=== PATIENT | male | born 1940 | race Caucasian/White ===

== ENCOUNTER 2024-12-22 19:39 | Inpatient (IN) | payer MEDICARE, MEDICAID, SELFPAY ==
--- NOTE | ~2024-12-22 | CT_ITS ---
History: Altered mental status PROCEDURE: CT head without contrast. COMPARISON: None TECHNIQUE: Axial imaging of the head performed from the skull base to the vertex without IV contrast. Sagittal a nd coronal reformations obtained. DLP: 681 mGy-cm FINDINGS: The ventricles are enlarged. The dilatation of the ventricles is proportional to the degree of sulcal prominence, not uncommon in the senescent brain. Bulky calcifications within the basal ganglia, a nonspecific finding. Decreased attenuation is identified within the periventricular white matter, likely secondary to micr ovascular ischemic disease, in a patient of this age. There is no mass, mass effect or midline shift. There is no abnormal extra-axial fluid collection or intracranial hemorrhage. Visualized paranasal sinuses are clear. The mastoid air cells are well aerated. No acute displaced fractures within the overlying cranium. Impression: No acute intracranial hemorrhage or suspicious mass effect. Reviewed, dictated and finalized at location A. Impression: No acute intracranial hemorrhage or suspicious mass effect.
--- NOTE | ~2024-12-22 | XR_ITS ---
CHEST RADIOGRAPH CLINICAL HISTORY: AMS . COMPARISON: None available TECHNIQUE: Single portable view of the chest. FINDINGS The left mid lung is partially obscured due to AICD generator. Wires project over the right atrium, coronary sinus and right ventricle. The remainder of the cardiomediastinal silhouette is otherwise unremarkable. Increased interstitial markings are identified bilaterally, findings suggesting mild pulmonary vascul ar congestion. The lungs are otherwise clear. IMPRESSION: Mild pulmonary vascular congestion, without focal infiltrate or effusion. Reviewed, dictated and finalized at location A.
--- NOTE | ~2024-12-22 | CT_ITS ---
EXAMINATION: CT chst ab pel thor lum w DATE: 12/22/2024 23:35 INDICATION: Periumbilical ecchymoses. Cellulitis of the thoracic and lumbar region. TECHNIQUE: Computed tomography (CT) of the chest, abdomen, pelvis as well as of the thoracic and lumb ar spine was performed with 100 mL Omnipaque-350 intravenous contrast. Automated exposure control and iterative reconstruction technique were employed. The dose-length product was 629.32 mGy-cm. COMPARISON: None FINDINGS: CHEST CT: Small right pleural effusion. Mild dependent atelectasis in the right middle and bilateral lower lobe s. Minimal smooth septal line thickening at the basilar lower lobes consistent with minimal pulmonary edema. Borderline heart size with biatrial enlargement. Atherosclerotic coronary artery calcificatio ns. 3-lead cardiac pacemaker with lead tips at the right atrial appendage, near the apex of the right ventricle and in the coronary vein overlying the lateral wall the left ventricle having traversed th e coronary sinus. No pericardial effusion. Although not performed as a dedicated PE protocol study th ere is good contrast opacification of the pulmonary arteries demonstrating no pulmonary embolism. Tho racic aorta is normal in caliber with no dissection. No pathologically enlarged thoracic lymphadenopa thy. ABDOMEN/PELVIS CT: Status post cholecystectomy. Liver, spleen, pancreas and bilateral adrenal glands are normal. Likely age-related mild cortical thinning at both kidneys. Large amount of stool scattered throughout the co xiang suggestive of constipation. Gas within the normal appendix which extends to the orifice of a smal l fat-containing right inguinal hernia. There is also a small fat-containing right femoral hernia. Po stoperative change at the left groin with 2.7 cm diameter generally low-attenuation lesion with some internal thin curvilinear high attenuation at the entrance to the right inguinal canal likely a plug for prior inguinal hernia repair. Bladder is normal. No free intraperitoneal gas or fluid. No patholo gically enlarged abdominal or pelvic lymphadenopathy. THORACIC AND LUMBAR SPINE CT: Mild kyphosis and levoscoliosis centered at the thoracolumbar junction where there are chronic T12, L 1 and L2 burst fractures with prominent anterior and right side predominant vertebral body height los s and changes of prior vertebroplasty. There are some extravasation of methylmethacrylate into the T1 1-T12 and T12-L1 disc spaces. There is an additional recent-appearing T11 burst fracture with one thi rd anterior to central vertebral body height loss and 2 mm retropulsion resulting in similar degree o f retropulsion at the T12-L2 vertebral bodies results in multilevel mild central canal stenosis at th jeanmarie levels. Mild thoracic and moderate to severe lumbar spondylosis bilaterally with multilevel mild central canal and mild to moderate neural foraminal stenosis. IMPRESSION: 1. Recent-appearing T11 burst fracture with additional chronic T12-L2 burst fractures with change of prior vertebroplasty. 2. Minimal bibasilar pulmonary edema with small right pleural effusion. 2. Borderline heart size with biatrial enlargement. 4. Large amount of colonic stool which could be seen with constipation. 5. Small fat-containing right inguinal hernia and changes of prior left inguinal hernia repair. Reviewed, dictated and finalized at location A. IMPRESSION: 1. Recent-appearing T11 burst fracture with additional chronic T12-L2 burst fra ctures with change of prior vertebroplasty. 2. Minimal bibasilar pulmonary edema with small right pleural effusion. 2. Borderline heart size with biatrial enlargement. 4. Large amount of colonic stool which could be seen with constipation. 5. Small fat-containing right inguinal hernia and changes of prior left inguina l hernia repair.
[2024-12-22 19:39] VITALS: BP 132/70; PULSE 59; PULSE 60; RESP 22; O2SAT 100; O2SAT 99
[2024-12-22 19:44] VITALS: TEMP 36.6
--- NOTE | 2024-12-22 20:07 | ECG_ITS ---
Test Date: 2024-12-22 22:16:42 Measurements Intervals [place] Rate: 59 P: 0 MI: 0 QRS: 149 QRSD: 129 T: 57 QT: 496 QTc: 494 Interpretive Statements ELECTRONIC VENTRICULAR PACEMAKER ABNORMAL RHYTHM ECG No previous ECG available for comparison Electronically Signed On 12-23-2024 10:45:40 CDT by Tashi Driver M.D.
--- NOTE | 2024-12-22 20:09 | ED_ITS ---
HPI - Altered Mental Status General Chief Complaint: Altered Mental Status <Graciela Lilly PA-C - Last Filed: 12/23/24 02:32> Stated Complaint: altered mental status <Graciela Lilly PA-C - Last Filed: 12/23/24 02:32> Time Seen by Provider: 12/22/24 19:40 <Graciela Lilly PA-C - Last Filed: 12/23/24 02:32> History of Present Illness HPI narrative: 84-year-old male with history of CHF, hypothyroidism, AFib, hypertension presents to the ED via EMS from [facility] with reported increased confusion for the past month. His baseline mental status is A&O times 2-3. Upon arrival patient is a nose x2. He has no complaints including headache, vision changes, focal numbness or weakness, chest pain or shortness of breath, abdominal pain, N/V/D, dysuria or hematuria. He is endorsing some lower extremity edema that is worse when he stands for long periods of time. <Graciela Lilly PA-C - Last Filed: 12/23/24 02:32> Related Data Allergies/Adverse Reactions: Allergies Allergy/AdvReac Type Severity Reaction Status Date / Time codeine Allergy Hallucinati Verified 09/01/21 17:30 ng <Graciela Lilly PA-C - Last Filed: 12/23/24 02:32> Review of Systems 2 Review of Systems: All systems reviewed & are unremarkable except as noted in HPI and below <Graciela Lilly PA-C - Last Filed: 12/23/24 02:32> [facility] Past Medical History Medical History: Medical History Cirrhosis Congestive heart failure Pulmonary hypertension Macrocytic anemia Hypothyroidism Atrial fibrillation Hypertension <Graciela Lilly PA-C - Last Filed: 12/23/24 02:32> Family History Family History: Family History Mother Cerebrovascular accident Diabetes mellitus Father Cancer <Graciela Lilly PA-C - Last Filed: 12/23/24 02:32> Social History Social History: Social History Social History: has recently been moved into a fpc facility. Patient was the caregiver. Prior to this patient was independent with ADLs transfers and gait Smoking status: Former smoker Tobacco type: pipe Second hand tobacco smoke exposure: No <Graciela Lilly PA-C - Last Filed: 12/23/24 02:32> Exam 2 Narrative: GENERAL: Well-appearing, well-nourished, and in no acute distress. HEAD: Normocephalic, atraumatic. EYES: PERRLA and EOMI. ENT: Nares clear, no rhinorrhea or epistaxis. Mucous membranes moist. NECK: Supple. CHEST: Clear to auscultation. No respiratory distress. HEART: Regular rate and rhythm. No murmur heard. Normal peripheral pulses. ABDOMEN: Soft, nontender, nondistended, normal active bowel sounds. Ecchymosis around the periumbilical region BACK: Warmth and blanching erythema over the kyphotic region of the thoracic spine with approximately 2 cm stage II pressure ulcer. No active drainage. No fluctuation or induration. No pain to the lumbar spine EXTREMITIES: Normal range of motion. 4+ pitting edema to bilateral lower extremities, no warmth or erythema SKIN: Warm, dry, no rash. NEURO: No focal deficits. Alert and oriented x2. Moving all extremities spontaneously. Cranial nerves 2-12 grossly intact <Graciela Lilly PA-C - Last Filed: 12/23/24 02:32> Course Course Emergency Course: Patient's son and [id number] are now bedside who assist with further hx. States they were visiting the patient today at [facility] and the patient was confused. Reports last time something like this happened, patient ended up being dx with cholecystitis. States he does not normally have any focal complaints if something is wrong. They also note the patient had a L3, L4, L5 nerve ablation performed by pain management at [facility] 4 days ago. He has an area of blanching erythema to his mid back which has been there for a while, but reportedly appears much worse than it has been. <Graciela Lilly PA-C - Last Filed: 12/23/24 02:32> RADIOGRAPHER ANGIOGRAM/PA Physician Supervision I agree with midlevel documentation; I performed the medical decision making component of this evaluation. <Zamzam Sandhu MD - Last Filed: 12/23/24 03:17> Vital Signs Vital signs: Vital Signs Pulse Rate 59 L 12/22/24 19:39 Respiratory Rate 22 H 12/22/24 19:39 Blood Pressure 132/70 12/22/24 19:39 Pulse Oximetry 99 12/22/24 19:39 Oxygen Delivery Room Air 12/22/24 19:39 Temperature 97.9 F 12/22/24 19:44 Pulse Rate 60 12/22/24 19:39 Respiratory Rate 22 H 12/22/24 19:39 Blood Pressure 132/70 12/22/24 19:39 Pulse Oximetry 100 12/22/24 19:39 Oxygen Delivery Room Air 12/22/24 19:39 <Graciela Lilly PA-C - Last Filed: 12/23/24 02:32> Vital Signs Pulse Rate 59 L 12/22/24 19:39 Respiratory Rate 22 H 12/22/24 19:39 Blood Pressure 132/70 12/22/24 19:39 Pulse Oximetry 99 12/22/24 19:39 Oxygen Delivery Room Air 12/22/24 19:39 Temperature 97.9 F 12/22/24 19:44 Pulse Rate 60 12/22/24 19:39 Respiratory Rate 22 H 12/22/24 19:39 Blood Pressure 132/70 12/22/24 19:39 Pulse Oximetry 100 12/22/24 19:39 Oxygen Delivery Room Air 12/22/24 19:39 <Zamzam Sandhu MD - Last Filed: 12/23/24 03:17> MDM - Altered Mental Status MDM Narrative Medical decision making narrative: 84-year-old male presents to emergency department via EMS from [facility] for increased confusion over the past month. See HPI for further history. Vital stable. Patient is afebrile and nontoxic appearing. He is resting comfortably in exam bed and has no complaints. He is A&O x2, per senior living report patient is A&O x2 -3 at baseline. He has no neurologic or lateralizing deficits. CBC without leukocytosis. Hemoglobin is 9.4, only prior for comparison was August 2021 when it was 11.3. Chemistries largely unremarkable. ProBNP elevated to 7960 consistent with patient's exam. Chest x-ray does show mild pulmonary vascular congestion without focal infiltrate or effusion. UA with trace ketonuria, no UTI. CT brain shows no acute intracranial findings. Given ecchymosis to abdomen and abnormal findings to back and recent procedure, CT chest, abdomen and pelvis with recon the spine obtained which shows the following impression: CT thoracic spine shows acute on chronic fracture involving superior endplate of T11. Kyphoplasty at T12, with underlying chronic severe compression deformity. CT lumbar shows no acute fracture subluxation with some a kyphoplasty of L1 and L2, with underlying chronic severe compression deformities. CT chest shows no pulmonary contusions or pneumothorax, no acute fractures. CT abdomen pelvis shows no traumatic visceral injury, no acute fractures. Patient and family updated at bedside. He does have some tenderness over T11 is otherwise neurologically intact. Pt was started on vancomycin for cellulitis to his back. He was given Lasix for CHF exacerbation. Discussed with our hospitalist, Dr. Magana, who advises transfer to [facility] for T11 superior endplate fracture given patient had recent L3-L5 nerve ablation. Family politely requesting to stay at [place] and do not want to transfer the patient to [facility] given they do not desire intervention. Hospitalist updated, he is requesting consult to our neurosurgery. Discussed with neurosurgeon, Dr. Aguilar, who advises there is no surgical intervention needed. If patient has significant pain, he can be fitted for a TLSO brace. Otherwise, states hospitalist team can contact him for any further questions. Discussed with Dr. Magana who accepts patient for admission. Will consult wound care for back ulcer. <Graciela Lilly PA-C - Last Filed: 12/23/24 02:32> Lab Data Result diagrams: 12/22/24 21:04 12/22/24 21:04 <Graciela Lilly PA-C - Last Filed: 12/23/24 02:32> Labs: Lab Results 12/22/24 12/22/24 12/23/24 Range/Units 21:04 21:23 01:35 WBC 9.1 (4.5-10.0) K/mm3 RBC 2.95 L (4.6-6.20) M/mm3 Hgb 9.4 L (14.0-18.0) g/dL Hct 30.2 L (42.0-52.0) % MCV 102.4 H (80-100) fl MCH 31.9 (26-34) pg MCHC 31.1 L (32-36) g/dl RDW 15.9 H (11.5-14.5) % Plt Count 204 (150-375) k/mm3 MPV 9.9 (7.4-10.4) fl Immature Gran % (Auto) 0.9 H (0-0.5) % Neut % (Auto) 76.2 H (45.5-73.1) % Lymph % (Auto) 11.5 L (18.3-44.2) % [place] % (Auto) 11.3 H (2.6-8.5) % Eos % (Auto) 0.0 (0-4.4) % Baso % (Auto) 0.1 L (0.2-1.2) % Lymph # (Auto) 1.05 (0.9-3.2) K/mm3 [place] # (Auto) 1.0 H (0.1-0.6) K/mm3 Eos # (Auto) 0.0 (0-0.3) K/mm3 Baso # (Auto) 0.0 (0.0-0.1) K/mm3 Abs Immat Gran (auto) 0.08 H (0.00-0.031) K/mm3 Absolute Neuts (auto) 7.0 H (1.3-6.7) K/mm3 Absolute Nucleated RBC 0.000 (0.0-0.012) K/mm3 Nucleated RBC % 0.0 (0.0-0.2) % PT 17.7 H (11.1-14.7) Seconds INR 1.4 APTT 32.2 (22.3-36.8) Seconds Sodium 133 L (137-145) mmol/L Potassium 4.5 (3.4-5.0) mmol/L Chloride 106 (98-107) mmol/L Carbon Dioxide 20 L (22-30) mmol/L Anion Gap 7 (4-12) mmol/L BUN 29 H (9-20) mg/dL Creatinine 0.94 (0.7-1.3) mg/dL Estim Creat Clear Calc 48 ml/min Estimated GFR > 60 (59 - ) Glucose 88 (65-110) mg/dL Lactic Acid 0.9 (0.7-2.0) mmol/L Calcium 8.6 (8.4-10.2) mg/dL Total Bilirubin 1.0 (0.2-1.3) mg/dL AST 55 (17-59) U/L ALT 20 (6-50) U/L Alkaline Phosphatase 69 (38-126) U/L Troponin I 0.029 (0.000-0.034) ng/mL NT-Pro-B Natriuret Pep 7960 H (19.9-100) pg/mL Total Protein 7.0 (6.3-8.2) g/dL Albumin 3.4 L (3.5-5.1) g/dL TSH 3.600 (0.465-4.680) uIU/mL Urine Color Dark yellow (Yellow) Urine Appearance Clear (Clear) Urine pH 5.5 (5.0-9.0) Ur Specific [place] 1.018 (1.001-1.035) Urine Protein Negative (Negative) mg/dL Urine Glucose (UA) Negative (Negative) mg/dL Urine Ketones Trace H (Negative) mg/dL Ur Blood (Man) Negative (Negative) Urine Nitrate Negative (Negative) Urine Bilirubin Negative (Negative) Urine Urobilinogen 0.2 (<2.0) mg/dL Leukocyte Esterase Rfl Negative (Negative) CEDRICK/UL <Graciela Lilly PA-C - Last Filed: 12/23/24 02:32> Lab Results 12/22/24 12/22/24 12/23/24 Range/Units 21:04 21:23 01:35 WBC 9.1 (4.5-10.0) K/mm3 RBC 2.95 L (4.6-6.20) M/mm3 Hgb 9.4 L (14.0-18.0) g/dL Hct 30.2 L (42.0-52.0) % MCV 102.4 H (80-100) fl MCH 31.9 (26-34) pg MCHC 31.1 L (32-36) g/dl RDW 15.9 H (11.5-14.5) % Plt Count 204 (150-375) k/mm3 MPV 9.9 (7.4-10.4) fl Immature Gran % (Auto) 0.9 H (0-0.5) % Neut % (Auto) 76.2 H (45.5-73.1) % Lymph % (Auto) 11.5 L (18.3-44.2) % [place] % (Auto) 11.3 H (2.6-8.5) % Eos % (Auto) 0.0 (0-4.4) % Baso % (Auto) 0.1 L (0.2-1.2) % Lymph # (Auto) 1.05 (0.9-3.2) K/mm3 [place] # (Auto) 1.0 H (0.1-0.6) K/mm3 Eos # (Auto) 0.0 (0-0.3) K/mm3 Baso # (Auto) 0.0 (0.0-0.1) K/mm3 Abs Immat Gran (auto) 0.08 H (0.00-0.031) K/mm3 Absolute Neuts (auto) 7.0 H (1.3-6.7) K/mm3 Absolute Nucleated RBC 0.000 (0.0-0.012) K/mm3 Nucleated RBC % 0.0 (0.0-0.2) % PT 17.7 H (11.1-14.7) Seconds INR 1.4 APTT 32.2 (22.3-36.8) Seconds Sodium 133 L (137-145) mmol/L Potassium 4.5 (3.4-5.0) mmol/L Chloride 106 (98-107) mmol/L Carbon Dioxide 20 L (22-30) mmol/L Anion Gap 7 (4-12) mmol/L BUN 29 H (9-20) mg/dL Creatinine 0.94 (0.7-1.3) mg/dL Estim Creat Clear Calc 48 ml/min Estimated GFR > 60 (59 - ) Glucose 88 (65-110) mg/dL Lactic Acid 0.9 (0.7-2.0) mmol/L Calcium 8.6 (8.4-10.2) mg/dL Total Bilirubin 1.0 (0.2-1.3) mg/dL AST 55 (17-59) U/L ALT 20 (6-50) U/L Alkaline Phosphatase 69 (38-126) U/L Troponin I 0.029 (0.000-0.034) ng/mL NT-Pro-B Natriuret Pep 7960 H (19.9-100) pg/mL Total Protein 7.0 (6.3-8.2) g/dL Albumin 3.4 L (3.5-5.1) g/dL TSH 3.600 (0.465-4.680) uIU/mL Urine Color Dark yellow (Yellow) Urine Appearance Clear (Clear) Urine pH 5.5 (5.0-9.0) Ur Specific [place] 1.018 (1.001-1.035) Urine Protein Negative (Negative) mg/dL Urine Glucose (UA) Negative (Negative) mg/dL Urine Ketones Trace H (Negative) mg/dL Ur Blood (Man) Negative (Negative) Urine Nitrate Negative (Negative) Urine Bilirubin Negative (Negative) Urine Urobilinogen 0.2 (<2.0) mg/dL Leukocyte Esterase Rfl Negative (Negative) CEDRICK/UL <Zamzam Sandhu MD - Last Filed: 12/23/24 03:17> Discharge Plan Discharge Clinical Impression: Cellulitis of back CHF exacerbation Qualifiers: Heart failure type: unspecified Qualified Code(s): I50.9 - Heart failure, unspecified Compression fx, thoracic spine Qualifiers: Encounter type: initial encounter Thoracic vertebra fracture level: T11 Q ualified Code(s): S22.080A - Wedge compression fracture of T11-T12 vertebra, initial encounter for closed fracture <Graciela Lilly PA-C - Last Filed: 12/23/24 02:32> Patient Disposition: Still a Patient <Graciela Lilly PA-C - Last Filed: 12/23/24 02:32> Condition: Stable <Graciela Lilly PA-C - Last Filed: 12/23/24 02:32>
--- OUTSIDE RECORDS SUMMARY | 2024-12-22 20:30 | XMS_ITS | Encounter Summary ---
Author Organization [facility] Healthcare Address [address] [place] [address] Care Team Providers Care Gps Field Data Collector Name Role Phone Eliot Fernandez MD Primary Care Provider Roxanne Pickering MD Unavailable [phone] Caitlyn Lin MD Unavailable Atfi Ontiveros MD Unavailable [phone] Yao Diaz MD Unavailable Rachell Allen MD Unavailable Herman Dyer DPM Unavailable Narinder Steven MD Unavailable [phone] Blaze Patten MD Unavailable [phone] Sydni Espitia NP Unavailable [phone] Gil Foster Unavailable [phone] Christy Washburn AUDIOVISUAL LEAD TECHNICIAN Unavailable [phone] Walker Luevano MD Unavailable Encounter Details Date Type Department Care Team (Late st Contact Info) Description 07/16/2024 Orders Only [facility] [address] [place] [id number] Scanning, Provider Social History Tobacco Use Types Packs/Day Years Used Date Smoking Tobacco: Former Pipe 1 1989 Smokeless Tobacco: Former Chew Comments:Former Pipe Smoke - 2-3 pipes per day Alcohol Use Standard Drinks/Week Comments Yes 0 (1 standard drink = 0.6 oz pur e alcohol) Social Connection and Isolat ion Panel [NHANES] Answer Date Recorded In a typical week, how many times do you talk on the phone with family, friends, or neighbors? More than three times a week 09/15/2021 How often do you get togethe r with friends or relatives? More than three times a week 09/15/2021 How often do you attend chur ch or catholic services? 1 to 4 times per year 09/15/2021 Do you belong to any clubs o r organizations such as yarsanism groups, unions, fraternal or athletic groups, or school groups? No 09/15/2021 How often do you attend meet ings of the clubs or organizations you belong to? Never 09/15/2021 Are you , , di vorced, , never , or living with a partner? 09/15/2021 AUDIT-C Answer Date Recorded Q1: How often do you have a drink containing alcohol? Never 09/27/2022 Q2: How many drinks containi ng alcohol do you have on a typical day when you are drinking? Patient does not drink Frequency of Binge Drinking Not on file 09/08 Overall Financial Resource Strain (CARDIA) Answe r Date Recorded How hard is it for you to pa y for the very basics like food, housing, medical care, and heating? Not hard at all 09/15/2021 PHQ-2 Answer Date Recorded PHQ-2 Total Score (If total score is 3 or more points, staff should administer the PHQ-9) 0 03/13/2023 [facility] - Occupational Stress Questionnaire Answer Date Recorded Do you feel stress - tense, restless, nervous, or anxious, or unable to sleep at night because your mind is troubled all the time - these days? Only a little 12/14/2020 Hunger Vital Sign Answer Date Recorded Within the past 12 months, y ou worried that your food would run out before you got the money to buy more. Never true 12/15/19 21 Within the past 12 months, t he food you bought just didn't last and you didn't have money to get more. Never true 12/14/2020 PRAPARE - Transportation Answer Date Re corded In the past 12 months, has l ack of transportation kept you from medical appointments or from getting medications? No 04/2022 In the past 12 months, has l ack of transportation kept you from meetings, work, or from getting things needed for daily living? No 09/15/2021 Personal Safety Answer Date Recorded Have you ever been in or are you currently in a harmful physical or emotional relationship or is someone making you feel afraid or unsafe? Denies 05/21/2024 Sex and Gender Information Value Date Recorded Sex Assigned at Not on file Legal Sex Male 4:35 PM PASTRY ARTIST Gender Identity Not on file Sexual Orientation Not on file documented as of this encounter Plan of Treatment Not on file documented as of this encounter Goals Goal Patient Goal Type Associated Problems Recent Progress Patient-Stated? Author ARLENE General Goal - Patient schedules and keeps appointments with all recommended providers ACO Care Management On track(2021 9:13 AM PASTRY ARTIST) Christy Darden RN Note: Problem: Potential for medical complications and readmission if follow-up appointments are not scheduled Interventions: - Ensure all follow-up appointments are scheduled, all prescribed medications have been received. - Address any barriers for keeping scheduled appointment. - Coordinate with patient/caregiver(s) to ensure patient is able to keep scheduled appointment. - Emphasize importance of keeping scheduled appointments. - Identify and discuss questions for next provider visit. - Follow up with patient after scheduled appointment(s) to review any new orders or changes made to medication regimen. ARLENE General Goal - Patient is knowledgeable about condition when worsening and how to respond ACO Care Management On track(2021 9:13 AM PASTRY ARTIST) Christy Darden, LYNDSAY Note: Problem: Knowledge deficit related to signs and symptoms of worsening condition Interventions: - Assess patient's level of understanding related to their condition(s), specific medications and self-management of their chronic conditions. - Send educational materials to patient related to their chronic condition, including signs and symptoms, self-management actions, and serious symptoms that require urgent medical intervention. - Assist patient/provider in developing an action plan for symptom management. - Review with patient weekly: s/s worsening condition, self-management actions to take, when to call CM or provider. documented as of this encounter Procedures Procedure Name Priority Date/Time Associated Diagnosis Comments SCAN - RADIOLOGY/IMAGING 07/16/2024 documented in this encounter Results * SCAN - RADIOLOGY/IMAGING (07/16/2024) Anatomical Region Laterality Modality Other us Provider Scanning Final Result documented in this encounter Visit Diagnoses Not on filedocumented in this encounter Additional Health Concerns Infection Onset Date Last Indicated Resolved Time COVID: Suspected 11/25/2024 11/25/2024 11/25/2024 3:44 AM CDT documented as of this encounter Care Teams Gps Field Data Collector Relationship Specialty Start Date End Date Eliot Fernandez MD [address] [place] [address] PCP - General 11/04/16 Roxanne Pickering MD [address] [place] [address] Consulting Physician Dermatology 03/15/19 Caitlyn Lin MD [address] [place] [address] Consulting Physician Sleep Medicine 11/13/19 Atif Ontiveros MD [address] [place] [address] DR HASEEB Carpio [facility] [address] [place] [address] Surgeon Orthopedic Surgery 01/29/15 [place] [id number] [address] Consulting Physician Orthopedic Surgery 10/07/20 [place] [address] [address] Consulting Physician Gastroenterology 11/26/20 Herman Dyer DPM [id number] [address] Consulting Physician Podiatry 05/22/21 [place] [id number] [address] Consulting Physician Cardiology 08/20/21 [place] [address] [address] Consulting Physician Hematology and Oncology 06/02/22 Sydni Espitia, AUDIOVISUAL LEAD TECHNICIAN [address] [address] Nurse Practitioner Medical Oncology 09/06/22 Gil Foster PA [address] [place] [address] DR LOVE [address] [place] [address] Physician Hospice Aide Orthopedic Surgery 01/29/24 [place] [id number] [address] Nurse Practitioner Dog Handler 06/24/24 Walker Luevano MD [address] [place] [address] DR LOVE [address] [place], [place] [address], [place] [address] Consulting Physician General Surgery 12/02/24 documented as of this encounter
--- OUTSIDE RECORDS SUMMARY | 2024-12-22 20:30 | XMS_ITS | Clinical Summary ---
Author Organization [facility] Care Team Providers Care Cloud Developer Name Role Phone Unavailable Primary Care Provider Unavailabl e Social History Tobacco Use Types Packs/Day Years Used Date Smoking Tobacco: Never Assessed Sex and Gender Information Value Date Recorded Sex Assigned at Not on file Legal Sex Male 11:53 PM CDT Gender Identity Not on file Sexual Orientation Not on file Plan of Treatment Not on file
--- OUTSIDE RECORDS SUMMARY | 2024-12-22 20:31 | XMS_ITS | Clinical Summary ---
Author Organization [facility] Address [address] [place] [address] Care Team Providers Care Talend Developer Name Role Phone Neeru Fernandez MD Primary Care Provider [phone] Roxanne Pickering MD Unavailable [phone] Caitlyn Lin MD Unavailable Atif Ontiveros MD Unavailable Yao Diaz MD Unavailable Rachell Allen MD Unavailable [phone] Herman DyreM Unavailable Narinder Steven MD Unavailable [phone] Blaze Patten MD Unavailable Sydni Espitia NP Unavailable [phone] Gil Foster Unavailable [phone] Christy Washburn MORTGAGE SPECIALIST Unavailable [phone] Walker Luevano MD Unavailable Allergies Active Allergy Reactions Criticality Noted Date Comments Hydrocodone Hallucinations Medium 07/24/2024 Oxycodone Hallucinations,Vomiting Medium 12/30/2015 Medications multivitamin tabletIndication s:Vitamin Deficiency Prevention Take 1 tablet by mouth 2 (two) times a day 01/07/20 21 Active polyethylene glycol (MIRALAX) 17 gram/dose bulk powderIndication s:constipation Take 17 g by mouth daily as needed (Constipation) 05/27/20 24 Active ferrous sulfate 325 mg (65 mg of elemental iron) tabletIndication s:Iron Deficiency Anemia Take 1 tablet (325 mg total) by mouth daily with breakfast Active acetaminophen (TYLENOL) 500 mg tabletIndication s:Pain Take 2 tablets (1,000 mg total) by mouth every 8 (eight) hours as needed for pain Active Eliquis 2.5 mg tabletIndication s:atrial fibrillation TAKE 1 TABLET (2.5 MG TOTAL) BY MOUTH TWO (2) (TWO) TIMES a DAY 60 tablet 2 09/25/19 25 Active lidocaine (Salonpas, lidocaine,) 4 % adhesive patch,medicatedI ndications:Pain Place 1 patch on the skin daily sherry Woods/Dr Fernandez/Megan Collazo, RN 09/26/24 108 pm Active amLODIPine (NORVASC) 2.5 mg tabletIndication s:hypertension Take 1 tablet (2.5 mg total) by mouth daily as needed (If systolic BP exceeds 140 or diastolic exceeds 90) 10/03/19 25 Active gabapentin (NEURONTIN) 300 mg capsuleIndicatio ns:Neuropathic Pain TAKE 1 CAPSULE (300 MG TOTAL) BY MOUTH NIGHTLY 90 capsule 1 11/14/19 25 Active spironolactone (ALDACTONE) 25 mg tabletIndication s:Lower leg edema TAKE ONE HALF (1/2) TABLET (12.5 MG TOTAL) BY MOUTH DAILY 45 tablet 11/14/19 25 Active metoprolol XL (TOPROL-XL) 50 mg extended release tabletIndication s:chronic heart failure TAKE 0.5 TABLETS (25 MG TOTAL) BY MOUTH DAILY 45 tablet 11/14/19 25 Active levothyroxine (SYNTHROID) 137 mcg tabletIndication s:hypothyroidism TAKE 1 TABLET (137 MCG TOTAL) BY MOUTH EVERY MORNING 90 tablet 11/14/19 25 Active furosemide (LASIX) 40 mg tabletIndication s:hypertension TAKE 0.5 TABLETS (20 MG TOTAL) BY MOUTH DAILY 45 tablet 11/14/19 25 Active mirtazapine (REMERON) 15 mg tabletIndication s:major depressive disorder TAKE 1 TABLET (15 MG TOTAL) BY MOUTH NIGHTLY 30 tablet 11/14/19 25 Active traMADoL (ULTRAM) 25 mg tablet Take 1 tablet (25 mg total) by mouth 2 (two) times a day as needed for pain for up to 2 doses 2 tablet 12/03/19 25 Active atorvastatin (LIPITOR) 10 mg tablet Take 1 tablet (10 mg total) by mouth nightly 30 tablet 11 12/03/19 25 026 Active docusate sodium (COLACE) 100 mg capsuleIndicatio ns:constipation Take 1 capsule (100 mg total) by mouth 2 (two) times a day 12/03/19 25 Active ramelteon (ROZEREM) 8 mg tabletIndication s:Sleep-Onset Insomnia Take 1 tablet (8 mg total) by mouth nightly as needed for sleep 12/03/19 25 026 Active Additional Information Patient not taking.Reported on 12/12/2024 tamsulosin (FLOMAX) 0.4 mg extended release capsule Take 1 capsule (0.4 mg total) by mouth daily with dinner 12/03/19 25 Active docusate sodium (Colace) 100 mg capsuleIndicatio ns:constipation Take 1 capsule (100 mg total) by mouth 2 (two) times a day for 14 days 28 capsule 2 06/29/20 20 025 Discontin ued(Stop Taking at Discharge ) tiZANidine (ZANAFLEX) 2 mg tabletIndication s:Muscle Spasm Take 1 tablet (2 mg total) by mouth every 12 (twelve) hours as needed for muscle spasms 10 tablet 08/06/20 24 025 Discontin ued(Stop Taking at Discharge ) camphor-methyl salicyl-menthoL adhesive patch,medicated Apply 1 patch topically daily 09/26/19 25 025 Discontin ued(Stop Taking at Discharge ) traMADoL (ULTRAM) 50 mg tabletIndication s:Chronic midline low back pain with bilateral sciatica Take 2 tablets (100 mg total) by mouth 2 (two) times a day as needed for pain 120 tablet 3 11/21/19 25 025 Discontin ued(Stop Taking at Discharge ) Active Problems Problem Noted Date Diagnosed Date Acute cholecystitis 12/12/2024 Assessment & Plan (12/12/2024 10:49 AM CDT): Given how inflamed the gallbladder was I am not surprised it is taking a little bit of time for his appetite returned. I expect this to continue to improve over the next few weeks. ROSELINE drain has been removed at bedside. He can continue with just daily dressing changes to the area until the whole closes shut. He will call us back if he needs anything further Altered mental status, unspe cified altered mental status type 11/25/2024 Dementia 11/25/2024 Moderate malnutrition 11/25/2024 Encounter for pacemaker at end of battery life 0 09/16/2024 Permanent atrial fibrillation 09/16/2024 Spondylosis of lumbar region without myelopathy or radiculopathy 09/11/2024 Hypophosphatemia 08/06/2024 Myalgia 08/05/2024 Lumbar compression fracture, with routine healing, subsequent encounter 07/24/2024 Assessment & Plan (10/30/2024 9:19 PM CDT): Chronic, present for at least several months with interventions that have helped a little bit. Recommend continuing tramadol 100 mg twice daily as needed and acetaminophen 500-1000 mg q.8 hours as needed. Elevated bilirubin 07/23/2024 Lumbar radiculopathy 06/24/2024 Left upper quadrant abdominal pain 02/15/2024 Assessment & Plan (02/29/2024 12:51 PM CDT): New problem, undetermined significance. About two weeks ago he developed sharp left upper lateral abdominal pain. The pain was worse with certain movements. He does not recall any injury. He denies any change in bowel or urinary habits or any visible blood in the stool or urine. On exam, the abdomen is fairly benign, but on deep palpation of the left upper quadrant he does flinch slightly. The cause of his symptoms is uncertain. It could be a musculoskeletal pain. He says it is improving so we deferred any immediate additional workup for now. He can return early as needed if the symptoms do not resolve completely, otherwise follow-up in three months. Chronic bronchitis, unspecified chronic bronchit is type 08/17/2023 Assessment & Plan (09/20/2024 5:30 AM WARDROBE TECHNICIAN): Chronic, present for at least a year and expected to last more than a year. Likely due to past tobacco use, but not currently requiring active bronchodilator therapy. We will monitor clinically. Assessment & Plan (08/18/2023 2:19 PM WARDROBE TECHNICIAN): He has not currently requiring an inhaler. Lungs are clear and oxygen saturation is adequate on room air. Hypercalcemia 02/08/2023 Overview (02/09/2023): Mild, possible lab error. Assessment & Plan (07/01/2023 10:44 AM WARDROBE TECHNICIAN): He had a mild elevation of calcium on recent labs, follow-up is normal. We are deferring any additional testing for now. Lab Results Component Value Date CALCIUM 9.7 06/13/2023 PHOS 3.3 09/28/2020 Assessment & Plan (02/09/2023 12:31 PM CDT): Mild hypercalcemia is noted on his follow-up BMP done yesterday. It could be a lab error or due to other causes. We will check a follow-up before his visit in one month along with a PTH level. Additional workup may be needed. 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 Pulmonary hypertension 02/18/2022 Assessment & Plan (03/31/2022 4:26 PM CDT): He reportedly has pulmonary hypertension on his echocardiogram. He denies feeling short of breath. He denies chest pain. Edema is controlled. We will monitor clinically for now. 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 He denies any SOB, but it is unclear as to whether this is contributing to edema vs mitral regurg, vs possible MDS. We will refer back to cardiology for further evaluation and will f/u with patient in 2 weeks or sooner if needed. Macrocytic anemia 11/15/2021 Overview (03/13/2023): Longstanding mild normocytic anemia, fluctuates in severity, see hospital records. As of about November 2021, had macrocytic indices. B12 normal. Assessment & Plan (11/06/2023 1:22 PM CDT): We are monitoring a mild macrocytic anemia, possibly due to early myelodysplastic syndrome. B12 was normal. Lab Results Component Value Date WBC 5.2 08/18/2023 HGB 11.1 (L) 08/18/2023 HCT 36.3 (L) 08/18/2023 MCV 101.7 (H) 08/18/2023 LABPLAT 150 08/18/2023 Lab Results Component Value Date VITB12 757 06/07/2023 Assessment & Plan (07/01/2023 10:45 AM WARDROBE TECHNICIAN): He is being followed in hematology. Blood counts are stable. MCV is improved. Lab Results Component Value Date WBC 7.4 06/13/2023 HGB 12.6 (L) 06/13/2023 HCT 39.4 06/13/2023 MCV 95.6 06/13/2023 LABPLAT 206 06/13/2023 Assessment & Plan (03/26/2023 2:47 PM CDT): He has a mild macrocytic anemia. He takes a multivitamin. B12 when last checked was normal. Lab Results Component Value Date VITB12 1,054 01/17/2022 Assessment & Plan (01/17/2022 2:26 PM CDT): He has had a fairly longstanding and mild anemia, initially normocytic but more recently macrocytic and possibly getting worse. We will repeat a B12 level along with folate. He had recent thyroid hormone levels which were okay. He does have possible cardiac cirrhosis which could be a factor. We will refer him to Hematology for other considerations such as myelodysplastic syndrome. Assessment & Plan (10/08/2020 10:28 AM WARDROBE TECHNICIAN): He has a mild and fairly longstanding normocytic anemia which we will continue to monitor. It dates to 2012. The exact cause is uncertain but it does not seem to be progressive. Consider additional workup as needed. Assessment & Plan (11/24/2019 10:31 AM CDT): He has had a longstanding mild/borderline normocytic anemia which fluctuates somewhat. It seemed to start around the time he had a knee replacement. We will check a follow-up blood count with his next labs to make sure things are stable. Weight loss 11/11/2021 Assessment & Plan (11/11/2021 7:51 AM CDT): Patient has persistent weight loss which may be d/t poor nutrition. Patient however, reports he is trying to eat. Since last visit a month ago he has had a 7lb unintentional weight loss. Have recommended CT of the abdomen and pelvis for further evaluation as noted above. 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 We presume this was a cardiac cirrhosis, but it could be due to amiodarone. Dr. Steven stopped the amiodarone this morning. We reinforced this with the patient. Closed compression fracture of body of L1 verteb ra 08/02/2021 Overview (08/12/2021): See ER note, [facility]. Assessment & Plan (08/22/2024 2:18 PM WARDROBE TECHNICIAN): Acute problem about a month ago. He was in the ER and transferred to [facility] for management of pain. He is now experiencing a flare from another fall, see discussion elsewhere. We discussed strategies to reduce the risk of falling including more reliance on wheelchair ambulation, but he says his house does not easily accommodate a wheelchair. For now he will continue to use his cane which he says normally provides him with adequate support. We will see him back as scheduled for his annual in about a month. Assessment & Plan (09/16/2021 3:08 PM WARDROBE TECHNICIAN): He initially had a T12 fracture, then had another fall and and suffered an L1 fracture. He had vertebroplasties at [facility] which did not really alleviate the pain. The pain can be severe at times. He has tramadol which helps when he remembers to take it. He denies constipation or other side effects from the tramadol. We will refer him to Dr. Garrett for further evaluation of his pain and possible other modalities of treatment. Assessment & Plan (08/15/2021 4:37 AM WARDROBE TECHNICIAN): He fell on [employer] lights. He was trying to help his get up from her own fall. He lost his balance, hit his head on a coffee table. His fell on top of him. He had worsening pain in his lower back where he had a pre-existing T12 compression fracture from a prior injury in 2019. He went to [facility] ER, they gave him some analgesics and discharged him. A few days later he went to [facility] and CT showed worsening of his T12 fracture as well as a new L1 superior endplate fracture. He is coping with either hydrocodone or tramadol taken as needed depending on his pain level, but has significant breakthrough pain at times. He would like to go see Dr. Diaz for further evaluation and management. We put in a refill. Right inguinal hernia 06/07/2021 Overview (11/16/2021): CT on 11/12/2021: Small fat containing right inguinal hernia with a soft tissue nodule, which is indeterminate in etiology and may represent sequela of fat necrosis from prior inflamed mesenteric fat or resolving soft tissue hematoma. Clinical correlation with physical exam findings is recommended. Assessment & Plan (10/06/2022 12:48 PM WARDROBE TECHNICIAN): He says his hernia is not bothering him. Bowel habits are normal although sometimes he has to get to the bathroom in a hurry to avoid urinary incontinence. Assessment & Plan (05/08/2022 6:50 AM CDT): He denies any current right groin pain, although he does have discomfort once in a while. We will continue to monitor clinically. Assessment & Plan (11/17/2021 3:54 PM CDT): He has had some swelling in his right groin which is worse in the daytime and goes down overnight. CT shows an inguinal hernia containing only fat with one area of a more nodular appearance which could be some fat necrosis. Since he has minimal discomfort, we will monitor clinically for now. I advised him that if he gets a lot of pain, he might need surgery. Assessment & Plan (10/15/2021 1:27 PM WARDROBE TECHNICIAN): He still gets bulging in the right lower abdominal wall/upper inguinal area. It seems to come and go. On exam today I do not feel any definite hernia. There does seem to be a rather firm if not hard fusiform swelling measuring approximately 1-2 cm x 4-5 cm. It is slightly tender. It is not reducible. It feels like possible matted lymph nodes. A soft tissue masses possible. I do not believe this is the hernia a previously detected on exam. We will refer for a follow-up ultrasound to re- evaluate this area. Assessment & Plan (09/16/2021 3:05 PM WARDROBE TECHNICIAN): He is worried about a right inguinal hernia. Ultrasound was actually negative, but it was done in a supine position. When he stands, there is a definite bulging in the right inguinal canal which is easily reduced. There is minimal discomfort at this time. I do not actually feel a hernia in the inguinal canal, so this could be a direct hernia. In any case, he does not want a referral at this time even though he is having some symptoms when it bulges out. He will let me know if things get worse. Assessment & Plan (07/13/2021 10:37 AM WARDROBE TECHNICIAN): Given how swollen everything Is it is difficult to appreciate whether not a hernia is present. His symptoms of having the swelling start with him just sitting does not completely correlate with the normal symptomatic hernia. However there clearly is a difference in size of his right compared to left inguinal area. I am going to order a CT scan to better appreciate this area. Will bring him back once this is done to discuss further plan going forward. Until then hopefully the increased water pill will help with some of the swelling and edema and that will limit his pain. Assessment & Plan (07/04/2021 4:17 PM WARDROBE TECHNICIAN): He has noted a painful swelling in his right groin. The exact duration is unclear. He says it happens mostly when he is up or if he strains to have a bowel movement, but sometimes it just happens without any provocation. It usually goes away when he sits down or lies down. Exam shows an ill-defined ropey induration or swelling in the right groin without any definite herniation of bowel. The diameter is approximately 2 cm and it extends over a 5-10 cm area. It could be mesenteric fat in the inguinal canal. He says sometimes it gets as big as his fist, and it can be very painful. We will get an ultrasound and refer him to surgery. Chronic right shoulder pain 04/16/2021 Overview (04/30/2021): Followed a ground level fall. Assessment & Plan (11/07/2023 4:03 AM CDT): He has chronic right shoulder pain. It has bothered him for many years but it seems to be getting worse. On exam, there is moderate to severe decreased range of motion in both shoulders. There is no active inflammation or even much tenderness. We will get an x-ray of the right shoulder which is his main complaint, although the left one also hurts at times. We will refer him to Orthopedics for possible local steroid injection if indicated. Assessment & Plan (05/16/2021 1:42 PM CDT): He developed slight pain and swelling in the right sternoclavicular joint after a ground level fall about two weeks ago. The symptoms may have been exacerbated more recently when he was carrying a moderately heavy object. Exam does show a slight enlargement on the right SC joint compared to the left. There is mild tenderness. There is no ecchymosis. We are getting an x-ray. Hospital discharge follow-up 12/08/2020 Overview (01/06/2021): See office note, ELIER Billings. Assessment & Plan (12/08/2020 11:38 AM CDT): Patient is here for follow up after being discharged for symptomatic anemia and AV node ablation. He reports upon returning home he did resume his Eliquis. He is denies any blood stools since his return home. He does however, state that he has had some recurrent feelings of being light headed with position changes. His medications were reviewed and labs will be updated. Will follow with primary in 4 weeks or sooner if needed. Lower leg edema 12/08/2020 Overview (09/16/2021): Likely due to diastolic heart failure. Assessment & Plan (08/18/2023 2:26 PM WARDROBE TECHNICIAN): The swelling in his legs is fairly minimal at this time. We are reducing the dose of diuretic as discussed elsewhere. Assessment & Plan (04/25/2022 3:10 PM CDT): Swelling is well controlled. Follow-up in three months. Assessment & Plan (03/31/2022 4:25 PM CDT): This is very well controlled with support hose and his diuretics. There is essentially no swelling in his legs at this time. Continue current therapy and follow-up in three months. Assessment & Plan (03/09/2022 2:28 PM CDT): Presents with improvement in swelling from last visit. Despite weight increase, appears to be at baseline. Encouraged to continue compression socks and elevating feet. Avoid excess salt in diet. Will be seeing cardiology next week to determine if mitral regurg or pulmonary HTN may be contributing to this persistent issue and if there is anything more or different we can do. Will continue present meds and f/u next month with Dr. Fernandez or sooner if needed. Assessment & Plan (02/18/2022 7:34 AM CDT): Patient returns for follow up on his lower extremity edema which persists despite diuretics and compression. Patient feels the edema is improved. Based on recent labs his BUN and CR are up from baseline, but have discussed with Dr. Beau Fernandez and will continue medication at present dose. He has also had a weight loss since last visit unclear if 7lb or more as 2 different weights from previous visit. We will monitor renal function closely as we try to determine cause for continued LE edema despite maximum diuretic therapy. Assessment & Plan (01/17/2022 2:25 PM CDT): He has chronic lower leg swelling. This may account in part for some of his weight gain. Diuretics were adjusted this morning by Cardiology. Hopefully this will help him mobilize fluid. Assessment & Plan (01/09/2022 2:28 PM CDT): We lowered his diuretic dose a few weeks ago because of low blood pressure readings. The swelling in his legs is not that bad, but he has put on 25 lb, and there is moderate presacral pitting edema. We are increasing his diuretic back up again. We will see him as currently scheduled in about two weeks for reassessment. Assessment & Plan (12/11/2021 4:28 PM CDT): The swelling in his legs is very well controlled now on furosemide and other medications for his heart failure. His last creatinine for the CT scan was minimally elevated, otherwise kidney function has been normal. We will check again before his scheduled visit in about two months. Lab Results Component Value Date GLUCOSE 87 11/12/2021 CALCIUM 9.7 11/12/2021 SODIUM 133 (L) 11/12/2021 POTASSIUM 4.4 11/12/2021 CO2 28 11/12/2021 CHLORIDE 96 (L) 11/12/2021 BUNSER 35 (H) 11/12/2021 CREATININE 1.12 11/12/2021 CREATININE 1.35 (H) 11/12/2021 Assessment & Plan (09/25/2021 5:02 PM WARDROBE TECHNICIAN): His lower leg edema has completely resolved. He is on spironolactone and furosemide. Recent labs at the hospital showed good kidney function. Assessment & Plan (08/23/2021 7:39 AM WARDROBE TECHNICIAN): Patient presents with recurrent bilateral LE edema. Edema significant and up to his waist. He states he has been compliant with medications and is trying to avoid drinking excess fluids. Will transfer to ER for further treatment and diuresis. Assessment & Plan (07/20/2021 11:23 AM WARDROBE TECHNICIAN): Patient was seen last week with persistent bilateral LE edema up to the scrotum. He had 3-4+ pitting edema. Today edema +1 and only noted in LE below the knees. He was seen with Dr. Fernandez and diuretics were adjusted at that visit. He has been taking medication as prescribed, restricting fluid and salt. He has had a significant weight loss of 30lbs since last visit. He states he is feeling overall well. We will do labs today to evaluate renal function and electrolytes with significant fluid loss. Instructed patient and called and spoke with pharmacist at [facility], who does patient pill packs. Patient will stop metolazone and we will decrease lasix to 40 mg BID. Instructed pharmacist to remove lasix 80mg from pill pack for tonight and to not replace it with the 40mg dose until the am. Patient will return for follow up next week or sooner if needed. Assessment & Plan (07/16/2021 1:01 PM WARDROBE TECHNICIAN): Patient has persistent bilateral LE with swelling up thighs and into scrotum. He increased lasix from 40mg a day to 40mg BID after visit on Monday. Despite that swelling persist and weight has increased 4lbs in the last 3 days. He on exam has clear lungs, no obvious shortness of breath and oxygen saturation is 100%. He was seen with Dr. Fernandez and we will try to keep patient home and mobilize fluid with oral diuretics. We will increase lasix to 80mg BID with metolazone 2.5mg daily. We did speak with his pharmacy [facility] who will help arrange medications for his pill packs today. We also, discussed fluid restriction and and avoidance of excess salt. Patient will return in 2 days or go to ER with increasing swelling, shortness of breath or chest pain. Assessment & Plan (07/12/2021 2:00 PM WARDROBE TECHNICIAN): Patient has known bilateral LE edema. Edema however, recently more pronounced with 3+ edema up to the thighs. Most likely secondary to acute diastolic dysfunction. As noted above will do labs to r/o underlying causes. He is on eliquis for afib, thus likelihood of DVT low. He has a history of MARIO and admits non-compliance with CPAP. Last echo showed RVSP of 62mmHg. Instructed patient he must wear his CPAP at all times as will exacerbate heart failure symptoms. Diuretic to be increased. Patient will f/u later this week. Instructed should symptoms worsen or persist to go to ER. Assessment & Plan (03/31/2021 3:03 PM CDT): He has extensive lower leg edema but no ulcers or other definite complication at this time. We are trying to control this with a combination of diuretics and leg elevation. We will see him back in one month and repeat a BMP. Lab Results Component Value Date GLUCOSE 82 03/24/2021 CALCIUM 8.6 03/24/2021 SODIUM 137 03/24/2021 POTASSIUM 3.9 03/24/2021 CO2 23 03/24/2021 CHLORIDE 102 03/24/2021 BUNSER 19 03/24/2021 CREATININE 0.93 03/24/2021 Assessment & Plan (03/17/2021 4:29 PM CDT): He has moderate swelling in both legs. He wears support hose which does seem to help. He is on a diuretic. Creatinine is a little bit higher than his baseline as of the last measurement about one week ago. Sodium is also running a little low. He is probably drinking a little bit too much free water and I asked him to cut it back bit. We will check labs again in another week and see him back in two weeks. Lab Results Component Value Date GLUCOSE 87 03/10/2021 CALCIUM 8.6 03/10/2021 SODIUM 129 (L) 03/10/2021 POTASSIUM 4.0 03/10/2021 CO2 27 03/10/2021 CHLORIDE 94 (L) 03/10/2021 BUNSER 27 (H) 03/10/2021 CREATININE 1.38 (H) 03/10/2021 Assessment & Plan (02/24/2021 4:17 PM CDT): He has developed quite a bit of lower extremity edema. It extends into his thighs and even the presacral area and genitals. He wears support hose. He is on a relatively low dose of furosemide. We will increase the dose and have him restrict fluid and sodium modestly. We will check follow-up labs early next week and see him back in 2-3 weeks. Assessment & Plan (01/07/2021 11:31 AM CDT): He has moderate symmetrical edema. He is on a diuretic to help keep it under control. He also wears support hose. We will check a BMP. Continue same. Follow-up in three months. Assessment & Plan (12/08/2020 11:40 AM CDT): Patient noted to have bilateral LE edema. It appears lasix dose was increased to BID during hospitalization. Edema however, persist. There is also concern that patient may have some dehydration with increase in diuretic given his hypotension and feelings of being light-headed. We will labs to look for any electrolyte disturbance, volume overload or dehydration. He was encouraged to wear compression stockings and to keep legs elevated when at rest. No significant orthostatic changes noted today. Will follow in 4 weeks or sooner if needed. Frailty syndrome in geriatric patient 11/23/2020 Overview (10/30/2024 9:12 PM CDT): >>OVERVIEW FOR WEAKNESS WRITTEN ON 01/06/2021 6:24 PM BY NEERU FERNANDEZ MD Post hospitalization declining functional status. Assessment & Plan (11/03/2024 3:02 PM CDT): Chronic, present for several years, possibly worsening. He is quite debilitated from his underlying conditions as well as falls with injuries. Recommend that he stays as active as he can. Recommend frequent office visits for rechecks. Assessment & Plan (10/30/2024 9:12 PM CDT): >>ASSESSMENT AND PLAN FOR WEAKNESS WRITTEN ON 03/31/2021 3:05 PM BY NEERU FERNANDEZ MD He complains of feeling weak and having trouble getting up and accomplishing tasks around the house. He does what he can do and then stops to rest. There is no focal deficit observed. He is probably deconditioned. He has improved with physical therapy in the past, especially water therapy, so we will reorder that. Assessment & Plan (10/30/2024 9:12 PM CDT): >>ASSESSMENT AND PLAN FOR WEAKNESS WRITTEN ON 09/25/2021 5:00 PM BY NEERU FERNANDEZ MD He was at [facility] and had a lower thoracic/upper lumbar vertebroplasty for compression fractures. Afterwards he went to [facility] for some inpatient physical therapy. His pain persists. We will refer him to outpatient physical therapy. Assessment & Plan (10/30/2024 9:12 PM CDT): >>ASSESSMENT AND PLAN FOR WEAKNESS WRITTEN ON 10/15/2021 1:27 PM BY NEERU FERNANDEZ MD There is a definite improvement in his overall strength. He gets up from the wheelchair with no difficulty. He stands a little straighter. He says he is walking at home. He continues to get physical therapy in the home. We will see him back in three months. Assessment & Plan (10/30/2024 9:12 PM CDT): >>ASSESSMENT AND PLAN FOR WEAKNESS WRITTEN ON 10/06/2022 12:49 PM BY NEERU FERNANDEZ MD He is doing better. He uses a cane to prevent falls. He still lives alone and drives short distances. Follow-up in 3-4 months. Assessment & Plan (10/30/2024 9:12 PM CDT): >>ASSESSMENT AND PLAN FOR WEAKNESS WRITTEN ON 03/26/2023 2:48 PM BY NEERU FERNNADEZ MD He is doing a little better overall after adjusting his diuretic doses recently. He denies feeling dizzy or lightheaded. He uses a walker or cane at home, but frequently misplaces of the cane so he also holds on to furniture and ayala to steady his balance. He denies any recent falls. He drives occasionally, but only locally. Kidney function is improved since diuretic doses were adjusted. Lab Results Component Value Date GLUCOSE 90 03/06/2023 CALCIUM 9.6 03/06/2023 SODIUM 137 03/06/2023 POTASSIUM 4.1 03/06/2023 CO2 24 03/06/2023 CHLORIDE 103 03/06/2023 BUNSER 21 03/06/2023 CREATININE 1.27 03/06/2023 Assessment & Plan (02/09/2023 11:47 AM CDT): He is getting around okay with a cane. Assessment & Plan (10/30/2024 9:12 PM CDT): >>ASSESSMENT AND PLAN FOR FRAILTY SYNDROME IN GERIATRIC PATIENT WRITTEN ON 02/18/2023 11:11 AM BY NEERU FERNANDEZ MD He gets up from a chair using arms on the seat arnold. He ambulates with a cane and gets on/off the exam table without assistance but very slowly and carefully. No tremors are noted. There are no lateralizing deficits on exam. We ordered physical therapy evaluation and treatment to hopefully improve his functional status. He denies any recent falls. Orthostatic blood pressure and pulse suggest that he is significantly behind on his fluids so diuretics were adjusted, see discussion elsewhere. We ordered some labs. We will see him back early as needed, otherwise as scheduled. >>ASSESSMENT AND PLAN FOR WEAKNESS WRITTEN ON 02/01/2023 1:18 PM BY NEERU FERNANDEZ MD He has been feeling o ut of sorts. His daughter Piper who attended the visit reports forgetfulness, missing doses of medication, and a generalized decline in function and cognitive status. Evaluation suggests probable multifactorial causes including perhaps some volume depletion from his diuretics. We lowered the furosemide from 40 mg twice a day to 40 mg once a day. He will continue on the metolazone 2.5 mg 3 times weekly prescribed by his cloud consultant, Dr. Steven. We left the other medications unchanged. We are checking some labs and we will see him back early as needed. Assessment & Plan (01/17/2022 2:24 PM CDT): He feels weak and has little stamina. He has someone coming into the home to help with housekeeping. We encouraged him to stay active. Assessment & Plan (11/17/2021 3:55 PM CDT): He is doing better. He is getting around the house using a cane. He does not walk outdoors. We will see him back in two months. Assessment & Plan (07/04/2021 4:16 PM WARDROBE TECHNICIAN): He has had two falls since February, the first was evaluated in the office and with a CT scan his head with no injuries found. More recently he had another fall but does not recall all of the details. He says he got up too fast when somebody came to the door and he lost his balance. Exam is negative for any lateralizing weakness or ataxia. We encouraged him to be careful and use a cane or a walker at all times. Assessment & Plan (05/16/2021 1:40 PM CDT): He remains frail, but seems slightly improved. He admits to another fall about two weeks ago when he was carrying something n ot too heavy but a little heavy. He says his neck p opped. He also developed pain and swelling in the right sternoclavicular joint. Exam shows a slight asymmetry from right to left and mild tenderness of the mildly enlarged right sternoclavicular joint. We will get an x-ray. He says his neck is fine with only mild discomfort when he rotates in certain positions. We will monitor clinically. Assessment & Plan (01/11/2021 9:00 AM CDT): He gets up feeling pretty well, but as he goes through the day, things become more difficult. Some of this is because of back pain due to a T12 compression fracture suffered last year. Pain is reasonably well controlled with tramadol taken as needed. He also has Tylenol. In general he does seem to be more frail. At his recent hospitalization, he was started on Marinol to improve his appetite, and he thinks it is helping. He will call for a refill when it is due. Moderate protein-calorie malnutrition 11/23/2020 Overview (01/06/2021): Hospital diagnosis. Iron deficiency anemia 11/23/2020 Overview (01/06/2021): Added automatically from request for surgery [id number], EGD and colon negative for active bleeding. Assessment & Plan (10/31/2024 11:40 AM CDT): Chronic, present for 3-4 years, recommend continuing iron 325 mg daily and checking periodic labs. Lab Results Component Value Date WBC 9.0 10/10/2024 HGB 12.8 (L) 10/10/2024 HCT 40.0 10/10/2024 MCV 99.0 (H) 10/10/2024 LABPLAT 221 10/10/2024 Assessment & Plan (02/29/2024 12:46 PM CDT): Chronic, fair control with daily iron. Hemoglobin does tend to run a little bit low so there may be some low-grade chronic blood loss. We will continue to monitor periodically. Lab Results Component Value Date WBC 7.7 02/05/2024 HGB 11.4 (L) 02/05/2024 HCT 36.9 (L) 02/05/2024 MCV 98.1 (H) 02/05/2024 LABPLAT 189 02/05/2024 Assessment & Plan (08/18/2023 2:25 PM WARDROBE TECHNICIAN): He continues on a low-dose of iron replacement daily. Assessment & Plan (03/13/2023 12:44 PM CDT): Hemoglobin is down a bit. He probably has a mixed anemia. He does take a multivitamin, B complex vitamin and an iron tablet. We will check a follow-up CBC with his next labs in three months. Lab Results Component Value Date WBC 4.9 03/06/2023 HGB 10.2 (L) 03/06/2023 HCT 32.9 (L) 03/06/2023 MCV 100.0 (H) 03/06/2023 LABPLAT 205 03/06/2023 Assessment & Plan (03/31/2022 4:30 PM CDT): He stopped taking his iron supplement and other vitamins. He is taking a multivitamin which he thinks includes iron. We will check a CBC and iron profile with his next set of labs. Assessment & Plan (02/24/2021 4:28 PM CDT): He was moderately anemic as of several months ago. He is on an iron supplement. We will check a follow-up CBC and iron profile to make sure things are improving. Assessment & Plan (01/07/2021 11:33 AM CDT): He had a moderate anemia when in the hospital recently. He did not have any active site of bleeding identified. We will check a follow-up CBC, and an iron profile. Assessment & Plan (12/08/2020 11:27 AM CDT): Patient has history of anemia and recently found to have symptomatic anemia and melena. He had EGD and colonoscopy on IP basis and last EGD without active bleeding. His AC with Eliquis was resumed at discharge. He has yet to have a BM since returning home, but does report some feelings of being light headed. We will repeat CBC to evaluate for any progression of anemia. He was instructed should he note any blood in stools he is to call or return to ER. Coronary artery disease invo lving ambler coronary artery of ambler heart without angina pectoris 10/05/2020 Overview (09/16/2021): Minimal CAD involving ostial OM3 20% lesion and 1st diagonal with a 20-30% lesion, CHNE. Assessment & Plan (10/30/2024 9:17 PM CDT): Chronic, present for 4-5 or more years, relatively mild, antiplatelet therapy is contraindicated due to being on apixaban for atrial fibrillation. Assessment & Plan (09/22/2024 4:45 PM WARDROBE TECHNICIAN): Chronic, minimal epicardial disease noted on cardiac catheterization several years ago, not requiring active medical therapy. Antiplatelet therapy relatively contraindicated due to use of apixaban for atrial fibrillation. Assessment & Plan (02/28/2024 7:36 PM CDT): Chronic, stable. He had minimal coronary disease at the time of catheterization several years ago. He is on medical therapy, but aspirin and other antiplatelet agents are relatively contraindicated due to being on anticoagulation for atrial fibrillation. Assessment & Plan (11/07/2023 4:04 AM CDT): He denies chest pain or pressure. He is on a pretty good medical regimen, although not currently taking a statin, risks versus benefits being uncertain at his age. Cardiac cath several years ago showed minimal CAD. Assessment & Plan (08/24/2023 8:54 AM WARDROBE TECHNICIAN): He denies chest pain or pressure. He is on a reasonable medication regimen although there is nothing for cholesterol at this time. We are deferring treatment in this regard to Cardiology. He follows up with Dr. Steven in about a month. Assessment & Plan (07/01/2023 10:44 AM WARDROBE TECHNICIAN): He has a history of minimal coronary artery disease with no complaints of chest pain or pressure at this time. We will monitor clinically. Assessment & Plan (03/13/2023 12:42 PM CDT): He had minimal coronary artery disease when last assessed about three years ago. He denies chest pain or pressure. He does not take aspirin or any other anti- platelet medication due to being on Eliquis. Assessment & Plan (10/18/2022 8:42 AM CDT): He denies chest pain or pressure. He had minimal CAD as of his last heart catheterization a couple of years ago. Continue medical therapy. Assessment & Plan (03/31/2022 4:25 PM CDT): He had mild CAD on a recent cardiac catheterization. He denies chest pain or pressure. He is not currently taking anything for cholesterol. I believe he used to be on pravastatin. The risks versus benefits at this time are equivocal, so we will defer a statin for now. Assessment & Plan (01/17/2022 2:24 PM CDT): He has minimal coronary disease. He denies chest pain. We will monitor clinically. Assessment & Plan (10/15/2021 1:29 PM WARDROBE TECHNICIAN): He denies having any chest pain or pressure. He is on a pretty good medical regimen. He will keep his follow ups with Cardiology. Assessment & Plan (09/16/2021 3:07 PM WARDROBE TECHNICIAN): He had minimal coronary artery disease on a heart catheterization last year. He is being managed with medical therapy but aspirin is relatively contraindicated because he is on Eliquis. He bruises easily. T12 compression fracture 12/02/2019 Assessment & Plan (06/01/2024 12:01 PM CDT): Chronic, no new lumbar fractures are noted on x-ray films obtained today. I viewed and interpreted the films myself because there is no radiology report yet. If anything changes we will call the patient. Also noted on the film was increased stool, but he denies any trouble moving his bowels. We suggested using MiraLax as needed if he develops constipation. Due to acute on chronic low back pain and difficulty getting out of his chair, we are ordering a lift chair for use at home. Assessment & Plan (07/23/2022 7:07 AM WARDROBE TECHNICIAN): We adjusted the dose of gabapentin. Assessment & Plan (09/25/2021 5:01 PM WARDROBE TECHNICIAN): He still has quite a bit of pain from T12 and L1 compression fractures. Tramadol does alleviate the pain, but he forgets to take doses. I encouraged him to take it more regularly. We will refer him to Dr. Garrett for evaluation and treatment of pain unrelieved by vertebroplasties and medical therapy. Assessment & Plan (08/23/2021 7:38 AM WARDROBE TECHNICIAN): Patient returns today with persistent low back pain that has taken him to the ER twice. He has known progression of T12 compression fracture based on recent imaging in the ER. He is unable at visit today to even get to a standing position. He is reporting significant pain and that something needs to be done about it. He was brought today by his caregiver who is in the home M-F. He has no other assistance. Given his increasing pain, weakness and immobility have recommended return to the ER for further evaluation and management. Assessment & Plan (08/15/2021 4:36 AM WARDROBE TECHNICIAN): He has a history of a T12 compression fracture from a gardening accident in November 2019. He was doing fairly well until he fell on [employer] and had an exacerbation of back pain. He went to the ER on 08/02/2021 at [facility] and then again at [facility] on 08/09/2021. CT documents worsening of the T12 fracture. There is no cord compression. There is a new superior end-plate of L1 compression fracture. We are referring him to Orthopedics/Pain Management, Dr. Diaz. He does not want to start physical therapy. He does not think he could deal with the pain. It is especially hard for him to get up from a seated position. He practically doubles himself in a hairpin bend at the waist and shifts his weight far forward before standing up. At home he has to use hands on the coffee table in front of him to stand although he was able to get up from the wheelchair in the office today without assistance. There is no new neurological deficit. Follow-up here in one month, or sooner if needed. Assessment & Plan (03/31/2021 3:00 PM CDT): He seems to be doing reasonably well with respect to his chronic pain. He ran out of gabapentin, so we sent in a refill. Assessment & Plan (03/06/2020 12:50 PM CDT): He has little bit of focal tenderness just to the left of the upper lumbar spine. There also seems to be a nontender muscle spasm to the right of the lower thoracic spine. He has no neurological deficits. He is urinating well. We will see him back as currently scheduled in about three months. Assessment & Plan (01/27/2020 9:39 AM CDT): He asked about possibly getting a vertebroplasty. We discussed that if he is improving with conservative management, we may want to monitor for a bit longer. He did request a referral to pain management and this was set up. Assessment & Plan (12/15/2019 9:43 AM CDT): He lost his balance while mixing cement in a wheelbarrow about eight days ago. He fell and suffered a compression fracture of T12. There was minimal if any loss of vertebral height. However, he is having significant pain. He denies radiation of pain distally. He denies urinary incontinence or retention. He is having severe constipation, probably due to pain and medication induced ileus. He denies having sensory loss or weakness in his legs. Exam is normal with respect to strength and grossly with respect to sensation. He is able to get up from a chair on his own, but uses his arms to reduce the pressure on his spine as he transitions to standing. Gait appears normal. Hopefully he will recover significantly over the next two weeks or so. If not, we will refer him to pain management for further evaluation and treatment. Neck pain 06/07/2018 Assessment & Plan (07/23/2019 8:47 AM WARDROBE TECHNICIAN): He was here a couple of weeks ago with neck pain. At that time, there was a mild to moderate decrease in range of motion in all directions. His neck pain is about the same, but range of motion seems improved. Reflexes and strength are normal. He is using Tylenol as needed, has not had to use tramadol. We will get some plain x- rays and continue conservative management. He does not want physical therapy at this time. Assessment & Plan (06/24/2019 3:09 PM WARDROBE TECHNICIAN): It sounds like he has had neck pain off and on for a while now, exact duration uncertain. He has been going to a chiropractor for manipulations, but it has not helped, and he is worried about injuring his neck. Exam shows mildly to at most moderately limited range of motion in flexion, extension, and rotation. There is no significant muscle tension. There is no muscle atrophy in the hands or arms. Strength and reflex testing is normal in upper and lower extremities. Most likely he has degenerative changes in his neck. He can not take nonsteroidals due to also being on blood thinners for paroxysmal atrial fibrillation. We will have him take extra-strength Tylenol on a regular basis for awhile to see if this helps. If not, he has tramadol at home from previous painful episodes and can use that. I sent in a refill because he only has a few pills left. I recommended some physical therapy, but the patient wants to defer for now. We will see him back in two weeks for a follow-up. Sensorineural hearing loss (SNHL) of both ears 1 Assessment & Plan (05/19/2019 6:51 AM CDT): His hearing may be getting worse. It is probably due to many years of noise exposure at work and from riding his motorcycle. We will refer to audiology for evaluation. He may need hearing aids. Obstructive sleep apnea 05/06/2016 Overview (03/21/2018): Sleep study on 04/17/17 indicates severe sleep apnea. Follows up with Dr. Lin, on nasal CPAP. Assessment & Plan (01/07/2021 11:30 AM CDT): Continue nasal CPAP and follow ups with Dr. Lin. Assessment & Plan (09/27/2020 3:58 PM WARDROBE TECHNICIAN): Uses nasal bipap intermittently at home, states he does not use it every night. Monitor O2 sats at night, if drops can use O2 via nasal cannula. Assessment & Plan (11/15/2019 10:10 AM CDT): He continues on nasal CPAP, although he says he does not use it every night. He will follow-up with Dr. Lin. Assessment & Plan (05/10/2019 9:54 AM CDT): Continue follow-up with Dr. Lin. Assessment & Plan (10/18/2018 2:27 PM CDT): He will continue follow-ups with Dr. Lin for his nasal CPAP. Assessment & Plan (03/21/2018 12:58 PM CDT): He has been wearing a CPAP mask for a number of months now. He has a nasal mask and it seems to work well for him. He sees Dr. Lin who monitors compliance. Continue same. Assessment & Plan (09/11/2017 2:39 PM WARDROBE TECHNICIAN): He still has not had CPAP arranged, but has an appointment with Dr. Lin coming up soon he thinks. Hopefully we will get that going and reduce risk of cardiovascular events. Osteoarthritis 02/24/2016 Overview (11/10/2016): Osteoarthritis Assessment & Plan (09/22/2024 4:48 PM WARDROBE TECHNICIAN): Chronic, for control on several medications including acetaminophen 1000 mg q.8 hours PRN, gabapentin 300 mg nightly, tizanidine 2 mg q.12 hours prn, and tramadol 50 mg q.12 hours. His chronic pain is comanaged with Dr. Rutledge. He uses a cane to lower the risk of falls. Continue same. Assessment & Plan (02/29/2024 12:47 PM CDT): Chronic, fair control with tramadol 50 mg q.8 hours as needed. He says he is getting around pretty well. He uses a cane to lower the risk of falls. Continue same. Assessment & Plan (11/06/2023 1:19 PM CDT): He takes tramadol as needed, continue same. Assessment & Plan (10/06/2022 12:48 PM WARDROBE TECHNICIAN): He takes tramadol as needed. He uses a cane to prevent falls with injury. Assessment & Plan (03/17/2021 4:26 PM CDT): He is trying to stay active. He has tramadol for use as needed. Assessment & Plan (05/29/2020 9:30 AM CDT): He has various aches and pains, mostly his mid back where he had lower thoracic compression fracture earlier this year. He is recovering from it nicely. He is active but sometimes has to take a break because of pain. He takes an occasional tramadol. Continue same. Assessment & Plan (11/15/2019 10:11 AM CDT): He has various aches and pains, most recently his right shoulder. It is not bad enough for a referral at this time, but he thinks at some point he might need surgery. Continue to monitor. Assessment & Plan (06/24/2019 3:10 PM WARDROBE TECHNICIAN): Degenerative osteoarthritis is the suspected mechanism for his neck pain. We are getting x-rays of the C-spine. Consider other imaging is needed, but he does have a pacemaker so if he gets an MRI we will have to be sure that it is an MRI safe pacemaker. Assessment & Plan (09/11/2017 2:38 PM WARDROBE TECHNICIAN): He has various aches and pains from time to time depending activity level etc. It does not sound like there is anything severe or progressive. He stays pretty active. We will continue to monitor and provide supportive care and additional evaluation/referral as needed. Personal history of nicotine dependence 02/03/20 16 Chronic diastolic heart failure (CMS/HCC) 2015 Overview (05/15/2022): Diastolic heart failure diagnosed in 2015, hospitalized at [facility] 03/09/2019, improved with treatment. Hospitalized at [facility] 10/04/2020 with Afib/RVR and heart failure symptoms, LVEF low normal on cath. Echo 05/13/2022: Normal LVEF, marked LAE, other findings. Assessment & Plan (10/31/2024 11:40 AM CDT): Chronic, present for about 10 years, recommend continuing metoprolol XL 25 mg daily, furosemide 20 mg daily, and spironolactone 12.5 mg daily. Currently lungs are clear and there is minimal lower extremity swelling. Check follow-up labs before his next visit in one month. Lab Results Component Value Date GLUCOSE 85 10/10/2024 CALCIUM 9.5 10/10/2024 SODIUM 137 10/10/2024 POTASSIUM 3.4 10/10/2024 CO2 29 10/10/2024 CHLORIDE 98 10/10/2024 BUNSER 18 10/10/2024 CREATININE 1.04 10/10/2024 Assessment & Plan (09/20/2024 12:32 PM WARDROBE TECHNICIAN): Chronic, present for 8-9 years, controlled with metoprolol XL 50 mg daily, furosemide 20 mg daily, and spironolactone 12.5 mg daily. There is a trace amount of edema in his legs. Lungs are clear and oxygen saturation is normal. Assessment & Plan (08/27/2024 3:22 PM WARDROBE TECHNICIAN): Chronic, present for about 10 years, controlled on metoprolol XL 25 mg daily. Aspirin and other antiplatelet therapy is relatively contraindicated because he takes apixaban 2.5 mg twice daily to reduce embolic risk. Assessment & Plan (08/18/2023 2:21 PM WARDROBE TECHNICIAN): He seems to be more or less at his baseline, although blood pressure readings from home have been a little low so we discussed management with Cardiology and will be reducing the dose of diuretics in half. Assessment & Plan (06/14/2023 12:58 PM WARDROBE TECHNICIAN): Symptoms and swelling in his legs are well controlled on furosemide 40 mg daily. Electrolytes and kidney function are stable. Lab Results Component Value Date GLUCOSE 80 06/13/2023 CALCIUM 9.7 06/13/2023 SODIUM 140 06/13/2023 POTASSIUM 4.2 06/13/2023 CO2 28 06/13/2023 CHLORIDE 100 06/13/2023 BUNSER 25 06/13/2023 CREATININE 1.37 (H) 06/13/2023 Assessment & Plan (02/09/2023 11:47 AM CDT): We lowered the dose of diuretic due to prerenal azotemia and decline in overall health status. He seems to be doing much better. Kidney function is improved. We will see him back in one month. Lab Results Component Value Date GLUCOSE 87 02/08/2023 CALCIUM 10.4 (H) 02/08/2023 SODIUM 135 02/08/2023 POTASSIUM 4.2 02/08/2023 CO2 30 02/08/2023 CHLORIDE 94 (L) 02/08/2023 BUNSER 47 (H) 02/08/2023 CREATININE 1.49 (H) 02/08/2023 Assessment & Plan (10/06/2022 12:46 PM WARDROBE TECHNICIAN): There is no swelling in his legs. Lungs are clear. Continue current diuretics. Check labs before his next visit in 3-4 months. Assessment & Plan (07/07/2022 4:49 PM WARDROBE TECHNICIAN): He has accumulated some fluid in his legs. His weight is up a little bit, hopefully some of that is from better nutritional status because he was losing weight for awhile. Overall he seems status quo with good oxygenation on room air and no crackles in his lung bases. We will continue the current dose of diuretics. Assessment & Plan (04/25/2022 3:10 PM CDT): There is trace ankle edema, otherwise volume status seems very well compensated on his current dose of furosemide and metolazone. Assessment & Plan (04/12/2022 3:49 PM CDT): He is doing well with his current diuretics. There is no swelling in his legs. Kidney function is stable or even improved although sodium is a little low. We will check labs again in three months. Lab Results Component Value Date GLUCOSE 83 03/07/2022 CALCIUM 9.6 03/07/2022 SODIUM 134 (L) 03/07/2022 POTASSIUM 3.8 03/07/2022 CO2 31 03/07/2022 CHLORIDE 93 (L) 03/07/2022 BUNSER 35 (H) 03/07/2022 CREATININE 1.11 03/07/2022 Assessment & Plan (03/06/2022 1:00 PM CDT): He has some chronic swelling in his legs. The dose of furosemide was increased by his cloud consultant, Dr. Steven. Metolazone was added 2 days a week. Re-evaluate in three months. Assessment & Plan (12/31/2021 2:08 PM CDT): He has retained some fluid on his current regimen which includes diuretics three days a week. Blood pressure is in a better range. We will increase the diuresis. We will see him back in about two weeks as scheduled. Assessment & Plan (11/17/2021 3:56 PM CDT): Lungs are clear. Oxygen saturation is normal. There is no swelling in his legs. Continue current therapy. Assessment & Plan (11/11/2021 7:45 AM CDT): Patient has chronic diastolic HF with a tendency for rapid volume overload. At visit today however, patient has no signs of overload and BP is low. Patient also admits to feeling tired and woozy at times. Given that have recommended we decrease his aldactone dose to 25 mg daily from 50 mg daily. We will also update labs to look for any electrolyte disturbance or dehydration. Patient asked to monitor BP daily and return for follow up next week or sooner if needed. Assessment & Plan (10/15/2021 1:29 PM WARDROBE TECHNICIAN): The Zaroxolyn was stopped. He remains on furosemide. He also takes Aldactone and metoprolol XL. He seems pretty well compensated with no swelling in his legs. There are a very few left lower lung crackles. We will see him back in three months this time with some labs. Assessment & Plan (09/25/2021 5:03 PM WARDROBE TECHNICIAN): Cardiac exam is stable on current therapy. Continue same. Assessment & Plan (06/21/2021 11:41 AM WARDROBE TECHNICIAN): Blood pressure is on the low side of normal which is where we want it. He has occasional orthostatic dizziness. When it occurs, he sits down promptly. Assessment & Plan (04/30/2021 2:11 PM CDT): The swelling in his lower legs is improved. Lungs are clear and oxygen saturation on room air is adequate. Continue current therapy including furosemide. Potassium is normal. We will see him back in 1-2 months this time. Lab Results Component Value Date GLUCOSE 73 04/28/2021 CALCIUM 9.2 04/28/2021 SODIUM 135 04/28/2021 POTASSIUM 4.3 04/28/2021 CO2 28 04/28/2021 CHLORIDE 97 04/28/2021 BUNSER 24 04/28/2021 CREATININE 1.12 04/28/2021 Assessment & Plan (04/12/2021 12:46 PM CDT): He has moderate swelling in his legs from diastolic heart failure. Some of this is likely dependent edema. It improves if he keeps his legs elevated. We will continue the furosemide. Assessment & Plan (03/17/2021 4:27 PM CDT): He continues to have moderate swelling in his legs. Labs ordered by Cardiology recently showed a higher BNP. He is not sure we are making any progress with support hose and diuretics. His weight is down a little bit. He is in a habit of drinking four large glasses of water a day. I asked him to cut this down to two, but he can have liquids with meals. Follow-up in two weeks. Assessment & Plan (02/24/2021 4:29 PM CDT): Systolic function is good, but there is some diastolic dysfunction which is probably contributing to his lower extremity edema. We will increase the dose of diuretic and check follow-up labs next week. Return in three weeks for reassessment. Assessment & Plan (01/07/2021 11:32 AM CDT): He has moderate swelling in his legs, but lungs are clear and oxygen saturation is normal. Continue diuretics and other therapy. Assessment & Plan (10/08/2020 10:31 AM WARDROBE TECHNICIAN): He had evidence of heart failure during his recent hospitalization at [facility] including a pleural effusion. Heart catheterization showed a low normal LVEF. A recent echocardiogram showed normal systolic function. His diuretic dose was increased, but in view of low normal blood pressures, we reduce the diuretic back to 20 mg daily. He will also follow-up with Cardiology. Return here in six weeks as scheduled. Assessment & Plan (09/27/2020 2:10 PM WARDROBE TECHNICIAN): BNP is elevated to 3726. CXR reported airspace opacities concerning for infiltrates. Patient has been initiated on iv diuresis, will continue the same. Will get an Echocardiogram and consult cardiology. Monitor input/output. Daily BMP while on lasix to monitor renal function and electrolytes. Assessment & Plan (11/24/2019 10:30 AM CDT): He is doing well with minimal therapy at this time. Lungs are clear and oxygen saturation is satisfactory. He denies feeling short of breath. Continue same and follow-up in six months. Lab Results Component Value Date GLUCOSE 94 07/26/2019 CALCIUM 9.1 07/26/2019 SODIUM 137 07/26/2019 POTASSIUM 4.1 07/26/2019 CO2 26 07/26/2019 CHLORIDE 102 07/26/2019 BUNSER 18 07/26/2019 CREATININE 0.79 (L) 07/26/2019 Assessment & Plan (05/10/2019 9:54 AM CDT): He was in the hospital recently with a flare of diastolic heart failure. He improved with treatment and is back to his baseline. There is no swelling in his legs. Lungs are clear. Assessment & Plan (03/15/2019 10:45 AM CDT): He has a history of chronic diastolic heart failure, previously controlled with control of atrial fibrillation. He had loss of control of atrial fibrillation recently and went into heart failure again. He was hospitalized at [facility] and improved with treatment. He no longer feels short of breath. Oxygen saturation is satisfactory. Lungs are clear. Continue to monitor and return in one month as currently scheduled. Assessment & Plan (10/18/2018 2:25 PM CDT): This is primarily an echocardiographic finding. He is well compensated. Continue to monitor clinically. Assessment & Plan (03/21/2018 12:57 PM CDT): This is an echocardiographic finding. There is no swelling in his legs. Lungs are clear and oxygen saturation is in a good range. Continue to monitor. Intracardiac thrombosis, not elsewhere classifie d 01/01/2016 Overview (01/16/2023): From [facility] records, left atrial appendage clot, presumably resolved with anticoagulation. Sick sinus syndrome 12/30/2015 Overview (10/08/2020): From [facility] record. S/P pacer, ablation (Dr. Kay), recurrence of Afib/RVR early 2020, hospitalizations. Assessment & Plan (01/07/2021 11:29 AM CDT): Heart rhythm is regular. He is on a beta-elza. He has a pacemaker. Continue same. Basal cell carcinoma (BCC) of upper extremity Skin neoplasm 12/07/2015 Overview (10/05/2022): Details of the 2016 condition lacking. In late 2021, developed a soft tissue proliferation of the left side of his face inferoposterior to the zygoma. 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 Assessment & Plan (10/18/2022 8:43 AM CDT): A spindle cell growth on his left posterior cheek was removed recently. It seems to be healing well. He also has a probable actinic keratosis on the top of his right pinna. He picks at it, sometimes it bleeds. Exam shows he 1 x 4 mm area of probable actinic keratosis versus early squamous cell cancer. I recommended he discuss the ear lesion with his plastic surgeon, Dr. Sarmiento. Cardiac pacemaker in situ 11/20/2015 Assessment & Plan (09/27/2020 1:59 PM WARDROBE TECHNICIAN): H/o sick sinus syndrome, with cardiac pacemaker in place. Chronic atrial fibrillation 05/07/2015 Overview (11/10/2016): Paroxysmal atrial fibrillation Assessment & Plan (11/03/2024 3:00 PM CDT): Chronic, present for 10 or more years, recommend continuing apixaban 2.5 mg twice daily adjusted for age and kidney function, and metoprolol XL 25 mg daily. He reports bumping his left mann awhile back and there is a residual approximately 1 x 1.5 cm kidney covarrubais shaped dried hematoma over the mid mann. There is no local redness or drainage. We will check again in one month. Assessment & Plan (09/20/2024 12:31 PM WARDROBE TECHNICIAN): Chronic, present for 10 or more years, controlled with metoprolol XL 50 mg daily and apixaban 2.5 mg twice daily. Heart rhythm is regular due to presence of a pacemaker. Continue current therapy. Assessment & Plan (08/27/2024 3:20 PM WARDROBE TECHNICIAN): Chronic, present for about 10 years, controlled on metoprolol XL 25 mg daily and a pacemaker. He takes apixaban 2.5 mg twice daily to reduce embolic risk. Aspirin therapy of minimal coronary artery disease his relatively contraindicated due to being on blood thinners. Assessment & Plan (03/12/2024 10:56 AM CDT): Chronic, controlled on metoprolol XL 50 mg daily and apixaban 2.5 mg twice daily. He denies any visible blood in stool or urine. Today heart rhythm is pretty regular and no murmur is audible. Follow-up in six months. Assessment & Plan (08/18/2023 2:19 PM WARDROBE TECHNICIAN): Heart rhythm is regular because he has a pacemaker. He takes Eliquis and metoprolol. Continue same. Assessment & Plan (06/14/2023 12:58 PM WARDROBE TECHNICIAN): Heart rhythm is regular because he has a pacemaker. He takes Eliquis and metoprolol. Continue same. Assessment & Plan (03/13/2023 12:41 PM CDT): He has more of a paroxysmal atrial fibrillation. He is on Eliquis and metoprolol, and has a pacemaker for sick sinus. Heart rhythm is currently regular. Assessment & Plan (02/09/2023 11:46 AM CDT): Heart rhythm is currently regular. We adjusted the dose of Eliquis for his kidney function. He remains on a beta-elza. Follow-up in one month. Assessment & Plan (10/06/2022 12:46 PM WARDROBE TECHNICIAN): Heart rhythm is regular. He has a pacemaker. He is on a beta-elza and Eliquis. Continue same. Assessment & Plan (07/07/2022 4:48 PM WARDROBE TECHNICIAN): Heart rate is controlled and rhythm is regular. He is on Eliquis and Toprol XL. Recent labs are stable. Lab Results Component Value Date GLUCOSE 85 06/28/2022 CALCIUM 9.8 06/28/2022 SODIUM 138 06/28/2022 POTASSIUM 3.5 06/28/2022 CO2 35 (H) 06/28/2022 CHLORIDE 95 (L) 06/28/2022 BUNSER 37 (H) 06/28/2022 CREATININE 1.01 06/28/2022 Lab Results Component Value Date WBC 6.3 06/28/2022 HGB 11.7 (L) 06/28/2022 HCT 36.2 (L) 06/28/2022 MCV 101.7 (H) 06/28/2022 LABPLAT 217 06/28/2022 Assessment & Plan (04/25/2022 3:10 PM CDT): He is on Eliquis and a beta-elza. Heart rhythm is regular because he has a pacemaker. Assessment & Plan (03/31/2022 4:25 PM CDT): Heart rhythm is regular. He has a pacemaker. He is on Eliquis and a beta- elza. Assessment & Plan (10/15/2021 1:28 PM WARDROBE TECHNICIAN): Heart rhythm is regular today. There is no murmur. He is on Eliquis and amiodarone. Assessment & Plan (09/16/2021 3:05 PM WARDROBE TECHNICIAN): His rhythm is regular because he has a pacemaker. He is on Eliquis and a beta-elza. Continue same. Assessment & Plan (06/21/2021 11:43 AM WARDROBE TECHNICIAN): Heart rhythm is regular because he has a pacemaker. He is on Eliquis and amiodarone. He will follow-up with Dr. Steven. Assessment & Plan (05/16/2021 1:42 PM CDT): Heart rhythm is currently regular. There is a faint apical holosystolic murmur. Swelling in his legs is diminished. Continue current therapy which includes amiodarone, a beta elza, and Eliquis. Assessment & Plan (03/31/2021 3:01 PM CDT): He has a pacemaker. He is on a beta-elza and Eliquis. Continue same. Assessment & Plan (03/17/2021 4:25 PM CDT): Heart rhythm is regular. He has a pacemaker. He is on anticoagulation and a beta-elza. Continue same. Assessment & Plan (02/24/2021 4:16 PM CDT): His cloud consultant, Dr. Kay, has moved out of the local area. We will get him set up to see one of the local cloud consultant. He remains on Eliquis as well as a beta-elza and amiodarone. Heart rhythm is regular today. Assessment & Plan (01/07/2021 11:30 AM CDT): He is on Eliquis. He bruises easily, but denies having blood in the stools. He was moderately anemic when in the hospital recently. EGD and colonoscopy were negative for active bleeding. We will check a follow-up blood count and iron profile. Assessment & Plan (05/29/2020 9:29 AM CDT): Heart rhythm is regular. He continues on Eliquis. Assessment & Plan (03/06/2020 12:49 PM CDT): Heart rate is regular because he has a pacemaker. He is on Eliquis. Continue same. Assessment & Plan (11/15/2019 10:12 AM CDT): Heart rhythm is regular at this time. He remains on a beta-elza and Eliquis. He also has a pacemaker to keep his heart rhythm from going to slow. He has regular checkups with Cardiology. Assessment & Plan (05/10/2019 9:55 AM CDT): Heart rhythm is regular today. He is on a beta-elza and Eliquis. Continue same. Assessment & Plan (03/15/2019 10:47 AM CDT): He has a history of paroxysmal atrial fibrillation. About three years ago, he required an atrial ablation and pacemaker placement. After that he did well until about a week ago when he had a recurrence of rapid atrial fibrillation. He went to the hospital and was controlled with medications. He is on a beta-elza now. He has a follow-up with Dr. Wong in about two weeks. Continue current therapy and return here as scheduled in about one month. Assessment & Plan (10/18/2018 2:27 PM CDT): He is on Eliquis. Heart rate is controlled. He also has a pacemaker so heart rhythm is actually regular. Continue to monitor. Assessment & Plan (03/21/2018 12:58 PM CDT): He continues on Eliquis. Heart rhythm is regular today. Continue to monitor. Knee pain 03/12/2015 Overview (11/13/2019): Status post left total knee replacement, Dr. Ontiveros. Adult hypothyroidism 02/04/2015 Overview (11/10/2016): Hypothyroidism Assessment & Plan (02/29/2024 12:38 PM CDT): Chronic, fair control on levothyroxine 137 mcg daily. TSH was mildly elevated in August but T4 normal. We will monitor labs periodically. Lab Results Component Value Date TSH 5.63 (H) 08/18/2023 FREET4 1.26 08/18/2023 Assessment & Plan (11/07/2023 4:02 AM CDT): He has on a stable dose of levothyroxine. TSH is mildly elevated, but T4 is normal. Continue same and monitor labs periodically. Lab Results Component Value Date TSH 5.63 (H) 08/18/2023 FREET4 1.26 08/18/2023 Assessment & Plan (06/14/2023 12:57 PM WARDROBE TECHNICIAN): He takes levothyroxine. We will monitor labs periodically and adjust the dose as needed. Lab Results Component Value Date TSH 0.63 06/07/2023 Assessment & Plan (03/13/2023 12:40 PM CDT): He is doing well. We ordered labs to be done before his next visit in three months. Assessment & Plan (10/06/2022 12:46 PM WARDROBE TECHNICIAN): He is on levothyroxine 137 mcg daily. Continue same. Monitor TSH periodically. Lab Results Component Value Date TSH 1.56 06/28/2022 Assessment & Plan (07/07/2022 4:51 PM WARDROBE TECHNICIAN): TSH is normal. Continue current replacement Synthroid. Lab Results Component Value Date TSH 1.56 06/28/2022 Assessment & Plan (04/25/2022 3:09 PM CDT): He is on thyroid replacement. We adjusted his dose recently and he was supposed to get labs for this visit but apparently forgot. We will check again before his next visit in three months. Lab Results Component Value Date TSH 4.51 (H) 01/17/2022 Assessment & Plan (04/12/2022 3:48 PM CDT): He is due for a TSH check soon. We ordered that today. Assessment & Plan (01/17/2022 2:22 PM CDT): He is on a stable dose levothyroxine. Continue same and monitor labs periodically. The dose may need to be adjusted because amiodarone is being discontinued. Lab Results Component Value Date TSH 2.07 08/20/2021 Assessment & Plan (10/15/2021 1:30 PM WARDROBE TECHNICIAN): He is on levothyroxine. We will monitor response to treatment periodically. Assessment & Plan (07/04/2021 4:15 PM WARDROBE TECHNICIAN): We are having trouble finding the correct dose of replacement therapy. He says he is compliant and takes the thyroid replacement first thing in the morning by itself. His helps him organize his medication. We will increase the dose slightly and repeat a TSH in about one month. Follow-up in three months. Assessment & Plan (04/30/2021 2:10 PM CDT): He seems improved, less dysphoric and a little more active. The TSH is improved, but still too high. We will increase the levothyroxine again slightly. Check TSH again before next visit in 1-2 months. Assessment & Plan (03/31/2021 3:03 PM CDT): His dose of thyroid medication may need to be adjusted given his last TSH, but it sounds like he actually ran out of thyroid medication, and it is unclear exactly when. We sent in a refill. We told him to start taking it right away and we will check a follow-up TSH before his next visit in about one month. Lab Results Component Value Date TSH 11.52 (H) 03/01/2021 Assessment & Plan (03/30/2021 1:02 PM CDT): The mild hypothyroidism noted recently could be contributing to the hyponatremia. We previously reinforced how to take his levothyroxine. A follow up TSH is planned in the near future. Assessment & Plan (02/24/2021 4:30 PM CDT): The last TSH was mildly elevated. He was in the habit of taking the thyroid in the evening. There could have been some interference with absorption either due to other medications such as iron or due to certain foods. Lately he has been taking it in the morning. We reinforced that he should take his thyroid supplement by itself with plenty of water first thing in the morning and wait at least an hour before eating or taking any other medications. We will check a follow-up TSH with his other labs. Assessment & Plan (10/08/2020 10:30 AM WARDROBE TECHNICIAN): He is on thyroid replacement. TSH has been stable. Continue same. Lab Results Component Value Date TSH 2.26 10/03/2020 Assessment & Plan (09/27/2020 3:59 PM WARDROBE TECHNICIAN): Last TSH was normal at 2.30 ten months ago. Continue home dose of Synthroid. Continue metoprolol. Assessment & Plan (05/29/2020 9:28 AM CDT): He is on a stable dose of thyroid replacement. We will monitor labs periodically. Lab Results Component Value Date TSH 2.30 12/02/2019 Assessment & Plan (11/24/2019 10:30 AM CDT): He is doing well on his current dose of replacement therapy. We will check a follow-up TSH before his next visit in about six months. Lab Results Component Value Date TSH 2.97 07/25/2019 Assessment & Plan (05/10/2019 9:53 AM CDT): He is on a stable dose of replacement thyroid medicine. We will check a follow- up TSH at appropriate intervals. Lab Results Component Value Date TSH 2.24 03/09/2019 Assessment & Plan (10/18/2018 2:25 PM CDT): He is on a stable dose of thyroid hormone replacement. Continue same. We will check a TSH before his next visit in about six months. Assessment & Plan (04/08/2018 4:24 PM CDT): He is on a stable dose of replacement medication. Continue same and monitor labs periodically. Assessment & Plan (09/11/2017 2:41 PM WARDROBE TECHNICIAN): He is on replacement therapy. We will check a TSH at his next appointment. Return in six months. Other hemorrhoids 11/05/2014 Assessment & Plan (07/09/2020 10:01 AM WARDROBE TECHNICIAN): Continue bowel regimen to avoid straining. Continue Sitz baths as needed for comfort. Patient will call back with any further questions or concerns. Assessment & Plan (05/29/2020 9:31 AM CDT): He is scheduled in about a month to have hemorrhoid surgery. He knows to stop his Eliquis about five days before the surgery. Assessment & Plan (11/15/2019 10:12 AM CDT): His hemorrhoids have flared again. He had problems with them few years ago, details are lacking. Apparently there was a prolapsed hemorrhoid that was banded. Rectal exam does show some internal hemorrhoids, but no external or prolapsed hemorrhoids, and no active bleeding at this time. He had a normal colonoscopy about three years ago. We will refer him to surgery for evaluation and treatment. Acute low back pain due to trauma 02/04/1957 Assessment & Plan (09/11/2024 5:55 PM WARDROBE TECHNICIAN): He has experienced another new exacerbation of a chronic problem. He fell at home three or four days ago. He was following his family into the kitchen and using his cane. He reached for an article of furniture which he thought was there, lost his balance and fell onto his right side. He experienced increase in his chronic low back pain where he has had several vertebroplasties. He is getting around okay with a cane. He takes tramadol as needed but is not sure it is helping much. He also has tizanidine for use as needed, and gabapentin 300 mg nightly. We ordered x-ray of the lumbar spine to see if there are any changes compared to recent films. Return early as needed. The patient is homebound and needs home health care evaluation and treatment with physical therapy and occupational therapy. Assessment & Plan (06/01/2024 11:58 AM CDT): New exacerbation of an old problem. He has acute on chronic low back pain after a fall earlier this month. He was evaluated in the emergency room due to hitting his head. CT of the brain and C-spine were negative for serious injury. He still has some scrapes with eschars there and on his elbows, otherwise the main problem is low back pain. There are no neurological deficits. We increased gabapentin from 200 mg at nighttime to 300 mg at nighttime. He has tramadol for use as needed. We referred him back to Dr. Diaz to consider a local steroid or other local treatment in his back. Return here as scheduled in one month, or sooner if needed. Assessment & Plan (07/07/2022 4:46 PM WARDROBE TECHNICIAN): He continues to suffer with low back pain, more properly midback pain where he had a T12 compression fracture. Tramadol helps a little bit. We increase the dose of gabapentin slightly today in hopes of achieving better pain control. Follow-up in three months. Assessment & Plan (03/09/2022 2:26 PM CDT): Presents for chronic low back pain. Is completing a course of PT and Taking Tramadol PRN. Endorses slight improvement. Encouraged to take Tylenol as well to help. Heat/ice as tolerated. Keep follow up as scheduled. Assessment & Plan (10/15/2021 1:28 PM WARDROBE TECHNICIAN): His back pain seems to be improving. He is more active at home. He has tramadol for use as needed. Continue same. Assessment & Plan (06/30/2019 1:09 PM WARDROBE TECHNICIAN): He needed a refill of tramadol which he uses infrequently for back pain and other aches and pains. Assessment & Plan (05/19/2019 6:51 AM CDT): He stays active and has no new complaints at this time. He has tramadol for use as needed. Continue same. Assessment & Plan (10/18/2018 2:31 PM CDT): He has a long history of chronic low back pain. He has never had surgery. He does not tolerate narcotics, which cause hallucinations and nausea, but wants to try tramadol. He does not think he will need it that often. We will fax in a prescription. The patient also requested a referral to [facility] for evaluation and management, probably water therapy. We will arrange for this. Essential hypertension Overview (05/09/2019): Transient elevation, ? In hospital. Assessment & Plan (11/03/2024 3:01 PM CDT): Chronic, present for 5-6 years, recommend continuing amlodipine 2.5 mg daily as needed if systolic blood pressure exceeds 140 mm Hg or diastolic exceeds 90 mm Hg, as well as other medications listed elsewhere. BP Readings from Last 3 Encounters: 11/01/24 98/56 10/31/24 132/68 10/29/24 132/72 Assessment & Plan (09/20/2024 12:32 PM WARDROBE TECHNICIAN): Chronic, present for 5-6 or more years, recent blood pressure is not at goal on metoprolol XL 50 mg daily. We added amlodipine 2.5 mg daily and will communicate with his cloud consultant, Dr. Santoyo about the change in management. Follow-up with labs in three months. Assessment & Plan (02/29/2024 12:47 PM CDT): Chronic, controlled on metoprolol XL 50 mg daily and spironolactone 25 mg, 1/2 tablet daily. We ordered follow-up labs to be done before his next visit in three months. Lab Results Component Value Date GLUCOSE 86 02/05/2024 CALCIUM 9.5 02/05/2024 SODIUM 139 02/05/2024 POTASSIUM 4.5 02/05/2024 CO2 25 02/05/2024 CHLORIDE 103 02/05/2024 BUNSER 19 02/05/2024 CREATININE 1.29 02/05/2024 Assessment & Plan (11/06/2023 1:21 PM CDT): Blood pressure is in a good range on current therapy. We have made some adjustments recently for low blood pressure and this seems to have helped. We will see him back in three months with labs. Lab Results Component Value Date GLUCOSE 87 08/18/2023 CALCIUM 9.5 08/18/2023 SODIUM 138 08/18/2023 POTASSIUM 4.8 08/18/2023 CO2 23 08/18/2023 CHLORIDE 104 08/18/2023 BUNSER 20 08/18/2023 CREATININE 1.32 (H) 08/18/2023 Assessment & Plan (08/18/2023 2:25 PM WARDROBE TECHNICIAN): Blood pressure in the office including orthostatic measurements are well within normal limits. At home he does get orthostatic light-headedness which might be indicative of some prerenal azotemia. We will have him get labs today. We will cut his diuretic dose in half as discussed with Cardiology. Return in about one month as scheduled. Assessment & Plan (06/14/2023 12:59 PM WARDROBE TECHNICIAN): Blood pressure is in a good range on current therapy. Continue same and follow- up in three months. Assessment & Plan (03/13/2023 12:43 PM CDT): Blood pressure is in a normal range on current therapy. Continue same. Assessment & Plan (02/09/2023 11:47 AM CDT): Blood pressure is in good range on current therapy. Continue same, and follow-up in one month. Lab Results Component Value Date GLUCOSE 87 02/08/2023 CALCIUM 10.4 (H) 02/08/2023 SODIUM 135 02/08/2023 POTASSIUM 4.2 02/08/2023 CO2 30 02/08/2023 CHLORIDE 94 (L) 02/08/2023 BUNSER 47 (H) 02/08/2023 CREATININE 1.49 (H) 02/08/2023 Assessment & Plan (10/06/2022 12:47 PM WARDROBE TECHNICIAN): Blood pressure is well controlled on current minimal therapy consisting of the beta-elza and his diuretics. Continue same. Assessment & Plan (04/25/2022 3:10 PM CDT): Blood pressure is on the low side of normal, but acceptable. Continue same. Assessment & Plan (07/04/2021 4:15 PM WARDROBE TECHNICIAN): Blood pressure is in a normal range for him. Continue current therapy. Assessment & Plan (03/17/2021 4:26 PM CDT): Blood pressure is in a normal range on minimal therapy. Continue same. Assessment & Plan (01/07/2021 11:32 AM CDT): Blood pressure is in a good range on current therapy. Continue same, and follow- up in three months. Assessment & Plan (10/08/2020 10:29 AM WARDROBE TECHNICIAN): Blood pressure is in a low normal range today. He denies feeling dizzy or lightheaded. We adjusted his medications slightly to lower the diuretic dose. We will see him back in six weeks. In the meantime, he will also contact Cardiology for a follow-up. He says they are considering a cardioversion of his atrial fibrillation Assessment & Plan (09/27/2020 1:59 PM WARDROBE TECHNICIAN): BP is currently well controlled. Continue iv lasix for diuresis. Continue beta elza. Monitor blood pressure. Assessment & Plan (05/29/2020 9:29 AM CDT): He had some elevations of blood pressure related to acute pain, but currently he is doing well with nonpharmacologic therapy. He is very careful about his diet. We will see him back in six months. Lab Results Component Value Date GLUCOSE 89 12/02/2019 CALCIUM 9.5 12/02/2019 SODIUM 137 12/02/2019 POTASSIUM 4.3 12/02/2019 CO2 24 12/02/2019 CHLORIDE 106 12/02/2019 BUNSER 14 12/02/2019 CREATININE 0.82 12/02/2019 Assessment & Plan (03/06/2020 12:49 PM CDT): Blood pressure is in a good range. For awhile there was a transient elevation in the hospital, probably due to pain. He is not currently requiring any medications for blood pressure. Assessment & Plan (01/08/2020 11:45 AM CDT): As noted elsewhere, blood pressure is a bit low, confirmed on repeat testing. We are having him hold the beta-elza and hopefully improve hydration and oral intake at home. Return in two weeks, or sooner if needed. Assessment & Plan (12/09/2019 2:26 PM CDT): Systolic blood pressure is a little bit high, probably due to pain. We are not changing anything right now, but we will see him back in two weeks as needed. Assessment & Plan (11/15/2019 10:09 AM CDT): Blood pressure is in a good range. Continue current therapy and follow up in six months. Resolved Problems Problem Noted Date Diagnosed Date Resolved Date Acute on chronic diastolic heart failure 08/17/2023 09/20/2024 Overview (09/20/2024): Managed medically with improvement. Assessment & Plan (08/24/2023 8:54 AM WARDROBE TECHNICIAN): This diagnosis of acute on chronic diastolic heart failure appeared as a suggested current problem in EPIC. I believe it comes from previous hospitalizations, as there is no recent documentation of any acute cardiac decompensation. On exam today, lungs are clear and oxygen saturation is adequate. He has trace pretibial and ankle pitting edema. He does complain of what sounds like orthostatic dizziness which might need a modification of his current medication regimen. We will discuss with Cardiology. Stage 3a chronic kidney disease (CKD) 02/08/2023 09/20/2024 Overview (09/20/2024): Resolved on follow-up testing. Assessment & Plan (02/29/2024 12:48 PM CDT): Chronic, stable as of last blood draw. He continues on furosemide 40 mg, 1/2 tablet daily and spironolactone 25 mg, 1/2 tablet daily. There is no significant swelling in his legs and lungs are clear. Follow-up in three months with labs. Epidermoid cyst of face 01/05/2022 03/0 08/2022 Overview (10/05/2022): Left side of face inferior and posterior to zygoma, approximately 2 cm in diameter. No pain or fever. 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 Assessment & Plan (07/23/2022 7:06 AM WARDROBE TECHNICIAN): He has his appointment next week with plastic surgery to evaluate a large 2-2.5 cm erythematous dome shaped lesion on the left posterior cheek overlying the masseter. We suspect an epidermoid cyst, but other etiologies are possible. He says it is slightly tender and has increased slightly in size since his last visit. The overall appearance is unchanged. Assessment & Plan (06/13/2022 1:54 PM WARDROBE TECHNICIAN): He has a 2 cm somewhat inflamed cystic structure under the skin more or less overlying the upper left masseter muscle. It is posterior and inferior to the zygoma. He thinks it has been there for up to six months and has been enlarging slowly. I do not recall seeing anything in this location previously. It looks like a an inflamed epidermoid inclusion cyst, but nothing is expressed with moderate pressure. There could be a mild secondary infection. He denies having any fever. We will put him on some doxycycline. We will refer him for excisional biopsy and drainage. Follow-up as scheduled in one month, or sooner if needed. Soft tissue mass 10/31/2021 11/16/2021 Overview (11/16/2021): See office note, ELIER Billings regarding right inguinal swelling, likely hernia with fat. CT on 11/12/2021: Small fat containing right inguinal hernia with a soft tissue nodule, which is indeterminate in etiology and may represent sequela of fat necrosis from prior inflamed mesenteric fat or resolving soft tissue hematoma. Clinical correlation with physical exam findings is recommended. Assessment & Plan (11/11/2021 7:48 AM CDT): Patient has persistent soft tissue mass in the right suprainguinal area. Patient reports it changes in size and can be painful at times. He did have an US that showed: 1. Elliptical structure of the right suprapubic region probably represents a lipoma. Herniation of peritoneal fat is also a possibility. 2. There is hypoechoic tubular structure adjacent to the possible lipoma or herniated peritoneal fat deposit. This may represent loculated debris-filled fluid versus resolving hematoma. Abscess is felt to be less likely given no hypervascularity adjacent to the structure. 3. If structures continue to increase in size or if there is associated pain, additional CT imaging should be considered to exclude unusual presentation for herniated, non peristaltic bowel, abscess, or developing malignant process. Given patient complaint of pain along with continued weight loss and nausea, have recommended CT of the abdomen and pelvis for further evaluation and to r/o malignancy or abscess. Will follow up next week post testing or sooner if needed. Assessment & Plan (10/31/2021 7:20 PM CDT): He has a non-tender swelling in the right suprainguinal area. It seems to fluctuate in size, possibly being larger when he is upright. We will get an ultrasound of this area to evaluate for inguinal hernia, etc. Closed head injury 08/02/2021 2 Overview (11/16/2021): Due to fall, see hospital records. Shortness of breath 07/12/2021 11/17/19 22 Overview (11/16/2021): See office note, ELIER Billings. Contributing factors include deconditioning and diastolic heart failure. O2 sat normal. Diuretic dose increased with improvement of edema. Assessment & Plan (07/12/2021 1:57 PM WARDROBE TECHNICIAN): Patient is reporting that he is noting some shortness of breath with activity and exertion. He states he is able to lie flat to sleep on 1 pillow, but a little more pronounced. He on exam had a normal oxygen saturation at 97%. His lungs were clear. EKG done and shows paced rhythm, rate controlled. SOB is most likely secondary to volume overload. We will do labs to look at volume status, renal function and electrolytes. Recent CBC with stable H&H. We will increase diuretic therapy and f/u on Monday or sooner if needed. 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 For gangrene. Cellulitis of foot 05/17/2021 Overview (11/16/2021): Added automatically from request for surgery [id number], toe amputation on 05/21/2021, Wilfred Dyer DPM, [facility]. For gangrene. Fall, accidental, initial encounter 02/10/2021 11/16/2021 Overview (03/16/2021): See office note, ELIER García. Assessment & Plan (02/10/2021 3:22 PM CDT): Pt passed out and fell last week. He is here to request a head CT. He reports dizziness for at least a week when he gets up too quickly. He does not recall being dizzy before he passed out and fell and hit his face. He denies chest pain, SOB, weakness. Orthostatic BPs: 100/70, 100/70, 100/70--with all 3 positions. Has Afib but R/R were steady and controlled today upon examination. Possibly BPPV but poor historian makes this hard to tell if his symptoms are truly positional. He is taking Eliquis and does not recall much about the fall, so therefore we will get a head CT today. I advised that he f/u again with us after the CT to figure out the cause of the dizziness. Near syncope 12/13/2020 01/06/2021 Overview (01/06/2021): See hospital records. Acute renal insufficiency 12/13/2020 Overview (01/06/2021): See hospital notes. Melena 11/23/2020 01/06/2021 Overview (01/06/2021): See hospital records. EGD and colonoscopy negative for active bleeding. A-fib (CMS/[facility]) 11/06/2020 03/16/2021 Overview (03/16/2021): Added automatically from request for surgery [id number], AV node ablation, 11/23/2020, Dr. Kay, [facility]. 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 LVEF was estimated at 50% on cath, 10/05/2020, Dr. Garcia. Previous echocardiogram 09/27/2020 normal LVEF. Minimal CAD on Cath. Atrial fibrillation with RVR 10/04/2020 10/08/2020 Overview (10/08/2020): See records from [facility] for details. Positive D dimer 10/04/2020 10/08/2020 Overview (10/08/2020): CT angio of chest negative, but has right pleural effusion. Chest pain 10/03/2020 10/08/2020 Overview (10/08/2020): Added automatically from request for surgery [id number], minimal CAD on cath, 10/05/2020, [facility]. Atrial fibrillation 09/26/2020 10/09/19 Overview (10/08/2020): [facility] admission for Afib/RVR, controlled with meds, but recurred 1 week later and admitted to [facility]. Assessment & Plan (09/27/2020 3:59 PM WARDROBE TECHNICIAN): Patient has h/o Afib s/p ablation in the past with Dr. Wong. Presented with Afib with RVR, with heart rate 168 bpm. Improved with Digoxing and metoprolol iv given in the ED. Currently in Afib, with heart rate within normal limits. Continue po metoprolol 75 mg bid. Continue Eliquis. Continue telemetry monitoring. Will consult cardiology. Atrial fibrillation with RVR 09/24/2020 01/06/2021 Overview (01/06/2021): See hospital and follow up office notes. Assessment & Plan (10/08/2020 10:30 AM WARDROBE TECHNICIAN): He was in the hospital twice in fairly quick succession for atrial fibrillation and rapid ventricular response. He had an extensive evaluation at [facility] including cardiac catheterization that showed mild coronary disease and low normal LV systolic function. The heart rate was eventually controlled. His rhythm is currently irregular, but he otherwise seems fine. We will continue the current dose of beta-elza. He will follow-up with Cardiology. Return here in six weeks as scheduled. Assessment & Plan (09/24/2020 1:19 PM WARDROBE TECHNICIAN): Pt presents today with swelling to lower legs bilaterally that started yesterday he thinks. He denies SOB, but states that he maybe feels a little more tired than usual. His pulse is irregular today and on physical examination his heartbeat is fast and irregular. He does have some bilateral lower leg swelling from his toes to just below the knee. EKG shows A-fib with RVR. Pulse is 121. He does have a pacemaker and hx of ablation with Dr. Kay. He is on Eliquis 5mg daily. Consulted with Dr. 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 Anorexia 01/07/2020 05/29/2020 Overview (05/29/2020): Due to pain from lower thoracic compression fracture, and side effects of pain medication, improved. Assessment & Plan (01/27/2020 9:38 AM CDT): Appetite and nausea have improved on Marinol. His weight is down another 2 lb, but he says he is eating better. Continue same. Abdominal pain 01/07/2020 05/29/2020 Overview (05/29/2020): Likely due to medication side effects and constipation post lower thoracic compression fracture. Resolved. Assessment & Plan (05/29/2020 6:09 AM CDT): He fell at home about a month ago and suffered a lower thoracic compression fracture. Since then, he has had difficulty recovering his normal activity level and vigorous self. He complains of having a poor appetite and feeling nauseated frequently. Initially he had problems with his bowels, but this seems to be resolved after a dose Mag citrate, followed by fairly regular use of MiraLax. He is not running a fever. He has lost about 10 lb, so he is probably a little behind on his fluids. We will have him stop his beta-elza. We will give him some Marinol to help him deal with nausea and hopefully improve his appetite. Return in about two weeks to see how he is doing. Drug-induced constipation 12/06/2019 Overview (05/29/2020): Due to pain meds, resolved. Assessment & Plan (03/06/2020 12:48 PM CDT): He is moving his bowels better. He takes MiraLax as needed. Continue same. Assessment & Plan (01/27/2020 9:38 AM CDT): The tramadol was causing some constipation, but he says he is moving his bowels pretty well with MiraLax used up to 4 times daily as needed. Continue same. Assessment & Plan (12/09/2019 2:25 PM CDT): He has not had a bowel movement for four days. He feels bloated. He has tried MiraLax one dose daily. He also has taken Metamucil, and has tried suppositories and oral bowel stimulants. Nothing seems to be working. Appetite has been poor, and he has not been drinking as much fluid as usual, so these might be factors as well. Exam shows normal bowel sounds with mild diffuse distension. Most likely has an ileus induced by the pain of his T12 compression fracture and pain medication. We will have him use Mag citrate to get things going, and have him increase the dose of MiraLax to 3- 4 times daily. If that does not work, consider a other modalities. Acute pain due to trauma 12/02/2019 Overview (05/29/2020): See ER and hospital records regarding lower thoracic compression fracture. Assessment & Plan (04/17/2020 12:06 PM CDT): Patient has continued back pain s/p injury earlier this year. He has been using tramadol, which helps with pain. He states there are days he needs the tramadol 3 times a day. He has been trying to do the exercises he was taught at PT and is encouraged to continue with them. He does use tylenol as needed as well. He is scheduled to have follow up with pain management soon. Patient appears to be using prescription correctly and we will send refills to his pharmacy. We will await pain management recommendations and patient will keep upcoming follow up in May or return sooner if needed. Assessment & Plan (03/15/2020 2:33 PM CDT): He is making slow progress. He still takes tramadol, especially in the morning. It helps him to get around and do things. Continue same. He will call for refills as needed. Assessment & Plan (02/02/2020 7:34 PM CDT): His mid to lower vertebral pain is definitely improved, but still bothers him. He wakes up with minimal pain, but as he goes through the day it increases. He is still wearing a brace on his lower back. Exam shows no motor deficits. Gait appears fairly normal. We will get him a referral with pain management, Dr. Theodore per his request. He was asking about a possible vertebroplasty. If he continues to have improvement, conservative management may be the way to go. We discussed this today. Dizziness 07/25/2019 03/06/2020 Overview (03/06/2020): See office note. Assessment & Plan (08/05/2019 4:31 PM WARDROBE TECHNICIAN): Of an unclear etiology associated with vomiting. May be viral or d/t poor PO intake on the day of event as patient reported only having a glass of water in the am before leaving home. CT of head, labs and cardiac w/u inpatient were unremarkable. Patient was instructed to call with any recurrent symptoms Chest pain 03/09/2019 04/24/2019 Overview (03/14/2019): Hospitalized at [facility], workup negative for injury. Assessment & Plan (03/15/2019 10:46 AM CDT): Apparently, he had some chest pain at the time of his hospitalization. However, there was no evidence of myocardial injury. He will keep his follow ups with Dr. Wong. 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 Dr. Lin. Hyperbilirubinemia 01/16/2016 Overview (01/06/2021): Details lacking. Paroxysmal atrial fibrillation 11/20/2015 11/12/2017 Overview (11/10/2016): Atrial fibrillation Assessment & Plan (09/11/2017 2:40 PM WARDROBE TECHNICIAN): He is on Pradaxa. Heart rhythm is actually fairly regular, so this may be more in the nature of paroxysmal atrial fibrillation which is also listed with his conditions. Heart rate seems to be controlled. He is not on a beta-elza or calcium channel elza. Continue to monitor. Prolapsed internal hemorrhoids 10/10/2015 07/03/2020 Overview (07/03/2020): Internal prolapsed hemorrhoids, excised 06/29/2020, [facility]. Assessment & Plan (05/26/2020 10:29 AM CDT): I will set the patient up for a hemorrhoidectomy. Risks and benefits have been explained. Pre-admission testing will be sent in. Postoperative restrictions and wound care have also been gone over. He is in understanding. All questions have been answered. Assessment & Plan (02/04/2020 11:26 AM CDT): The patient has prolapsing hemorrhoids that have to be manually reduced. His is set to have a major surgery so he is unable to proceed with having them removed at this time. Once she recovers from surgery he will call us to set up the hemorrhoidectomy. Until then he should avoid straining and prolonged sitting on the bathroom. Sitz baths for comfort and with each bowel movement. Stool softener to avoid straining. Acquired hypothyroidism 05/07/201511/2017 Overview (11/10/2016): Hypothyroidism (acquired) Borderline hypertension 05/07/201503/2020 Overview (11/13/2019): ->Essential hypertension. Assessment & Plan (05/19/2019 6:49 AM CDT): Initial systolic blood pressure after climbing up the steps to the office was mildly elevated, but a repeat is well within normal limits. He denies chest pain or shortness of breath. He is very active at home with yard work and housework. Continue current therapy and follow up in six months. Assessment & Plan (03/15/2019 10:46 AM CDT): He is being monitored for borderline blood pressure at times. In the hospital recently, blood pressures apparently were somewhat low normal. Today blood pressure is in a good range. He denies having any dizziness or syncope. Continue beta- elza which is used primarily to control his heart rate. Assessment & Plan (03/21/2018 12:57 PM CDT): Blood pressure is in a reasonable range. He has no new symptoms of concern. We will continue to monitor without treatment at this time. Assessment & Plan (09/11/2017 2:41 PM WARDROBE TECHNICIAN): Blood pressure is normal today. Occasionally he has borderline or mildly elevated readings. No treatment is indicated at this time. Continue to monitor. Encounters Date Type Department Care Team Description 12/19/2024 11:21 AM CDT - 12/19/2024 11:59 PM CDT Hospital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 7:19 AM CDT FOLATE Add-On 11/28/2024 10:17 AM CDT VITAMIN B12 Add-On 11/28/2024 10:17 AM CDT EGFR Routine 11/28/2024 4:21 AM CDT CBC WITHOUT DIFFERENTIAL Routine 11/28/2024 4:21 AM CDT COMPREHENSIVE METABOLIC PANEL Routine 11/28/2024 4:21 AM CDT EGFR Routine 11/27/2024 7:20 AM CDT CBC WITHOUT DIFFERENTIAL Routine 11/27/2024 7:20 AM CDT COMPREHENSIVE METABOLIC PANEL Routine 11/27/2024 7:20 AM CDT NV AN ELECTIVE ENDOTRACHEAL AIRWAY Routine 11/26/2024 12:38 PM CDT LAPAROSCOPIC CHOLECYSTECTOMY 11/26/2024 12:04 PM CDT ACUTE CHOLECYSTITIS SURGICAL PATHOLOGY Routine 11/26/2024 9: 31 AM CDT Cholecystitis, acute ANTIBODY SCREEN Timed 11/26/2024 8:27 AM CDT ABO/RH Timed 11/26/2024 8:27 AM CDT TYPE AND SCREEN Timed 11/26/2024 8:27 AM CDT EGFR Routine 11/26/2024 8:26 AM CDT CBC WITHOUT DIFFERENTIAL Routine 11/26/2024 8:26 AM CDT BILIRUBIN, TOTAL AND DIRECT STAT 11/26/2024 8:26 AM CDT COMPREHENSIVE METABOLIC PANEL Routine 11/26/2024 8:26 AM CDT BLOOD CULTURE Routine 11/26/2024 8:26 AM CDT BLOOD CULTURE Routine 11/26/2024 8:20 AM CDT US RUQ IP Routine 11/25/2024 2:[address] CERVICAL SPINE WO CONTRAST IP Routine 11/25/2024 2:48 PM CDT BLOOD GAS, VENOUS Routine 11/25/2024 12:24 PM CDT TROPONIN T HIGH-SENSITIVITY 6-HOUR Timed 11/25/2024 8:25 AM CDT NV CRITICAL CARE ILL/INJURED PATIENT INIT 30-74 MIN Routine 11/25/2024 7:39 AM CDT EGFR Routine 11/25/2024 6:43 AM CDT DIFFERENTIAL AUTO Routine 11/25/2024 6:4 3 AM CDT CBC WITH AUTO DIFFERENTIAL Routine 11/25/2024 6:43 AM CDT BASIC METABOLIC PANEL Routine 11/25/2024 6:43 AM CDT TROPONIN T HIGH-SENSITIVITY 4-HR Timed 11/25/2024 6:43 AM CDT PRO B-TYPE NATRIURETIC PEPTIDE Add-On 11/25/2024 6:40 AM CDT PROCALCITONIN Add-On 11/25/2024 6:40 AM CDT TROPONIN T HIGH-SENSITIVITY 2-HOUR Timed 11/25/2024 4:44 AM CDT XR CHEST 1 VIEW ED 11/25/2024 2:55 AM CDT BLOOD GAS, VENOUS STAT 11/25/2024 2:4 5 AM CDT TROPONIN T HIGH-SENSITIVITY SERIES (BASELINE, 2HR, 4HR, 6HR) Routine 11/25/2024 2:45 AM CDT THYROID FUNCTION CASCADE Routine 11/25/2024 2:45 AM CDT INFLUENZA A/B, RSV, AND COVID-19 PCR STAT 11/25/2024 2:45 AM CDT URINALYSIS AND REFLEX TO MICROSCOPIC AND CULTURE STAT 11/25/2024 2:[address] HEAD WO CONTRAST ED 11/25/2024 1 :16 AM CDT EGFR STAT 11/24/2024 10:58 PM CDT DIFFERENTIAL AUTO STAT 11/24/2024 10:58 PM CDT COMPREHENSIVE METABOLIC PANEL STAT 11/24/2024 10:58 PM CDT CBC WITH AUTO DIFFERENTIAL STAT 11/24/2024 10:58 PM CDT ECG 12-LEAD STAT 11/24/2024 10:57 PM CDT PAIN MGMT IMAGING LUMBAR/SACRAL FACET/ MEDIAL BRANCH BLOCK BILATERAL Schedule Routine, Read Routine (OP Routine) 11/11/2024 1:02 PM CDT Spondylosis of lumbar region without myelopathy or radiculopathy Lumbar radiculopathy BIVENTRICULAR PACEMAKER UPGRADE Routine 10/16/2024 12:42 PM CDT Encounter for pacemaker at end of battery life Sick sinus syndrome (HCC) Permanent atrial fibrillation (HCC) PROTIME-INR STAT 10/16/2024 10:10 AM CDT Atrial fibrillation, unspecified type (HCC) ECG 12-LEAD Routine 10/10/2024 12:31 PM WARDROBE TECHNICIAN Encounter for pacemaker at end of battery life Sick sinus syndrome (HCC) Permanent atrial fibrillation (HCC) EGFR Routine 10/10/2024 12:12 PM WARDROBE TECHNICIAN Encounter for pacemaker at end of battery life Sick sinus syndrome (HCC) Permanent atrial fibrillation (HCC) DIFFERENTIAL AUTO Routine 10/10/2024 12:12 PM WARDROBE TECHNICIAN Encounter for pacemaker at end of battery life Sick sinus syndrome (HCC) Permanent atrial fibrillation (HCC) CBC WITH AUTO DIFFERENTIAL Routine 10/10/2024 12:12 PM WARDROBE TECHNICIAN Encounter for pacemaker at end of battery life Sick sinus syndrome (HCC) Permanent atrial fibrillation (HCC) BASIC METABOLIC PANEL Routine 10/10/2024 12:12 PM WARDROBE TECHNICIAN Encounter for pacemaker at end of battery life Sick sinus syndrome (HCC) Permanent atrial fibrillation (HCC) PROTIME-INR Routine 10/10/2024 12:12 PM WARDROBE TECHNICIAN Encounter for pacemaker at end of battery life Sick sinus syndrome (HCC) Permanent atrial fibrillation (HCC) PAIN MGMT IMAGING LUMBAR/SACRAL FACET/ MEDIAL BRANCH BLOCK BILATERAL Schedule Routine, Read Routine (OP Routine) 09/26/2024 1:14 PM WARDROBE TECHNICIAN Spondylosis of lumbar region without myelopathy or radiculopathy from Last 3 Months Results * Imaging Lumbar/Sacral Medial Branch RFA Bilateral ([id number]) (12/19/2024 12:22 PM CDT) Narrative RAD_PACS_[facility] - 12/19/2024 12:22 PM CDT The images from this study are not interpreted by Radiology. Please refer to the physician's procedure / OR operative note. us Christy Washburn MORTGAGE SPECIALIST IMG PAIN MGMT PROCEDURE S Final Result Performing Organization Address [facility] Co de Phone Number RAD_PACS_[facility] * eGFR (12/02/2024 5:53 AM CDT) eGFR 88 >=60 mL/min/1. 73 m2 Comment: Interpretive Data Reference Interval Normal >/= 90 mL/min/1.73m2 Mildly decreased* 60 - 89 mL/min/1.73m2 Mildly to moderately decreased 45 - 59 mL/min/1.73m2 Moderately to severely decreased 30 - 44 mL/min/1.73m2 Severely decreased 15 - 29 mL/min/1.73m2 Kidney Failure < 15 mL/min/1.73m2 *Relative to young adult level Estimated glomerular filtration rate is determined by the 2020 CKD-EPI equation recommended by the National Kidney Foundation (A Unifying Approach to GFR Estimation: Recommendations of the NKF-ASK Task Force on Reassessing the Inclusion of Race in Diagnosing Kidney Disease, JASN 2020). The CKD-EPI equation should not be used for patients with unstable renal function and has not been validated in children and those over 70. Current interpretive data was last reviewed 2021. Blood 12/02/2024 5:53 AM CDT 12/02/2024 6:11 AM CDT us Beronica Hart MD LAB BLOOD ORDERABLES Final Re sult Performing Organization Address City/[facility]/ZIP Co de Phone Number [facility] ([place]) [facility] Department [place] [address] * (ABNORMAL) CBC without differential (12/02/2024 5:53 AM CDT) [facility] WBC 9.43 3.80 - 9.90 K/cumm Hgb 10.3(L) 13.0 - 17.5 g/dL [facility] ([place]) Hct 33.5(L) 38.9 - 50.3 % [facility] ([place]) Plt 160 150 - 400 K/cumm [facility] ([place]) MPV 10.6 9.1 - 12.3 fL [facility] ([place]) RBC 3.32(L) 4.30 - 5.80 M/cumm [facility] ([place]) MCV 100.9(H) 81.3 - 96.4 fL [facility] ([place]) MCH 31.0 27.1 - 33.3 pg [facility] ([place]) MCHC 30.7(L) 32.3 - 35.7 g/dL [facility] ([place]) RDW CV 15.9(H) 11.1 - 14.9 % [facility] ([place]) RDW SD 58.1(H) 35.7 - 48.1 fL [facility] ([place]) NRBC abs 0.00 0.00 - 0.01 K/cumm [facility] ([place]) Blood 12/02/2024 5:53 AM CDT 12/02/2024 6:11 AM CDT us Walker Luevano MD LAB BLOOD ORDERA BLES Final Result [facility] ([place]) [facility] Department [place] [address] * (ABNORMAL) Basic metabolic panel (12/02/2024 5:53 AM CDT) [facility] Sodium 134(L) 135 - 145 mmol/L Potassium, pl 3.7 3.3 - 4.9 mmol/L [facility] ([place]) Chloride 102 97 - 110 mmol/L [facility] ([place]) CO2 21(L) 22 - 32 mmol/L [facility] ([place]) Anion gap 11 2 - 15 mmol/L [facility] ([place]) BUN 15 6 - 25 mg/dL [facility] ([place]) Creatinine 0.76(L) 0.80 - 1.30 mg/dL [facility] ([place]) Glucose 76 70 - 199 mg/dL [facility] ([place]) Comment: Interpretive Data Fasting glucose >/= 126 mg/dl is diagnostic for diabetes. Fasting is defined as no caloric intake for at least 8 hours. Fasting glucose between 100 mg/dl to 125 mg/dl is diagnostic of prediabetes. In a patient with classic symptoms of hyperglycemia or hyperglycemic crisis, a random glucose >/= 200 mg/dl is diagnostic for diabetes. In the absence of unequivocal hyperglycemia, results should be confirmed by repeat testing. The classification and Diagnosis of Diabetes Diabetes Care 2021; 46: S19-S40. Current interpretive data was last revised 2022. Calcium 8.5 8.5 - 10.3 mg/dL [facility] Blood 12/02/2024 5:53 AM CDT 12/02/2024 6:11 AM CDT us Beronica Hart MD LAB BLOOD ORDERABLES Final Re sult [facility] Department [place] [address] * (ABNORMAL) CBC without differential (12/01/2024 5:42 AM CDT) WBC 9.25 3.80 - 9.90 K/cumm Hgb 10.2(L) 13.0 - 17.5 g/dL [facility] ([place]) Hct 32.4(L) 38.9 - 50.3 % [facility] ([place]) Plt 165 150 - 400 K/cumm [facility] ([place]) MPV 10.8 9.1 - 12.3 fL [facility] ([place]) RBC 3.19(L) 4.30 - 5.80 M/cumm [facility] ([place]) MCV 101.6(H) 81.3 - 96.4 fL [facility] ([place]) MCH 32.0 27.1 - 33.3 pg [facility] ([place]) MCHC 31.5(L) 32.3 - 35.7 g/dL [facility] ([place]) RDW CV 15.7(H) 11.1 - 14.9 % [facility] ([place]) RDW SD 57.6(H) 35.7 - 48.1 fL [facility] ([place]) NRBC abs 0.00 0.00 - 0.01 K/cumm [facility] ([place]) Blood 12/01/2024 5:42 AM CDT 12/01/2024 6:08 AM CDT us Walker Luevano MD LAB BLOOD ORDERA BLES Final Result [facility] ([place]) 1 [facility] Department [place] [address] * CT Abdomen Pelvis WO Contrast (11/30/2024 4:01 PM CDT) Anatomical Region Laterality Modality Body N/A Computed Tomogra phy 11/30/2024 5:15 PM CDT Narrative 11/30/2024 5:23 PM CDT EXAM DESCRIPTION: CT ABDOMEN PELVIS WO CONTRAST REASON FOR STUDY: Large pneumoperitoneum Large pneumoperitoneum Had PE prior to this exam TECHNIQUE: CT scan of the abdomen and pelvis performed without intravenous and without oral contrast using helical scanning technique. Reconstructed coronal and sagittal MPR images reviewed. All images stored on PACS. Automated exposure control was used as a dose optimization technique for this examination. COMPARISON: 11/12/2021 CT abdomen and pelvis, 11/30/2024 CT chest FINDINGS: The sensitivity for detection of visceral lesions is diminished without the use of intravenous contrast. LOWER CHEST: Bilateral pleural effusions with a bibasilar atelectasis is noted similar to the CT chest earlier today. LIVER: Normal size. No identified cystic or solid masses. GALLBLADDER: Not seen. Surgical drain is seen near the gallbladder fossa. BILE DUCTS: No intrahepatic or extrahepatic ductal dilatation. SPLEEN: Normal size. No focal lesions. PANCREAS: No identified cystic or solid masses. No significant calcifications. No adjacent inflammation or peripancreatic fluid collections. Pancreatic duct not dilated. ADRENALS: Normal. KIDNEYS/URINARY TRACT: No identified significant cystic or solid masses. No stones. No hydronephrosis or hydroureter. Urinary bladder is unremarkable. GI: No dilated bowel loops. No obvious wall thickening. Normal appendix. No significant diverticular disease. PERITONEUM: There is a significant volume of free air is seen primarily in the upper anterior abdomen. Small amounts of scattered free air seen elsewhere. Small amount of free fluid is seen particularly near the liver. RETROPERITONEUM: No mass or adenopathy. REPRODUCTIVE: No significant abnormality. VASCULATURE: Atherosclerotic calcification is seen. No aneurysm is seen. MUSCULOSKELETAL: Degenerative and chronic changes are seen of the lumbar spine compression fractures and vertebroplasties are seen T12, L1 and L2. Partial compression of T11 is also noted. OTHER: Small amount of fluid is seen along with a fat containing right inguinal hernia.. Small amount of fluid and air is seen in the right abdominal wall likely related to recent surgery. No clear evidence of the formed abscess is seen. IMPRESSION: Significant volume of free air is seen in the abdomen. Small amount of free fluid is seen. This is of uncertain etiology. Correlate with surgical history. Bilateral pleural effusions with bibasilar atelectasis. Surgical drain is seen near the gallbladder fossa. THIS IS AN ELECTRONICALLY VERIFIED FINAL REPORT 11/30/2024 5:23 PM - Electronically signed by Brendon Callahan M.D. KH: ROBERT Report ID: [id number] Reading Location: [id number] Procedure Note Brendon Callahan MD - 11/30/2024 EXAM DESCRIPTION: CT ABDOMEN PELVIS WO CONTRAST REASON FOR STUDY: Large pneumoperitoneum Large pneumoperitoneum Had PE prior to this exam TECHNIQUE: CT scan of the abdomen and pelvis performed without intravenousand without oral contrast using helical scanning technique. Reconstructed coronal and sagittal MPR images reviewed. All images stored on PACS.Automated exposure control was used as a dose optimization technique for this examination. COMPARISON: 11/12/2021 CT abdomen and pelvis, 11/30/2024 CT chest FINDINGS: The sensitivity for detection of visceral lesions is diminished withoutthe use of intravenous contrast. LOWER CHEST: Bilateral pleural effusions with a bibasilar atelectasis is noted similar to the CT chest earlier today. LIVER: Normal size. No identified cystic or solid masses. GALLBLADDER: Not seen. Surgical drain is seen near the gallbladderfossa. BILE DUCTS: No intrahepatic or extrahepatic ductal dilatation. SPLEEN: Normal size. No focal lesions. PANCREAS: No identified cystic or solid masses. No significant calcifications. No adjacent inflammation or peripancreatic fluidcollections. Pancreatic duct not dilated. ADRENALS: Normal. KIDNEYS/URINARY TRACT: No identified significant cystic or solid masses.No stones. No hydronephrosis or hydroureter. Urinary bladder isunremarkable. GI: No dilated bowel loops. No obvious wall thickening. Normalappendix. No significant diverticular disease. PERITONEUM: There is a significant volume of free air is seen primarilyin the upper anterior abdomen. Small amounts of scattered free air seen elsewhere. Small amount of free fluid is seen particularly near theliver. RETROPERITONEUM: No mass or adenopathy. REPRODUCTIVE: No significant abnormality. VASCULATURE: Atherosclerotic calcification is seen. No aneurysm isseen. MUSCULOSKELETAL: Degenerative and chronic changes are seen of the lumbar spine compression fractures and vertebroplasties are seen T12, L1 and L2. Partial compression of T11 is also noted. OTHER: Small amount of fluid is seen along with a fat containing right inguinal hernia.. Small amount of fluid and air is seen in the right abdominal wall likely related to recent surgery. No clear evidence of the formed abscess is seen. IMPRESSION: Significant volume of free air is seen in the abdomen. Small amount offree fluid is seen. This is of uncertain etiology. Correlate with surgical history. Bilateral pleural effusions with bibasilar atelectasis. Surgical drain is seen near the gallbladder fossa. THIS IS AN ELECTRONICALLY VERIFIED FINAL REPORT 11/30/2024 5:23 PM - Electronically signed by Brendon Callahan M.D. KH: ROBERT Report ID: [id number] Reading Location: [place] [address] us Beronica Hart MD IMG CT PROCEDURES Final Resul t * CT Chest PE (CTA) W Contrast (11/30/2024 11:43 AM CDT) Anatomical Region Laterality Modality Body N/A Computed Tomogra phy 11/30/2024 2:21 PM CDT Narrative 11/30/2024 2:46 PM CDT EXAM DESCRIPTION: CT CHEST PE (CTA) W CONTRAST REASON FOR STUDY: Pulmonary embolism (PE) suspected, low to intermediate prob, positive D-dimer Positive D-dimer Suspect PE TECHNIQUE: CT angiogram of the chest performed with intravenous contrast using helical scanning technique with dynamic intravenous contrast injection. Reconstructed coronal and sagittal MPR images reviewed. All images stored on PACS. 3D MIP images rendered on scanning unit and reviewed at time of interpretation. Automated exposure control was used as a dose optimization technique for this examination. CONTRAST TYPE/DOSE: 75mL of IOVERSOL 350 MG IODINE/ML INTRAVENOUS SYRINGE injected via intravenous COMPARISON: CT chest 10/04/2020 FINDINGS: VASCULATURE: No identified pulmonary emboli. Thoracic aorta is normal in course and caliber without definite evidence of dissection. It contains a moderate amount of calcified atherosclerotic plaque. LUNGS: Small to moderate-sized right-sided pleural effusion and a small left-sided pleural effusion. There are mild opacities in the lower lobes, likely representing atelectasis. In the right middle lobe there are a few nodular opacities (series 5, image 55), possibly related to pneumonia. Recommend attention on follow-up. MEDIASTINUM/FRANCESCO: There are multiple prominent mediastinal lymph nodes. HEART: Heart size is mildly enlarged. No pericardial effusion. Coronary artery calcifications and aortic valvular calcifications are present. There is a left subclavian pacing device. AXILLA: No adenopathy. CHEST WALL: No masses. No subcutaneous air. HARDWARE/LINES/TUBES: None. UPPER ABDOMEN: Large amount of free gas is present in the upper abdomen. MUSCULOSKELETAL: There are no suspicious osseous lesions. There is a moderate compression fracture of the T11 vertebral body with about 40% vertebral body height loss. There are kyphoplasty changes at T12 and L1 with severe wedge-shaped compression fractures at these levels. OTHER: No significant abnormality. IMPRESSION: 1. No evidence of pulmonary embolism. 2 large amount of free gas in the upper abdomen, more than should be expected for the postoperative state from a surgery 4 days prior. This is concerning for perforated viscus. Recommend further evaluation with CT abdomen and pelvis. 3. Small to moderate-sized right-sided pleural effusion and small left-sided pleural effusion. Mild opacities in the lower lobes, likely representing atelectasis. 4. Few nodular opacities in the right middle lobe, possibly related to pneumonia. Recommend attention on follow-up. 5. Additional findings as above. These significant findings were reported by telephone to Dr. Hart on 11/30/2024 at 2:46 p.m. . THIS IS AN ELECTRONICALLY VERIFIED FINAL REPORT 11/30/2024 2:46 PM - Electronically signed by Jin Puga M.D. AM: AM Report ID: [id number] Reading Location: [place] [address] Procedure Note Jin Puga MD - 11/30/2024 EXAM DESCRIPTION: CT CHEST PE (CTA) W CONTRAST REASON FOR STUDY: Pulmonary embolism (PE) suspected, low to intermediate prob, positive D-dimer Positive D-dimer Suspect PE TECHNIQUE: CT angiogram of the chest performed with intravenous contrastusing helical scanning technique with dynamic intravenous contrast injection. Reconstructed coronal and sagittal MPR images reviewed. All images storedon PACS. 3D MIP images rendered on scanning unit and reviewed at time of interpretation. Automated exposure control was used as a doseoptimization technique for this examination. CONTRAST TYPE/DOSE: 75mL of IOVERSOL 350 MG IODINE/ML INTRAVENOUSSYRINGE injected via intravenous COMPARISON: CT chest 10/04/2020 FINDINGS: VASCULATURE: No identified pulmonary emboli. Thoracic aorta is normalin course and caliber without definite evidence of dissection. It contains a moderate amount of calcified atherosclerotic plaque. LUNGS: Small to moderate-sized right-sided pleural effusion and a small left-sided pleural effusion. There are mild opacities in the lower lobes, likely representing atelectasis. In the right middle lobe there are a few nodular opacities (series 5, image 55), possibly related to pneumonia. Recommend attention on follow-up. MEDIASTINUM/FRANCESCO: There are multiple prominent mediastinal lymph nodes. HEART: Heart size is mildly enlarged. No pericardial effusion.Coronary artery calcifications and aortic valvular calcifications are present.There is a left subclavian pacing device. AXILLA: No adenopathy. CHEST WALL: No masses. No subcutaneous air. HARDWARE/LINES/TUBES: None. UPPER ABDOMEN: Large amount of free gas is present in the upper abdomen. MUSCULOSKELETAL: There are no suspicious osseous lesions. There is a moderate compression fracture of the T11 vertebral body with about 40% vertebral body height loss. There are kyphoplasty changes at T12 and L1with severe wedge-shaped compression fractures at these levels. OTHER: No significant abnormality. IMPRESSION: 1. No evidence of pulmonary embolism. 2 large amount of free gas in the upper abdomen, more than should beexpected for the postoperative state from a surgery 4 days prior. This isconcerning for perforated viscus. Recommend further evaluation with CT abdomen and pelvis. 3. Small to moderate-sized right-sided pleural effusion and smallleft-sided pleural effusion. Mild opacities in the lower lobes, likely representing atelectasis. 4. Few nodular opacities in the right middle lobe, possibly related to pneumonia. Recommend attention on follow-up. 5. Additional findings as above. These significant findings were reported by telephone to Dr. Darby 11/30/2024 at 2:46 p.m. . THIS IS AN ELECTRONICALLY VERIFIED FINAL REPORT 11/30/2024 2:46 PM - Electronically signed by Jin Puga M.D. AM: AM Report ID: [id number] Reading Location: [place] [address] Beronica Hart MD IMG CT PROCEDURES Final Resul t * (ABNORMAL) CBC without differential (11/30/2024 4:11 AM CDT) WBC 9.39 3.80 - 9.90 K/cumm Hgb 10.0(L) 13.0 - 17.5 g/dL [facility] ([place]) Hct 32.3(L) 38.9 - 50.3 % [facility] ([place]) Plt 161 150 - 400 K/cumm [facility] ([place]) MPV 10.4 9.1 - 12.3 fL [facility] ([place]) RBC 3.15(L) 4.30 - 5.80 M/cumm [facility] MCV 102.5(H) 81.3 - 96.4 fL [facility] ([place]) MCH 31.7 27.1 - 33.3 pg [facility] ([place]) MCHC 31.0(L) 32.3 - 35.7 g/dL [facility] RDW CV 15.8(H) 11.1 - 14.9 % [facility] (NAYE) RDW SD 58.7(H) 35.7 - 48.1 fL [facility] ([facility]) NRBC abs 0.00 0.00 - 0.01 K/cumm [facility] ([facility]) Blood 11/30/2024 4:11 AM CDT 11/30/2024 4:28 AM CDT us Walker Luevano MD LAB BLOOD ORDERA BLES Final Result GLADIS BLAKE (NAYE) 1 [facility] [place] [address] * (ABNORMAL) Prolactin (11/29/2024 6:21 PM CDT) [facility] Prolactin 15.6(H) 4.0 - 15.2 ng/mL Comment:Testing performed by : [facility], [address] [place] [address], [facility], [id number] Blood 11/29/2024 6:21 PM CDT 11/30/2024 3:00 PM CDT us Beronica Hart MD LAB BLOOD ORDERABLES Final Re sult GLADIS BLAKE (NAYE) 1 [facility] [place] [address] * (ABNORMAL) D-dimer, quantitative (11/29/2024 6:21 PM CDT) [facility] D-Dimer 1,689(H) <=499 ng/mL FEU GLADIS BLAKE (NAYE) Comment: Interpretive data FDA approved the D-dimer, in conjunction with a low or moderate pretest probability score, to exclude venous thromboembolic events (VTE) (PE and DVT) in outpatients when the D-dimer result is < 500 ng/ml FEU. Evidence supports using an age-adjusted D-dimer cut-off for outpatients older than 50 (age x 10) to improve specificity without sacrificing sensitivity. Example: age 68, VTE cut-off 680 ng/ml FEU. References; Schouten HT et al. Brit Med J. 2013;346:f2492. Talha et al. Annals Int Med. 2015;163:701-11. Current interpretive data was last revised on 2019. Blood 11/29/2024 6:21 PM CDT 11/29/2024 6:32 PM CDT us Beronica Hart MD LAB BLOOD ORDERABLES Final Re sult GLADIS BLAKE (NAYE) 1 [facility] Department [place] [address] * CT Head WO Contrast (11/29/2024 5:56 PM CDT) Anatomical Region Laterality Modality Head and Neck N/A Computed Tomogra phy 11/29/2024 6:34 PM CDT Narrative 11/29/2024 6:39 PM CDT EXAM DESCRIPTION: CT HEAD WO CONTRAST REASON FOR STUDY: Syncope AMS this afternoon. When pt was laid flat he became unresponsive. TECHNIQUE: Axial images acquired through the brain without intravenous contrast. Images stored on PACS. Automated exposure control was used as a dose optimization technique for this examination. COMPARISON: CT head without contrast dated 11/25/2024, 05/21/2024 and 08/16/2022. FINDINGS: No acute intracranial hemorrhage or midline shift. There is diffuse parenchymal volume loss. The basilar cisterns are maintained. The pontine hypodensity could be an artifact by CT technique. Request clinical correlation. The subcortical and periventricular white matter low attenuation in the bilateral cerebral hemispheres is nonspecific but compatible with chronic microvascular ischemic type change in a patient of this age. Bilateral cataract eye surgeries. Sphenoid sinus subtle foamy secretions. Few partially opacified caudal most mastoid air cells. There are vascular calcifications. No depressed calvarial fracture. IMPRESSION: 1. No acute intracranial hemorrhage or midline shift. 2. Parenchymal volume loss, chronic microvascular ischemic type white-matter changes and additional findings as above. 3. Sphenoid sinus foamy secretions can be seen with acute sinusitis in the proper clinical scenario. THIS IS AN ELECTRONICALLY VERIFIED FINAL REPORT 11/29/2024 6:39 PM - Electronically signed by Ignacio Peraza D.O. AP: AP Report ID: [id number] Reading Location: [id number] Procedure Note Ignacio Peraza, DO - 11/29/2024 EXAM DESCRIPTION: CT HEAD WO CONTRAST REASON FOR STUDY: Syncope AMS this afternoon. When pt was laid flat he became unresponsive. TECHNIQUE: Axial images acquired through the brain without intravenous contrast. Images stored on PACS. Automated exposure control was used asa dose optimization technique for this examination. COMPARISON: CT head without contrast dated 11/25/2024, 05/21/2024 and 08/16/2022. FINDINGS: No acute intracranial hemorrhage or midline shift. There is diffuse parenchymal volume loss. The basilar cisterns are maintained. The pontine hypodensity could be an artifact by CT technique. Request clinical correlation. The subcortical and periventricular white matterlow attenuation in the bilateral cerebral hemispheres is nonspecific but compatible with chronic microvascular ischemic type change in a patient of this age. Bilateral cataract eye surgeries. Sphenoid sinus subtle foamy secretions. Few partially opacified caudal most mastoid air cells. There are vascular calcifications. No depressed calvarial fracture. IMPRESSION: 1. No acute intracranial hemorrhage or midline shift. 2. Parenchymal volume loss, chronic microvascular ischemic typewhite-matter changes and additional findings as above. 3. Sphenoid sinus foamy secretions can be seen with acute sinusitis inthe proper clinical scenario. THIS IS AN ELECTRONICALLY VERIFIED FINAL REPORT 11/29/2024 6:39 PM - Electronically signed by Ignacio BrownO. AP: AP Report ID: [id number] Reading Location: [id number] Beronica Hart MD IMG CT PROCEDURES Final Resul t * EEG (11/29/2024 5:06 PM CDT) Anatomical Region Laterality Modality Other Narrative Procedure Note Caitlyn Lin MD - 11/29/2024 12:00 AM CDT REQUESTING PHYSICIAN Beronica Hart MD. INDICATION FOR STUDY An 84-year-old with altered mental status. EEG was obtained usingInternational 10/20 system of electrode placement. The backgroundactivity consisted of bilateral, synchronous, posterior dominant, alpharange activity. Record shows spontaneous variability. Drowsiness wasidentified by Ocular signs and attenuation of background. No focal,lateralized, or epileptiform abnormalities were noted. IMPRESSION This EEG reveals evidence of normal wakefulness and drowsiness. Clinicalcourse recommended. Job ID/Internal Job ID: [id number] Beronica Hart MD NEUROLOGY ORDERABLES Final Re sult * (ABNORMAL) CBC without differential (11/29/2024 7:19 AM CDT) WBC 10.52(H) 3.80 - 9.90 K/cumm Hgb 10.1(L) 13.0 - 17.5 g/dL [facility] (NAYE) Hct 32.5(L) 38.9 - 50.3 % [facility] (NAYE) Plt 171 150 - 400 K/cumm [facility] (NAYE) MPV 10.7 9.1 - 12.3 fL [facility] (NAYE) RBC 3.18(L) 4.30 - 5.80 M/cumm [facility] (NAYE) MCV 102.2(H) 81.3 - 96.4 fL [facility] (NAYE) MCH 31.8 27.1 - 33.3 pg [facility] (NAYE) MCHC 31.1(L) 32.3 - 35.7 g/dL [facility] ([facility]) RDW CV 15.6(H) 11.1 - 14.9 % [facility] ([place]) RDW SD 58.8(H) 35.7 - 48.1 fL [facility] ([place]) NRBC abs 0.00 0.00 - 0.01 K/cumm [facility] ([place]) Blood 11/29/2024 7:19 AM CDT 11/29/2024 8:12 AM CDT us Walker Luevano MD LAB BLOOD ORDERA BLES Final Result Performing Organization Address City/[facility]/ZIP Co de Phone Number GLADIS BLAKE ([place]) 1 [facility] [place] [address] * Folate (11/28/2024 10:17 AM CDT) Folic acid 8.7 >=5.0 ng/mL Comment:Slightly Hemolyzed S pecimen. Results may be affected. Blood 11/28/2024 10:1 7 AM CDT 11/28/2024 10:46 AM CDT us Beronica Hart MD LAB BLOOD ORDERABLES Final Re sult Performing Organization Address [facility]/ZIP Co de Phone Number GLADIS BLAKE ([place]) 1 [facility] [place] [address] * Vitamin B12 (11/28/2024 10:17 AM CDT) Vitamin B12 442 230 - 1,250 pg/mL Blood 11/28/2024 10:1 7 AM CDT 11/28/2024 10:46 AM CDT us Beronica Hart MD LAB BLOOD ORDERABLES Final Re sult GLADIS BLAKE ([place]) 1 [facility] [place] [address] * eGFR (11/28/2024 4:21 AM CDT) Pathologist [facility] eGFR 78 >=60 mL/min/1. 73 m2 Comment: Interpretive Data Reference Interval Normal >/= 90 mL/min/1.73m2 Mildly decreased* 60 - 89 mL/min/1.73m2 Mildly to moderately decreased 45 - 59 mL/min/1.73m2 Moderately to severely decreased 30 - 44 mL/min/1.73m2 Severely decreased 15 - 29 mL/min/1.73m2 Kidney Failure < 15 mL/min/1.73m2 *Relative to young adult level Estimated glomerular filtration rate is determined by the 2020 CKD-EPI equation recommended by the National Kidney Foundation (A Unifying Approach to GFR Estimation: Recommendations of the NKF-ASK Task Force on Reassessing the Inclusion of Race in Diagnosing Kidney Disease, JASN 2020). The CKD-EPI equation should not be used for patients with unstable renal function and has not been validated in children and those over 70. Current interpretive data was last reviewed 2021. Blood 11/28/2024 4:21 AM CDT 11/28/2024 4:49 AM CDT us Walker Luevano MD LAB BLOOD ORDERA BLES Final Result GLADIS [facility] (NAYE) 1 [facility] Department [place] [address] * (ABNORMAL) CBC without differential (11/28/2024 4:21 AM CDT) Pathologist [facility] WBC 11.35(H) 3.80 - 9.90 K/cumm Hgb 9.1(L) 13.0 - 17.5 g/dL [facility] ([facility]) Hct 30.1(L) 38.9 - 50.3 % [facility] (NAYE) Plt 174 150 - 400 K/cumm [facility] (NAYE) MPV 10.5 9.1 - 12.3 fL [facility] ([facility]) RBC 2.88(L) 4.30 - 5.80 M/cumm [facility] ([facility]) MCV 104.5(H) 81.3 - 96.4 fL [facility] ([facility]YE) MCH 31.6 27.1 - 33.3 pg [facility] (NAYE) MCHC 30.2(L) 32.3 - 35.7 g/dL [facility] (NAYE) RDW CV 15.6(H) 11.1 - 14.9 % [facility] (NAYE) RDW SD 59.1(H) 35.7 - 48.1 fL [facility] (NAYE) NRBC abs 0.00 0.00 - 0.01 K/cumm [facility] (NAYE) Blood 11/28/2024 4:21 AM CDT 11/28/2024 4:47 AM CDT Walker Luevano MD LAB BLOOD ORDERA BLES Final Result [facility] (NAYE) 1 [facility] Department [place] [address] * (ABNORMAL) Comprehensive metabolic panel (11/28/2024 4:21 AM CDT) Sodium 138 135 - 145 mmol/L Potassium, pl 4.0 3.3 - 4.9 mmol/L [facility] (NAYE) Chloride 108 97 - 110 mmol/L [facility] ([facility]) CO2 16(L) 22 - 32 mmol/L [facility] ([facility]) Anion gap 15 2 - 15 mmol/L [facility] (NAYE) BUN 23 6 - 25 mg/dL [facility] (NAYE) Creatinine 0.95 0.80 - 1.30 mg/dL [facility] ([facility]) Glucose 87 70 - 199 mg/dL [facility] ([facility]YE) Comment: Interpretive Data Fasting glucose >/= 126 mg/dl is diagnostic for diabetes. Fasting is defined as no caloric intake for at least 8 hours. Fasting glucose between 100 mg/dl to 125 mg/dl is diagnostic of prediabetes. In a patient with classic symptoms of hyperglycemia or hyperglycemic crisis, a random glucose >/= 200 mg/dl is diagnostic for diabetes. In the absence of unequivocal hyperglycemia, results should be confirmed by repeat testing. The classification and Diagnosis of Diabetes Diabetes Care 2021; 46: S19-S40. Current interpretive data was last revised 2022. Calcium 8.5 8.5 - 10.3 mg/dL [facility] (NAYE) Bilirubin, total 0.8 0.1 - 1.2 mg/dL [facility] (NAYE) Protein, pl 5.5(L) 6.5 - 8.5 g/dL [facility] (NAYE) Albumin 3.0(L) 3.5 - 5.0 g/dL [facility] (NAYE) Alk phos 120 40 - 130 Units/L [facility] (NAYE) ALT 24 7 - 55 Units/L [facility] (NAYE) AST 32 10 - 50 Units/L [facility] (NAYE) Blood 11/28/2024 4:21 AM CDT 11/28/2024 4:49 AM CDT Walker Luevano MD LAB BLOOD ORDERA BLES Final Result [facility] (NAYE) 1 [facility] Department [place] [address] * eGFR (11/27/2024 7:20 AM CDT) eGFR 87 >=60 mL/min/1. 73 m2 Comment: Interpretive Data Reference Interval Normal >/= 90 mL/min/1.73m2 Mildly decreased* 60 - 89 mL/min/1.73m2 Mildly to moderately decreased 45 - 59 mL/min/1.73m2 Moderately to severely decreased 30 - 44 mL/min/1.73m2 Severely decreased 15 - 29 mL/min/1.73m2 Kidney Failure < 15 mL/min/1.73m2 *Relative to young adult level Estimated glomerular filtration rate is determined by the 2020 CKD-EPI equation recommended by the National Kidney Foundation (A Unifying Approach to GFR Estimation: Recommendations of the NKF-ASK Task Force on Reassessing the Inclusion of Race in Diagnosing Kidney Disease, JASN 2020). The CKD-EPI equation should not be used for patients with unstable renal function and has not been validated in children and those over 70. Current interpretive data was last reviewed 2021. Blood 11/27/2024 7:20 AM CDT 11/27/2024 7:26 AM CDT us Walker Luevano MD LAB BLOOD ORDERA BLES Final Result [facility] (NAYE) 1 [facility] Department [place] [address] * (ABNORMAL) CBC without differential (11/27/2024 7:20 AM CDT) WBC 13.96(H) 3.80 - 9.90 K/cumm Hgb 10.4(L) 13.0 - 17.5 g/dL [facility] (NAYE) Hct 33.4(L) 38.9 - 50.3 % [facility] (NAYE) Plt 192 150 - 400 K/cumm [facility] (NAYE) MPV 10.6 9.1 - 12.3 fL [facility] (NAYE) RBC 3.24(L) 4.30 - 5.80 M/cumm [facility] (NAYE) MCV 103.1(H) 81.3 - 96.4 fL [facility] (NAYE) MCH 32.1 27.1 - 33.3 pg [facility] (NAYE) MCHC 31.1(L) 32.3 - 35.7 g/dL [facility] (NAYE) RDW CV 15.1(H) 11.1 - 14.9 % [facility] (NAYE) RDW SD 57.5(H) 35.7 - 48.1 fL [facility] (NAYE) NRBC abs 0.00 0.00 - 0.01 K/cumm [facility] (NAYE) Blood 11/27/2024 7:20 AM CDT 11/27/2024 7:26 AM CDT us Walker Luevano MD LAB BLOOD ORDERA BLES Final Result [facility] (NAYE) 1 [facility] Department [place] [address] * (ABNORMAL) Comprehensive metabolic panel (11/27/2024 7:20 AM CDT) Sodium 140 135 - 145 mmol/L Potassium, pl 4.1 3.3 - 4.9 mmol/L [facility] (NAYE) Chloride 108 97 - 110 mmol/L [facility] (NAYE) CO2 17(L) 22 - 32 mmol/L [facility] (NAYE) Anion gap 16(H) 2 - 15 mmol/L [facility] (NAYE) BUN 21 6 - 25 mg/dL [facility] (NAYE) Creatinine 0.79(L) 0.80 - 1.30 mg/dL [facility] (NAYE) Comment:Icteric sample, test results may be affected. Glucose 87 70 - 199 mg/dL [facility] (NAYE) Comment: Interpretive Data Fasting glucose >/= 126 mg/dl is diagnostic for diabetes. Fasting is defined as no caloric intake for at least 8 hours. Fasting glucose between 100 mg/dl to 125 mg/dl is diagnostic of prediabetes. In a patient with classic symptoms of hyperglycemia or hyperglycemic crisis, a random glucose >/= 200 mg/dl is diagnostic for diabetes. In the absence of unequivocal hyperglycemia, results should be confirmed by repeat testing. The classification and Diagnosis of Diabetes Diabetes Care 2021; 46: S19-S40. Current interpretive data was last revised 2022. Calcium 8.8 8.5 - 10.3 mg/dL [facility] (NAYE) Bilirubin, total 1.2 0.1 - 1.2 mg/dL [facility] (NAYE) Protein, pl 6.1(L) 6.5 - 8.5 g/dL [facility] (NAYE) Albumin 3.1(L) 3.5 - 5.0 g/dL [facility] (NAYE) Alk phos 141(H) 40 - 130 Units/L [facility] (NAYE) ALT 28 7 - 55 Units/L [facility] (NAYE) AST 39 10 - 50 Units/L [facility] (NAYE) Blood 11/27/2024 7:20 AM CDT 11/27/2024 7:26 AM CDT us Walker Luevano MD LAB BLOOD ORDERA BLES Final Result GLADIS [facility] ([facility] [address] [place] [address] Department [place] [address] * NV AN ELECTIVE ENDOTRACHEAL AIRWAY (11/26/2024 12:38 PM CDT) Narrative Chaz Diaz CRNA - 11/26/2024 12:38 PM CDT Chaz Diaz CRNA 11/26/2024 12:39 PM Airway Patient location: OR Urgency: elective Date/time: 11/26/2024 12:33 PM Indications for airway management: anesthesia and airway protection Difficult airway: no Staff: Placed by: PASTORAL COUNSELOR: Chaz Diaz CRNA Emergent airway documentation: Risks and benefits discussed: yes Consent obtained: yes Consent given by: patient Airway prep: Preoxygenated: yes Patient position: sniffing Mask difficulty assessment: 1 - vent by mask Sedation level during airway: GA Final airway details: Final airway type: endotracheal airway Tube type: ETT ETT size: 7.5 mm Cuffed: yes Technique used for successful ETT placement: video laryngoscopy Devices/Methods used in placement: intubating stylet Insertion site: oral Blade type: Clint Video blade type: Deal Blade size: 4 Cormack-Lehane (video): grade I - full view of glottis Cuff volume: 6 mL Cuff inflated with: air ETT to lips: 22 cm Placement verified by: auscultation Airway secured with: silk tape Number of attempts: 1 Additional comments: Placed by Iglesia KENYON us Chandu Perkins MD ANESTHESIA ORDERABLES Final Result * Surgical pathology (11/26/2024 9:31 AM CDT) Tissue (Gallbladder) 11/26/2024 12:59 PM CDT Narrative PATHOLOGY [facility] ([facility] - 11/28/2024 4:05 PM CDT EPIC results best viewed via link to PDF [facility] Department of Pathology [address] [place], [place] [id number] Note to Patients: This report may contain a detailed description of human tissue sent by a health care provider to the laboratory for pathologic evaluation. The content of this report is essential for diagnosis and may provide important critical findings. This information may be unfamiliar to patients to review without a medical professional present. It is advised that the patient review this report in the presence of a health care provider who can answer questions and explain the details. Final Report Patient Name: BLAZE SCHMID Address: [address] [place] [id number] Gender: M : 1940 (Age: 84) Service: Medical Location: [facility] Hospital #: [id number] Patient Type: [facility] Taken: 11/26/2024 Received: 11/27/2024 Accessioned: 11/27/2024 Reported: 11/28/2024 Physician(s):Walker Luevano MD Diagnosis: Gallbladder, laparoscopic cholecystectomy: - Xanthogranulomatous cholecystitis with hemorrhage, hemosiderin deposition, and focal coagulative necrosis. Chaz Holman MD Report Electronically Reviewed and Signed Out By Chaz Holman MD 11/28/2024 16:05:17 Specimen(s) Received: A: Gallbladder Microscopic Description: Microscopic examination shows a xanthogranulomatous cholecystitis with hemorrhage, hemosiderin deposition, and focal coagulative necrosis. AE1/AE3 and CAM 5.2 stains are performed with appropriately reactive controls on block A1 to exclude an occult carcinoma and highlight epithelial elements without evidence of infiltrative cells. There is no evidence of malignancy. Intradepartmental consultation: This case was also reviewed by Dr. Del Valle, who concurs with the above findings. Clinical History: Acute cholecystitis. Laparoscopic cholecystectomy. Gross Description: The specimen is received in a single container labeled BLAZE SCHMID and gallbladder . It is a gallbladder that measures 5 x 2 cm. The serosa is congested with adhesions. The wall measures up to 0.4 cm in thickness. The lumen contains green brown bile and green pseudomembranes. The mucosa is fox green with erosion. The cystic duct margin is inked blue. Represented in one cassette. Ed Ayon R.N., P.Karen/Delfino Nathan M.D. REPORT IMAGES AND SCANNED DOCUMENTS, IF INCLUDED, ONLY VIEWABLE IN PDF VERSION OF REPORT The performance characteristics of some immunohistochemical stains, fluorescence in-situ hybridization tests and immunophenotyping by flow cytometry cited in this report (if any) were determined by the Surgical Pathology Department at [facility] as part of an ongoing quality assurance monitor final program and in compliance with federally mandated regulations drawn from the Clinical Laboratory Improvement Act of 1988 (CLIA '88). Some of these tests rely on the use of analyte specific reagents and are subject to specific labeling requirements by the US Food and Drug Administration. Such diagnostic tests may only be performed in a facility that is certified by the Department of Health and Human Services as a high complexity laboratory under CLIA '88. The FDA has determined that such clearance or approval is not necessary. This test is used for clinical purposes. It should not be regarded as investigational or for research. Nevertheless, federal rules concerning the medical use of analyte specific reagents require that the following disclaimer be attached to the report: This test was developed and its performance characteristics determined by the Surgical Pathology Department [facility]. It has not been cleared or approved by the U. S. Food and Drug Administration. Note for decalcified specimens: This assay has not been validated on decalcified tissues. Results should be interpreted with caution given the possibility of false negativity on decalcified specimens Walker Luevano MD LAB PATHOLOGY OR DERABLES Final Result Performing Organization Address City/State/[facility] Co de Phone Number PATHOLOGY [facility] ([facility] 1 [place] [address] * ABO/Rh (11/26/2024 8:27 AM CDT) ABO/Rh A Positive Blood 11/26/2024 8:27 AM CDT 11/26/2024 8:34 AM CDT Barbara GRIFFITH [facility] ([facility] - 11/26/2024 9:12 AM CDT Has the patient had Daratumumab or Isatuximab in the past 6 months?->Unknown Brooklynn Venegas NP LAB BLOOD BANK TEST ORDERABLES Final Result Performing Organization Address City/State/[facility] Co de Phone Number [facility] 1 [facility] [place] [address] * Antibody screen (11/26/2024 8:27 AM CDT) Lavon, indirect, Gel Interpretation Negative ABSC Blood 11/26/2024 8:27 AM CDT 11/26/2024 8:34 AM CDT Narrative [facility]LA[facility] ([place]) - 11/26/2024 9:12 AM CDT Has the patient had Daratumumab or Isatuximab in the past 6 months?->Unknown us Brooklynn Venegas NP LAB BLOOD BANK TEST ORDERABLES Final Result Performing Organization Address City/[facility] Co de Phone Number [facility]LA[facility] 1 [place] [address] * eGFR (11/26/2024 8:26 AM CDT) eGFR 88 >=60 mL/min/1. 73 m2 Comment: Interpretive Data Reference Interval Normal >/= 90 mL/min/1.73m2 Mildly decreased* 60 - 89 mL/min/1.73m2 Mildly to moderately decreased 45 - 59 mL/min/1.73m2 Moderately to severely decreased 30 - 44 mL/min/1.73m2 Severely decreased 15 - 29 mL/min/1.73m2 Kidney Failure < 15 mL/min/1.73m2 *Relative to young adult level Estimated glomerular filtration rate is determined by the 2020 CKD-EPI equation recommended by the National Kidney Foundation (A Unifying Approach to GFR Estimation: Recommendations of the NKF-ASK Task Force on Reassessing the Inclusion of Race in Diagnosing Kidney Disease, JASN 2020). The CKD-EPI equation should not be used for patients with unstable renal function and has not been validated in children and those over 70. Current interpretive data was last reviewed 2021. Blood 11/26/2024 8:26 AM CDT 11/26/2024 8:35 AM CDT us Beronica Hart MD LAB BLOOD ORDERABLES Final Re sult [facility]) 1 [facility] Department [place] [address] * Blood culture Blood (11/26/2024 8:26 AM CDT) Report Final Report: No growth Comment:Testing performed by : [facility], [address] [place]., [address] Blood 11/26/2024 8:26 AM CDT 11/26/2024 10:24 AM CDT Narrative [facility]) - 11/30/2024 12:00 PM CDT From a different site than #1. Collection->Peripheral 1. Blood cultures are incubated for 4 days on a continuously monitored blood culture system. The first report of a negative culture is issued within 24 hours of receipt of the specimen in the laboratory. 2. Positive culture results are reported as soon as they are detected. 3. The most important factor for detection of microbes in the setting of bloodstream infection is the volume of blood submitted for culture. Failure to collect an optimal blood volume can result in false negative blood cultures. 4. For pediatric patients, the recommended blood volume to collect follows a weight based strategy. See the electronic test catalog for collection instructions. 5. For positive blood cultures, a rapid molecular test may be performed for organism identification using the colt ePlex blood culture identification panel for gram positive (BCID-GP) and gram negative (BCID-GN) organisms. This nucleic acid amplification test detects microbial DNA in positive blood culture broth. This assay has been cleared by the [place] Food and Drug Administration and its performance characteristics have been verified by the [facility]. For questions about this culture, contact the Microbiology Laboratory at [phone]. Interpretive data was last revised on 24. us Brooklynn Venegas NP LAB MICROBIOLOGY - GENERAL ORD ERABLES Final Result GLADIS JAMA) 1 [facility] Department [place] [address] * (ABNORMAL) CBC without differential (11/26/2024 8:26 AM CDT) WBC 11.42(H) 3.80 - 9.90 K/cumm Hgb 11.0(L) 13.0 - 17.5 g/dL [facility] ([facility]) Hct 35.0(L) 38.9 - 50.3 % [facility] ([facility]) Plt 193 150 - 400 K/cumm [facility] ([facility]) MPV 10.6 9.1 - 12.3 fL [facility] ([facility]) RBC 3.51(L) 4.30 - 5.80 M/cumm [facility] ([facility]) MCV 99.7(H) 81.3 - 96.4 fL [facility] ([facility]) MCH 31.3 27.1 - 33.3 pg [facility] ([facility]) MCHC 31.4(L) 32.3 - 35.7 g/dL [facility] ([facility]) RDW CV 15.0(H) 11.1 - 14.9 % [facility] ([facility]) RDW SD 55.4(H) 35.7 - 48.1 fL [facility] ([facility]) NRBC abs 0.00 0.00 - 0.01 K/cumm [facility] ([facility]) Blood 11/26/2024 8:26 AM CDT 11/26/2024 8:34 AM CDT Walker Luevano MD LAB BLOOD ORDERA BLES Final Result [facility] ([facility]) 1 [facility] Department [place] [address] * (ABNORMAL) Bilirubin, total and direct (11/26/2024 8:26 AM CDT) Bilirubin, total 1.5(H) 0.1 - 1.2 mg/dL Bilirubin, direct 0.7(H) 0.1 - 0.3 mg/dL [facility] ([facility]) Blood 11/26/2024 8:26 AM CDT 11/26/2024 8:34 AM CDT us Beronica Hart MD LAB BLOOD ORDERABLES Final Re sult GLADIS BLAKE (NAYE) 1 [facility] Department [place] [address] * (ABNORMAL) Comprehensive metabolic panel (11/26/2024 8:26 AM CDT) Sodium 138 135 - 145 mmol/L Potassium, pl 3.6 3.3 - 4.9 mmol/L [facility] ([facility]) Chloride 104 97 - 110 mmol/L [facility] ([facility]) CO2 19(L) 22 - 32 mmol/L [facility] ([facility]) Anion gap 16(H) 2 - 15 mmol/L [facility] ([facility]) BUN 19 6 - 25 mg/dL [facility] ([facility]) Creatinine 0.74(L) 0.80 - 1.30 mg/dL [facility] ([facility]) Comment:Icteric sample, test results may be affected. Glucose 77 70 - 199 mg/dL [facility] ([facility]) Comment: Interpretive Data Fasting glucose >/= 126 mg/dl is diagnostic for diabetes. Fasting is defined as no caloric intake for at least 8 hours. Fasting glucose between 100 mg/dl to 125 mg/dl is diagnostic of prediabetes. In a patient with classic symptoms of hyperglycemia or hyperglycemic crisis, a random glucose >/= 200 mg/dl is diagnostic for diabetes. In the absence of unequivocal hyperglycemia, results should be confirmed by repeat testing. The classification and Diagnosis of Diabetes Diabetes Care 2021; 46: S19-S40. Current interpretive data was last revised 2022. Calcium 8.7 8.5 - 10.3 mg/dL [facility] ([facility]) Bilirubin, total 1.5(H) 0.1 - 1.2 mg/dL [facility] ([facility]) Protein, pl 6.2(L) 6.5 - 8.5 g/dL [facility] ([facility]) Albumin 3.2(L) 3.5 - 5.0 g/dL [facility] ([facility]) Alk phos 163(H) 40 - 130 Units/L [facility] ([facility]) ALT 24 7 - 55 Units/L [facility] ([facility]) AST 33 10 - 50 Units/L [facility] ([facility]) Blood 11/26/2024 8:26 AM CDT 11/26/2024 8:35 AM CDT aWlker Luevano MD LAB BLOOD ORDERA BLES Final Result GLADIS [facility]LAKE (NAYE) 1 [facility] Department [place] [address] * Blood culture Blood (11/26/2024 8:20 AM CDT) Report Final Report: No growth Comment:Testing performed by : [facility], [address] [place] [address] Blood 11/26/2024 8:20 AM CDT 11/26/2024 10:24 AM CDT Narrative GLADIS BLAKE (NAYE) - 11/30/2024 12:00 PM CDT Collection->Peripheral 1. Blood cultures are incubated for 4 days on a continuously monitored blood culture system. The first report of a negative culture is issued within 24 hours of receipt of the specimen in the laboratory. 2. Positive culture results are reported as soon as they are detected. 3. The most important factor for detection of microbes in the setting of bloodstream infection is the volume of blood submitted for culture. Failure to collect an optimal blood volume can result in false negative blood cultures. 4. For pediatric patients, the recommended blood volume to collect follows a weight based strategy. See the electronic test catalog for collection instructions. 5. For positive blood cultures, a rapid molecular test may be performed for organism identification using the colt ePlex blood culture identification panel for gram positive (BCID-GP) and gram negative (BCID-GN) organisms. This nucleic acid amplification test detects microbial DNA in positive blood culture broth. This assay has been cleared by the [place] Food and Drug Administration and its performance characteristics have been verified by the [facility] Microbiology Laboratory. For questions about this culture, contact the Microbiology Laboratory at [phone]. Interpretive data was last revised on 24. us Brooklynn Venegas NP LAB MICROBIOLOGY - GENERAL ORD ERABLES Final Result GLADIS BLAKE (HAZEL CREST) 1 [facility] Department [place] [address] * US RUQ (11/25/2024 2:58 PM CDT) Anatomical Region Laterality Modality Abdomen N/A Ultrasound 11/25/2024 5:32 PM CDT Narrative 11/25/2024 5:35 PM CDT EXAM DESCRIPTION: US RUQ REASON FOR STUDY: pain, elevated bili TECHNIQUE: Ultrasound of the right upper quadrant of the abdomen was performed with grayscale and color doppler. COMPARISON: 10/15/2021 FINDINGS: PANCREAS: Pancreas is not well seen. LIVER: The liver appears somewhat heterogeneous and echogenic suggesting fatty infiltration. No focal lesions are seen. Liver size appears normal GALLBLADDER: Gallbladder appears to be filled with heterogeneous material. This may represent sludge. Soft tissue material in the gallbladder is not excluded. Gallbladder wall is not well perceived but does not appear to be thickened no Hayden's sign is noted. BILIARY: There is no intrahepatic or extrahepatic biliary ductal dilatation. Common bile duct measures 4.5 mm in diameter. RIGHT KIDNEY: Normal size. Normal echogenicity. No solid mass or cyst. No hydronephrosis. Measures 9.2 cm in length. OTHER: No other significant findings. IMPRESSION: Gallbladder appears to be filled with heterogeneous material. This may represent sludge. Soft tissue material in the gallbladder is not excluded. Follow-up MRI may be helpful. Fatty infiltration of the liver. THIS IS AN ELECTRONICALLY VERIFIED FINAL REPORT 11/25/2024 5:35 PM - Electronically signed by Brendon Callahan M.D. KH: ROBERT Report ID: [id number] Reading Location: [place] [address] Procedure Note Brendon Callahan MD - 11/25/2024 EXAM DESCRIPTION: US RUQ REASON FOR STUDY: pain, elevated bili TECHNIQUE: Ultrasound of the right upper quadrant of the abdomen wasperformed with grayscale and color doppler. COMPARISON: 10/15/2021 FINDINGS: PANCREAS: Pancreas is not well seen. LIVER: The liver appears somewhat heterogeneous and echogenic suggesting fatty infiltration. No focal lesions are seen. Liver size appears normal GALLBLADDER: Gallbladder appears to be filled with heterogeneousmaterial. This may represent sludge. Soft tissue material in the gallbladder is not excluded. Gallbladder wall is not well perceived but does not appear misha thickened no Hayden's sign is noted. BILIARY: There is no intrahepatic or extrahepatic biliary ductaldilatation. Common bile duct measures 4.5 mm in diameter. RIGHT KIDNEY: Normal size. Normal echogenicity. No solid mass or cyst.No hydronephrosis. Measures 9.2 cm in length. OTHER: No other significant findings. IMPRESSION: Gallbladder appears to be filled with heterogeneous material. This may represent sludge. Soft tissue material in the gallbladder is not excluded. Follow-up MRI may be helpful. Fatty infiltration of the liver. THIS IS AN ELECTRONICALLY VERIFIED FINAL REPORT 11/25/2024 5:35 PM - Electronically signed by Brendon Callahan M.D. 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 Automated exposure control was used as a dose optimization technique for this examination. COMPARISON: 05/21/2024 FINDINGS: ALIGNMENT: Normal. VERTEBRAE: No fracture. Vertebral body heights well-maintained. Facet arthropathy is noted. Left-sided facet fusion at C2-C3 and C3-C4 is noted. DISCS: Diffuse intervertebral disc narrowing is noted. Some irregularity of the inferior endplate of C4 is similar to previous. HARDWARE: None in the spine. INDIVIDUAL LEVELS: Canal contents are not well seen by CT. There appears to be some partial narrowing of the canal particularly at C4-C5 and C3-C4 by posterior disc/osteophyte complexes. No clear evidence of the tight canal stenosis is seen. UPPER THORACIC: Incompletely imaged. No significant osseous spinal stenosis or osseous neural foraminal stenosis. SKULL BASE: No significant finding. LUNG APICES: No significant abnormality. NECK SOFT TISSUES: No significant abnormality. OTHER: No other significant findings. IMPRESSION: Degenerative changes are noted with some canal narrowing present. MRI would likely provide better evaluation. THIS IS AN ELECTRONICALLY VERIFIED FINAL REPORT 11/25/2024 5:32 PM - Electronically signed by Brendon Callahan M.D. 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 Automated exposure control was used as a doseoptimization technique for this examination. COMPARISON: 05/21/2024 FINDINGS: ALIGNMENT: Normal. VERTEBRAE: No fracture. Vertebral body heights well-maintained. Facet arthropathy is noted. Left-sided facet fusion at C2-C3 and C3-C4 isnoted. DISCS: Diffuse intervertebral disc narrowing is noted. Someirregularity of the inferior endplate of C4 is similar to previous. HARDWARE: None in the spine. INDIVIDUAL LEVELS: Canal contents are not well seen by CT. There appears to be some partial narrowing of the canal particularly at C4-C5 and C3-C4 by posterior disc/osteophyte complexes. No clear evidence of the tight canal stenosisis seen. UPPER THORACIC: Incompletely imaged. No significant osseous spinalstenosis or osseous neural foraminal stenosis. SKULL BASE: No significant finding. LUNG APICES: No significant abnormality. NECK SOFT TISSUES: No significant abnormality. OTHER: No other significant findings. IMPRESSION: Degenerative changes are noted with some canal narrowing present. MRIwould likely provide better evaluation. THIS IS AN ELECTRONICALLY VERIFIED FINAL REPORT 11/25/2024 5:32 PM - Electronically signed by Brendon Callahan M.D. KH: ROBERT Report ID: [id number] Reading Location: [place] [address] us Elisa Goode [employer] IMG CT PROCEDURES Fin al Result * Blood gas, venous (11/25/2024 12:24 PM CDT) pH, Venous 7.32 7.32 - 7.43 PCO2, Venous 46 40 - 50 mmHg [facility] ([facility]) PO2, Venous 58 mmHg [facility] ([facility]) HCO3 Venous, Calculated 22 20 - 30 mmol/L [facility] ([facility]) BE, venous -3 mmol/L [facility] ([facility]) Comment: Interpretive Data No Reference Range Established Current Interpretive Data was last revised on 2017. Blood 11/25/2024 12:2 4 PM CDT 11/25/2024 12:33 PM CDT Beronica Hart MD LAB BLOOD ORDERABLES Final Re sult [facility] (NAYE) 1 [facility] Department of Laboratories [place], [place] [id number] * (ABNORMAL) Troponin T high-sensitivity 6-hour (11/25/2024 8:25 AM CDT) Trop T hs 55(H) <=22 ng/L Comment: Interpretive Data For further hscTnT resources including the diagnostic algorithm and an aid in interpretation, copy and paste this link: https://nrl.testcatalog.org/show/hsTrop Current Interpretive Data last revised 2020. Trop T hs delta 2 ng/L [facility] ([facility]) Trop T hs interp Insignificant [facility] ([facility]) Blood 11/25/2024 8:25 AM CDT 11/25/2024 8:51 AM CDT us Kalen Awan MD LAB BLOOD ORDERABLES Fi nal Result GLADIS BLAKE ([place]ZEL CREST) 1 [facility] Department [place] [address] * NV CRITICAL CARE ILL/INJURED PATIENT INIT 30-74 MIN (11/25/2024 7:39 AM CDT) Narrative Peggy Ayon MD - 11/25/2024 7:39 AM CDT Peggy Ayon MD 11/25/2024 7:40 AM Critical Care Performed by: Peggy Ayon MD Authorized by: Peggy Ayon MD Critical care provider statement: As reflected in the history, physical exam, orders, notes, and/or MDM, I was personally present while the patient was critically ill and provided critical care services for 35 minutes, excluding time involved in separately billable procedures. Critical care was necessary to treat or prevent imminent or life-threatening deterioration of the following condition(s): acute ingestion Critical care was time spent by me providing the following: continuous telemetry and interpretation of bedside monitors, imaging, and arterial/venous lab draws frequent neurologic exams I provided emergent necessary critical care medicine services to this patient. I ordered and reviewed test results and/or imaging studies. I spent time discussing the management of this critically ill patient with consultants and the medical staff. I spent time discussing the management and therapeutic options for this critically ill patient with the patient themselves or with the appropriate designated surrogate decision-maker. I spent time documenting in the medical record. I admitted this patient to a continuous cardiac monitored bed. us Peggy Ayon MD IN CLINIC/BEDSIDE ORDERABLES Fin al Result * (ABNORMAL) Troponin T high-sensitivity 4-hour (11/25/2024 6:43 AM CDT) Trop T hs 53(H) <=22 ng/L Comment: Interpretive Data For further hscTnT resources including the diagnostic algorithm and an aid in interpretation, copy and paste this link: https://nrl.testcatalog.org/show/hsTrop Current Interpretive Data last revised 2020. Trop T hs delta 0 ng/L [facility] ([facility]) Trop T hs interp Insignificant [facility] ([facility]) Blood 11/25/2024 6:43 AM CDT 11/25/2024 7:16 AM CDT us Kalen Awan MD LAB BLOOD ORDERABLES Fi nal Result Performing Organization Address City/State/[facility] Co de Phone Number [facility] ([place]) 1 [facility] Department [place] [address] * eGFR (11/25/2024 6:43 AM CDT) eGFR 80 >=60 mL/min/1. 73 m2 Comment: Interpretive Data Reference Interval Normal >/= 90 mL/min/1.73m2 Mildly decreased* 60 - 89 mL/min/1.73m2 Mildly to moderately decreased 45 - 59 mL/min/1.73m2 Moderately to severely decreased 30 - 44 mL/min/1.73m2 Severely decreased 15 - 29 mL/min/1.73m2 Kidney Failure < 15 mL/min/1.73m2 *Relative to young adult level Estimated glomerular filtration rate is determined by the 2020 CKD-EPI equation recommended by the National Kidney Foundation (A Unifying Approach to GFR Estimation: Recommendations of the NKF-ASK Task Force on Reassessing the Inclusion of Race in Diagnosing Kidney Disease, JASN 2021). The CKD-EPI equation should not be used for patients with unstable renal function and has not been validated in children and those over 70. Current interpretive data was last reviewed 2021. Blood 11/25/2024 6:43 AM CDT 11/25/2024 7:16 AM CDT us Peggy Ayon MD LAB BLOOD ORDERABLES Final Resul t GLADIS BLAKE (NAYE) 1 [facility] Department [place] [address] * (ABNORMAL) Differential, auto (11/25/2024 6:43 AM CDT) Neutrophil abs 9.48(H) 1.50 - 6.50 K/cumm Imm gran abs 0.14(H) 0.00 - 0.10 K/cumm [facility] ([facility]) Lymphocyte abs 0.99 0.80 - 3.30 K/cumm [facility] ([facility]) Monocyte abs 1.03(H) 0.20 - 0.80 K/cumm [facility] ([facility]) Eosinophil abs 0.06 0.00 - 0.50 K/cumm [facility] ([facility]) Basophil abs 0.02 0.00 - 0.10 K/cumm [facility] ([facility]) Neutrophil pct 80.9 % [facility] ([facility]) Comment: Interpretive Data Percent cell count reference ranges are not reported, since discordance with absolute values may lead to misinterpretation of CBC data. Current Interpretive Data was last revised on 2017. Imm gran pct 1.2 % [facility] ([facility]) Comment: Interpretive Data Percent cell count reference ranges are not reported, since discordance with absolute values may lead to misinterpretation of CBC data. Current Interpretive Data was last revised on 2017. Lymphocyte pct 8.4 % [facility] ([facility]) Comment: Interpretive Data Percent cell count reference ranges are not reported, since discordance with absolute values may lead to misinterpretation of CBC data. Current Interpretive Data was last revised on 2017. Monocyte pct 8.8 % [facility] ([facility]) Comment: Interpretive Data Percent cell count reference ranges are not reported, since discordance with absolute values may lead to misinterpretation of CBC data. Current Interpretive Data was last revised on 2017. Eosinophil pct 0.5 % [facility] ([facility]) Comment: Interpretive Data Percent cell count reference ranges are not reported, since discordance with absolute values may lead to misinterpretation of CBC data. Current Interpretive Data was last revised on 2017. Basophil pct 0.2 % [facility] ([facility]) Comment: Interpretive Data Percent cell count reference ranges are not reported, since discordance with absolute values may lead to misinterpretation of CBC data. Current Interpretive Data was last revised on 2017. Blood 11/25/2024 6:43 AM CDT 11/25/2024 7:16 AM CDT us Peggy Ayon MD LAB BLOOD ORDERABLES Final Resul t [facility] ([facility]) 1 [facility] Department [place] [address] * (ABNORMAL) CBC with auto differential (11/25/2024 6:43 AM CDT) WBC 11.72(H) 3.80 - 9.90 K/cumm Hgb 9.9(L) 13.0 - 17.5 g/dL [facility] ([facility]) Hct 31.7(L) 38.9 - 50.3 % [facility] ([facility]) Plt 170 150 - 400 K/cumm [facility] ([facility]) MPV 10.2 9.1 - 12.3 fL [facility] ([facility]) RBC 3.10(L) 4.30 - 5.80 M/cumm [facility] ([facility]) MCV 102.3(H) 81.3 - 96.4 fL [facility] ([facility]) MCH 31.9 27.1 - 33.3 pg [facility] ([facility]) MCHC 31.2(L) 32.3 - 35.7 g/dL [facility] ([facility]) RDW CV 15.2(H) 11.1 - 14.9 % [facility] ([facility]) RDW SD 57.1(H) 35.7 - 48.1 fL [facility] ([facility]) NRBC abs 0.00 0.00 - 0.01 K/cumm [facility] ([facility]) Blood 11/25/2024 6:43 AM CDT 11/25/2024 7:16 AM CDT us Peggy Ayon MD LAB BLOOD ORDERABLES Final Resul t Performing Organization Address City/[facility]/ZIP Co de Phone Number GLADIS BLAKE (NAYE) 1 [facility] Department [place] [address] * Basic metabolic panel (11/25/2024 6:43 AM CDT) Sodium 140 135 - 145 mmol/L Potassium, pl 4.1 3.3 - 4.9 mmol/L [facility] ([facility]) Chloride 106 97 - 110 mmol/L [facility] ([facility]) CO2 23 22 - 32 mmol/L [facility] ([facility]) Anion gap 12 2 - 15 mmol/L [facility] ([facility]) BUN 21 6 - 25 mg/dL [facility] Creatinine 0.93 0.80 - 1.30 mg/dL [facility] ([facility]) Comment:Icteric sample, test results may be affected. Glucose 95 70 - 199 mg/dL [facility] (NA[facility]) Comment: Interpretive Data Fasting glucose >/= 126 mg/dl is diagnostic for diabetes. Fasting is defined as no caloric intake for at least 8 hours. Fasting glucose between 100 mg/dl to 125 mg/dl is diagnostic of prediabetes. In a patient with classic symptoms of hyperglycemia or hyperglycemic crisis, a random glucose >/= 200 mg/dl is diagnostic for diabetes. In the absence of unequivocal hyperglycemia, results should be confirmed by repeat testing. The classification and Diagnosis of Diabetes Diabetes Care 2021; 46: S19-S40. Current interpretive data was last revised 2022. Calcium 8.7 8.5 - 10.3 mg/dL [facility] (NA[facility]) Blood 11/25/2024 6:43 AM CDT 11/25/2024 7:16 AM CDT Peggy Ayon MD LAB BLOOD ORDERABLES Final Resul t GLADIS BLAKE (NAYE) 1 [facility] Department [place] [address] * Procalcitonin (11/25/2024 6:40 AM CDT) Procalcitonin 0.12 <=0.25 ng/mL Comment:Testing performed by : [facility], [address], [place]., [address] Blood 11/25/2024 6:40 AM CDT 11/25/2024 12:06 PM CDT us Beronica Hart MD LAB BLOOD ORDERABLES Final Re sult [facility] ([place]) 1 [facility] Department [place] [address] * (ABNORMAL) Pro B-type natriuretic peptide (11/25/2024 6:40 AM CDT) NT-proBNP 7,659(H) <=450 pg/mL Comment: Interpretive Comments: A. Dyspnea in Acute Care Setting All Ages: < 300 pg/ml, acute heart failure unlikely. < 50 yrs: 300 - 450 pg/ml, further investigation warranted. > 450 pg/ml, acute heart failure likely. 50 - 74 yrs: 300 - 900 pg/ml, further investigation warranted. > 900 pg/ml, acute heart failure likely . > or = 75 yrs: 450 - 1800 pg/ml, further investigation warranted. > 1800 pg/ml, acute heart failure likely. B. Non-acute Setting < 75 yrs < 125 pg/ml, rules out heart failure. > or = 125 pg/ml, further investigation warranted. > or = 75 yrs < 450 pg/ml, rules out heart failure. > or = 450 pg/ml, further investigation warranted. - Knowledge of each individual patient's NT-proBNP range may be more useful than using similar cut-points for every patient. Please note that marked elevations in NT-proBNP levels may be observed in state other than Left Ventricular Congestive Failure, including: acute coronary syndromes, right heart strain/failure (including pulmonary embolism and cor pulmonale), critical illness, renal failure, as well as advanced age. - References: 1. Luly BREWER et.al. Eur Heart J. 2006:27:330-337. 2. Herber RW, Celia US. J. AM Kendal Cardiol: Cardiovasc Imag. 2009;2: 216- 225. Interpretive Data Last Revised Date: 2018. Blood 11/25/2024 6:40 AM CDT 11/25/2024 7:47 AM CDT us Beronica Hart MD LAB BLOOD ORDERABLES Final Re sult Performing Organization Address City/[facility]/ZIP Co de Phone Number GLADIS BLAKE (HAZEL CREST) 1 [facility] [place] [address] * (ABNORMAL) Troponin T high-sensitivity 2-hour (11/25/2024 4:44 AM CDT) Trop T hs 53(H) <=22 ng/L Comment: Interpretive Data For further hscTnT resources including the diagnostic algorithm and an aid in interpretation, copy and paste this link: https://nrl.testcatalog.org/show/hsTrop Current Interpretive Data last revised 2020. Trop T hs delta 0 ng/L [facility] ([place] [facility]) Trop T hs interp Insignificant [facility] ([place]) Blood 11/25/2024 4:44 AM CDT 11/25/2024 4:56 AM CDT us Kalen Awan MD LAB BLOOD ORDERABLES Fi nal Result Performing Organization Address [facility]/ZIP Co de Phone Number GLADIS BLAKE (HAZEL CREST) 1 [facility] [place] [address] * XR Chest 1 Vw Portable (11/25/2024 2:55 AM CDT) Anatomical Region Laterality Modality Body, Chest N/A Computed Radiogr aphy 11/25/2024 3:24 AM CDT Narrative 11/25/2024 3:26 AM CDT EXAM DESCRIPTION: XR CHEST 1 VIEW REASON FOR STUDY: altered mental status Altered mental status x 2 days. Hx of CHF, A-fib, HTN, cardiac cath Former smoker TECHNIQUE: Single radiographic view of the chest. COMPARISON: Chest x-ray of August 20, 2021. FINDINGS: LUNGS/PLEURA: Lungs are markedly hypoventilatory with patchy airspace disease through out the right lung, new from previous. HEART/MEDIASTINUM: Cardiac silhouette is within normal limits. There is atherosclerosis of the aorta. Remaining mediastinal silhouettes are unremarkable. HARDWARE/LINES/TUBES: EKG leads overlie the film. A left, multilead cardioregulatory device is seen in place. BONES: No acute findings. IMPRESSION: Right-sided airspace disease suspicious for pneumonia. Recommend clinical correlation and follow-up short interval chest x-ray in 4-6 weeks to ensure resolution. THIS IS AN ELECTRONICALLY VERIFIED FINAL REPORT 11/25/2024 3:26 AM - Electronically signed by Velma Jean M.D. SN: SN Report ID: [id number] Reading Location: [place] [address] Procedure Note Velma Jean MD - 11/25/2024 EXAM DESCRIPTION: XR CHEST 1 VIEW REASON FOR STUDY: altered mental status Altered mental status x 2 days. Hx of CHF, A-fib, HTN, cardiac cathFormer smoker TECHNIQUE: Single radiographic view of the chest. COMPARISON: Chest x-ray of August 20, 2021. FINDINGS: LUNGS/PLEURA: Lungs are markedly hypoventilatory with patchy airspace disease through out the right lung, new from previous. HEART/MEDIASTINUM: Cardiac silhouette is within normal limits. There is atherosclerosis of the aorta. Remaining mediastinal silhouettes are unremarkable. HARDWARE/LINES/TUBES: EKG leads overlie the film. A left, multilead cardioregulatory device is seen in place. BONES: No acute findings. IMPRESSION: Right-sided airspace disease suspicious for pneumonia. Recommendclinical correlation and follow-up short interval chest x-ray in 4-6 weeks toensure resolution. THIS IS AN ELECTRONICALLY VERIFIED FINAL REPORT 11/25/2024 3:26 AM - Electronically signed by Velma Jean M.D. SN: SN Report ID: [id number] Reading Location: [id number] us Peggy Ayon MD IMG XR PROCEDURES Final Result * (ABNORMAL) Troponin T high-sensitivity series (baseline, 2hr, 4hr, 6hr) (11/25/2024 2:45 AM CDT) Trop T hs 53(H) <=22 ng/L Comment: Interpretive Data For further hscTnT resources including the diagnostic algorithm and an aid in interpretation, copy and paste this link: https://nrl.testcatalog.org/show/hsTrop Current Interpretive Data last revised 2020. Blood 11/25/2024 2:45 AM CDT 11/25/2024 2:50 AM CDT Kalen Awan MD LAB BLOOD ORDERABLES Fi nal Result [facility] ([place] 1 [facility] Department of Laboratories [place] [id number] * Influenza A/B, RSV, and COVID-19 PCR Nasopharyngeal (11/25/2024 2:45 AM CDT) Pathologist [facility] COVID-19 RNA Negative Negative Influenza A RNA Negative Negative [facility] ([place]) Influenza B RNA Negative Negative [facility] ([place]) RSV RNA Negative Negative [facility] ([place]) Comment: Interpretive data: Testing performed by [facility]. This test is performed using the [employer] Xpert Xpress CoV-2/Flu/RSV plus assay. This is a multiplex, real- time reverse transcriptase PCR assay intended for the qualitative detection of nucleic acid from SARS-CoV-2, influenza A, influenza B, and respiratory syncytial virus. This assay has been cleared by the [place] Food and Drug administration. The performance characteristics have been verified by the [facility]. Results must be considered in the clinical context, and a negative result does not rule out infection. Interpretive Data last revised 2023 Nasopharyngeal 11/25/2024 2: 45 AM CDT 11/25/2024 2:50 AM CDT Narrative [facility] ([place]) - 11/25/2024 3:43 AM CDT Is the Patient experiencing symptoms consistent with COVID?->Yes Peggy Ayon MD LAB MICROBIOLOGY - GENERAL ORDER LILIANA Final Result Performing Organization Address City/[facility]/ZIP Co de Phone Number [facility] ([place]) 1 [place] [address] * Thyroid Function [place] (11/25/2024 2:45 AM CDT) TSH 1.84 0.30 - 4.20 mcIUnit/mL Blood 11/25/2024 2:45 AM CDT 11/25/2024 2:50 AM CDT Peggy Ayon MD LAB BLOOD ORDERABLES Final Resul t Performing Organization Address [facility] Co de Phone Number [facility] ([place]) 1 [facility] [place] [address] * (ABNORMAL) Urinalysis reflex to microscopic and culture Urine (11/25/2024 2:45 AM CDT) Color, ur Yellow Yellow Clarity, ur Clear Clear [facility] ([place]) Specific gravity, ur 1.025 1.003 - 1.030 [facility] ([place]) pH, urine 5.5 [facility] ([place]) Comment: Interpretive Data U rine pH is affected by diet, medications, systemic acid-base disturbances, and renal tubular function. pH may affect urinary stone formation. For example, urine pH below 6.0 may help reduce the tendency for calcium phosphate stones and pH greater than 6.0 may reduce the tendency for uric acid stone formation. Source: [facility] Current Interpretive Data was last revised on 2017 Protein, ur ql Trace Negative [facility] ([place]) Glucose, ur ql Negative Negative [facility] ([place]) Ketones, ur Negative Negative [facility] ([place]) Bilirubin, ur Negative Negative [facility] ([place]) Blood, ur Negative Negative [facility] ([place]) Urobilinogen, ur 2.0(A) <2.0 mg/dL [facility] ([place]) Nitrite, ur Negative Negative [facility] ([place]) Leukocyte esterase, ur Negative Negative [facility] ([place]) UA reflex comment Reflex conditions for microscopic UA and culture not met. [facility] ([place]) Urine 11/25/2024 2:45 AM CDT 11/25/2024 2:49 AM CDT Peggy Ayon MD LAB MICROBIOLOGY - GENERAL ORDER LILIANA Final Result Performing Organization Address [facility] Co de Phone Number [facility] 1 [facility] [place] [address] * Blood gas, venous (11/25/2024 2:45 AM CDT) pH, Venous 7.38 7.32 - 7.43 PCO2, Venous 40 40 - 50 mmHg [facility] ([place]) PO2, Venous 83 mmHg [facility] ([place]) Comment: Interpretive Data No reference range established. Current interpretive data was last revised 2017. HCO3 Venous, Calculated 23 20 - 30 mmol/L [facility] ([place]) BE, venous -2 mmol/L [facility] ([place]) Comment: Interpretive Data No Reference Range Established Current Interpretive Data was last revised on 2017. Blood 11/25/2024 2:45 AM CDT 11/25/2024 2:50 AM CDT Peggy Ayon MD LAB BLOOD ORDERABLES Final Resul t Performing Organization Address [facility] Co de Phone Number [facility] ([place]) 1 [facility] [employer] [place] [address] * CT Head WO Contrast (11/25/2024 1:16 AM CDT) Anatomical Region Laterality Modality Head and Neck N/A Computed Tomogra phy 11/25/2024 1:19 AM CDT Narrative 11/25/2024 1:27 AM CDT EXAM DESCRIPTION: CT HEAD WO CONTRAST REASON FOR STUDY: Mental status change, unknown cause Altered mental status x 2 days. No recent injury No surgery TECHNIQUE: Axial images acquired through the brain without intravenous contrast. Images stored on PACS. Automated exposure control was used as a dose optimization technique for this examination. COMPARISON: 05/21/2024 FINDINGS: BRAIN: No hemorrhage, edema or mass effect. No recent infarct. Generalized atrophy and periventricular microvascular white matter ischemic change. EXTRA-AXIAL SPACES: No fluid collections. No masses. CALVARIUM: No fracture. SINUSES/MASTOIDS: No fluid or mucosal thickening. ORBITS: No significant abnormality. OTHER: No other significant abnormality. IMPRESSION: No acute intracranial findings. THIS IS AN ELECTRONICALLY VERIFIED FINAL REPORT 11/25/2024 1:27 AM - Electronically signed by Brendon Fabian M.D. KT: DANIELLE Report ID: [id number] Reading Location: [id number] Procedure Note Brendon Fabian MD - 11/25/2024 EXAM DESCRIPTION: CT HEAD WO CONTRAST REASON FOR STUDY: Mental status change, unknown cause Altered mental status x 2 days. No recent injury No surgery TECHNIQUE: Axial images acquired through the brain without intravenous contrast. Images stored on PACS. Automated exposure control was used asa dose optimization technique for this examination. COMPARISON: 05/21/2024 FINDINGS: BRAIN: No hemorrhage, edema or mass effect. No recent infarct. Generalized atrophy and periventricular microvascular white matterischemic change. EXTRA-AXIAL SPACES: No fluid collections. No masses. CALVARIUM: No fracture. SINUSES/MASTOIDS: No fluid or mucosal thickening. ORBITS: No significant abnormality. OTHER: No other significant abnormality. IMPRESSION: No acute intracranial findings. THIS IS AN ELECTRONICALLY VERIFIED FINAL REPORT 11/25/2024 1:27 AM - Electronically signed by Brendon Fabian M.D. KT: DANIELLE Report ID: [id number] Reading Location: [id number] Peggy Ayon MD IMG CT PROCEDURES Final Result * eGFR (11/24/2024 10:58 PM CDT) Pathologist [facility] eGFR 72 >=60 mL/min/1. 73 m2 Comment: Interpretive Data Reference Interval Normal >/= 90 mL/min/1.73m2 Mildly decreased* 60 - 89 mL/min/1.73m2 Mildly to moderately decreased 45 - 59 mL/min/1.73m2 Moderately to severely decreased 30 - 44 mL/min/1.73m2 Severely decreased 15 - 29 mL/min/1.73m2 Kidney Failure < 15 mL/min/1.73m2 *Relative to young adult level Estimated glomerular filtration rate is determined by the 2020 CKD-EPI equation recommended by the National Kidney Foundation (A Unifying Approach to GFR Estimation: Recommendations of the NKF-ASK Task Force on Reassessing the Inclusion of Race in Diagnosing Kidney Disease, JASN 2020). The CKD-EPI equation should not be used for patients with unstable renal function and has not been validated in children and those over 70. Current interpretive data was last reviewed 2021. Blood 11/24/2024 10:5 8 PM CDT 11/24/2024 11:02 PM CDT us Peggy Ayon MD LAB BLOOD ORDERABLES Final Resul t [facility] ([place]) 1 [facility] Department [place] [address] * (ABNORMAL) Differential, auto (11/24/2024 10:58 PM CDT) Pathologist [facility] Neutrophil abs 10.96(H) 1.50 - 6.50 K/cumm Imm gran abs 0.17(H) 0.00 - 0.10 K/cumm [facility] ([place]) Lymphocyte abs 1.37 0.80 - 3.30 K/cumm [facility] ([place]) Monocyte abs 1.45(H) 0.20 - 0.80 K/cumm [facility] ([place]) Eosinophil abs 0.05 0.00 - 0.50 K/cumm [facility] ([place]) Basophil abs 0.01 0.00 - 0.10 K/cumm [facility] ([place]) Neutrophil pct 78.2 % [facility] ([place]) Comment: Interpretive Data Percent cell count reference ranges are not reported, since discordance with absolute values may lead to misinterpretation of CBC data. Current Interpretive Data was last revised on 2017. Imm gran pct 1.2 % [facility] ([place]) Comment: Interpretive Data Percent cell count reference ranges are not reported, since discordance with absolute values may lead to misinterpretation of CBC data. Current Interpretive Data was last revised on 2017. Lymphocyte pct 9.8 % [facility] ([place]) Comment: Interpretive Data Percent cell count reference ranges are not reported, since discordance with absolute values may lead to misinterpretation of CBC data. Current Interpretive Data was last revised on 2017. Monocyte pct 10.3 % [facility] ([place]) Comment: Interpretive Data Percent cell count reference ranges are not reported, since discordance with absolute values may lead to misinterpretation of CBC data. Current Interpretive Data was last revised on 2017. Eosinophil pct 0.4 % [facility] ([place]) Comment: Interpretive Data Percent cell count reference ranges are not reported, since discordance with absolute values may lead to misinterpretation of CBC data. Current Interpretive Data was last revised on 2017. Basophil pct 0.1 % [facility] ([place]) Comment: Interpretive Data Percent cell count reference ranges are not reported, since discordance with absolute values may lead to misinterpretation of CBC data. Current Interpretive Data was last revised on 2017. Blood 11/24/2024 10:5 8 PM CDT 11/24/2024 11:02 PM CDT us Peggy Ayon MD LAB BLOOD ORDERABLES Final Resul t [facility] ([place]) 1 [facility] Department [place] [address] * (ABNORMAL) CBC with auto differential (11/24/2024 10:58 PM CDT) WBC 14.01(H) 3.80 - 9.90 K/cumm Hgb 10.3(L) 13.0 - 17.5 g/dL [facility] ([place]) Hct 33.4(L) 38.9 - 50.3 % [facility] ([place]) Plt 220 150 - 400 K/cumm [facility] ([place]) MPV 10.6 9.1 - 12.3 fL [facility] ([place]) RBC 3.28(L) 4.30 - 5.80 M/cumm [facility] ([place]) MCV 101.8(H) 81.3 - 96.4 fL [facility] ([place]) MCH 31.4 27.1 - 33.3 pg [facility] ([place]) MCHC 30.8(L) 32.3 - 35.7 g/dL [facility] ([place]) RDW CV 15.2(H) 11.1 - 14.9 % [facility] ([place]) RDW SD 57.1(H) 35.7 - 48.1 fL [facility] ([place]) NRBC abs 0.00 0.00 - 0.01 K/cumm [facility] ([place]) Blood 11/24/2024 10:5 8 PM CDT 11/24/2024 11:02 PM CDT us Peggy Ayon MD LAB BLOOD ORDERABLES Final Resul t [facility] 1 [facility] Department [place] [address] * (ABNORMAL) Comprehensive metabolic panel (11/24/2024 10:58 PM CDT) Sodium 140 135 - 145 mmol/L Potassium, pl 4.1 3.3 - 4.9 mmol/L [facility] ([place]) Chloride 104 97 - 110 mmol/L [facility] ([place]) CO2 23 22 - 32 mmol/L [facility] ([place]) Anion gap 13 2 - 15 mmol/L [facility] ([place]) BUN 21 6 - 25 mg/dL [facility] ([place]) Creatinine 1.01 0.80 - 1.30 mg/dL [facility] ([place]) Comment:Icteric sample, test results may be affected. Glucose 83 70 - 199 mg/dL [facility] ([place]) Comment: Interpretive Data Fasting glucose >/= 126 mg/dl is diagnostic for diabetes. Fasting is defined as no caloric intake for at least 8 hours. Fasting glucose between 100 mg/dl to 125 mg/dl is diagnostic of prediabetes. In a patient with classic symptoms of hyperglycemia or hyperglycemic crisis, a random glucose >/= 200 mg/dl is diagnostic for diabetes. In the absence of unequivocal hyperglycemia, results should be confirmed by repeat testing. The classification and Diagnosis of Diabetes Diabetes Care 202; 46: S19-S40. Current interpretive data was last revised 2022. Calcium 9.0 8.5 - 10.3 mg/dL [facility] ([place]) Bilirubin, total 1.9(H) 0.1 - 1.2 mg/dL [facility] ([place]) Protein, pl 6.9 6.5 - 8.5 g/dL [facility] ([place]) Albumin 3.6 3.5 - 5.0 g/dL [facility] ([place]) Alk phos 97 40 - 130 Units/L [facility] ([place]) ALT 18 7 - 55 Units/L [facility] ([place]) AST 28 10 - 50 Units/L [facility] ([place]) Blood 11/24/2024 10:5 8 PM CDT 11/24/2024 11:02 PM CDT us Peggy Ayon MD LAB BLOOD ORDERABLES Final Resul t [facility] ([place]) 1 [facility] Department [place] [address] * (ABNORMAL) ECG 12 lead (11/24/2024 10:57 PM CDT) 11/24/2024 10:5 7 PM CDT Narrative [facility] - 11/25/2024 7:28 AM CDT Vent Rate: 59 bpm RR Interval: 1002 msec NV Interval: 0 msec QRS Duration: 134 msec QT Interval: 490 msec QTC Interval: 490 msec P-R-T Eme[place]: [id number] - 156 - 28 degrees IMPRESSION: ELECTRONIC VENTRICULAR PACEMAKER ABNORMAL RHYTHM ECG NO CHANGE FROM PREVIOUS TRACING NOTED Electronically Signed By: Narinder Steven MD us Peggy Ayon MD ECG ORDERABLES Final Result Performing Organization Address City/[facility] Co de Phone Number [facility] * Imaging Lumbar/Sacral Facet Medial Branch Block Bilateral ([id number]) (11/11/2024 1:02 PM CDT) Narrative [facility] - 11/11/2024 1:03 PM CDT The images from this study are not interpreted by Radiology. Please refer to the physician's procedure / OR operative note. us Christy Washburn NP IMG PAIN MGMT PROCEDURE S Final Result Performing Organization Address [facility] Co de Phone Number [facility] * BIVENTRICULAR PACEMAKER UPGRADE (10/16/2024 12:42 PM CDT) Anatomical Region Laterality Modality X-Ray Angiograph y 10/16/2024 Narrative 10/17/2024 7:42 AM CDT [employer] Job ID: [id number] [employer] Document ID: [id number] Dictated date/time: [id number] INDICATION Blaze Schmid is an 84-year-old male with an old biventricular pacemaker from 2016. It is now at end of life. The patient understands the replacement risks to include the following but not limited to the following: pain, bleeding, infection, medication reaction, etc. PROCEDURE The patient was brought down to the cardiac laboratory administrative director where a time-out was done in the room prior to the procedure. Sol UMANA was the sedating nurse for a total sedation time of 56 minutes. The patient received in small increments 2.5 mg IV Versed, 50 mg IV Benadryl and 150 mcg IV fentanyl. When well sedated, 1% lidocaine was given to the old scar. I made a score with a knife blade on the skin. After that, I used a plasma blade all the way into the pocket. The pocket was opened up without difficulties. The header stitch had to be cut before I could remove the device entirely. All bleeding points were controlled by electrocautery. All 3 leads were then removed from the old can to the new can. The new can is a [employer]otronik Edora 8 HFT device. Wirelessly, everything was noted to be functioning quite well. We put the device back in the pocket. I had to revise the pocket inferiorly and superiorly to fit the new device. Half a TYRX antibiotic pocket was placed underneath the system and the other half was placed on top of the system. Sponge count, needle count, and instrument count were correct before I closed the pocket. The pocket was then closed in 2 layers. Deepest layer was subcutaneous and this was closed with multiple interrupted sutures of 2-0 Vicryl. Most superficial layer was subcuticular and this was closed with a running 4-0 Vicryl subcuticular stitch. This was then followed by super glue and then an island dressing. In the atrium, sensing was 3.5 mV with an atrial pace impedance of 468 ohms. In the ventricle, sensing was 13.1 mV with an RV threshold of 0.9 V at 0.4 millisecond and RV pace impedance of 331 ohms. In the left ventricle, sensing was 8.3 mV with an LV threshold of 1 V at 0.4 millisecond and an LV pace impedance of 351 ohms. All good numbers. Job ID/Internal Job ID: [id number] Davy Santoyo MD CV ELECTROPHYSIOLOGY PROCS Fi nal Result * Protime-INR (10/16/2024 10:10 AM CDT) PT 11.9 9.7 - 13.0 sec [facility] ([place]) INR 1.10 0.90 - 1.20 [facility] ([place]) Comment: Interpretive data Oral anticoagulant therapeutic ranges: Venous thromboembolism prophylaxis or treatment: 2.0-3.0 CARDIOLOGY Standard range: 2.0-3.0 High-intensity range: 2.5-3.5 Refer to indication-specific guidelines for appropriate target ranges for prosthetic heart valve replacement. Current interpretive data was last revised on 2019. Blood 10/16/2024 10:1 0 AM CDT 10/16/2024 10:15 AM CDT Davy Santoyo MD LAB BLOOD ORDERABLES Final Re sult [facility] ([place]) 1 [facility] Department [place] [address] * ECG 12 lead (10/10/2024 12:31 PM WARDROBE TECHNICIAN) 10/10/2024 12:2 8 PM WARDROBE TECHNICIAN Narrative [facility] - 10/10/2024 3:35 PM WARDROBE TECHNICIAN Vent Rate: 52 bpm RR Interval: 1137 msec NV Interval: 0 msec QRS Duration: 142 msec QT Interval: 513 msec QTC Interval: 494 msec P-R-T Emeigh: [id number] - 143 - 69 degrees IMPRESSION: Baseline artifact LECTRONIC VENTRICULAR PACEMAKER ABNORMAL RHYTHM ECG NO CHANGE FROM PREVIOUS TRACING NOTED Electronically Signed By: Narinder Steven MD Davy Santoyo MD ECG ORDERABLES Final Result Performing Organization Address City/[facility] Co de Phone Number [facility] [employer] [facility] * eGFR (10/10/2024 12:12 PM WARDROBE TECHNICIAN) eGFR 70 >=60 mL/min/1. 73 m2 Comment: Interpretive Data Reference Interval Normal >/= 90 mL/min/1.73m2 Mildly decreased* 60 - 89 mL/min/1.73m2 Mildly to moderately decreased 45 - 59 mL/min/1.73m2 Moderately to severely decreased 30 - 44 mL/min/1.73m2 Severely decreased 15 - 29 mL/min/1.73m2 Kidney Failure < 15 mL/min/1.73m2 *Relative to young adult level Estimated glomerular filtration rate is determined by the 2020 CKD-EPI equation recommended by the National Kidney Foundation (A Unifying Approach to GFR Estimation: Recommendations of the NKF-ASK Task Force on Reassessing the Inclusion of Race in Diagnosing Kidney Disease, JASN 2020). The CKD-EPI equation should not be used for patients with unstable renal function and has not been validated in children and those over 70. Current interpretive data was last reviewed 2021. Blood 10/10/2024 12:1 2 PM WARDROBE TECHNICIAN 10/10/2024 1:16 PM WARDROBE TECHNICIAN us Davy Santoyo MD LAB BLOOD ORDERABLES Final Re sult [facility] ([place]) 1 [facility] Department [place] [address] * (ABNORMAL) Differential, auto (10/10/2024 12:12 PM WARDROBE TECHNICIAN) Neutrophil abs 6.5 1.5 - 6.5 K/cumm Imm gran abs 0.1 0.0 - 0.1 K/cumm [facility] ([place]) Lymphocyte abs 1.5 0.8 - 3.3 K/cumm [facility] ([place]) Monocyte abs 0.9(H) 0.2 - 0.8 K/cumm [facility] ([place]) Eosinophil abs 0.0 0.0 - 0.5 K/cumm [facility] ([place]) Basophil abs 0.0 0.0 - 0.1 K/cumm [facility] ([place]) Neutrophil pct 72.4 % [facility] ([place]) Comment: Interpretive Data Percent cell count reference ranges are not reported, since discordance with absolute values may lead to misinterpretation of CBC data. Current Interpretive Data was last revised on 2017. Imm gran pct 0.8 % [facility] ([place]) Comment: Interpretive Data Percent cell count reference ranges are not reported, since discordance with absolute values may lead to misinterpretation of CBC data. Current Interpretive Data was last revised on 2017. Lymphocyte pct 16.2 % [facility] ([place]) Comment: Interpretive Data Percent cell count reference ranges are not reported, since discordance with absolute values may lead to misinterpretation of CBC data. Current Interpretive Data was last revised on 2017. Monocyte pct 10.2 % [facility] ([place]) Comment: Interpretive Data Percent cell count reference ranges are not reported, since discordance with absolute values may lead to misinterpretation of CBC data. Current Interpretive Data was last revised on 2017. Eosinophil pct 0.3 % [facility] ([place]) Comment: Interpretive Data Percent cell count reference ranges are not reported, since discordance with absolute values may lead to misinterpretation of CBC data. Current Interpretive Data was last revised on 2017. Basophil pct 0.1 % [facility] ([place]) Comment: Interpretive Data Percent cell count reference ranges are not reported, since discordance with absolute values may lead to misinterpretation of CBC data. Current Interpretive Data was last revised on 2017. Blood 10/10/2024 12:1 2 PM WARDROBE TECHNICIAN 10/10/2024 1:16 PM WARDROBE TECHNICIAN us Davy Santoyo MD LAB BLOOD ORDERABLES Final Re sult [facility] ([place]) 1 [facility] Department [place] [address] * (ABNORMAL) CBC with auto differential (10/10/2024 12:12 PM WARDROBE TECHNICIAN) WBC 9.0 3.8 - 9.9 K/cumm Hgb 12.8(L) 13.0 - 17.5 g/dL [facility] ([place]) Hct 40.0 38.9 - 50.3 % [facility] ([place]) Plt 221 150 - 400 K/cumm [facility] ([place]) MPV 10.7 9.1 - 12.3 fL [facility] ([place]) RBC 4.04(L) 4.30 - 5.80 M/cumm [facility] ([place]) MCV 99.0(H) 81.3 - 96.4 fL [facility] ([place]) MCH 31.7 27.1 - 33.3 pg [facility] ([place]) MCHC 32.0(L) 32.3 - 35.7 g/dL [facility] ([place]) RDW CV 15.0(H) 11.1 - 14.9 % [facility] ([place]) RDW SD 55.1(H) 35.7 - 48.1 fL [facility] ([place]) NRBC abs 0.00 0.00 - 0.01 K/cumm [facility] ([place]) Blood 10/10/2024 12:1 2 PM WARDROBE TECHNICIAN 10/10/2024 1:16 PM WARDROBE TECHNICIAN Davy Santoyo MD LAB BLOOD ORDERABLES Final Re sult Performing Organization Address [facility] Co de Phone Number [facility] ([place]) 1 [facility] [place] [address] * (ABNORMAL) Protime-INR (10/10/2024 12:12 PM WARDROBE TECHNICIAN) PT 14.1(H) 9.7 - 13.0 sec [facility] ([place]) INR 1.30(H) 0.90 - 1.20 [facility] ([place]) Comment: Interpretive data Oral anticoagulant therapeutic ranges: Venous thromboembolism prophylaxis or treatment: 2.0-3.0 CARDIOLOGY Standard range: 2.0-3.0 High-intensity range: 2.5-3.5 Refer to indication-specific guidelines for appropriate target ranges for prosthetic heart valve replacement. Current interpretive data was last revised on 2019. Blood 10/10/2024 12:1 2 PM WARDROBE TECHNICIAN 10/10/2024 1:16 PM WARDROBE TECHNICIAN Davy Santoyo MD LAB BLOOD ORDERABLES Final Re sult Performing Organization Address [facility] [facility] Co de Phone Number GLADIS BLAKE ([place]) 1 [facility] [place] [address] * Basic metabolic panel (10/10/2024 12:12 PM WARDROBE TECHNICIAN) Sodium 137 135 - 145 mmol/L Potassium, pl 3.4 3.3 - 4.9 mmol/L [facility] ([place]) Chloride 98 97 - 110 mmol/L [facility] ([place]) CO2 29 22 - 32 mmol/L [facility] ([place]) Anion gap 10 2 - 15 mmol/L [facility] ([place]) BUN 18 6 - 25 mg/dL [facility] ([place]) Creatinine 1.04 0.80 - 1.30 mg/dL [facility] ([place]) Comment:Icteric sample, test results may be affected. Glucose 85 70 - 199 mg/dL GLADIS BLAKE ([place]) Comment: Interpretive Data Fasting glucose >/= 126 mg/dl is diagnostic for diabetes. Fasting is defined as no caloric intake for at least 8 hours. Fasting glucose between 100 mg/dl to 125 mg/dl is diagnostic of prediabetes. In a patient with classic symptoms of hyperglycemia or hyperglycemic crisis, a random glucose >/= 200 mg/dl is diagnostic for diabetes. In the absence of unequivocal hyperglycemia, results should be confirmed by repeat testing. The classification and Diagnosis of Diabetes Diabetes Care 2021; 46: S19-S40. Current interpretive data was last revised 2022. Calcium 9.5 8.5 - 10.3 mg/dL GLADIS [facility] ([place]) Blood 10/10/2024 12:1 2 PM WARDROBE TECHNICIAN 10/10/2024 1:16 PM WARDROBE TECHNICIAN us Davy Santoyo MD LAB BLOOD ORDERABLES Final Re sult Performing Organization Address City/[facility]/ZIP Co de Phone Number MOEALANA [facility] ([place]) 1 [facility] Department [place] [address] * Imaging Lumbar/Sacral Facet Medial Branch Block Bilateral (94178) (09/26/2024 1:14 PM WARDROBE TECHNICIAN) Narrative RAD_PACS[facility] - 09/26/2024 1:15 PM WARDROBE TECHNICIAN The images from this study are not interpreted by Radiology. Please refer to the physician's procedure / OR operative note. us Christy Washburn MORTGAGE SPECIALIST IMG PAIN MGMT PROCEDURE S Final Result Performing Organization Address [facility]/ZIP Co de Phone Number RAD_PACS_[facility] from Last 3 Months Insurance [facility] MEDICARE [facility] [place] [address] [facility] Advance Directives For more information, please contact: [phone] Documents on File Type Date Recorded Patient Wall And Floor Tiler Expl anation ADVANCE DIRECTIVE 10/06/2022 POWER OF A [employer] * LIMITED - No CPR (Latest Code Status on File) Date Activated Date Inactivated Comments 11/25/2024 12:20 PM 12/02/2024 9:52 PM Question Answer Comments Provide aggressive medical m anagement before a full cardiopulmonary arrest occurs. Use antibiotics, IV Fluids, and medical treatment unless specifically selected below: No intubation * Full Code Date Activated Date Inactivated Comments 11/25/2024 4:41 AM 11/25/2024 12:20 PM * Full Code Date Activated Date Inactivated Comments 10/16/2024 12:56 PM 10/16/2024 6:33 PM * Full Code Date Activated Date Inactivated Comments 07/24/2024 1:00 AM 07/24/2024 10:31 PM * Full Code Date Activated Date Inactivated Comments 08/22/2021 6:36 PM 09/01/2021 8:10 PM Care Teams Talend Developer Relationship Specialty Start Date End Date Neeru Fernandez MD [address] [place] [address] PCP - General 11/04/16 Roxanne Pickering MD [address] [place] [address] Consulting Physician Dermatology 03/15/19 Caitlyn Lin MD [address] [place] [address] Consulting Physician Sleep Medicine 11/13/19 Atif Ontiveros MD [address] [facility] [address] HASEEB Carpio [facility] [address] [place] [address] Surgeon Orthopedic Surgery 01/29/15 [place] [id number] [address] Consulting Physician Orthopedic Surgery 10/07/20 [place] [address] [address] [place] [facility] [address] [address] Consulting Physician Gastroenterology 11/26/20 Herman Dyer DPM [id number] [address] Consulting Physician Podiatry 05/22/21 [place] [id number] [address] Consulting Physician Cardiology 08/20/21 [place] [address] [address] Consulting Physician Hematology and Oncology 06/02/22 Sydni Espiita, MORTGAGE SPECIALIST [address] [address] Nurse Practitioner Medical Oncology 09/06/22 Gil Foster PA [address] [place] [address] [address] [place], [place] [address] [address] Physician Scrap Sorter Orthopedic Surgery 01/29/24 [place] [address] [address] Nurse Practitioner Pad Assembler 06/24/24 Walker Luevano MD [address] [place] [address] [facility] [place] [address] Consulting Physician General Surgery 12/02/24
--- OUTSIDE RECORDS SUMMARY | 2024-12-22 20:32 | XMS_ITS | Referral Summary ---
Author Organization [facility] Address [address] [place] [address] Care Team Providers Care Drawing Kiln Supervisor Name Role Phone Neeru Fernandez MD Primary Care Provider [phone] Roxanne Pickering MD Unavailable [phone] Caitlyn Lin MD Unavailable Atif Ontiveros MD Unavailable Yao Diaz MD Unavailable Rachell Allen MD Unavailable Herman Dyer DPM Unavailable Narinder Steven MD Unavailable [phone] Blaze Patten MD Unavailable [phone] Sydni Espitia NP Unavailable Gil Foster Unavailable Christy Washburn SHIFT SUPERINTENDENT CAUSTIC CRESYLATE Unavailable Walker Luevano MD Unavailable Encounters Date Type Department Care Team Description 12/19/2024 11:21 AM CDT - 12/19/2024 11:59 PM CDT Hospital Encounter [facility] [address] [place] [address] Chandu Rutledge MD Spondylosis of lumbar region without myelopathy or radiculopathy Discharge Disposition: Discharge to home or self care 12/18/2024 Telephone [facility] [address] [place] [address] Radha Carbajal RN 12/12/2024 10:05 AM CDT Office Visit [facility] [address] [place] [address] Walker Luevano MD Acute cholecystitis (Primary Dx); Hx laparoscopic cholecystectomy 12/11/2024 Telephone [facility] [id number] [place] [address] [address] [place] [address] [facility]24 Telephone [facility] 1 [facility] [address] [place] [address] Neeru Fernandez MD 12/02/2024 4:02 PM CDT - 12/02/2024 11:59 PM CDT Hospital Encounter [facility] Emergency, Room R Discharge Disposition: Discharge to home or self care 11/24/2024 10:38 PM CDT - 12/02/2024 5:47 PM CDT Hospital Encounter [facility] [address] [place] [address] Peggy Ayon MD Petters, Ekanga Sunday, MD Sargsyan, Narine, MD Altered mental status, unspecified altered mental status type (Primary Dx); Pneumonia of right lung due to infectious organism, unspecified part of lung; Cholecystitis, acute Discharge Disposition: Discharge to SNF 11/26/2024 12:19 PM CDT Anesthesia Event [facility] Operating Room [address] [place] [address] Chandu Perkins MD Gill, Matthew, CRNA 11/26/2024 12:30 PM CDT - 11/26/2024 2:00 PM CDT Surgery [facility] Operating Room [address] [place] [address] Walker Luevano MD LAPAROSCOPIC CHOLECYSTECTOMY 11/25/2024 Telephone [facility] 4 [facility] Medical Office [address] [place] [phone] [employer] 11/21/2024 12:36 PM CDT - 11/21/2024 11:59 PM CDT Hospital Encounter [facility] [address] [address] Christy Washburn, JAX Spondylosis of lumbar region without myelopathy or radiculopathy (Primary Dx); Essential hypertension Discharge Disposition: Discharge to home or self care 11/20/2024 Home Care Visit [address] [place] [address] Anny Houston, PT PT VIRTUAL OASIS DISCHARGE 11/12/2024 Home Care Visit [address] [place] [address] Anny Houston, PT CARE CONFERENCE 11/12/2024 3:45 PM CDT Home Care Visit [address] [place] [address] Christy Marquez, ETL BI DEVELOPER PT HOME VISIT 11/12/2024 12:00 PM CDT Home Care Visit [address] [place] [address] Carmen Ibarra, OT OT DISCIPLINE DISCHARGE 11/11/2024 12:02 PM CDT - 11/11/2024 11:59 PM CDT Hospital Encounter [facility] Management [address] [address] Chandu Rutledge MD Spondylosis of lumbar region without myelopathy or radiculopathy [M47.816] (Primary Dx) Discharge Disposition: Discharge to home or self care 11/08/2024 12:00 PM CDT Home Care Visit [address] [place] [address] Anny Houston, PT PT REASSESSMENT 11/05/2024 12:00 PM CDT Home Care Visit [address] [place] [address] Carmen Ibarra, OT OT HOME VISIT 11/04/2024 Telephone [facility] [address] [place] [address] Ellen Mcwilliams 11/04/2024 8:30 AM CDT Home Care Visit [address] [place] [address] Julia Franco DIRECTOR RECREATION AIDE HOME VISIT 10/31/2024 11:00 AM CDT Office Visit [facility] [address] [place] [address] Neeru Fernandez MD Essential hypertension (Primary Dx); Frailty syndrome in geriatric patient; Lumbar compression fracture, with routine healing, subsequent encounter; Iron deficiency anemia, unspecified iron deficiency anemia type; Chronic diastolic heart failure (CMS/HCC) (HCC); Chronic atrial fibrillation (HCC); Coronary artery disease involving red cliff coronary artery of red cliff heart without angina pectoris; Need for hepatitis B screening test 10/29/2024 2:30 PM CDT Home Care Visit [address] [place] [address] Julia Franco DIRECTOR RECREATION AIDE HOME VISIT 10/29/2024 12:00 PM CDT Home Care Visit [address] [place] [address] Carmen Ibarra, OT OT REASSESSMENT 10/24/2024 Telephone [facility] [address] [place] [address] Neeru Fernandez MD Weight Loss 10/24/2024 1:00 PM CDT Home Care Visit [address] [place] [address] Julia Franco CNA AIDE HOME VISIT 10/23/2024 Orders Only [facility] at [address] [place] [phone] Echo Kincaid MA Sick sinus syndrome (HCC) (Primary Dx); Pacemaker reprogramming/check 10/23/2024 11:30 AM CDT Office Visit [facility] at [address] [place] [phone] Aleisha Ruvalcaba NP Cardiac pacemaker in situ (Primary Dx) 10/21/2024 12:30 PM CDT Home Care Visit [place] [address] [address] [place] [address] Sherry Coelho PTA PT HOME VISIT 10/21/2024 2:00 PM CDT Home Care Visit [place] [address] [address] [place] [address] Carmen Ibarra OT OT HOME VISIT 10/16/2024 10:05 AM CDT Lab [address] [address] Atrial fibrillation, unspecified type (HCC) 10/16/2024 11:00 AM CDT - 10/16/2024 2:55 PM CDT Surgery [facility] Cardiac Catheterization [address] [place] [address] Davy Santoyo MD REMOVE/REPLACE PACEMAKER (PPM) MULTI LEAD SYSTEM [id number] 10/16/2024 10:03 AM CDT - 10/16/2024 2:33 PM CDT Hospital Encounter [facility] Cardiac Catheterization [address] [place] [address] Davy Santoyo MD Encounter for pacemaker at end of battery life; Sick sinus syndrome (HCC); Permanent atrial fibrillation (HCC) Discharge Disposition: Discharge to home or self care 10/15/2024 Home Care Visit [place] [address] [address] [place] [address] Anny Houston, PT CASE COMMUNICATION 10/15/2024 Orders Only [facility] Cardiac Catheterization [address] [place] [address] Davy Santoyo MD Atrial fibrillation, unspecified type (HCC) (Primary Dx) 10/15/2024 Telephone [facility] [address] [place] [address] Neeru Fernandez MD 10/14/2024 2:30 PM CDT Home Care Visit [address] [place] [address] Carmen Ibarra, OT OT HOME VISIT 10/14/2024 12:30 PM CDT Home Care Visit [address] [place] [address] Sherry Coelho PTA PT HOME VISIT 10/11/2024 Telephone [facility] [address] [place] [address] Neeru Fernandez MD Fall 10/11/2024 11:45 AM DIRECTOR DIABETES Home Care Visit [address] [place] [address] Lizzie Reynoso, PT PT REASSESSMENT 10/10/2024 12:05 PM DIRECTOR DIABETES Lab [address] [address] Encounter for pacemaker at end of battery life; Sick sinus syndrome (HCC); Permanent atrial fibrillation (HCC) 10/10/2024 12:03 PM DIRECTOR DIABETES - 10/10/2024 11:59 PM DIRECTOR DIABETES Hospital Encounter [facility] Cardiology [address] [place] [address] Encounter for pacemaker at end of battery life; Sick sinus syndrome (HCC); Permanent atrial fibrillation (HCC) Discharge Disposition: Discharge to home or self care 10/09/2024 1:00 PM DIRECTOR DIABETES Home Care Visit [address] [place] [address] Ibarra, Carmen, OT OT HOME VISIT 10/07/2024 2:30 PM DIRECTOR DIABETES Home Care Visit [address] [place] [address] Sherry Coelho, ETL BI DEVELOPER PT HOME VISIT 10/04/2024 11:30 AM DIRECTOR DIABETES Home Care Visit [address] [place] [address] Sherry Coelho, ETL BI DEVELOPER PT HOME VISIT 10/03/2024 Home Care Visit [address] [place] [address] Octavio Chavez, FLARE BREAKER STRATEGY DIRECTOR DISCIPLINE DISCHARGE 10/03/2024 Home Care Visit [address] [place] [address] Octavio Chavez, FLARE BREAKER CASE COMMUNICATION 10/03/2024 Telephone [facility] [address] [place] [address] Nury Calvin, RN 10/03/2024 2:30 PM DIRECTOR DIABETES Home Care Visit [address] [place] [address] Octavio Chavez, FLARE BREAKER STRATEGY DIRECTOR INITIAL EVAL 10/02/2024 Home Care Visit [address] [place] [address] Octavio Chavez, FLARE BREAKER CASE COMMUNICATION 10/01/2024 12:06 PM DIRECTOR DIABETES - 10/01/2024 11:59 PM DIRECTOR DIABETES Hospital Encounter [facility] [address] [place] [address] Christy Washburn NP Spondylosis of lumbar region without myelopathy or radiculopathy (Primary Dx); Left upper quadrant abdominal pain; Stage 3a chronic kidney disease (CKD) (HCC); Lumbar radiculopathy Discharge Disposition: Discharge to home or self care 09/30/2024 Telephone [facility] [address] [place] [phone] Neeru Fernandez MD 09/30/2024 10:00 AM DIRECTOR DIABETES Home Care Visit [address] [place] [address] Carmen Ibarra, OT OT INITIAL EVALUATION 09/30/2024 11:30 AM DIRECTOR DIABETES Home Care Visit [address] [place] [address] Sherry Coelho PTA PT HOME VISIT 09/27/2024 10:30 AM DIRECTOR DIABETES Home Care Visit [address] [place] [address] Sherry Coelho PTA PT HOME VISIT 09/26/2024 Telephone [facility] [address] [place] [address] Neeru Fernandez MD 09/26/2024 Home Care Visit [place] [address] [address] [place] [address] Megan Collazo, RN TELEPHONE ENCOUNTER 09/26/2024 12:15 PM DIRECTOR DIABETES - 09/26/2024 11:59 PM DIRECTOR DIABETES Hospital Encounter [facility] [address] [place] [address] Chandu Rutledge MD Spondylosis of lumbar region without myelopathy or radiculopathy Discharge Disposition: Discharge to home or self care 09/25/2024 2:30 PM DIRECTOR DIABETES Home Care Visit [address] [place] [address] Sherry Coelho PTA PT HOME VISIT 09/24/2024 Home Care Visit [address] [place] [address] Anny Houston, PT CARE CONFERENCE from Last 3 Months Allergies Active Allergy Reactions Criticality Noted Date [...] mouth nightly as needed for sleep 12/03/19 Active Additional Information Patient not taking.Reported on [...] 08/17/2023 Assessment & Plan (09/20/2024 5:30 AM DIRECTOR DIABETES): Chronic, present for at least a year and expected to last more than a year. Likely due to past tobacco use, but not currently requiring active bronchodilator therapy. We will monitor clinically. Assessment & Plan (08/18/2023 2:19 PM DIRECTOR DIABETES): He has not currently requiring an inhaler. Lungs are clear and oxygen saturation is adequate on room air. Hypercalcemia 02/08/2023 Overview (02/09/2023): Mild, possible lab error. Assessment & Plan (07/01/2023 10:44 AM DIRECTOR DIABETES): He had a mild elevation of calcium [...] (01/31/2023): Added automatically from request for surgery [id number], wide local excision left cheek mass, 4.5 [...] 06/07/2023 Assessment & Plan (07/01/2023 10:45 AM DIRECTOR DIABETES): He is being followed in hematology. Blood [...] syndrome. Assessment & Plan (10/08/2020 10:28 AM DIRECTOR DIABETES): He has a mild and fairly longstanding [...] [facility]. Assessment & Plan (08/22/2024 2:18 PM DIRECTOR DIABETES): Acute problem about a month ago. He was in the ER and transferred to [facility] for management of pain. He is now [...] month. Assessment & Plan (09/16/2021 3:08 PM DIRECTOR DIABETES): He initially had a T12 fracture, then had another fall and and suffered an L1 fracture. He had vertebroplasties at [facility] which did not really alleviate the pain. The pain can be severe at times. He has tramadol which helps when he remembers to take it. He denies constipation or other side effects from the tramadol. We will refer him to Dr. Garrett for further evaluation of his pain and possible other modalities of treatment. Assessment & Plan (08/15/2021 4:37 AM DIRECTOR DIABETES): He fell on [place] [employer] [place]. He was trying to help his get up from her own fall. He lost his balance, hit his head on a coffee table. His fell on top of him. He had worsening pain in his lower back where he had a pre-existing T12 compression fracture from a prior injury in 2019. He went to [facility] ER, they gave him some analgesics and discharged him. A few days later he went to [facility] and CT showed worsening of his T12 [...] recommended. Assessment & Plan (10/06/2022 12:48 PM DIRECTOR DIABETES): He says his hernia is not bothering [...] surgery. Assessment & Plan (10/15/2021 1:27 PM DIRECTOR DIABETES): He still gets bulging in the right [...] area. Assessment & Plan (09/16/2021 3:05 PM DIRECTOR DIABETES): He is worried about a right inguinal [...] worse. Assessment & Plan (07/13/2021 10:37 AM DIRECTOR DIABETES): Given how swollen everything Is it is [...] pain. Assessment & Plan (07/04/2021 4:17 PM DIRECTOR DIABETES): He has noted a painful swelling in [...] failure. Assessment & Plan (08/18/2023 2:26 PM DIRECTOR DIABETES): The swelling in his legs is fairly [...] 11/12/2021 Assessment & Plan (09/25/2021 5:02 PM DIRECTOR DIABETES): His lower leg edema has completely resolved. He is on spironolactone and furosemide. Recent labs at the hospital showed good kidney function. Assessment & Plan (08/23/2021 7:39 AM DIRECTOR DIABETES): Patient presents with recurrent bilateral LE edema. Edema significant and up to his waist. He states he has been compliant with medications and is trying to avoid drinking excess fluids. Will transfer to ER for further treatment and diuresis. Assessment & Plan (07/20/2021 11:23 AM DIRECTOR DIABETES): Patient was seen last week with persistent [...] and called and spoke with pharmacist at [facility], who does patient pill packs. Patient will stop metolazone and we will decrease lasix to 40 mg BID. Instructed pharmacist to remove lasix 80mg from pill pack for tonight and to not replace it with the 40mg dose until the am. Patient will return for follow up next week or sooner if needed. Assessment & Plan (07/16/2021 1:01 PM DIRECTOR DIABETES): Patient has persistent bilateral LE with swelling [...] pain. Assessment & Plan (07/12/2021 2:00 PM DIRECTOR DIABETES): Patient has known bilateral LE edema. Edema [...] BY NEERU FERNANDEZ MD He was at [facility] and had a lower thoracic/upper lumbar vertebroplasty for compression fractures. Afterwards he went to [facility] for some inpatient physical therapy. His pain [...] WRITTEN ON 03/26/2023 2:48 PM BY NEERU FERNANDEZ MD He is doing a little better [...] mg 3 times weekly prescribed by his patient observation assistant, Dr. Steven. We left the other medications [...] months. Assessment & Plan (07/04/2021 4:16 PM DIRECTOR DIABETES): He has had two falls since February, [...] (01/06/2021): Added automatically from request for surgery [id number], EGD and colon negative for active bleeding. [...] 02/05/2024 Assessment & Plan (08/18/2023 2:25 PM DIRECTOR DIABETES): He continues on a low-dose of iron [...] to ER. Coronary artery disease invo lving red cliff coronary artery of red cliff heart without angina pectoris 10/05/2020 Overview (09/16/2021): Minimal CAD involving ostial OM3 20% lesion and 1st diagonal with a 20-30% lesion, CHNE. Assessment & Plan (10/30/2024 9:17 PM CDT): Chronic, present for 4-5 or more years, relatively mild, antiplatelet therapy is contraindicated due to being on apixaban for atrial fibrillation. Assessment & Plan (09/22/2024 4:45 PM DIRECTOR DIABETES): Chronic, minimal epicardial disease noted on cardiac [...] CAD. Assessment & Plan (08/24/2023 8:54 AM DIRECTOR DIABETES): He denies chest pain or pressure. He is on a reasonable medication regimen although there is nothing for cholesterol at this time. We are deferring treatment in this regard to Cardiology. He follows up with Dr. Steven in about a month. Assessment & Plan (07/01/2023 10:44 AM DIRECTOR DIABETES): He has a history of minimal coronary [...] clinically. Assessment & Plan (10/15/2021 1:29 PM DIRECTOR DIABETES): He denies having any chest pain or pressure. He is on a pretty good medical regimen. He will keep his follow ups with Cardiology. Assessment & Plan (09/16/2021 3:07 PM DIRECTOR DIABETES): He had minimal coronary artery disease on [...] home. Assessment & Plan (07/23/2022 7:07 AM DIRECTOR DIABETES): We adjusted the dose of gabapentin. Assessment & Plan (09/25/2021 5:01 PM DIRECTOR DIABETES): He still has quite a bit of pain from T12 and L1 compression fractures. Tramadol does alleviate the pain, but he forgets to take doses. I encouraged him to take it more regularly. We will refer him to Dr. Garrett for evaluation and treatment of pain unrelieved by vertebroplasties and medical therapy. Assessment & Plan (08/23/2021 7:38 AM DIRECTOR DIABETES): Patient returns today with persistent low back [...] management. Assessment & Plan (08/15/2021 4:36 AM DIRECTOR DIABETES): He has a history of a T12 compression fracture from a gardening accident in November 2019. He was doing fairly well until he fell on [employer] and had an exacerbation of back pain. He went to the ER on 08/02/2021 at [facility] and then again at [facility] on 08/09/2021. CT documents worsening of [...] 06/07/2018 Assessment & Plan (07/23/2019 8:47 AM DIRECTOR DIABETES): He was here a couple of weeks [...] time. Assessment & Plan (06/24/2019 3:09 PM DIRECTOR DIABETES): It sounds like he has had neck [...] Lin. Assessment & Plan (09/27/2020 3:58 PM DIRECTOR DIABETES): Uses nasal bipap intermittently at home, states [...] same. Assessment & Plan (09/11/2017 2:39 PM DIRECTOR DIABETES): He still has not had CPAP arranged, but has an appointment with Dr. Lin coming up soon he thinks. Hopefully we will get that going and reduce risk of cardiovascular events. Osteoarthritis 02/24/2016 Overview (11/10/2016): Osteoarthritis Assessment & Plan (09/22/2024 4:48 PM DIRECTOR DIABETES): Chronic, for control on several medications including [...] same. Assessment & Plan (10/06/2022 12:48 PM DIRECTOR DIABETES): He takes tramadol as needed. He uses [...] monitor. 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 We are getting x-rays of the C-spine. Consider other imaging is needed, but he does have a pacemaker so if he gets an MRI we will have to be sure that it is an MRI safe pacemaker. Assessment & Plan (09/11/2017 2:38 PM DIRECTOR DIABETES): He has various aches and pains from [...] heart failure diagnosed in 2015, hospitalized at [facility] 03/09/2019, improved with treatment. Hospitalized at [facility] 10/04/2020 with Afib/RVR and heart failure [...] 10/10/2024 Assessment & Plan (09/20/2024 12:32 PM DIRECTOR DIABETES): Chronic, present for 8-9 years, controlled with metoprolol XL 50 mg daily, furosemide 20 mg daily, and spironolactone 12.5 mg daily. There is a trace amount of edema in his legs. Lungs are clear and oxygen saturation is normal. Assessment & Plan (08/27/2024 3:22 PM DIRECTOR DIABETES): Chronic, present for about 10 years, controlled on metoprolol XL 25 mg daily. Aspirin and other antiplatelet therapy is relatively contraindicated because he takes apixaban 2.5 mg twice daily to reduce embolic risk. Assessment & Plan (08/18/2023 2:21 PM DIRECTOR DIABETES): He seems to be more or less at his baseline, although blood pressure readings from home have been a little low so we discussed management with Cardiology and will be reducing the dose of diuretics in half. Assessment & Plan (06/14/2023 12:58 PM DIRECTOR DIABETES): Symptoms and swelling in his legs are [...] 02/08/2023 Assessment & Plan (10/06/2022 12:46 PM DIRECTOR DIABETES): There is no swelling in his legs. Lungs are clear. Continue current diuretics. Check labs before his next visit in 3-4 months. Assessment & Plan (07/07/2022 4:49 PM DIRECTOR DIABETES): He has accumulated some fluid in his [...] dose of furosemide was increased by his patient observation assistant, Dr. Steven. Metolazone was added 2 days [...] needed. Assessment & Plan (10/15/2021 1:29 PM DIRECTOR DIABETES): The Zaroxolyn was stopped. He remains on furosemide. He also takes Aldactone and metoprolol XL. He seems pretty well compensated with no swelling in his legs. There are a very few left lower lung crackles. We will see him back in three months this time with some labs. Assessment & Plan (09/25/2021 5:03 PM DIRECTOR DIABETES): Cardiac exam is stable on current therapy. Continue same. Assessment & Plan (06/21/2021 11:41 AM DIRECTOR DIABETES): Blood pressure is on the low side [...] therapy. Assessment & Plan (10/08/2020 10:31 AM DIRECTOR DIABETES): He had evidence of heart failure during his recent hospitalization at [facility] including a pleural effusion. Heart catheterization showed a low normal LVEF. A recent echocardiogram showed normal systolic function. His diuretic dose was increased, but in view of low normal blood pressures, we reduce the diuretic back to 20 mg daily. He will also follow-up with Cardiology. Return here in six weeks as scheduled. Assessment & Plan (09/27/2020 2:10 PM DIRECTOR DIABETES): BNP is elevated to 3726. CXR reported [...] heart failure again. He was hospitalized at [facility] and improved with treatment. He no longer [...] elsewhere classifie d 01/01/2016 Overview (01/16/2023): From [facility] records, left atrial appendage clot, presumably resolved with anticoagulation. Sick sinus syndrome 12/30/2015 Overview (10/08/2020): From [facility] record. S/P pacer, ablation [...] 11/20/2015 Assessment & Plan (09/27/2020 1:59 PM DIRECTOR DIABETES): H/o sick sinus syndrome, with cardiac pacemaker [...] residual approximately 1 x 1.5 cm kidney covarrubias shaped dried hematoma over the mid mann. There is no local redness or drainage. We will check again in one month. Assessment & Plan (09/20/2024 12:31 PM DIRECTOR DIABETES): Chronic, present for 10 or more years, controlled with metoprolol XL 50 mg daily and apixaban 2.5 mg twice daily. Heart rhythm is regular due to presence of a pacemaker. Continue current therapy. Assessment & Plan (08/27/2024 3:20 PM DIRECTOR DIABETES): Chronic, present for about 10 years, controlled [...] months. Assessment & Plan (08/18/2023 2:19 PM DIRECTOR DIABETES): Heart rhythm is regular because he has a pacemaker. He takes Eliquis and metoprolol. Continue same. Assessment & Plan (06/14/2023 12:58 PM DIRECTOR DIABETES): Heart rhythm is regular because he has [...] month. Assessment & Plan (10/06/2022 12:46 PM DIRECTOR DIABETES): Heart rhythm is regular. He has a pacemaker. He is on a beta-elza and Eliquis. Continue same. Assessment & Plan (07/07/2022 4:48 PM DIRECTOR DIABETES): Heart rate is controlled and rhythm is [...] elza. Assessment & Plan (10/15/2021 1:28 PM DIRECTOR DIABETES): Heart rhythm is regular today. There is no murmur. He is on Eliquis and amiodarone. Assessment & Plan (09/16/2021 3:05 PM DIRECTOR DIABETES): His rhythm is regular because he has a pacemaker. He is on Eliquis and a beta-elza. Continue same. Assessment & Plan (06/21/2021 11:43 AM DIRECTOR DIABETES): Heart rhythm is regular because he has [...] & Plan (02/24/2021 4:16 PM CDT): His patient observation assistant, Dr. Kay, has moved out of the local area. We will get him set up to see one of the local patient observation assistant. He remains on Eliquis as well as [...] 08/18/2023 Assessment & Plan (06/14/2023 12:57 PM DIRECTOR DIABETES): He takes levothyroxine. We will monitor labs periodically and adjust the dose as needed. Lab Results Component Value Date TSH 0.63 06/07/2023 Assessment & Plan (03/13/2023 12:40 PM CDT): He is doing well. We ordered labs to be done before his next visit in three months. Assessment & Plan (10/06/2022 12:46 PM DIRECTOR DIABETES): He is on levothyroxine 137 mcg daily. Continue same. Monitor TSH periodically. Lab Results Component Value Date TSH 1.56 06/28/2022 Assessment & Plan (07/07/2022 4:51 PM DIRECTOR DIABETES): TSH is normal. Continue current replacement Synthroid. [...] 08/20/2021 Assessment & Plan (10/15/2021 1:30 PM DIRECTOR DIABETES): He is on levothyroxine. We will monitor response to treatment periodically. Assessment & Plan (07/04/2021 4:15 PM DIRECTOR DIABETES): We are having trouble finding the correct [...] labs. Assessment & Plan (10/08/2020 10:30 AM DIRECTOR DIABETES): He is on thyroid replacement. TSH has been stable. Continue same. Lab Results Component Value Date TSH 2.26 10/03/2020 Assessment & Plan (09/27/2020 3:59 PM DIRECTOR DIABETES): Last TSH was normal at 2.30 ten [...] periodically. Assessment & Plan (09/11/2017 2:41 PM DIRECTOR DIABETES): He is on replacement therapy. We will check a TSH at his next appointment. Return in six months. Other hemorrhoids 11/05/2014 Assessment & Plan (07/09/2020 10:01 AM DIRECTOR DIABETES): Continue bowel regimen to avoid straining. Continue [...] 02/04/1957 Assessment & Plan (09/11/2024 5:55 PM DIRECTOR DIABETES): He has experienced another new exacerbation of [...] needed. Assessment & Plan (07/07/2022 4:46 PM DIRECTOR DIABETES): He continues to suffer with low back [...] scheduled. Assessment & Plan (10/15/2021 1:28 PM DIRECTOR DIABETES): His back pain seems to be improving. He is more active at home. He has tramadol for use as needed. Continue same. Assessment & Plan (06/30/2019 1:09 PM DIRECTOR DIABETES): He needed a refill of tramadol which [...] The patient also requested a referral to [facility] for evaluation and management, probably [...] 132/72 Assessment & Plan (09/20/2024 12:32 PM DIRECTOR DIABETES): Chronic, present for 5-6 or more years, recent blood pressure is not at goal on metoprolol XL 50 mg daily. We added amlodipine 2.5 mg daily and will communicate with his patient observation assistant, Dr. Santoyo about the change in management. [...] 08/18/2023 Assessment & Plan (08/18/2023 2:25 PM DIRECTOR DIABETES): Blood pressure in the office including orthostatic measurements are well within normal limits. At home he does get orthostatic light-headedness which might be indicative of some prerenal azotemia. We will have him get labs today. We will cut his diuretic dose in half as discussed with Cardiology. Return in about one month as scheduled. Assessment & Plan (06/14/2023 12:59 PM DIRECTOR DIABETES): Blood pressure is in a good range [...] 02/08/2023 Assessment & Plan (10/06/2022 12:47 PM DIRECTOR DIABETES): Blood pressure is well controlled on current minimal therapy consisting of the beta-elza and his diuretics. Continue same. Assessment & Plan (04/25/2022 3:10 PM CDT): Blood pressure is on the low side of normal, but acceptable. Continue same. Assessment & Plan (07/04/2021 4:15 PM DIRECTOR DIABETES): Blood pressure is in a normal range for him. Continue current therapy. Assessment & Plan (03/17/2021 4:26 PM CDT): Blood pressure is in a normal range on minimal therapy. Continue same. Assessment & Plan (01/07/2021 11:32 AM CDT): Blood pressure is in a good range on current therapy. Continue same, and follow- up in three months. Assessment & Plan (10/08/2020 10:29 AM DIRECTOR DIABETES): Blood pressure is in a low normal range today. He denies feeling dizzy or lightheaded. We adjusted his medications slightly to lower the diuretic dose. We will see him back in six weeks. In the meantime, he will also contact Cardiology for a follow-up. He says they are considering a cardioversion of his atrial fibrillation Assessment & Plan (09/27/2020 1:59 PM DIRECTOR DIABETES): BP is currently well controlled. Continue iv [...] improvement. Assessment & Plan (08/24/2023 8:54 AM DIRECTOR DIABETES): This diagnosis of acute on chronic diastolic [...] PROLIFERATION. Assessment & Plan (07/23/2022 7:06 AM DIRECTOR DIABETES): He has his appointment next week with [...] unchanged. Assessment & Plan (06/13/2022 1:54 PM DIRECTOR DIABETES): He has a 2 cm somewhat inflamed [...] edema. Assessment & Plan (07/12/2021 1:57 PM DIRECTOR DIABETES): Patient is reporting that he is noting [...] (11/16/2021): Added automatically from request for surgery [id number], toe amputation on 05/21/2021, Wilfred Dyer DPM, [...] and colonoscopy negative for active bleeding. A-fib (CMS/HCC) 11/06/2020 03/16/2021 Overview (03/16/2021): Added automatically from request for surgery [id number], AV node ablation, 11/23/2020, Dr. Kay, JORGE. 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 LVEF was estimated at 50% on cath, 10/05/2020, Dr. Garcia. Previous echocardiogram 09/27/2020 normal LVEF. Minimal CAD on Cath. Atrial fibrillation with RVR 10/04/2020 10/08/2020 Overview (10/08/2020): See records from [facility] for details. Positive D dimer 10/04/2020 10/08/2020 Overview (10/08/2020): CT angio of chest negative, but has right pleural effusion. Chest pain 10/03/2020 10/08/2020 Overview (10/08/2020): Added automatically from request for surgery [id number], minimal CAD on cath, 10/05/2020, AYLIN. Atrial fibrillation 09/26/2020 10/09/19 Overview (10/08/2020): [facility] admission for Afib/RVR, controlled with meds, but recurred 1 week later and admitted to [facility]. Assessment & Plan (09/27/2020 3:59 PM DIRECTOR DIABETES): Patient has h/o Afib s/p ablation in [...] notes. Assessment & Plan (10/08/2020 10:30 AM DIRECTOR DIABETES): He was in the hospital twice in fairly quick succession for atrial fibrillation and rapid ventricular response. He had an extensive evaluation at [facility] including cardiac catheterization that showed mild coronary disease and low normal LV systolic function. The heart rate was eventually controlled. His rhythm is currently irregular, but he otherwise seems fine. We will continue the current dose of beta-elza. He will follow-up with Cardiology. Return here in six weeks as scheduled. Assessment & Plan (09/24/2020 1:19 PM DIRECTOR DIABETES): Pt presents today with swelling to lower [...] note. Assessment & Plan (08/05/2019 4:31 PM DIRECTOR DIABETES): Of an unclear etiology associated with vomiting. May be viral or d/t poor PO intake on the day of event as patient reported only having a glass of water in the am before leaving home. CT of head, labs and cardiac w/u inpatient were unremarkable. Patient was instructed to call with any recurrent symptoms Chest pain 03/09/2019 04/24/2019 Overview (03/14/2019): Hospitalized at [facility], workup negative for injury. Assessment & Plan [...] fibrillation Assessment & Plan (09/11/2017 2:40 PM DIRECTOR DIABETES): He is on Pradaxa. Heart rhythm is [...] 05/07/201511/2017 Overview (11/10/2016): Hypothyroidism (acquired) Borderline hypertension 05/07/20150 03/2020 Overview (11/13/2019): ->Essential hypertension. Assessment & Plan [...] time. Assessment & Plan (09/11/2017 2:41 PM DIRECTOR DIABETES): Blood pressure is normal today. Occasionally he has borderline or mildly elevated readings. No treatment is indicated at this time. Continue to monitor. Immunizations Immunization Administration Dates Next Due Influenza, [...] PPV23 10/18/2018 Tdap 05/21/2024,09/11/2017 ZOSTER Recombinant 08/31/2020,06/26/2020 Social History Tobacco Use Types Packs/Day Years Used Date Smoking Tobacco: Former Pipe 1 - 1989 Smokeless Tobacco: Former Chew Tobacco [...] materials from doctor or pharmacy Sometimes 11/20/2024 [facility] Utilities Answer Date Recorded In the past 12 months has th e electric, gas, oil, or water [employer] threatened to shut off services in your [...] often do you attend chur ch or pentecostal services? 1 to 4 times per year 11/25/2024 Do you belong to any clubs o r organizations such as mormonism groups, unions, fraternal or athletic groups, or [...] staff should administer the PHQ-9) 0 09/20/2024 [place] [place] [facility] - Occupational Stress [...] money to buy more. Never true 11/26/19 25 Within the past 12 months, t he [...] any time in the past 12 m [facility], were you homeless or living in a alf (including now)? No 11/25/2024 Personal Safety Answer Date Recorded Have you ever been in or are you currently in a harmful physical or emotional relationship or is someone making you feel afraid or unsafe? Denies 11/25/2024 Sex and Gender Information Value Date Recorded Sex Assigned at Not on file Legal Sex Male 4:35 PM DIRECTOR DIABETES Gender Identity Not on file Sexual Orientation Not on file Last Filed Vital Signs Vital Sign Reading [...] 11/25/2024 5:12 AM CDT Plan of Treatment Not on file Goals Goal Patient Goal Type Associated Problems Recent Progress Patient-Stated? Author ARLENE General Goal - Patient schedules and keeps appointments with all recommended providers ACO Care Management On track(2021 9:13 AM DIRECTOR DIABETES) No Christy Mathis RN Note: Problem: Potential for medical complications [...] ACO Care Management On track(2021 9:13 AM DIRECTOR DIABETES) No Christy Mathis RN Note: Problem: Knowledge deficit related to [...] or provider. Medical Devices Implanted Type Area Liquor Department Manager Device Identifier Shelf Expiration Date Model / Serial / Lot Med[employer]onic Inc Tyrx Absorbable Antibacterial Envelope Large 3.3x2.9in [id number] - [id number] - [id number] Implanted:Qty: 1 on 10/16/2024 by Davy Santoyo MD at [facility] Mesh [employer] 07/13/2025 [id number] / [id number] / [id number] Pacemaker Pacemaker Left: Chest Wall [employer] [id number] Vertaplex Hv Autoplex Without Needle Delivery System Kit Bone - [id number] Implanted:Qty: 1 on 08/25/2021 at [facility] [employer] 01/04/2023 [id number] / / [id number] Biotronik Pacemaker Cardiac Biotronik Home Monitoring Edora 8 3 Chamber Sterile Hf-T [id number] - [id number] Implanted:Qty: 1 on 10/16/2024 by Davy Santoyo MD at [facility] [employer] 11/04/2025 [id number] / / Procedures Procedure Name Priority Date/Time [...] METABOLIC PANEL Routine 11/27/2024 7:20 AM CDT FL AN ELECTIVE ENDOTRACHEAL AIRWAY Routine 11/26/2024 12:38 [...] HIGH-SENSITIVITY 6-HOUR Timed 11/25/2024 8:25 AM CDT FL CRITICAL CARE ILL/INJURED PATIENT INIT 30-74 MIN [...] (HCC) ECG 12-LEAD Routine 10/10/2024 12:31 PM DIRECTOR DIABETES Encounter for pacemaker at end of battery life Sick sinus syndrome (HCC) Permanent atrial fibrillation (HCC) EGFR Routine 10/10/2024 12:12 PM DIRECTOR DIABETES Encounter for pacemaker at end of battery life Sick sinus syndrome (HCC) Permanent atrial fibrillation (HCC) DIFFERENTIAL AUTO Routine 10/10/2024 12:12 PM DIRECTOR DIABETES Encounter for pacemaker at end of battery life Sick sinus syndrome (HCC) Permanent atrial fibrillation (HCC) CBC WITH AUTO DIFFERENTIAL Routine 10/10/2024 12:12 PM DIRECTOR DIABETES Encounter for pacemaker at end of battery life Sick sinus syndrome (HCC) Permanent atrial fibrillation (HCC) BASIC METABOLIC PANEL Routine 10/10/2024 12:12 PM DIRECTOR DIABETES Encounter for pacemaker at end of battery life Sick sinus syndrome (HCC) Permanent atrial fibrillation (HCC) PROTIME-INR Routine 10/10/2024 12:12 PM DIRECTOR DIABETES Encounter for pacemaker at end of battery life Sick sinus syndrome (HCC) Permanent atrial fibrillation (HCC) PAIN MGMT IMAGING LUMBAR/SACRAL FACET/ MEDIAL BRANCH BLOCK BILATERAL Schedule Routine, Read Routine (OP Routine) 09/26/2024 1:14 PM DIRECTOR DIABETES Spondylosis of lumbar region without myelopathy or radiculopathy from Last 3 Months Results * Imaging Lumbar/Sacral Medial Branch RFA Bilateral ([id number]) (12/19/2024 12:22 PM CDT) Narrative RAD_PACS_[facility] - 12/19/2024 12:22 PM CDT The images from this study are not interpreted by Radiology. Please refer to the physician's procedure / OR operative note. us Christy Washburn NP IMG PAIN MGMT PROCEDURE S Final Result RAD_PACS_[facility] * eGFR (12/02/2024 5:53 AM CDT) [...] LAB BLOOD ORDERABLES Final Re sult [facility] ([place]) 1 [facility] [place] [address] * (ABNORMAL) CBC without differential (12/02/2024 5:53 AM CDT) WBC 9.43 3.80 - 9.90 K/cumm Hgb 10.3(L) 13.0 - 17.5 g/dL [facility] ([place]) Hct 33.5(L) 38.9 - 50.3 % [facility] ([place] Plt 160 150 - 400 K/cumm [facility] ([place] MPV 10.6 9.1 - 12.3 fL [facility] ([place] RBC 3.32(L) 4.30 - 5.80 M/cumm [facility] ([place] MCV 100.9(H) 81.3 - 96.4 fL [facility] ([place] MCH 31.0 27.1 - 33.3 pg [facility] ([place] MCHC 30.7(L) 32.3 - 35.7 g/dL [facility] ([place] RDW CV 15.9(H) 11.1 - 14.9 % [facility] ([place] RDW SD 58.1(H) 35.7 - 48.1 fL [facility] ([place]) NRBC abs 0.00 0.00 - 0.01 K/cumm [facility] ([place]) Blood 12/02/2024 5:53 AM CDT 12/02/2024 6:11 AM CDT us Walker Luevano MD LAB BLOOD ORDERA BLES Final Result [facility] ([place]) 1 [facility] Department [place] [address] * (ABNORMAL) Basic metabolic panel (12/02/2024 5:53 AM CDT) Sodium 134(L) 135 - 145 mmol/L Potassium, pl 3.7 3.3 - 4.9 mmol/L [facility] ([place]) Chloride 102 97 - 110 mmol/L [facility] CO2 21(L) 22 - 32 mmol/L [facility] ([place] Anion gap 11 2 - 15 mmol/L [facility] ([place] BUN 15 6 - 25 mg/dL [facility] ([place]) Creatinine 0.76(L) 0.80 - 1.30 mg/dL [facility] ([place] Glucose 76 70 - 199 mg/dL [facility] ([place]) Comment: Interpretive Data Fasting glucose [...] 8.5 - 10.3 mg/dL [facility] ([place]) Blood 12/02/2024 5:53 AM CDT 12/02/2024 6:11 AM CDT us Beronica Hart MD LAB BLOOD ORDERABLES Final Re sult [facility] ([place]) 1 [facility] [place] [address] * (ABNORMAL) CBC without differential (12/01/2024 5:42 [...] ([place]) MCV 101.6(H) 81.3 - 96.4 fL [facility] ([place]) MCH 32.0 27.1 - 33.3 pg [facility] ([place] MCHC 31.5(L) 32.3 - 35.7 g/dL [facility] ([place]) RDW CV 15.7(H) 11.1 - 14.9 % [facility] ([place] RDW SD 57.6(H) 35.7 - 48.1 fL [facility] ([place] NRBC abs 0.00 0.00 - 0.01 K/cumm [facility] ([place] Blood 12/01/2024 5:42 AM CDT 12/01/2024 6:08 AM CDT us Walker Luevano MD LAB BLOOD ORDERA BLES Final Result [facility] [place]) 1 [facility] [place] [address] * CT Abdomen Pelvis WO Contrast (11/30/2024 [...] Brendon Callahan M.D. KH: ROBERT Report ID: [id number] Reading Location: [place] [address] Procedure Note Brendon Callahan MD - 11/30/2024 [...] Brendon Callahan M.D. KH: ROBERT Report ID: [id number] Reading Location: [id number] Beronica Hart MD IMG CT PROCEDURES Final [...] Jin Puga M.D. AM: AM Report ID: [id number] Reading Location: [id number] Procedure Note Jin Puga MD - 11/30/2024 [...] Jin Puga M.D. AM: AM Report ID: [id number] Reading Location: [id number] Beronica Hart MD IMG CT PROCEDURES Final Resul t * (ABNORMAL) CBC without differential (11/30/2024 4:11 AM CDT) WBC 9.39 3.80 - 9.90 K/cumm Hgb 10.0(L) 13.0 - 17.5 g/dL [facility] ([place]) Hct 32.3(L) 38.9 - 50.3 % [facility] ([place]) Plt 161 150 - 400 K/cumm [facility] ([place]) MPV 10.4 9.1 - 12.3 fL [facility] ([place]) RBC 3.15(L) 4.30 - 5.80 M/cumm [facility] ([place]) MCV 102.5(H) 81.3 - 96.4 fL [facility] ([place] MCH 31.7 27.1 - 33.3 pg [facility] ([place]) MCHC 31.0(L) 32.3 - 35.7 g/dL [facility] ([place]) RDW CV 15.8(H) 11.1 - 14.9 % [facility] ([place] RDW SD 58.7(H) 35.7 - 48.1 fL [facility] ([place] NRBC abs 0.00 0.00 - 0.01 K/cumm [facility] ([place] Blood 11/30/2024 4:11 AM CDT 11/30/2024 4:28 AM CDT us Walker Luevano MD LAB BLOOD ORDERA BLES Final Result Performing Organization Address City/[facility]/ZIP Co de Phone Number [facility] ([place]) 1 [place] [address] * (ABNORMAL) Prolactin (11/29/2024 6:21 PM CDT) Prolactin 15.6(H) 4.0 - 15.2 ng/mL Comment:Testing performed by : [facility], [address] [place] [address]., [id number] Blood 11/29/2024 6:21 PM CDT 11/30/2024 3:00 PM CDT us Beronica Hart MD LAB BLOOD ORDERABLES Final Re sult Performing Organization Address [facility] Co de Phone Number [facility] ([place]) 1 [facility] [place] [address] * (ABNORMAL) D-dimer, quantitative (11/29/2024 6:21 PM CDT) D-Dimer 1,689(H) <=499 ng/mL FEU [facility] ([place]) Comment: Interpretive data FDA approved the D-dimer, [...] 68, VTE cut-off 680 ng/ml FEU. References; Schoutsamira HT et al. Brit Med J. 2013;346:f2492. Talha MONGE et al. Annals Int Med. 2015;163:701-11. Current interpretive data was last revised on 2019. Blood 11/29/2024 6:21 PM CDT 11/29/2024 6:32 PM CDT us Beronica Hart MD LAB BLOOD ORDERABLES Final Re sult [facility] ([place]) 1 [facility] [place] [address] * CT Head WO Contrast (11/29/2024 5:56 [...] Ignacio Peraza D.O. AP: AP Report ID: [id number] Reading Location: [id number] Procedure Note Ignacio Peraza DO - 11/29/2024 EXAM DESCRIPTION: CT HEAD [...] Ignacio Peraza D.O. AP: AP Report ID: [id number] Reading Location: [id number] us Beronica Hart MD IMG CT PROCEDURES [...] drowsiness. Clinicalcourse recommended. Job ID/Internal Job ID: [id number] us Beronica Hart MD NEUROLOGY ORDERABLES Final Re [...] RDW CV 15.6(H) 11.1 - 14.9 % [facility] ([place]) RDW SD 58.8(H) 35.7 - 48.1 fL [facility] ([place]) NRBC abs 0.00 0.00 - 0.01 K/cumm [facility] ([place]) Blood 11/29/2024 7:19 AM CDT 11/29/2024 8:12 AM CDT us Walker Luevano MD LAB BLOOD ORDERA BLES Final Result [facility] ([place] 1 [facility] Department [place] [address] * Folate (11/28/2024 10:17 AM CDT) Folic acid 8.7 >=5.0 ng/mL Comment:Slightly Hemolyzed S pecimen. Results may be affected. Blood 11/28/2024 10:1 7 AM CDT 11/28/2024 10:46 AM CDT Beronica Hart MD LAB BLOOD ORDERABLES Final Re sult [facility] ([place]) 1 [facility] [place] [address] * Vitamin B12 (11/28/2024 10:17 AM CDT) Vitamin B12 442 230 - 1,250 pg/mL Blood 11/28/2024 10:1 7 AM CDT 11/28/2024 10:46 AM CDT Beronica Hart MD LAB BLOOD ORDERABLES Final Re sult [facility] ([place]) 1 [facility] [place] [address] * eGFR (11/28/2024 4:21 AM CDT) eGFR 78 >=60 mL/min/1. 73 m2 Comment: [...] BLES Final Result [facility] ([place]) 1 [facility] Department [place] [address] * (ABNORMAL) CBC without differential (11/28/2024 4:21 AM CDT) WBC 11.35(H) 3.80 - 9.90 K/cumm Hgb 9.1(L) 13.0 - 17.5 g/dL [facility] ([place]) Hct 30.1(L) 38.9 - 50.3 % [facility] ([place]) Plt 174 150 - 400 K/cumm [facility] ([place]) MPV 10.5 9.1 - 12.3 fL [facility] ([place]) RBC 2.88(L) 4.30 - 5.80 M/cumm [facility] ([place]) MCV 104.5(H) 81.3 - 96.4 fL [facility] ([place]) MCH 31.6 27.1 - 33.3 pg [facility] ([place]) MCHC 30.2(L) 32.3 - 35.7 g/dL [facility] ([place]) RDW CV 15.6(H) 11.1 - 14.9 % [facility] ([place]) RDW SD 59.1(H) 35.7 - 48.1 fL [facility] ([place]) NRBC abs 0.00 0.00 - 0.01 K/cumm [facility] ([place]) Blood 11/28/2024 4:21 AM CDT 11/28/2024 4:47 AM CDT us Walker Luevano MD LAB BLOOD CAMILLA MARTINEZ Final Result [facility] ([place]) 1 [facility] [place] [address] * (ABNORMAL) Comprehensive metabolic panel (11/28/2024 4:21 AM CDT) Sodium 138 135 - 145 mmol/L Potassium, pl 4.0 3.3 - 4.9 mmol/L [facility] ([place]) Chloride 108 97 - 110 mmol/L [facility] ([place] CO2 16(L) 22 - 32 mmol/L [facility] ([place] Anion gap 15 2 - 15 mmol/L [facility] ([place] BUN 23 6 - 25 mg/dL [facility] ([place]) Creatinine 0.95 0.80 - 1.30 mg/dL [facility] ([place]) Glucose 87 70 - 199 mg/dL [facility] [...] ORDERA BLES Final Result Performing Organization Address City/[facility] Co de Phone Number [facility] ([place]) 1 [facility] [place] [address] * eGFR (11/27/2024 7:20 AM CDT) eGFR [...] 7:20 AM CDT 11/27/2024 7:26 AM CDT Walker Luevano MD LAB BLOOD ORDERA BLES Final Result [facility] ([place]) 1 [facility] [place] [address] * (ABNORMAL) CBC without differential (11/27/2024 7:20 [...] BLES Final Result [facility] ([place] 1 [facility] [place] [address] * (ABNORMAL) Comprehensive metabolic panel (11/27/2024 7:20 [...] BLES Final Result [facility] ([place] 1 [facility] [place] [address] * FL AN ELECTIVE ENDOTRACHEAL AIRWAY (11/26/2024 12:38 PM CDT) Narrative Chaz Diaz CRNA - 11/26/2024 12:38 PM CDT Chaz Diaz CRNA 11/26/2024 12:39 PM Airway Patient location: OR Urgency: elective Date/time: 11/26/2024 12:33 PM Indications for airway management: anesthesia and airway protection Difficult airway: no Staff: Placed by: PACKAGING TECHNICIAN: Chaz Diaz CRNA Emergent airway documentation: Risks [...] (Gallbladder) 11/26/2024 12:59 PM CDT Narrative PATHOLOGY [facility] ([place]) - 11/28/2024 4:05 PM CDT EPIC results best viewed via link to PDF [facility] Department of Pathology [address] [place] [address] Note to Patients: This report may contain [...] Final Report Patient Name: BLAZE SCHMID Address: [address] [place] [id number] Gender: M : 1940 (Age: 84) Service: Medical Location: [facility] Hospital #: [id number] Patient Type: [facility] Taken: 11/26/2024 Received: 11/27/2024 Accessioned: 11/27/2024 [...] received in a single container labeled BLAZE SPA and gallbladder . It is a gallbladder that measures 5 x 2 cm. The serosa is congested with adhesions. The wall measures up to 0.4 cm in thickness. The lumen contains green brown bile and green pseudomembranes. The mucosa is fox green with erosion. The cystic duct margin is inked blue. Represented in one cassette. Ed Ayon R.N., P.A./Delfino Nathan M.D. REPORT IMAGES AND SCANNED DOCUMENTS, IF INCLUDED, ONLY VIEWABLE IN PDF VERSION OF REPORT The performance characteristics of some immunohistochemical stains, fluorescence in-situ hybridization tests and immunophenotyping by flow cytometry cited in this report (if any) were determined by the Surgical Pathology Department at [facility] as part of an ongoing manager quality systems program and in compliance with federally mandated [...] characteristics determined by the Surgical Pathology Department [facility]. It has not been cleared or approved by the U. S. Food and Drug Administration. Note for decalcified specimens: This assay has not been validated on decalcified tissues. Results should be interpreted with caution given the possibility of false negativity on decalcified specimens Walker Luevano MD LAB PATHOLOGY OR DERABLES Final Result Performing Organization Address [facility] Co de Phone Number [facility] ([place]) [address] [place] [address] * ABO/Rh (11/26/2024 8:27 AM CDT) ABO/Rh A Positive Blood 11/26/2024 8:27 AM CDT 11/26/2024 8:34 AM CDT Narrative [facility] ([place]) - 11/26/2024 9:12 AM CDT Has the patient had Daratumumab or Isatuximab in the past 6 months?->Unknown Brooklynn Venegas NP LAB BLOOD BANK TEST ORDERABLES Final Result Performing Organization Address [facility] de Phone Number [facility] ([place]) [address] [place] [address] [place] [address] * Antibody screen (11/26/2024 8:27 AM CDT) Lavon, indirect, Gel Interpretation Negative ABSC Blood 11/26/2024 8:27 AM CDT 11/26/2024 8:34 AM CDT Narrative [facility] ([place] - 11/26/2024 9:12 AM CDT Has the patient had Daratumumab or Isatuximab in the past 6 months?->Unknown Brooklynn Venegas NP LAB BLOOD BANK TEST ORDERABLES Final Result Performing Organization Address [facility]/ZIP Co de Phone Number [facility] ([place]) 1 [facility] [place] [address] * eGFR (11/26/2024 8:26 AM CDT) eGFR [...] 8:26 AM CDT 11/26/2024 8:35 AM CDT Beronica Hart MD LAB BLOOD ORDERABLES Final Re sult [facility] JAMA) 1 [facility] [place] [address] * Blood culture Blood (11/26/2024 8:26 AM CDT) Report Final Report: No growth Comment:Testing performed by : [facility], [address] [facility], [place]., [address] Blood 11/26/2024 8:26 AM CDT 11/26/2024 10:24 AM CDT Narrative [facility] ([place]) - 11/30/2024 12:00 PM CDT From a [...] performance characteristics have been verified by the [facility] Microbiology Laboratory. For questions about this culture, contact the Microbiology Laboratory at [phone]. Interpretive data was last revised on 24. us Brooklynn Venegas NP LAB MICROBIOLOGY - GENERAL ORD ERABLES Final Result [facility] ([place] 1 [facility] [place] [address] * (ABNORMAL) CBC without differential (11/26/2024 8:26 AM CDT) WBC 11.42(H) 3.80 - 9.90 K/cumm Hgb 11.0(L) 13.0 - 17.5 g/dL [facility] ([place]) Hct 35.0(L) 38.9 - 50.3 % [facility] ([place]) Plt 193 150 - 400 K/cumm [facility] ([place]) MPV 10.6 9.1 - 12.3 fL [facility] RBC 3.51(L) 4.30 - 5.80 M/cumm [facility] MCV 99.7(H) 81.3 - 96.4 fL [facility] ([place]) MCH 31.3 27.1 - 33.3 pg [facility] MCHC 31.4(L) 32.3 - 35.7 g/dL [facility] RDW CV 15.0(H) 11.1 - 14.9 % [facility] RDW SD 55.4(H) 35.7 - 48.1 fL [facility] NRBC abs 0.00 0.00 - 0.01 K/cumm [facility] ([place]) Blood 11/26/2024 8:26 AM CDT 11/26/2024 8:34 AM CDT us Walker Luevano MD LAB BLOOD ORDERA BLES Final Result [facility] ([place]) [address] [place] [address] [employer] [address] * (ABNORMAL) Bilirubin, total and direct (11/26/2024 8:26 AM CDT) Bilirubin, total 1.5(H) 0.1 - 1.2 mg/dL Bilirubin, direct 0.7(H) 0.1 - 0.3 mg/dL [facility] ([place]) Blood 11/26/2024 8:26 AM CDT 11/26/2024 8:34 AM CDT us Beronica Hart MD LAB BLOOD ORDERABLES Final Re sult [facility] H[place] ([place]) [address] [place] [address] [employer] [address] * (ABNORMAL) Comprehensive metabolic panel (11/26/2024 8:26 AM CDT) Sodium 138 135 - 145 mmol/L Potassium, pl 3.6 3.3 - 4.9 mmol/L [facility] ([place]) Chloride 104 97 - 110 mmol/L [facility] ([place]) CO2 19(L) 22 - 32 mmol/L [facility] ([place]) Anion gap 16(H) 2 - 15 mmol/L [facility] ([place]) BUN 19 6 - 25 mg/dL [facility] ([place]) Creatinine 0.74(L) 0.80 - 1.30 mg/dL [facility] ([place]) Comment:Icteric sample, test results may be affected. Glucose 77 70 - 199 mg/dL [facility] ([place]) Comment: Interpretive Data Fasting glucose >/= 126 [...] AM CDT 11/26/2024 8:35 AM CDT us Walker Luevano MD LAB BLOOD ORDERA BLES Final Result [facility] ([place]) 1 [facility] [place] [address] * Blood culture Blood (11/26/2024 8:20 AM CDT) Report Final Report: No growth Comment:Testing performed by : [facility], [address] [facility], [place]., [address] Blood 11/26/2024 8:20 AM CDT 11/26/2024 10:24 [...] performance characteristics have been verified by the [facility] Microbiology Laboratory. For questions about this culture, contact the Microbiology Laboratory at [phone]. Interpretive data was last revised on 24. us Brooklynn Venegas NP LAB MICROBIOLOGY - GENERAL ORD ERABLES Final Result [facility] ([place] 1 [facility] [place] [address] * US RUQ (11/25/2024 2:58 PM CDT) [...] Brendon Callahan M.D. KH: ROBERT Report ID: [id number] Reading Location: [place] [address] Procedure Note Brendon Callahan MD - 11/25/2024 [...] Brendon Callahan M.D. KH: ROBERT Report ID: [id number] Reading Location: [id number] us Beronica Hart MD IMG US PROCEDURES [...] 5:32 PM - Electronically signed by Brendon JONES: ROBERT Report ID: [id number] Reading Location: [place] [address] Procedure Note Brendon Callahan MD - 11/25/2024 [...] 5:32 PM - Electronically signed by Brendon JONES: ROBERT Report ID: [id number] Reading Location: [place] [address] Elisa Goode SHIFT SUPERINTENDENT CAUSTIC CRESYLATE IMG CT PROCEDURES Fin al Result * [...] 4 PM CDT 11/25/2024 12:33 PM CDT us Beronica Hart MD LAB BLOOD ORDERABLES Final Re sult Performing Organization Address [facility] Co de Phone Number GLADIS [facility] ([place]) [address] [place] [address] [place] [address] * (ABNORMAL) Troponin T high-sensitivity 6-hour (11/25/2024 [...] ORDERABLES Fi nal Result Performing Organization Address City/[facility]/ZIP Co de Phone Number GLADIS [facility] ([place]) 1 [facility] [place] [address] * FL CRITICAL CARE ILL/INJURED PATIENT INIT 30-74 MIN [...] LAB BLOOD ORDERABLES Fi nal Result [facility] ([place]) 1 [facility] [place] [address] * eGFR (11/25/2024 6:43 AM CDT) eGFR [...] MD LAB BLOOD ORDERABLES Final Resul t [facility] ([place]) 1 [facility] [place] [address] * (ABNORMAL) Differential, auto (11/25/2024 6:43 AM [...] Final Resul t [facility] ([place]) 1 [facility] [place] [address] * (ABNORMAL) CBC with auto differential (11/25/2024 [...] MD LAB BLOOD ORDERABLES Final Resul t [facility] ([place]) 1 [facility] [place] [address] * Basic metabolic panel (11/25/2024 6:43 AM CDT) Sodium 140 135 - 145 mmol/L Potassium, pl 4.1 3.3 - 4.9 mmol/L [facility] ([place]) Chloride 106 97 - 110 mmol/L [facility] ([place]) CO2 23 22 - 32 mmol/L [facility] ([place]) Anion gap 12 2 - 15 mmol/L [facility] ([place] BUN 21 6 - 25 mg/dL [facility] ([place]) Creatinine 0.93 0.80 - 1.30 mg/dL [facility] ([place]) Comment:Icteric sample, test results may be affected. Glucose 95 70 - 199 mg/dL [facility] ([place]) Comment: Interpretive Data Fasting glucose >/= [...] 2022. Calcium 8.7 8.5 - 10.3 mg/dL [facility] ([place]) Blood 11/25/2024 6:43 AM CDT 11/25/2024 7:16 AM CDT us Peggy Ayon MD LAB BLOOD ORDERABLES Final Resul t GL[facility]IS [facility] ([place]) 1 [facility] [place] [address] * Procalcitonin (11/25/2024 6:40 AM CDT) Pathologist [facility] Procalcitonin 0.12 <=0.25 ng/mL Comment:Testing performed by : [facility], [facility] [facility], [place]., [address] Blood 11/25/2024 6:40 AM CDT 11/25/2024 12:06 PM CDT us Beronica Hart MD LAB BLOOD ORDERABLES Final Re sult [facility]IS [facility] ([place]) 1 [facility] [place] [address] * (ABNORMAL) Pro B-type natriuretic peptide (11/25/2024 [...] as advanced age. - References: 1. Luly JL et.al. Eur Heart J. 2006:27:330-337. 2. Herber RW, Celia AM. J. AM Kendal Cardiol: Cardiovasc Imag. 2009;2: 216- 225. Interpretive Data Last Revised Date: 2018. Blood 11/25/2024 6:40 AM CDT 11/25/2024 7:47 AM CDT us Beronica Hart MD LAB BLOOD ORDERABLES Final Re sult [facility] ([place]) [address] [employer] [facility] [place] [address] * (ABNORMAL) Troponin T high-sensitivity 2-hour (11/25/2024 [...] interp Insignificant [facility] ([place]) Blood 11/25/2024 4:44 AM CDT 11/25/2024 4:56 AM CDT us Kalen Awan MD LAB BLOOD ORDERABLES Fi nal Result [facility] ([place]) 1 [facility] [place] [address] * XR Chest 1 Vw Portable (11/25/2024 [...] Velma Jean M.D. SN: SN Report ID: [id number] Reading Location: [id number] Procedure Note Velma Jean MD - 11/25/2024 [...] Velma Jean M.D. SN: SN Report ID: [id number] Reading Location: [id number] Peggy Ayon MD IMG XR PROCEDURES Final [...] 2:45 AM CDT 11/25/2024 2:50 AM CDT us Kalen Awan MD LAB BLOOD ORDERABLES Fi nal Result [facility] ([place]) 1 [facility] [place] [address] * Influenza A/B, RSV, and COVID-19 PCR Nasopharyngeal (11/25/2024 2:45 AM CDT) COVID-19 RNA Negative Negative Influenza A RNA Negative Negative [facility] [place] ([place]) Influenza B RNA Negative Negative [facility] ([place]) RSV RNA Negative Negative [facility] ([place]) Comment: Interpretive data: Testing performed by [facility]. This test is performed using the [employer] Xpert Xpress CoV-2/Flu/RSV plus assay. This is a multiplex, real- time reverse transcriptase PCR assay intended for the qualitative detection of nucleic acid from SARS-CoV-2, influenza A, influenza B, and respiratory syncytial virus. This assay has been cleared by the [place] Food and Drug administration. The performance characteristics have been verified by the [facility]. Results must be considered in the clinical context, and a negative result does not rule out infection. Interpretive Data last revised 2023 Nasopharyngeal 11/25/2024 2: 45 AM CDT 11/25/2024 2:50 AM CDT Narrative [facility] ([place]) - 11/25/2024 3:43 AM CDT Is the Patient experiencing symptoms consistent with COVID?->Yes us Peggy Ayon MD LAB MICROBIOLOGY - GENERAL ORDER LILIANA Final Result [facility] ([place]) 1 [facility] [place] [address] * Thyroid Function Davis (11/25/2024 2:45 AM CDT) TSH 1.84 0.30 - 4.20 mcIUnit/mL Blood 11/25/2024 2:45 AM CDT 11/25/2024 2:50 AM CDT us Peggy Ayon MD LAB BLOOD ORDERABLES Final Resul t [facility] ([place]) 1 [facility] [employer] [address] * (ABNORMAL) Urinalysis reflex to microscopic and [...] tendency for uric acid stone formation. Source: [facility] [employer] Current Interpretive Data was last revised on 2017 Protein, ur ql Trace Negative [facility] ([place]) Glucose, ur ql Negative Negative [facility] ([place]) Ketones, ur Negative Negative [facility] ([place]) Bilirubin, ur Negative Negative [facility] ([place] Blood, ur Negative Negative [facility] ([place] Urobilinogen, ur 2.0(A) <2.0 mg/dL [facility] ([place]) Nitrite, ur Negative Negative [facility] ([place]) Leukocyte esterase, ur Negative Negative [facility] ([place]) UA reflex comment Reflex conditions for microscopic UA and culture not met. [facility] ([place]) Urine 11/25/2024 2:45 AM CDT 11/25/2024 2:49 AM CDT us Peggy Ayon MD LAB MICROBIOLOGY - GENERAL ORDER LILIANA Final Result [facility] ([place] 1 [facility] [place] [address] * Blood gas, venous (11/25/2024 2:45 AM CDT) pH, Venous 7.38 7.32 - 7.43 PCO2, Venous 40 40 - 50 mmHg [facility] ([place]) PO2, Venous 83 mmHg [facility] ([place]) Comment: Interpretive Data No reference range established. Current interpretive data was last revised 2017. HCO3 Venous, Calculated 23 20 - 30 mmol/L [facility] ([place]) BE, venous -2 mmol/L [facility] ([place]) Comment: Interpretive Data No Reference Range Established Current Interpretive Data was last revised on 2017. Blood 11/25/2024 2:45 AM CDT 11/25/2024 2:50 AM CDT us Peggy Ayon MD LAB BLOOD ORDERABLES Final Resul t [facility] ([place]) 1 [facility] [place] [address] * CT Head WO Contrast (11/25/2024 1:16 [...] Electronically signed by Brendon Fabian M.D. KT: KT Report ID: [id number] Reading Location: [id number] Procedure Note Brendon Fabian MD - 11/25/2024 [...] Electronically signed by Brendon Fabian M.D. KT: KT Report ID: [id number] Reading Location: [id number] Peggy Ayon MD IMG CT PROCEDURES Final Result * eGFR (11/24/2024 10:58 PM CDT) eGFR 72 >=60 mL/min/1. 73 m2 Comment: [...] Inclusion of Race in Diagnosing Kidney Disease, SUSANA 2020). The CKD-EPI equation should not be used for patients with unstable renal function and has not been validated in children and those over 70. Current interpretive data was last reviewed 2021. Blood 11/24/2024 10:5 8 PM CDT 11/24/2024 11:02 PM CDT us Peggy Ayon MD LAB BLOOD ORDERABLES Final Resul t [facility] ([place]) 1 [facility] [place] [address] * (ABNORMAL) Differential, auto (11/24/2024 10:58 PM CDT) Neutrophil abs 10.96(H) 1.50 - 6.50 K/cumm [...] Final Resul t [facility] ([place]) 1 [facility] [place] [address] * (ABNORMAL) CBC with auto differential (11/24/2024 [...] RDW CV 15.2(H) 11.1 - 14.9 % [facility] ([place]) RDW SD 57.1(H) 35.7 - 48.1 fL [facility] ([place]) NRBC abs 0.00 0.00 - 0.01 K/cumm [facility] ([place]) Blood 11/24/2024 10:5 8 PM CDT 11/24/2024 11:02 PM CDT us Peggy Ayon MD LAB BLOOD ORDERABLES Final Resul t [facility] ([place]) 1 [facility] [place] [address] * (ABNORMAL) Comprehensive metabolic panel (11/24/2024 10:58 PM CDT) Sodium 140 135 - 145 mmol/L Potassium, pl 4.1 3.3 - 4.9 mmol/L [facility] Chloride 104 97 - 110 mmol/L [facility]) CO2 23 22 - 32 mmol/L [facility]) Anion gap 13 2 - 15 mmol/L [facility] ([place] BUN 21 6 - 25 mg/dL [facility] ([place]) Creatinine 1.01 0.80 - 1.30 mg/dL [facility] ([place]) Comment:Icteric sample, test results may be affected. Glucose 83 70 - 199 mg/dL [facility] ([place] Comment: Interpretive Data Fasting [...] 2022. Calcium 9.0 8.5 - 10.3 mg/dL [facility] ([place]) Bilirubin, total 1.9(H) 0.1 - [...] ORDERABLES Final Resul t Performing Organization Address City/[facility]/ZIP Co de Phone Number [facility] ([place]) 1 [facility] [place] [address] * (ABNORMAL) ECG 12 lead (11/24/2024 10:57 PM CDT) 11/24/2024 10:5 [address] [facility] - 11/25/2024 7:28 AM CDT Vent Rate: 59 bpm RR Interval: 1002 msec FL Interval: 0 msec QRS Duration: 134 msec QT Interval: 490 msec QTC Interval: 490 msec P-R-T [place]: [address] - 156 - 28 degrees IMPRESSION: ELECTRONIC VENTRICULAR PACEMAKER ABNORMAL RHYTHM ECG NO CHANGE FROM PREVIOUS TRACING NOTED Electronically Signed By: Narinder Steven MD us Peggy Ayon MD ECG ORDERABLES Final Result Performing Organization Address City/[facility]/ZIP Co de Phone Number [facility] [employer] [facility] * Imaging Lumbar/Sacral Facet Medial Branch Block Bilateral ([id number]) (11/11/2024 1:02 PM CDT) Narrative [facility] - 11/11/2024 1:03 PM CDT The images from this study are not interpreted by Radiology. Please refer to the physician's procedure / OR operative note. us Christy Washburn NP IMG PAIN MGMT PROCEDURE S Final Result [facility] * BIVENTRICULAR PACEMAKER UPGRADE (10/16/2024 12:42 PM CDT) Anatomical Region Laterality Modality X-Ray Angiograph y 10/16/2024 Narrative 10/17/2024 7:42 AM CDT Yamli Job ID: [id number] Yamli Document ID: [id number] Dictated date/time: [id number] INDICATION Blaze Schmid is an 84-year-old male with an old biventricular pacemaker from 2016. It is now at end of life. The patient understands the replacement risks to include the following but not limited to the following: pain, bleeding, infection, medication reaction, etc. PROCEDURE The patient was brought down to the cardiac brine room laborer where a time-out was done in the [...] All good numbers. Job ID/Internal Job ID: [id number] us Davy Santoyo MD CV ELECTROPHYSIOLOGY PROCS Fi nal Result * Protime-INR (10/16/2024 10:10 AM CDT) PT 11.9 9.7 - 13.0 sec [facility] ([place]) INR 1.10 0.90 - 1.20 [facility] ([place]) Comment: Interpretive data Oral anticoagulant therapeutic ranges: Venous thromboembolism prophylaxis or treatment: 2.0-3.0 CARDIOLOGY Standard range: 2.0-3.0 High-intensity range: 2.5-3.5 Refer to indication-specific guidelines for appropriate target ranges for prosthetic heart valve replacement. Current interpretive data was last revised on 2019. Blood 10/16/2024 10:1 0 AM CDT 10/16/2024 10:15 AM CDT us Davy Santoyo MD LAB BLOOD ORDERABLES Final Re sult [facility] ([place]) 1 [facility] [place] [address] * ECG 12 lead (10/10/2024 12:31 PM DIRECTOR DIABETES) 10/10/2024 12:2 8 PM DIRECTOR DIABETES Narrative [facility] - 10/10/2024 3:35 PM DIRECTOR DIABETES Vent Rate: 52 bpm RR Interval: 1137 msec FL Interval: 0 msec QRS Duration: 142 msec QT Interval: 513 msec QTC Interval: 494 msec P-R-T [place]: [address] - 143 - 69 degrees IMPRESSION: Baseline artifact LECTRONIC VENTRICULAR PACEMAKER ABNORMAL RHYTHM ECG NO CHANGE FROM PREVIOUS TRACING NOTED Electronically Signed By: Narinder Steven MD us Davy Santoyo MD ECG ORDERABLES Final Result [facility] * eGFR (10/10/2024 12:12 PM DIRECTOR DIABETES) eGFR 70 >=60 mL/min/1. 73 m2 Comment: [...] reviewed 2021. Blood 10/10/2024 12:1 2 PM DIRECTOR DIABETES 10/10/2024 1:16 PM DIRECTOR DIABETES us Davy Santoyo MD LAB BLOOD ORDERABLES Final Re sult [facility] ([place]) 1 [facility] Department of Laboratories [place], [place] [id number] * (ABNORMAL) Differential, auto (10/10/2024 12:12 PM DIRECTOR DIABETES) Neutrophil abs 6.5 1.5 - 6.5 K/cumm [...] on 2017. Blood 10/10/2024 12:1 2 PM DIRECTOR DIABETES 10/10/2024 1:16 PM DIRECTOR DIABETES us Davy Santoyo MD LAB BLOOD ORDERABLES Final Re sult [facility] ([place]) [address] [place] [address] * (ABNORMAL) CBC with auto differential (10/10/2024 12:12 PM DIRECTOR DIABETES) [facility] WBC 9.0 3.8 - 9.9 K/cumm Hgb [...] 14.9 % [facility] ([place]) RDW SD 55.1(H) 35.7 - 48.1 fL [facility] ([place]) NRBC abs 0.00 0.00 - 0.01 K/cumm [facility] ([place]) Blood 10/10/2024 12:1 2 PM DIRECTOR DIABETES 10/10/2024 1:16 PM DIRECTOR DIABETES us Davy Santoyo MD LAB BLOOD ORDERABLES Final Re sult [facility] ([place]) 1 [facility] [place] [address] * (ABNORMAL) Protime-INR (10/10/2024 12:12 PM DIRECTOR DIABETES) Pathologist [facility] [place] PT 14.1(H) 9.7 - 13.0 sec [facility] ([place]) INR 1.30(H) 0.90 - 1.20 [facility] ([place]) Comment: Interpretive data Oral anticoagulant therapeutic ranges: Venous thromboembolism prophylaxis or treatment: 2.0-3.0 CARDIOLOGY Standard range: 2.0-3.0 High-intensity range: 2.5-3.5 Refer to indication-specific guidelines for appropriate target ranges for prosthetic heart valve replacement. Current interpretive data was last revised on 2019. Blood 10/10/2024 12:1 2 PM DIRECTOR DIABETES 10/10/2024 1:16 PM DIRECTOR DIABETES us Davy Santoyo MD LAB BLOOD ORDERABLES Final Re sult [facility] ([place]) 1 [facility] [place] [address] * Basic metabolic panel (10/10/2024 12:12 PM DIRECTOR DIABETES) Sodium 137 135 - 145 mmol/L Potassium, pl 3.4 3.3 - 4.9 mmol/L [facility] ([place]) Chloride 98 97 - 110 mmol/L [facility] ([place]) CO2 29 22 - 32 mmol/L [facility] ([place]) Anion gap 10 2 - 15 mmol/L [facility] ([place]) BUN 18 6 - 25 mg/dL [facility] ([place]) Creatinine 1.04 0.80 - 1.30 mg/dL [facility] ([place]) Comment:Icteric sample, test results may be affected. Glucose 85 70 - 199 mg/dL [facility] ([place]) [...] 2022. Calcium 9.5 8.5 - 10.3 mg/dL [facility] ([place]) Blood 10/10/2024 12:1 2 PM DIRECTOR DIABETES 10/10/2024 1:16 PM DIRECTOR DIABETES us Davy Santoyo MD LAB BLOOD ORDERABLES Final Re sult [facility] ([place]) 1 [facility] [place] [address] * Imaging Lumbar/Sacral Facet Medial Branch Block Bilateral ([id number]) (09/26/2024 1:14 PM DIRECTOR DIABETES) Narrative [facility] - 09/26/2024 1:15 PM DIRECTOR DIABETES The images from this study are not interpreted by Radiology. Please refer to the physician's procedure / OR operative note. us Christy Washburn SHIFT SUPERINTENDENT CAUSTIC CRESYLATE IMG PAIN MGMT PROCEDURE S Final Result Performing Organization Address [facility] Co de Phone Number [facility] from Last 3 Months Insurance [facility]IC[facility] MEDICARE [facility] [employer] [facility] Advance Directives For more information, please contact: [phone] Documents on File Type Date Recorded Patient Preschool Education Director Expl anation ADVANCE DIRECTIVE 10/06/2022 POWER OF [...] 6:36 PM 09/01/2021 8:10 PM Care Teams Drawing Kiln Supervisor Relationship Specialty Start Date End Date Neeru Fernandez MD [address] [place] [id number] [place] [address] PCP - General 11/04/16 Roxanne Pickering MD [address] [place] [place] [address] Consulting Physician Dermatology 03/15/19 Caitlyn Lin MD [address] [place] [address] Consulting Physician Sleep Medicine 11/13/19 Atif Ontiveros MD [address] [facility] [address] HASEEB Carpio [address] [address] Surgeon Orthopedic Surgery 01/29/15 [place] [address] [address] [place] [id number] Consulting Physician Orthopedic Surgery 10/07/20 [place] [address] [address] Consulting Physician Gastroenterology 11/26/20 Herman Dyer DPM [address] [address] Consulting Physician Podiatry 05/22/21 [place] [address] [address] Consulting Physician Cardiology 08/20/21 [place] [address] [address] Consulting Physician Hematology and Oncology 06/02/22 Sydni Espitia, SHIFT SUPERINTENDENT CAUSTIC CRESYLATE [address] [address] [address] Nurse Practitioner Medical Oncology 09/06/22 Gil Foster PA [address] [place] [address] DR LOVE [address] [place] [address] Physician Alarm Mechanic Orthopedic Surgery 01/29/24 [place] [address] [address] [address] Nurse Practitioner Inspector And Clipper 06/24/24 Walker Luevano MD [address] [place] [address] DR [address] [place] [address] Consulting Physician General Surgery 12/02/24
--- OUTSIDE RECORDS SUMMARY | 2024-12-22 20:32 | XMS_ITS | Continuity of Care Document ---
Author Organization [facility] [place] [id number] [place] [address] Dr [address] [place] [phone] Phone Care Team Providers Care Oil Field Technician Name Role Phone Montez Mccord MD Unavailable Unavailable Allergies, Adverse Reactions, Alerts Substance Reaction Status Criticality No Known Allergies Active No Inform ation Medications Medication Instructions Dosage Effective Dates (start - stop) Status Comments Taztia XT 360 mg capsule,extended release - Active Xarelto 20 mg tablet - Active Procedures Procedure Date Eye Exam & Treatment Office/outpatient Visit, Est No Charge Refraction Post-op Follow-up Visit Remove Cataract, Post Op Care 3 Remove Cataract, Insert Lens,Comanaged A IOLMaster-Professional Post-op Follow-up Visit No Charge Refraction Remove Cataract, Post Op Care 3 Remove Cataract, Insert Lens,Comanaged F IOLMaster-Professional No Charge IOL Master No Charge Cataract Check Post-op Follow-up Visit Post-op Follow-up Visit Pterygium Excison W/Graft Eye Exam & Treatment Certified EMR IOLMaster-Technical No Charge Cataract Check Certified EMR Office/outpatient Visit, Est Office/outpatient Visit, [facility] Advance Directives Directive Yes / No Effective Date File Name No Information Encounters Encounter Description Practice Location Reason(s) For Visit Diagnoses Date Provider Providers Copied on Encounter [facility], [id number] [place] [address] [address], [place], [place], [address], tel:[phone] [place] Professional Difficulty reading (chief complaint) Pseudophakia of both eyesPterygium of left eyeChalazion right lower eyelidMeibomi an gland dysfunction (MGD) of upper and lower lids of both eyesAfter cataract of both eyes not obscuring vision 6 Suri Herrmann. [address] [employer], [facility] [place], [address], [place]. tel:[phone] Referring Provider: Montez Echavarria, [address] [facility] A, [place], [address] . tel:[phone] Office/outpa tient Visit, Est [facility], [address], [place], [place], [address], [place] tel:[phone] SEC [place] Professional Occasional Blurred Vision OS (chief complaint) After cataract limiting visionPost vitreous detachment 5 Suri Herrmann. [address], [address] [place], [address], [place]. tel:[phone] Referring Provider: Montez Echavarria, [address], [place], [address] . tel:[phone] [facility] [employer] [facility], [address], [place], [place], [address], [place] tel:[phone] SEC [place] Professional No Information 3 Suri Herrmann. [address], [address] [place], [address], [place]. tel:[phone] Referring Provider: Montez Echavarria, [address] [facility] [address], [place], [address] . tel:[phone] [facility], [address], [place], [place], [address], [place] tel:[phone] SEC [place] Professional No Information Apr-1 0-201 3 Suri Herrmann. [address] [facility], [address], [place], [place], [address], [place]. tel:[phone] Referring Provider: Montez Echavarria, [address] [facility] [address], [place], [address] . tel:[phone] [facility], [address], [place], [place], [address], [place] [phone] [facility] No Information Apr-0 9-201 3 Alvin Lema. [address], [address], [place], [facility], [place]. tel:[phone] Referring Provider: Montez Echavarria, [address] [facility] [address], [place], [address] . tel:[phone] [facility], [address], [place], [place], [address], [place] [phone] SEC [place] [facility] No Information Apr-0 8-201 3 Alvin Lema. [address], [address], [place], [place], [facility], [place]. tel:[phone] Referring Provider: Montez Echavarria, [address] [facility] [address], [place], [address] . tel:[phone] [facility], [address], [place], [place], [address], [place] tel:[phone] SEC [place] Professional FOLLOW-UP SURGERY NOS 3 Alvin Lema. [address], [address], [place], [facility], [place]. tel:[phone] Referring Provider: Montez Echavarria, [address] [facility] [address], [place], [address] . tel:[phone] [facility], [address], [place], [place], [address], [place] tel:[phone] SEC Yuan [place] Professional No Information 3 Suri Herrmann. [address] [facility], [address], [place], [place], [address], [place]. tel:[phone] Referring Provider: Montez Echavarria, [address] [facility] [address], [place], [address] . tel:[phone] [facility], [address] [place] [address] [address], [place], [place], [address], [place] tel:[phone] [facility] No Information 3 Alvin Lema. [address], [address], [place], [facility], [place]. tel:[phone] Referring Provider: Montez Echavarria, [address] [facility] [address], [place], [address] . tel:[phone] [facility], [address], [place], [place], [address], [place] tel:[phone] SEC [place] [facility] No Information 3 Alvin Lema. [address], [address], [place], [facility], [place]. tel:[phone] Referring Provider: Montez Echavarria, [address] [facility] [address], [place], [address] . tel:[phone] [facility], [address] [place], [place] [address]st [address], [place], [place], [address], [place] tel:[phone] SEC Yuan [place] Professional No Information 3 Suri Herrmann. [address] [facility], [address], [place], [place], [address], . tel:[phone] Referring Provider: Montez Echavarria, [address] [facility] [address], [place], [address] . tel:[phone] [facility], [address], [place], [place], [address], [place] tel:[phone] SEC Yuan [place] Professional No Information 3 Suri Herrmann. [address] [facility], [address] [place], [address], . tel:[phone] Referring Provider: Montez Echavarria, [address] [facility] [address], [place], [address] . tel:[phone] [facility], [address], [place], [place], [address], [place] tel:[phone] SEC [place] Professional FOLLOW-UP SURGERY NOSSENILE NUCLEAR CATARACT 3 Alvin Lema. [address], [place], [address], . tel:[phone] Referring Provider: Montezkim Echavarria, [address] [facility] [address], [place], [address] . tel:[phone] [facility], [address], [place], [place], [address], [place] tel:[phone] SEC [place] Professional FOLLOW-UP SURGERY NOS 2 Alvin Lema. [address], [address], [place], [address], . tel:[phone] Referring Provider: Montez Echavarria, [address], [place], [address] . tel:[phone] [facility], [address], [place], [place], [address], [place] tel:[phone] [facility] [place] No Information 2 Alvin Lema. [address] [facility], [address], [place], [facility], [place]. tel:[phone] Referring Provider: Montez Echavarria, [address] [facility] [address], [place], [address] . tel:[phone] [facility], [address], [place], [place], [address], [place] [phone] SEC Yuan [place] Professional No Information 2 Alvin Lema. [address], [address], [place], [facility], [place]. tel:[phone] Referring Provider: Montez Echavarria, [address] [facility] [address], [place], [address] . tel:[phone] [facility], [address], [place], [place], [address], [place] tel:[phone] SEC Yuan [place] Professional SENILE NUCLEAR CATARACTPTERY GIUM NOS Oct-0 2 Suri Herrmann. [address], [place], [place], [address], [place]. tel:[phone] Referring Provider: Montez Echavarria, [address], [place], [address] . tel:[phone] Office/outpa tient Visit, [facility], [address], [place], [place], [address], [place] tel:[phone] SEC [place] Professional No Information 2 Suri Herrmann. [address], [address] [place], [place], [address], . tel:[phone] Referring Provider: Montez Echavarria, [address] [facility] [place], [address] . tel:[phone] Office/outpa tient Visit, [facility], [address], [place], [place], [address], tel:[phone] SEC Yuan [place] Professional No Information 2 Suri Herrmann. [address], [facility] [place], [place], [address], . tel:[phone] Referring Provider: Montez Echavarria, [address] [facility] [place], [address] . tel:[phone] Family History Family Member Type Diagnosis Age At Onset Mother Problem (finding) diabetes melli tus in first degree relative Problem (finding) Payers Payer name Insurance type Covered libertarian ID Authoriza tion(s) [place] [id number] AARP Medicare Supp [place] [id number] Social History Type Description Quantity Date Captured Comments Alcohol Use Details No Caffeine Use Details 1 cup per day Tobacco Use Status Never smoked tobacco 2015 Smoking Status Never smoker Sex Male Chief Complaint And Reason For Visit From encounter dated '09/28/2015 09:00'. Difficulty reading (chief complaint). Description: The 75 year old male presents for a complete IOLou check. Patient uses eye wash at home. Patient denies any changes in vision. Reason For Referral Reason For Referral No Information History Of Present Illness Encounter Date Complaint History Of Prese nt Illness Difficulty reading The 75 year o ld male presents for a complete IOL ou check. Patient uses eye wash at home. Patient denies any changes in vision. Occasional Blurred Vision OS The 74 year old male presents for Occasional Blurred Vision OS. Patient states for over 6 months he notices a large blurry area in the vision patient can actually see move into his vision and then move away. Patient states its constant, but he says blinking and rubbing OS helps it get better for a short time. Patient states he has tried eye drops and eye washes to try and wash it out" but it is still there. I clarified with the patient that this is something in his line of vision and not a physical feeling he is getting. Functional Status Date Functional Assessmen t No Information Instructions Date Instruction Additional Infor dontae Impression/Plan - IO L in good place. Pterygium OS looks the same will continue to monitor. Apply warm compresses to eyelids every morning for MGD. PCF OU discussed will continue to monitor. Patient will call if glare issues increase. Discussed rx for glasses in length with patient. OS is not as bad as OD and I do not feel patient would be able to tolerate rx. Patient only needs glasses for near, I recommend OTC readers at this time. Return to clinic in 1 year for complete exam or sooner with any problems. Follow up - Return i n 1 year with Montez Mccord M.D. for Complete Exam. Pseudophakia of both eyes - Educational material given Related to Pseudophakia of both eyes - Posterior vitreous detachment accounts for the patient's complaints. There is no evidence of retinal pathology. All signs and risks of retinal detachment and tears were discussed in detail. Patient instructed to call the office immediately if any symptoms noted. Recommend the patient return to office for follow up. Return in 1 year for complete or sooner with problems. Related to See list of assessments above - Return in 1 year w ellen Mccord M.D. for Complete Exam Related to See list of assessments above pterygium os postop cat with pcio l ou - finish drops osglasses-postop atygmatism od(had pterygium removed) - 6mths 1day s/p cat with pc iol os-corneal edema - start drops - 2weeks Mar-13-2013 - Sched CE OS ingrid per NPH Relat ed to FOLLOW-UP SURGERY NOS FOLLOW-UP SURGERY NO S, OD - 2 wk po phaco w/ PCIOL-hx pterygium excision w/auto graft -established, stable - vision affected - will continue to monitor - Continue tapering gtts OD. No activity restrictions at this time, pterygium excision healed. Pt understands vision will not improve OU until CE OS due to anisometropia. Ok to proceed with CE OS. Related to FOLLOW-UP SURGERY NOS - 2weeks 1day postop cat with pciol od - start drops Cataract, Nuclear Sc lerosis, OU- established, stable - vision affected - will continue to monitor - Disussed CE for OD. Discussed surgical options, pt elects CE OD. R/a/b of surgery discussed. Standard IOL discussed, glasses will be needed. Lifestyle IOL reviewed, out of pocket. Pt to see production boring machine operator and get ok before scheduling. Related to Cataract, Nuclear Sclerosis - Sched CE OD Related to Catar act, Nuclear Sclerosis FOLLOW-UP SURGERY NO S, OD -1 month po pterygium excision- established, stable - vision improved - will continue to monitor - D/c gtts at this time. Suture removed, didn't dissolve. No additional treatment at this time. Will monitor. Related to FOLLOW-UP SURGERY NOS FOLLOW-UP SURGERY NO S, OD- 1 day po s/p pterygium removal OD- - will continue to monitor - Rx given Tobra/ dex QID OD. Wear patch at night and PRN during the day. Pt sick to stomach today. Will monitor. Related to FOLLOW-UP SURGERY NOS - 1 week po Related to FOLLO W-UP SURGERY NOS - Sched pterygium excision Relat ed to Cataract, Nuclear Sclerosis Cataract, Nuclear Sc lerosis, OU -OD>OS- established,stable-will continue to monitor - Early cataract(s) accounts for patient's complaints. No treatment currently recommended due to VA level, Patient will monitor vision changes and contact us with any decrease in vision, will re-evaluate cataract on return visit. Related to Cataract, Nuclear Sclerosis Pterygium, OU -OD>OS - established, stable - vision affected- may improve with sx - Discussed dx in detail with pt. Reviewed surgical options. Discussed astigmatism, caused by pterygium. Discussed removal of pterygium before CE. Stop aspirin 2 weeks before. Discussed possibility of pterygium reoccurring after sx. R/a/b reviewed. Discussed discomfort after sx. Measurements need to be repeated after healed. Dissolving sutures discussed. Pain meds discussed. Cataract, Nuclear Sc lerosis, OU -OD>OS- established, stable - vision affected - may improve with surgery - Discussed dx in detail with pt. Discussed glare. Pt states he is having issues with glare at night. Pt elects Cat Eval next visit. Pt qualifies OD with glare. Will monitor Related to Cataract, Nuclear Sclerosis Pterygium, OU -OD>OS - established, stable - vision not affected - will continue to monitor - Discussed dx in detail with pt. Discussed possible removal at time of surgery OD, starting to grow to pupil. Will monitor. 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
--- OUTSIDE RECORDS SUMMARY | 2024-12-22 20:32 | XMS_ITS ---
Author Organization [facility] Address [address] [place] [address] Care Team Providers Care Scada Engineer Name Role Phone Neeru Purdy MD Primary Care Provider Roxanne Pickering MD Unavailable [phone] Caitlyn Lin MD Unavailable Atif Ontiveros MD Unavailable Yao Diaz MD Unavailable [phone] Rachell Allen MD Unavailable [phone] Herman Dyer DPM Unavailable [phone] Narinder Steven MD Unavailable [phone] Blaze Patten MD Unavailable [phone] Sydni Espitia NP Unavailable Gil Foster Unavailable Christy Washburn DIRECTOR OF RELIGIOUS ACTIVITIES Unavailable Walker Luevano MD Unavailable Active Problems Problem Noted Date Diagnosed Date [...] 08/17/2023 Assessment & Plan (09/20/2024 5:30 AM STATE'S ATTORNEY): Chronic, present for at least a year and expected to last more than a year. Likely due to past tobacco use, but not currently requiring active bronchodilator therapy. We will monitor clinically. Assessment & Plan (08/18/2023 2:19 PM STATE'S ATTORNEY): He has not currently requiring an inhaler. Lungs are clear and oxygen saturation is adequate on room air. Hypercalcemia 02/08/2023 Overview (02/09/2023): Mild, possible lab error. Assessment & Plan (07/01/2023 10:44 AM STATE'S ATTORNEY): He had a mild elevation of calcium [...] (01/31/2023): Added automatically from request for surgery [id number], wide local excision left cheek mass, 4.5 [...] 06/07/2023 Assessment & Plan (07/01/2023 10:45 AM STATE'S ATTORNEY): He is being followed in hematology. Blood [...] syndrome. Assessment & Plan (10/08/2020 10:28 AM STATE'S ATTORNEY): He has a mild and fairly longstanding [...] [facility]. Assessment & Plan (08/22/2024 2:18 PM STATE'S ATTORNEY): Acute problem about a month ago. He was in the ER and transferred to [facility] for management of pain. He is now [...] month. Assessment & Plan (09/16/2021 3:08 PM STATE'S ATTORNEY): He initially had a T12 fracture, then had another fall and and suffered an L1 fracture. He had vertebroplasties at [facility] which did not really alleviate the pain. The pain can be severe at times. He has tramadol which helps when he remembers to take it. He denies constipation or other side effects from the tramadol. We will refer him to Dr. Garrett for further evaluation of his pain and possible other modalities of treatment. 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 He was trying to help his get up from her own fall. He lost his balance, hit his head on a coffee table. His fell on top of him. He had worsening pain in his lower back where he had a pre-existing T12 compression fracture from a prior injury in 2019. He went to [facility] ER, they gave him some analgesics and discharged him. A few days later he went to [facility] and CT showed worsening of his T12 [...] recommended. Assessment & Plan (10/06/2022 12:48 PM STATE'S ATTORNEY): He says his hernia is not bothering [...] surgery. Assessment & Plan (10/15/2021 1:27 PM STATE'S ATTORNEY): He still gets bulging in the right [...] area. Assessment & Plan (09/16/2021 3:05 PM STATE'S ATTORNEY): He is worried about a right inguinal [...] worse. Assessment & Plan (07/13/2021 10:37 AM STATE'S ATTORNEY): Given how swollen everything Is it is [...] pain. Assessment & Plan (07/04/2021 4:17 PM STATE'S ATTORNEY): He has noted a painful swelling in [...] failure. Assessment & Plan (08/18/2023 2:26 PM STATE'S ATTORNEY): The swelling in his legs is fairly [...] meds and f/u next month with Dr. Purdy or sooner if needed. Assessment & Plan (02/18/2022 7:34 AM CDT): Patient returns for follow up on his lower extremity edema which persists despite diuretics and compression. Patient feels the edema is improved. Based on recent labs his BUN and CR are up from baseline, but have discussed with Dr. Beau Purdy and will continue medication at present dose. [...] 11/12/2021 Assessment & Plan (09/25/2021 5:02 PM STATE'S ATTORNEY): His lower leg edema has completely resolved. He is on spironolactone and furosemide. Recent labs at the hospital showed good kidney function. Assessment & Plan (08/23/2021 7:39 AM STATE'S ATTORNEY): Patient presents with recurrent bilateral LE edema. Edema significant and up to his waist. He states he has been compliant with medications and is trying to avoid drinking excess fluids. Will transfer to ER for further treatment and diuresis. Assessment & Plan (07/20/2021 11:23 AM STATE'S ATTORNEY): Patient was seen last week with persistent bilateral LE edema up to the scrotum. He had 3-4+ pitting edema. Today edema +1 and only noted in LE below the knees. He was seen with Dr. uPrdy and diuretics were adjusted at that visit. He has been taking medication as prescribed, restricting fluid and salt. He has had a significant weight loss of 30lbs since last visit. He states he is feeling overall well. We will do labs today to evaluate renal function and electrolytes with significant fluid loss. Instructed patient and called and spoke with pharmacist at [facility], who does patient pill packs. Patient will stop metolazone and we will decrease lasix to 40 mg BID. Instructed pharmacist to remove lasix 80mg from pill pack for tonight and to not replace it with the 40mg dose until the am. Patient will return for follow up next week or sooner if needed. Assessment & Plan (07/16/2021 1:01 PM STATE'S ATTORNEY): Patient has persistent bilateral LE with swelling up thighs and into scrotum. He increased lasix from 40mg a day to 40mg BID after visit on Monday. Despite that swelling persist and weight has increased 4lbs in the last 3 days. He on exam has clear lungs, no obvious shortness of breath and oxygen saturation is 100%. He was seen with Dr. Purdy and we will try to keep patient [...] pain. Assessment & Plan (07/12/2021 2:00 PM STATE'S ATTORNEY): Patient has known bilateral LE edema. Edema [...] WRITTEN ON 01/06/2021 6:24 PM BY NEERU PURDY MD Post hospitalization declining functional status. Assessment [...] WRITTEN ON 03/31/2021 3:05 PM BY NEERU PURDY MD He complains of feeling weak and [...] WRITTEN ON 09/25/2021 5:00 PM BY NEERU PURDY MD He was at [facility] and had a lower thoracic/upper lumbar vertebroplasty for compression fractures. [facility]. His pain persists. We will refer him to outpatient physical therapy. Assessment & Plan (10/30/2024 9:12 PM CDT): >>ASSESSMENT AND PLAN FOR WEAKNESS WRITTEN ON 10/15/2021 1:27 PM BY NEERU PURDY MD There is a definite improvement in [...] WRITTEN ON 10/06/2022 12:49 PM BY NEERU PURDY MD He is doing better. He uses a cane to prevent falls. He still lives alone and drives short distances. Follow-up in 3-4 months. Assessment & Plan (10/30/2024 9:12 PM CDT): >>ASSESSMENT AND PLAN FOR WEAKNESS WRITTEN ON 03/26/2023 2:48 PM BY NEERU PURDY MD He is doing a little better [...] WRITTEN ON 02/18/2023 11:11 AM BY NEERU PURDY MD He gets up from a chair [...] WRITTEN ON 02/01/2023 1:18 PM BY NEERU PURDY MD He has been feeling o ut [...] mg 3 times weekly prescribed by his breaker machine operator, Dr. Steven. We left the other medications [...] months. Assessment & Plan (07/04/2021 4:16 PM STATE'S ATTORNEY): He has had two falls since February, [...] (01/06/2021): Added automatically from request for surgery [id number], EGD and colon negative for active bleeding. [...] 02/05/2024 Assessment & Plan (08/18/2023 2:25 PM STATE'S ATTORNEY): He continues on a low-dose of iron [...] to ER. Coronary artery disease invo lving galena coronary artery of galena heart without angina pectoris 10/05/2020 Overview (09/16/2021): Minimal CAD involving ostial OM3 20% lesion and 1st diagonal with a 20-30% lesion, CHNE. Assessment & Plan (10/30/2024 9:17 PM CDT): Chronic, present for 4-5 or more years, relatively mild, antiplatelet therapy is contraindicated due to being on apixaban for atrial fibrillation. Assessment & Plan (09/22/2024 4:45 PM STATE'S ATTORNEY): Chronic, minimal epicardial disease noted on cardiac [...] CAD. Assessment & Plan (08/24/2023 8:54 AM STATE'S ATTORNEY): He denies chest pain or pressure. He is on a reasonable medication regimen although there is nothing for cholesterol at this time. We are deferring treatment in this regard to Cardiology. He follows up with Dr. Steven in about a month. Assessment & Plan (07/01/2023 10:44 AM STATE'S ATTORNEY): He has a history of minimal coronary [...] clinically. Assessment & Plan (10/15/2021 1:29 PM STATE'S ATTORNEY): He denies having any chest pain or pressure. He is on a pretty good medical regimen. He will keep his follow ups with Cardiology. Assessment & Plan (09/16/2021 3:07 PM STATE'S ATTORNEY): He had minimal coronary artery disease on [...] home. Assessment & Plan (07/23/2022 7:07 AM STATE'S ATTORNEY): We adjusted the dose of gabapentin. Assessment & Plan (09/25/2021 5:01 PM STATE'S ATTORNEY): He still has quite a bit of pain from T12 and L1 compression fractures. Tramadol does alleviate the pain, but he forgets to take doses. I encouraged him to take it more regularly. We will refer him to Dr. Garrett for evaluation and treatment of pain unrelieved by vertebroplasties and medical therapy. Assessment & Plan (08/23/2021 7:38 AM STATE'S ATTORNEY): Patient returns today with persistent low back [...] management. Assessment & Plan (08/15/2021 4:36 AM STATE'S ATTORNEY): He has a history of a T12 compression fracture from a gardening accident in November 2019. He was doing fairly well until he fell on [employer] and had an exacerbation of back pain. He went to the ER on 08/02/2021 at [facility] and then again at [facility] on 08/09/2021. CT documents worsening of [...] 06/07/2018 Assessment & Plan (07/23/2019 8:47 AM STATE'S ATTORNEY): He was here a couple of weeks [...] time. Assessment & Plan (06/24/2019 3:09 PM STATE'S ATTORNEY): It sounds like he has had neck [...] Lin. Assessment & Plan (09/27/2020 3:58 PM STATE'S ATTORNEY): Uses nasal bipap intermittently at home, states [...] same. Assessment & Plan (09/11/2017 2:39 PM STATE'S ATTORNEY): He still has not had CPAP arranged, but has an appointment with Dr. Lin coming up soon he thinks. Hopefully we will get that going and reduce risk of cardiovascular events. Osteoarthritis 02/24/2016 Overview (11/10/2016): Osteoarthritis Assessment & Plan (09/22/2024 4:48 PM STATE'S ATTORNEY): Chronic, for control on several medications including [...] same. Assessment & Plan (10/06/2022 12:48 PM STATE'S ATTORNEY): He takes tramadol as needed. He uses [...] monitor. 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 We are getting x-rays of the C-spine. Consider other imaging is needed, but he does have a pacemaker so if he gets an MRI we will have to be sure that it is an MRI safe pacemaker. Assessment & Plan (09/11/2017 2:38 PM STATE'S ATTORNEY): He has various aches and pains from [...] heart failure diagnosed in 2015, hospitalized at [facility] 03/09/2019, improved with treatment. Hospitalized at [facility] 10/04/2020 with Afib/RVR and heart failure [...] 10/10/2024 Assessment & Plan (09/20/2024 12:32 PM STATE'S ATTORNEY): Chronic, present for 8-9 years, controlled with metoprolol XL 50 mg daily, furosemide 20 mg daily, and spironolactone 12.5 mg daily. There is a trace amount of edema in his legs. Lungs are clear and oxygen saturation is normal. Assessment & Plan (08/27/2024 3:22 PM STATE'S ATTORNEY): Chronic, present for about 10 years, controlled on metoprolol XL 25 mg daily. Aspirin and other antiplatelet therapy is relatively contraindicated because he takes apixaban 2.5 mg twice daily to reduce embolic risk. Assessment & Plan (08/18/2023 2:21 PM STATE'S ATTORNEY): He seems to be more or less at his baseline, although blood pressure readings from home have been a little low so we discussed management with Cardiology and will be reducing the dose of diuretics in half. Assessment & Plan (06/14/2023 12:58 PM STATE'S ATTORNEY): Symptoms and swelling in his legs are [...] 02/08/2023 Assessment & Plan (10/06/2022 12:46 PM STATE'S ATTORNEY): There is no swelling in his legs. Lungs are clear. Continue current diuretics. Check labs before his next visit in 3-4 months. Assessment & Plan (07/07/2022 4:49 PM STATE'S ATTORNEY): He has accumulated some fluid in his [...] dose of furosemide was increased by his breaker machine operator, Dr. Steven. Metolazone was added 2 days [...] needed. Assessment & Plan (10/15/2021 1:29 PM STATE'S ATTORNEY): The Zaroxolyn was stopped. He remains on furosemide. He also takes Aldactone and metoprolol XL. He seems pretty well compensated with no swelling in his legs. There are a very few left lower lung crackles. We will see him back in three months this time with some labs. Assessment & Plan (09/25/2021 5:03 PM STATE'S ATTORNEY): Cardiac exam is stable on current therapy. Continue same. Assessment & Plan (06/21/2021 11:41 AM STATE'S ATTORNEY): Blood pressure is on the low side [...] therapy. Assessment & Plan (10/08/2020 10:31 AM STATE'S ATTORNEY): He had evidence of heart failure during his recent hospitalization at [facility] including a pleural effusion. Heart catheterization showed a low normal LVEF. A recent echocardiogram showed normal systolic function. His diuretic dose was increased, but in view of low normal blood pressures, we reduce the diuretic back to 20 mg daily. He will also follow-up with Cardiology. Return here in six weeks as scheduled. Assessment & Plan (09/27/2020 2:10 PM STATE'S ATTORNEY): BNP is elevated to 3726. CXR reported [...] heart failure again. He was hospitalized at [facility] and improved with treatment. He no longer [...] elsewhere classifie d 01/01/2016 Overview (01/16/2023): From [facility] records, left atrial appendage clot, presumably resolved with anticoagulation. Sick sinus syndrome 12/30/2015 Overview (10/08/2020): From [facility] record. S/P pacer, ablation [...] 11/20/2015 Assessment & Plan (09/27/2020 1:59 PM STATE'S ATTORNEY): H/o sick sinus syndrome, with cardiac pacemaker [...] month. Assessment & Plan (09/20/2024 12:31 PM STATE'S ATTORNEY): Chronic, present for 10 or more years, controlled with metoprolol XL 50 mg daily and apixaban 2.5 mg twice daily. Heart rhythm is regular due to presence of a pacemaker. Continue current therapy. Assessment & Plan (08/27/2024 3:20 PM STATE'S ATTORNEY): Chronic, present for about 10 years, controlled [...] months. Assessment & Plan (08/18/2023 2:19 PM STATE'S ATTORNEY): Heart rhythm is regular because he has a pacemaker. He takes Eliquis and metoprolol. Continue same. Assessment & Plan (06/14/2023 12:58 PM STATE'S ATTORNEY): Heart rhythm is regular because he has [...] month. Assessment & Plan (10/06/2022 12:46 PM STATE'S ATTORNEY): Heart rhythm is regular. He has a pacemaker. He is on a beta-elza and Eliquis. Continue same. Assessment & Plan (07/07/2022 4:48 PM STATE'S ATTORNEY): Heart rate is controlled and rhythm is [...] elza. Assessment & Plan (10/15/2021 1:28 PM STATE'S ATTORNEY): Heart rhythm is regular today. There is no murmur. He is on Eliquis and amiodarone. Assessment & Plan (09/16/2021 3:05 PM STATE'S ATTORNEY): His rhythm is regular because he has a pacemaker. He is on Eliquis and a beta-elza. Continue same. Assessment & Plan (06/21/2021 11:43 AM STATE'S ATTORNEY): Heart rhythm is regular because he has [...] & Plan (02/24/2021 4:16 PM CDT): His breaker machine operator, Dr. Kay, has moved out of the local area. We will get him set up to see one of the local breaker machine operator. He remains on Eliquis as well as [...] 08/18/2023 Assessment & Plan (06/14/2023 12:57 PM STATE'S ATTORNEY): He takes levothyroxine. We will monitor labs periodically and adjust the dose as needed. Lab Results Component Value Date TSH 0.63 06/07/2023 Assessment & Plan (03/13/2023 12:40 PM CDT): He is doing well. We ordered labs to be done before his next visit in three months. Assessment & Plan (10/06/2022 12:46 PM STATE'S ATTORNEY): He is on levothyroxine 137 mcg daily. Continue same. Monitor TSH periodically. Lab Results Component Value Date TSH 1.56 06/28/2022 Assessment & Plan (07/07/2022 4:51 PM STATE'S ATTORNEY): TSH is normal. Continue current replacement Synthroid. [...] 08/20/2021 Assessment & Plan (10/15/2021 1:30 PM STATE'S ATTORNEY): He is on levothyroxine. We will monitor response to treatment periodically. Assessment & Plan (07/04/2021 4:15 PM STATE'S ATTORNEY): We are having trouble finding the correct [...] labs. Assessment & Plan (10/08/2020 10:30 AM STATE'S ATTORNEY): He is on thyroid replacement. TSH has been stable. Continue same. Lab Results Component Value Date TSH 2.26 10/03/2020 Assessment & Plan (09/27/2020 3:59 PM STATE'S ATTORNEY): Last TSH was normal at 2.30 ten [...] periodically. Assessment & Plan (09/11/2017 2:41 PM STATE'S ATTORNEY): He is on replacement therapy. We will check a TSH at his next appointment. Return in six months. Other hemorrhoids 11/05/2014 Assessment & Plan (07/09/2020 10:01 AM STATE'S ATTORNEY): Continue bowel regimen to avoid straining. Continue [...] 02/04/1957 Assessment & Plan (09/11/2024 5:55 PM STATE'S ATTORNEY): He has experienced another new exacerbation of [...] needed. Assessment & Plan (07/07/2022 4:46 PM STATE'S ATTORNEY): He continues to suffer with low back [...] scheduled. Assessment & Plan (10/15/2021 1:28 PM STATE'S ATTORNEY): His back pain seems to be improving. He is more active at home. He has tramadol for use as needed. Continue same. Assessment & Plan (06/30/2019 1:09 PM STATE'S ATTORNEY): He needed a refill of tramadol which [...] The patient also requested a referral to [facility] for evaluation and management, probably [...] 132/72 Assessment & Plan (09/20/2024 12:32 PM STATE'S ATTORNEY): Chronic, present for 5-6 or more years, recent blood pressure is not at goal on metoprolol XL 50 mg daily. We added amlodipine 2.5 mg daily and will communicate with his breaker machine operator, Dr. Sanotyo about the change in management. Follow-up with [...] 08/18/2023 Assessment & Plan (08/18/2023 2:25 PM STATE'S ATTORNEY): Blood pressure in the office including orthostatic measurements are well within normal limits. At home he does get orthostatic light-headedness which might be indicative of some prerenal azotemia. We will have him get labs today. We will cut his diuretic dose in half as discussed with Cardiology. Return in about one month as scheduled. Assessment & Plan (06/14/2023 12:59 PM STATE'S ATTORNEY): Blood pressure is in a good range [...] 02/08/2023 Assessment & Plan (10/06/2022 12:47 PM STATE'S ATTORNEY): Blood pressure is well controlled on current minimal therapy consisting of the beta-elza and his diuretics. Continue same. Assessment & Plan (04/25/2022 3:10 PM CDT): Blood pressure is on the low side of normal, but acceptable. Continue same. Assessment & Plan (07/04/2021 4:15 PM STATE'S ATTORNEY): Blood pressure is in a normal range for him. Continue current therapy. Assessment & Plan (03/17/2021 4:26 PM CDT): Blood pressure is in a normal range on minimal therapy. Continue same. Assessment & Plan (01/07/2021 11:32 AM CDT): Blood pressure is in a good range on current therapy. Continue same, and follow- up in three months. Assessment & Plan (10/08/2020 10:29 AM STATE'S ATTORNEY): Blood pressure is in a low normal range today. He denies feeling dizzy or lightheaded. We adjusted his medications slightly to lower the diuretic dose. We will see him back in six weeks. In the meantime, he will also contact Cardiology for a follow-up. He says they are considering a cardioversion of his atrial fibrillation Assessment & Plan (09/27/2020 1:59 PM STATE'S ATTORNEY): BP is currently well controlled. Continue iv [...] therapy and follow up in six months. Current Treatment and Therapy Plans No current plan information found. Past Treatment and Therapy Plans No past plan information found. Lifetime Dose Tracking * Chemical Lifetime Dose Automatic Entry Manual Entr y Fluoro Time 6.81 minutes 6.81 minutes 0 minutes Air kerma at the reference point (Ka,r) 161.58 mGy 1 61.58 mGy 0 mGy DLP 1,440 mGycm 1,440 mGycm 0 mGycm Resolved Problems Problem Noted Date Diagnosed Date Resolved Date Acute on chronic diastolic heart failure 08/17/2023 09/20/2024 Overview (09/20/2024): Managed medically with improvement. Assessment & Plan (08/24/2023 8:54 AM STATE'S ATTORNEY): This diagnosis of acute on chronic diastolic heart failure appeared as a suggested current problem in [facility]. I believe it comes from previous hospitalizations, [...] PROLIFERATION. Assessment & Plan (07/23/2022 7:06 AM STATE'S ATTORNEY): He has his appointment next week with [...] unchanged. Assessment & Plan (06/13/2022 1:54 PM STATE'S ATTORNEY): He has a 2 cm somewhat inflamed [...] edema. Assessment & Plan (07/12/2021 1:57 PM STATE'S ATTORNEY): Patient is reporting that he is noting [...] [place]. For gangrene. Cellulitis of foot 05/17/2021 2 Overview (11/16/2021): Added automatically from request for surgery [id number], toe amputation on 05/21/2021, Wilfred Dyer DPM, [...] and colonoscopy negative for active bleeding. A-fib ([facility]) 11/06/2020 03/16/2021 Overview (03/16/2021): Added automatically from request for surgery [id number], AV node ablation, 11/23/2020, Dr. Kay, [facility]. 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 LVEF was estimated at 50% on cath, 10/05/2020, Dr. Garcia. Previous echocardiogram 09/27/2020 normal LVEF. Minimal CAD on Cath. Atrial fibrillation with RVR 10/04/2020 10/08/2020 Overview (10/08/2020): See records from [facility] for details. Positive D dimer 10/04/2020 10/08/2020 Overview (10/08/2020): CT angio of chest negative, but has right pleural effusion. Chest pain 10/03/2020 10/08/2020 Overview (10/08/2020): Added automatically from request for surgery [id number], minimal CAD on cath, 10/05/2020, [facility]. Atrial fibrillation 09/26/2020 10/09/19 Overview (10/08/2020): [facility] admission for Afib/RVR, controlled with meds, but recurred 1 week later and admitted to [facility]. Assessment & Plan (09/27/2020 3:59 PM STATE'S ATTORNEY): Patient has h/o Afib s/p ablation in [...] notes. Assessment & Plan (10/08/2020 10:30 AM STATE'S ATTORNEY): He was in the hospital twice in fairly quick succession for atrial fibrillation and rapid ventricular response. He had an extensive evaluation at [facility] including cardiac catheterization that showed mild coronary disease and low normal LV systolic function. The heart rate was eventually controlled. His rhythm is currently irregular, but he otherwise seems fine. We will continue the current dose of beta-elza. He will follow-up with Cardiology. Return here in six weeks as scheduled. Assessment & Plan (09/24/2020 1:19 PM STATE'S ATTORNEY): Pt presents today with swelling to lower [...] note. Assessment & Plan (08/05/2019 4:31 PM STATE'S ATTORNEY): Of an unclear etiology associated with vomiting. May be viral or d/t poor PO intake on the day of event as patient reported only having a glass of water in the am before leaving home. CT of head, labs and cardiac w/u inpatient were unremarkable. Patient was instructed to call with any recurrent symptoms Chest pain 03/09/2019 04/24/2019 Overview (03/14/2019): Hospitalized at [facility], workup negative for injury. Assessment & Plan (03/15/2019 10:46 AM CDT): Apparently, he had some chest pain at the time of his hospitalization. However, there was no evidence of myocardial injury. He will keep his follow ups with Dr. Wong. 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 Dr. Lin. Hyperbilirubinemia 01/16/2016 1 Overview (01/06/2021): Details lacking. Paroxysmal atrial fibrillation 11/20/2015 11/12/2017 Overview (11/10/2016): Atrial fibrillation Assessment & Plan (09/11/2017 2:40 PM [employer]): He is on Pradaxa. Heart rhythm is [...] time. Assessment & Plan (09/11/2017 2:41 PM [employer]'S ATTORNEY): Blood pressure is normal today. Occasionally he has borderline or mildly elevated readings. No treatment is indicated at this time. Continue to monitor.
--- OUTSIDE RECORDS SUMMARY | 2024-12-22 20:32 | XMS_ITS | CONTINUITY OF CARE DOCUMENT ---
Author Name guillermina kearagypsy Address Unknown Organization [facility] Address [address] [address] [place] [address] Phone [phone] Care Team Providers Care Exploration Engineer Name Role Phone Magali MOBLEY, Jay Unavailable [phone] NEERU PURDY MD Unavailable NEERU PURDY MD Unavailable PROBLEMS Condition Status Date Provider Notes Hypothyroidism active Makayla Landry RN Atrial fibrillation, paroxysmal active Makayla Landry RN Other symptoms involving cardiovascular system completed - aJy De Los Santos MD HTN active Jelani Kay DO Atrial flutter active Jelani Kay DO Bradycardia-tachycardia syndrome active Jelani Kay DO Thrombosis of atrium, left appendage per LEE active Jelani Kay DO Status Post Biotronik BiV PPM active Jelani Kay DO Tobacco use, quit active Jay De Los Santos MD Previous long-term use of Amiodarone active Jelani Kay DO MARIO on CPAP active Jelani Kay DO ENCOUNTERS Date Type Provider Location Encounter Diag nosis - In-person encounter Office Visit Jelani Kay DO [facility] Office - In-person encounter Office Visit Jelani Kay DO [facility] Office - In-person encounter Office Visit Jelani Kay DO [facility] - In-person encounter Office Visit Jelani Kay DO [facility] - In-person encounter Office Visit [facility] Office - In-person encounter Office Visit Jelani Kay DO [facility] - In-person encounter Office Visit Jelani [facility] Office Status Post Biotronik BiV PPM - In-person encounter Office Visit Jelani Kay DO [facility] Thrombosis of atrium, left appendage per TEEStatus Post Biotronik BiV PPMPrevious long-term use of AmiodaroneOSA on CPAP - In-person encounter Office Visit Jelani [facility] Office - In-person encounter Office Visit Jelani Kay DO [facility] MARIO on CPAP - In-person encounter Office Visit Jelani Kay DO [facility] - In-person encounter Office Visit Jelani Kay DO [facility] - In-person encounter Office Visit aJy De Los Santos MD [facility] Office Other symptoms involving cardiovascular systemTobacco use, quit - In-person encounter Office Visit Jelani Kay DO [facility] antonio [place] HTNAtrial flutterBradycardia-tac hycardia syndrome VITAL SIGNS Date Observation Value Provider Body Mass Index (Ratio) 24.14 kg/m2 Denn is Oneida DO oxygen saturation, oximetry 98 % Chastity Fuentes blood pressure, diastolic 80 mm[Hg] Ch astity Fuentes blood pressure, systolic 126 mm[Hg] Brit stity Fuentes pulse rate 105 /min Chastity Fuentes respiratory rate E&M 16 /min Chastit y Fuentes weight E&M 183 [lb_av] Hollieity Fuentes height E&M 73 [in_i] [facility] Body Mass Index (Ratio) 24.41 kg/m2 Deja is Oneida DO blood pressure, diastolic 70 mm[Hg] Mi radha Nahum blood pressure, systolic 108 mm[Hg] Deon helanne Delta oxygen saturation, oximetry 100 % Peggy Delta respiratory rate E&M 18 /min Radha santiago Delta pulse rate 88 /min Peggy Delta blood pressure, resting Yes Parth garcia Nahum weight E&M 185 [lb_av] Peggy Delta height E&M 73 [in_i] Epggy Nahum Body Mass Index (Ratio) 23.09 kg/m2 Deja is Oneida DO blood pressure, diastolic 76 mm[Hg] Fe mireille Tovar blood pressure, systolic 140 mm[Hg] Fel icia Tovar oxygen saturation, oximetry 97 % Cecile Tovar respiratory rate E&M 16 /min Cecile Tovar pulse rate 76 /min Cecile Tovar weight E&M 175 [lb_av] Cecile Tovar height E&M 73 [in_i] Cecile Tovar Body Mass Index (Ratio) 26.38 kg/m2 Jignesh Copeland blood pressure, cuff size regular Kr isty Sang pulse rate 72 /min Jaqueline [place] respiratory rate E&M 18 /min Jaqueline Sang blood pressure, diastolic 70 mm[Hg] Kr isty Sang blood pressure, systolic 132 mm[Hg] Kri sty Sang weight E&M 200 [lb_av] Jaqueline Sang height E&M 73 [in_i] Jaqueline Sang Body Mass Index (Ratio) 25.99 kg/m2 Jignesh varela Lambros blood pressure, cuff size regular Carlos Alberto rri Gruenenfelder blood pressure, diastolic 70 mm[Hg] Carlos Alberto rri Gruenenfelder blood pressure, systolic 130 mm[Hg] Cody Laboynenfelder oxygen saturation, oximetry 98 % Rema Grgunnarnenfelder respiratory rate E&M 18 /min Rema G ruenenfelder pulse rate 67 /min Rema Grgunnarnenfe lder weight E&M 197 [lb_av] Rema Gruenenfe lder height E&M 73 [in_i] Rema Grgunnarnenfe lder Body Mass Index (Ratio) 24.67 kg/m2 Jignesh varela Lambpineda blood pressure, cuff size regular Sukhwinder isty [place] weight E&M 187 [lb_av] Jaqueline [place] blood pressure, diastolic 80 mm[Hg] Sukhwinder isty Sang blood pressure, systolic 140 mm[Hg] Sukhwinderi sty Sang respiratory rate E&M 19 /min Jaqueline Sang oxygen saturation, oximetry 96 % Jaqueline [place] pulse rate 76 /min Jaqueline [place] height E&M 73 [in_i] Jaqueline Sang Body Mass Index (Ratio) 25.06 kg/m2 Chrisjosefina is Oneida DO blood pressure, diastolic 80 mm[Hg] Sukhwinder isty Sang blood pressure, systolic 126 mm[Hg] Kri sty [place] oxygen saturation, oximetry 99 % Jaqueline Sang pulse rate 70 /min Jelani Oneida DO respiratory rate E&M 17 /min Jaqueline [place] weight E&M 190 [lb_av] Jaqueline [place] blood pressure, cuff size regular Sukhwinder Domínguze height E&M 73 [in_i] Jaqueline Domníguez Body Mass Index (Ratio) 25.06 kg/m2 Jin Gomez blood pressure, diastolic 70 mm[Hg] Devon rsha O'[place] blood pressure, systolic 120 mm[Hg] Marisela sha O'[place] oxygen saturation, oximetry 95 % Alexus O'Henry respiratory rate E&M 16 /min Alexus O'Henry pulse rate 75 /min Alexus O'[place] weight E&M 190 [lb_av] Alexus O'Henry height E&M 73 [in_i] Alexus O'Henry Body Mass Index (Ratio) 26.12 kg/m2 Chaim Fuentes NP pulse rate 66 /min Alexus O'[place] blood pressure, cuff size regular Devon rsha [place] blood pressure, diastolic 60 mm[Hg] Hi rsha [place] blood pressure, systolic 110 mm[Hg] Marisela sha [place] oxygen saturation, oximetry 98 % Alexus O'[place] blood pressure, resting Yes [facility] O'Henry respiratory rate E&M 17 /min Alexus O'Henry weight E&M 198 [lb_av] Alexus O'Henry height E&M 73 [in_i] Alexus O'Henry Body Mass Index (Ratio) 26.12 kg/m2 Deja Kay DO weight E&M 198 [lb_av] Elvi Li blood pressure, diastolic 70 mm[Hg] Jose Manuel Li blood pressure, systolic 115 mm[Hg] Giancarlo Li oxygen saturation, oximetry 98 % Elvi Li respiratory rate E&M 18 /min Elvi Li pulse rate 74 /min Elvi Li blood pressure, cuff size regular Jose Manuel walker Li height E&M 73 [in_i] Elvi Li blood pressure, diastolic 68 mm[Hg] Jose Vazquezhley blood pressure, systolic 138 mm[Hg] [facility] pulse rate, standing 18 /min Vidya [facility] pulse rate 85 /min [facility] oxygen saturation, oximetry 98 % Vidya [facility] respiratory rate E&M 18 /min [facility] Body Mass Index (Ratio) 25.99 kg/m2 Jas tapia [facility] weight E&M 197 [lb_av] Vidya [facility] blood pressure, diastolic 70 mm[Hg] Sukhwinder howard Sang blood pressure, systolic 120 mm[Hg] Tony mavis Gomesby pulse rate 72 /min Jaqueline [place] oxygen saturation, oximetry 98 % Jaqueline Sang respiratory rate E&M 18 /min Jaqueline [place] Body Mass Index (Ratio) 25.35 kg/m2 Camilo alvarado [place] weight E&M 192.2 [lb_av] Jaqueline [place] pulse rate 120 /min Elvi Li oxygen saturation, oximetry 98 % Elvi Li respiratory rate E&M 18 /min Elvi Li Body Mass Index (Ratio) 25.46 kg/m2 Melita aguillon Jen weight E&M 193 [lb_av] Elvi Jen blood pressure, diastolic 80 mm[Hg] Jose Manuel walker Jen blood pressure, systolic 104 mm[Hg] Giancarlo trinh Li blood pressure, diastolic 107 mm[Hg] Me nuno Tin blood pressure, systolic 158 mm[Hg] Lilo elvis Tin respiratory rate E&M 18 /min Merle Tin pulse rate 131 /min Merle Tin oxygen saturation, oximetry 98 % Merle Castle Body Mass Index (Ratio) 25.86 kg/m2 Kristie Castle height E&M 73 [in_i] Merle [place] weight E&M 196 [lb_av] Merle Castle ALLERGIES Allergy Name Onset Date Reaction Criticality Status OXYCODONE Low Criticality active PERCOCET Low Criticality active RESULTS Date Observation Value Provider Reference Range Interpretation Location basophil count, absolute 0.0 x10E3/uL [facility] 0.0-0.2 Eosinophil Absolute Count 0.1 X10E3/UL [facility] 0.0-0.4 monocyte count, blood, automated 0.7 X10E3/UL [facility] 0.1-0.9 lymphocyte count, blood, automated 1.5 X10E3/UL [facility] 0.7-3.1 Absolute Neutrophils 3.7 X10E3/UL [facility] 1.4-7.0 basophils as percent of blood leukocytes 1 % [facility] Not Estab. eosinophils as percent of blood leukocytes 2 % [facility] Not Estab. monocytes as percent of blood leukocytes 12 % [facility] Not Estab. lymphocytes as percent of blood leukocytes 24 % [facility] Not Estab. neutrophils as percent of blood leukocytes 61 % [facility] Not Estab. red blood cell distribution width 14.2 % [facility] 11.6-15.4 mean corpuscular hemoglobin concentration, RBC 32.1 G/DL [facility] 31.5-35.7 mean corpuscular hemoglobin, RBC 29.4 pg [facility] 26.6-33.0 mean corpuscular volume, RBC 92 fL [facility] 79-97 hematocrit, blood 36.1 % [facility] 37.5-51.0 Low hemoglobin, blood 11.6 g/dL [facility] 13.0-17.7 Low erythrocyte (RBC) count 3.94 X10E6/UL [facility] 4.14-5.80 Low leukocyte count, blood 6.0 X10E3/UL [facility] 3.4-10.8 bacteria, urine microscopy Few [facility] None seen/Few Crystal Type, Urine Amorphous Sediment [facility] N/A cast type, urinalysis Hyaline casts [facility] N/A hyaline casts, urine Present [facility] None seen Abnormal epithelial cells, urine None seen [facility] 0 - 10 RBC, Urine 0-2 /hpf [facility] 0 - 2 WBC urine on microscopy 0-5 /hpf [facility] 0 - 5 urinalysis, microscopic examination See report [facility] nitrate, urine Negative [facility] Negative urobilinogen, urine, semiquantitative (dipstick) 1.0 [facility] 0.2-1.0 bilirubin, urine Negative [facility] Negative hemoglobin, urine, by dipstick Negative [facility] Negative ketones, urine, by test strip Negative [facility] Negative glucose, urine Negative [facility] Negative protein, urine, semiquantitative (dipstick) Negative [facility] Negative/Tra ce leukocyte esterase, urine, by dipstick Negative [facility] Negative appearance, urine Clear [facility] Clear urine color Yellow [facility] Yellow pH, urine, semiquantitative 7.0 [facility] 5.0-7.5 specific gravity, body fluid 1.020 [facility] 1.005-1.030 prothrombin time (patient) 12.2 s [facility] 9.1-12.0 High international normalized ratio (INR) 1.2 [facility] 0.9-1.2 calcium, serum 9.6 mg/dL [facility] 8.6-10.2 carbon dioxide, venous blood 25 mmol/L [facility] 20-29 chloride, serum 103 mmol/L [facility] 96-106 potassium, serum 4.8 mmol/L [facility] 3.5-5.2 sodium, serum 140 mmol/L [facility] [phone]/04/ 06 urea nitrogen/creatinine ratio, serum 17 [facility] - eGFR if 78 mL/min/{1.73 _m2} [facility] >59 eGFR if not 67 mL/min/{1.73 _m2} [facility] >59 creatinine, serum 1.03 mg/dL [facility] 0.76-1.27 urea nitrogen, blood 18 mg/dL [facility] 8-27 blood glucose, random 79 mg/dL [facility] 65-99 prothrombin time (patient) 12.1 s [facility] 9.1-12.0 High international normalized ratio (INR) 1.1 [facility] 0.9-1.2 calcium, serum 9.4 mg/dL [facility] 8.6-10.2 carbon dioxide, venous blood 23 mmol/L [facility] - chloride, serum 104 mmol/L [facility] 96-106 potassium, serum 4.7 mmol/L [facility] 3.5-5.2 sodium, serum 140 mmol/L [facility] [phone]/03/ 11 urea nitrogen/creatinine ratio, serum 16 [facility] - eGFR if 89 mL/min/{1.73 _m2} [facility] >59 eGFR if not 77 mL/min/{1.73 _m2} [facility] >59 creatinine, serum 0.92 mg/dL [facility] 0.76-1.27 urea nitrogen, blood 15 mg/dL [facility] 8-27 blood glucose, random 82 mg/dL [facility] 65-99 basophil count, absolute 0.0 x10E3/uL [facility] 0.0-0.2 Eosinophil Absolute Count 0.2 X10E3/UL [facility] 0.0-0.4 monocyte count, blood, automated 0.8 X10E3/UL [facility] 0.1-0.9 lymphocyte count, blood, automated 1.7 X10E3/UL [facility] 0.7-3.1 Absolute Neutrophils 4.3 X10E3/UL [facility] 1.4-7.0 basophils as percent of blood leukocytes 1 % [facility] Not Estab. eosinophils as percent of blood leukocytes 2 % [facility] Not Estab. monocytes as percent of blood leukocytes 11 % [facility] Not Estab. lymphocytes as percent of blood leukocytes 25 % [facility] Not Estab. neutrophils as percent of blood leukocytes 61 % [facility] Not Estab. platelet count 159 X10E3/UL [facility] [phone]/03/ 11 red blood cell distribution width 13.5 % [facility] 11.6-15.4 mean corpuscular hemoglobin concentration, RBC 32.0 G/DL [facility] 31.5-35.7 mean corpuscular hemoglobin, RBC 29.5 pg [facility] 26.6-33.0 mean corpuscular volume, RBC 92 fL [facility] 79-97 hematocrit, blood 34.4 % [facility] 37.5-51.0 Low hemoglobin, blood 11.0 g/dL [facility] 13.0-17.7 Low erythrocyte (RBC) count 3.73 X10E6/UL [facility] 4.14-5.80 Low leukocyte count, blood 7.1 X10E3/UL [facility] 3.4-10.8 HISTORY OF MEDICATION USE Medication Status Instructions Dates Provider Indications Com ments ZINC 50 MG ORAL TABLET active one tab once daily Chastity Fuentes VITAMIN D3 50 MCG (2000 UT) ORAL CAPSULE active one by mouth daily Chastity Fuentes VITAMIN C TABLET active one tab once daily Chastity Fuentes E-400 400 UNIT ORAL CAPSULE active one cap once daily Chastity Fuentes ATORVASTATIN CALCIUM 80 MG ORAL TABLET active TAKE 1 TABLET BY MOUTH DAILY Chastity Fuentes #30, 30 days supply, Prescribed by [facility], Filled 10/06/2020 AMIODARONE HCL 200 MG ORAL TABLET active take 1 tab daily Christy Ruano NP GABAPENTIN 100 MG ORAL CAPSULE active ONE TAB AT BEDTIME Peggy Sidhu #90, 90 days supply, Prescribed by ACRLOS ALVAREZ, Filled 07/29/2020 FUROSEMIDE 40 MG ORAL TABLET active TAKE 1 TABLET BY MOUTH DAILY Peggy Sidhu #30, 30 days supply, Prescribed by [facility] VAS[facility], Filled 10/06/2020 TRAMADOL HCL 50 MG ORAL TABLET active take one tablet by mouth evry 8 hours as needed for pain Jaqueline Domínguez CALCIUM + D3 TABLET 50 MG active take one tablet by mouth once daily Jaqueline Domínguez METOPROLOL SUCCINATE ER 50 MG ORAL TABLET EXTENDED RELEASE 24 HOUR active one tab. daily Jelani Kay DO ELIQUIS 5MG TABLETS active TAKE 1 TABLET BY MOUTH TWICE DAILY Suleiman Farmer AMIODARONE HCL 400 MG ORAL TABLET completed ONE TAB. DAILY - Elvi Li STOP METOPROLOL MAG-OXIDE 400MG TABLETS active TAKE 1 TABLET BY MOUTH TWICE DAILY Anthony Li PRADAXA 150 MG ORAL CAPSULE completed One capsule twice a day. TAKE WITH LARGE GLASS OF WATER! - Kwaku Gomez METOPROLOL TARTRATE 50 MG ORAL TABLET completed one tab. twice daily - Jay De Los Santos MD [facility]-3 ORAL CAPSULE completed once daily - Alexus O'Henry [facility] VITAMIN C 1000 MG ORAL TABLET completed once daily - Alexus O'Henry EQL VITAMIN D3 1000 UNIT ORAL TABLET completed once daily - Alexus O'Henry B COMPLETE ORAL TABLET completed once daily - Alexus O'Henry MULTIVITAMIN ADULT ORAL TABLET active 2 tablets once daily Merle Castle DILTIAZEM HCL 90 MG ORAL TABLET completed one tab every 8 hrs - Vidya Dsouza SYNTHROID 112 MCG ORAL TABLET active ONE TAB. DAILY Makayla Landry RN XARELTO 20 MG ORAL TABLET completed One tab. daily with evening meal - Makayla Landry RN SOCIAL HISTORY Date Observation Value Provider social history reviewed E&M revi ewed - no changes required Christy Ruano FRONT DESK AGENT year patient quit cigar use 1996 Chastity Fuentes Pipe Smoking Use yes Chastity Ho elizabeth cigarette use yes Chastity Fuentes smoking status Former smoker Chastskyla Hog ue social history reviewed E&M revi ewed - no changes required Shannen Flores FRONT DESK AGENT year patient quit cigar use 1995 Peggy Delta Pipe Smoking Use yes Peggy De La Fuente cigarette use yes Peggy Store y smoking status Former smoker Peggy Viktor hendrickson smoking status Former smoker Jelani milner DO social history E&M S moking History: Migdalia tomlin is a former smoker. Jelani Kay DO social history reviewed E&M revi ewed - no changes required Jelani Kay DO year patient quit cigar use 1995 Cecile Tovar Pipe Smoking Use yes Cecile Tovar cigarette use yes Cecile Tovar smoking status Former smoker Jelani Marieivett ock DO social history E&M S moking History: Migdalia tomlin is a former smoker. Jelani Trujillock DO social history reviewed E&M revi ewed - no changes required Jelani Mariecock DO year patient quit cigar use 1996 Jaqueline Sang Pipe Smoking Use yes Jaqueline Busb y cigarette use yes Jaqueline Sang social history E&M S moking History: Migdalia tomlin is a former smoker. Jelani Trujillock DO social history reviewed E&M revi ewed - no changes required Jelani Trujillock DO year patient quit cigar use 1996 Rema Dandre Pipe Smoking Use yes Rema Gracia moffetter cigarette use yes Rema [facility] smoking status Former smoker Rema Lab[facility]victor [facility] smoking status Former smoker Jelani Marieivett ock DO social history E&M S moking History: Migdalia tomlin is a former smoker. Jelani Kay DO social history reviewed E&M revi ewed - no changes required Jelani Kay DO year patient quit cigar use 1996 Jaqueline Sang Pipe Smoking Use yes Jaqueline Busb y cigarette use yes Jaqueline Sang social history reviewed E&M revi ewed - no changes required Jelani Kay DO social history E&M S moking History: Migdalia tomlin is a former smoker. Jelani Kay DO year patient quit cigar use 1996 Jaqueline Sang Pipe Smoking Use yes Jaqueline Busb y cigarette use yes Jaqueline Sang smoking status Former smoker Jaqueline [place] year patient quit cigar use 1995 Jelani Trujillock DO Pipe Smoking Use yes Jelani Glas cock DO cigarette use yes Jelani Glascoc k DO smoking status Former smoker Jelani Mariec ock DO social history reviewed E&M revi ewed - no changes required Jelani Oneida DO social history E&M Smoking Histo ry: Migdalia tomlin is a former smoker. Jelani Oneida DO year patient quit cigar use 1995 Alexus O'Henry Pipe Smoking Use yes Alexus O'Ne al cigarette use yes Alexus O'Henry smoking status Former smoker Alexus O'Michaela l social history E&M S moking History: Migdalia tomlin is a former smoker. Jelani Mariecock DO year patient quit cigar use 1995 Jelani Oneida DO Pipe Smoking Use yes Jelani Glas cock DO cigarette use yes Jelani Glascoc k DO smoking status Former smoker Jelani Mariec ock DO social history reviewed E&M revi ewed - no changes required Jelani Mariecock DO social history reviewed E&M revi ewed - no changes required Jelani Mariecock DO number of grandchildren Jelani Kay Devi Kwona Meet smoking/tobacco cess ation, patient education and counseling yes Jelani Mariecock DO year patient quit cigar use 1995 Jelani Oneida DO Pipe Smoking Use yes Jelani Glas cock DO cigarette use yes Jelani Glascoc k DO smoking status Former smoker Jelani Mariec ock DO social history reviewed E&M revi ewed - no changes required Jelani Mariecock DO social history reviewed E&M revi ewed - no changes required Jay De Los Santos MD social history E&M Smoking Histo ry: Migdalia tomlin is a former smoker. Jay De Los Santos MD number of grandchildren Jay Li social history E&M S moking History: Migdalia tomlin is a former smoker. Jelani Kay DO social history reviewed E&M violette noble - no changes required Jelani Kay DO year patient quit cigar use 1995 Merle Castle Pipe Smoking Use yes Merle pozo cigarette use yes Merle Castle smoking status Former smoker Merle Castle FAMILY HISTORY Family Member Condition Father Family History of Co ronary Artery Disease: Mother Family History of Co ronary Artery Disease: Mother Family History of Di abetes: INSURANCE PROVIDERS Payer name Policy type / Coverage type Linda red libertarian [place] MEDICARE PART B Medicare [id number] [facility] [email or web address] [id number] ADVANCE DIRECTIVES Name Date DISCUSSED - NO DECISION MADE TREATMENT PLAN Date Name Performer Electrophysiology FRONT DESK AGENT :pt is compliant with CPAP use. The patient is using CPAP on a regular basis. The patient has been benefiting from therapy and should continue use. Gracie santiago is complaining of a leak from his mask. He will contact his DME supplier. If he needs a new sleep study, we will arrange it. Christy Ruano FRONT DESK AGENT Electrophysiology FRONT DESK AGENT :BP today 126/80 BP last visit: 108/70 P rior BP: 140/76 Christy Ruano NP Electrophysiology FRONT DESK AGENT : interrogation today: 0% AF/AT burden. no events, normal function, no changes. average HR 110. Normal device function 1 00% Afib burden. Christy Ruano FRONT DESK AGENT Electrophysiology FRONT DESK AGENT : 10/28/20 pt underwent LEE/CV, which he did not remain in SR. interrogation today: 0% AF/AT burden. no events, normal function, no changes. average HR 110. pt continues to experience fatigue and intermittent JONES. will continue amio 200mg daily. 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 Ablation of AFlutter 03/2016 H x of BABATUNDE clot, now resolved. O ff Amiodarone since 04/2016. Gracie santiago was hospitalized 03/2019 with AFib and RVR. He converted spontaneously and was d/c on toprol XL 50 mg daily. He has done well since that time and denies recurring palps or tachy, he has had no CP or SOB. Pt was admitted 09/2020 for chest pain. Underwent cardiac cath with minimal CAD noted. Pt had been in afib since mid september where he has remained since. Complains of dyspnea, fatigue and lightheaded. Echo with severe atrial enlgargement. Preserved EF. Ablation not an ideal option due to age and atrial enlargement. He remains on Eliquis for OAC. Since eliquis was held for cath, will arrange for LEE/CV in 2 weeks. Will start 200mg TID a week, drop to 200mg BID. Christy Ruano FRONT DESK AGENT Electrophysiology-FRONT DESK AGENT :Ablation of AFlutter 03/2016 H x of BABATUNDE clot, now resolved. O ff Amiodarone since 04/2016. H e was hospitalized 03/2019 with AFib and RVR. He converted spontaneously and was d/c on toprol XL 50 mg daily. He has done well since that time and denies recurring palps or tachy, he has had no CP or SOB. Pt was admitted 09/2020 for chest pain. Underwent cardiac cath with minimal CAD noted. Pt had been in afib since mid september where he has remained since. Complains of dyspnea, fatigue and lightheaded. Echo with severe atrial enlgargement. Preserved EF. Ablation not an ideal option due to age and atrial enlargement. He remains on Eliquis for OAC. Since eliquis was held for cath, will arrange for LEE/CV in 2 weeks. Will start 200mg TID a week, drop to 200mg BID. Shannen Flores NP Electrophysiology-FRONT DESK AGENT : B P today: 108/70 P rior BP: 140/76 Shannen Flores NP Electrophysiology-FRONT DESK AGENT :Normal device function 1 00% Afib burden. Shannen Flores NP Electrophysiology-FRONT DESK AGENT : S /P ablation 03/2016 with no recurrences. Shannen Flores NP Electrophysiology: B P today: 140/76 P rior BP: 132/70 (11/07/2019) Jelani Kay DO Electrophysiology: N ormal function. Jelani Kay DO Electrophysiology: S /P ablation 03/2016 with no recurrences. Jelani [facility] Electrophysiology:Ab lation of AFlutter 03/2016 H x of BABATUNDE clot, now resolved. O ff Amiodarone since 04/2016. Gracie santiago was hospitalized 03/2019 with AFib and RVR. He converted spontaneously and was d/c on toprol XL 50 mg daily. He has done well since that time and denies recurring palps or tachy, he has had no CP or SOB. His remote interrogation shows 0% AT/AF burden. Feels well, denies CP or SOB. Gracie santiago remains on Eliquis for OAC. Jelani [facility] Electrophysiology:No rmal function. Jelani [facility] Electrophysiology:S/ P ablation 03/2016 with no recurrences. Jelani [facility] Electrophysiology:Ab lation of AFlutter 03/2016, on Eliquis for OAC. H x of BABATUNDE clot, now resolved. O ff Amiodarone since 04/2016. Gracie santiago was hospitalized 03/2019 with AFib and RVR. He converted spontaneously and was d/c on toprol XL 50 mg daily. He has done well since that time and denies recurring palps or tachy, he has had no CP or SOB. [facility] :[facility] function. [facility] :S/P ablation 03/2016 with no recurrences. [facility] Follow up :Ablation of AFlutter, on Eliquis for OAC. H x of BABATUNDE clot, now resolved. O ff Amiodarone since 04/2016. Gracie santiago was hospitalized 03/2019 with AFib and RVR. He converted spontaneously and was d/c on toprol XL 50 mg daily. He has done well since that time and denies recurring palps or tachy, he has had no CP or SOB. Jelani Oneida DO Electrophysiology: S /P ablation 03/2016 with no recurrences. Jelani Oneida DO Electrophysiology:Normal functio n. [facility]:Ab lation of AFlba, on Eliquis for OAC. Hx of BABATUNDE clot, now resolved. O ff Amiodarone since 04/2016. Gracie santiago was hospitalized 03/2019 with AFib and RVR. He converted spontaneously and was d/c on toprol XL 50 mg daily. He has done well since that time and denies recurring palps or tachy, he has had no CP or SOB. [facility]: T he patient is using CPAP on a regular basis. The patient has been benefiting from therapy and should continue use. Gracie santiago is complaining of a leak from his mask. He will contact his DME supplier. If he needs a new sleep study, we will arrange it. [facility] function. Ludmila santiago have not been receiving remotes for the last year and for some reason, [facility], and he wants me to continue following the device. We will switch this back There is a irregular scaly plaque on the superior aspect of the pocket that could represent basal cell CA. He will discuss this with his PCP, and if it does appear to be CA, he will need to see Dermatology to have this removed. Care needs to be taken to avoid entering the pacer pocket due to the risk of infection. [facility]/ P ablation 03/2016 with no recurrences. [facility]:Ab lation of AFlutter, on Eliquis for OAC. Hx of BABATUNDE clot, now resolved. O ff Amiodarone since 04/2016. < 0.1% AT/AF burden. [facility]:Normal functio n. [facility]: B P today: 120/70 P rior BP: 110/60 (05/11/2017) [facility]:Th e patient is using CPAP on a regular basis. The patient has been benefiting from therapy and should continue use. [facility]:S/ P ablation 03/2016 with no recurrences. Jelani Kay Electrophysiology:Ab lation of flutter, on Pradaxa. His pradaxa is apparently costing him $700 every 3 months, so we will look at alternative medications for cost consideration. He does however need to stay on lifelong anticoagulation. Hx of BABATUNDE clot, NOW resolved. O ff amio since 04/2016. <0.1% af burden. Jelani Mariecock Electrophysiology: a blation of flutter, on Pradaxa. hx of BABATUNDE clot, NOW resolved O ff amio x 6 months. <0.1% af burden see back in six months Jeff Fuentes NP EP:needs CPAP titration study De juan antonio [facility] EP: a blation of flutter, on Pradaxa. hx of BABATUNDE clot, NOW resolved O ff amio x 6 months. only 2 AF episodes lasting seconds since last seen Jelani Kay DO EP: S /P ablation 03/22 with no recurrences [facility] biV PPM with normal funct fabiola [facility]:none since ablati on of flutter, on amio 200 mg/day and Pradaxa. h x of BABATUNDE clot, NOW resolved Jelani Mariecock EP:S/P ablation 03/22 with no rec urrences Jelani Kay EP:on pradaxa, now in sinus rhyt hm [facility]:S/P BiV PPM, poss ible AVN RFA if unable to control or ablate afib and flutter in future [facility] EP:converted to sinu s rhythm 02/15/16 and remains, on amio and Pradaxa. p rose for ablation atrial flutter in near future. Jelanialecia Mariecock EP faxed 02/05/16:Pt r everted back to aflutter within the last 24 hours. Pt is scheduled for ablation with TONYA on 02/26/2016 Kwaku Gomez EP:up to 4 sec pause s in prior monitor. will potentially need PPM vs ablation Jelani Kay DO EP:normally at home 120s/70s B P today: 158/107 Jelani Kay DO EP:discussed hospita l admission for medication initiation, ablation (risk, benefits, succes rates) vs ppm implantation in detail w/pt & spouse o n Xarelto Jelani Kay DO EP:discussed hospita l admission for medication initiation, ablation (risk, benefits, succes rates) vs ppm implantation in detail w/pt & spouse w ould like to admit for _ initiation + sleep apnea screening today Jelani Kay DO Date Name COVID19 nasal swab ( LC) CBC (INCLUDES DIFF/P LT) BASIC METABOLIC PANE L W/EGFR PROTHROMBIN TIME WIT H INR HISTORY OF PROCEDURES Procedure Date Procedure Name Provider Procedure Notes S tatus EKG Jelani Trujillock DO completed EKG Jelanialecia Mariecock DO completed EKG Jelani Oneida DO completed EKG Jelani Mariecock DO completed EKG Jelani Mariecock DO completed ICM Interrogation, Remote (Prof) Jelani Kay DO INTERROGATION EVAL REMOTE </30 D CV MNTR SYS completed ICM Interrogation, Remote (Tech) Jelani Kay DO INTERROGATION EVAL REMOTE </30 D TECH REVIEW completed ICM Interrogation, Remote (Prof) Jelani Trujillock DO INTERROGATION EVAL REMOTE </30 D CV MNTR SYS completed Pacemaker Interrogation, Remote (Tech) Jelani Trujillock DO INTERROGATION REMOTE </90 D INTERIOR DESIGN PROJECT MANAGER REVIEW completed Pacemaker Interrogation, Remote (Prof) Jelani Trujillock DO INTERROGATION EVAL REMOTE </90 D 1/2/NAVAL AIRCREWMAN TACTICAL HELICOPTER LEAD P completed ICM Interrogation, Remote (Prof) Jelani Trujillock DO INTERROGATION EVAL REMOTE </30 D CV MNTR SYS completed ICM Interrogation, Remote (Tech) Jelani Oneida DO INTERROGATION EVAL REMOTE </30 D TECH REVIEW completed ICM Interrogation, Remote (Prof) Jelani Oneida DO INTERROGATION EVAL REMOTE </30 D CV MNTR SYS completed ICM Interrogation, Remote (Tech) Jelani Oneida DO INTERROGATION EVAL REMOTE </30 D TECH REVIEW completed Schedule Pacer Check Jelani Glas cock DO in 1 yr completed Schedule Followup Jelani Glascoc k DO in 1 yr completed EKG Jelani Oneida DO completed ICM Interrogation, Remote (Prof) Jelani Oneida DO INTERROGATION EVAL REMOTE </30 D CV MNTR SYS completed ICM Interrogation, Remote (Tech) Jelani Oneida DO INTERROGATION EVAL REMOTE </30 D TECH REVIEW completed ICM Interrogation, Remote (Prof) Jelani Oneida DO INTERROGATION EVAL REMOTE </30 D CV MNTR SYS completed ICM Interrogation, Remote (Tech) Jelani Oneida DO INTERROGATION EVAL REMOTE </30 D TECH REVIEW completed Pacemaker Interrogation, Remote (Tech) Jelani Oneida DO INTERROGATION REMOTE </90 D INTERIOR DESIGN PROJECT MANAGER REVIEW completed Pacemaker Interrogation, Remote (Prof) Jelani Oneida DO INTERROGATION EVAL REMOTE </90 D 1/2/NAVAL AIRCREWMAN TACTICAL HELICOPTER LEAD P completed ICM Interrogation, Remote (Prof) Jelani Oneida DO INTERROGATION EVAL REMOTE </30 D CV MNTR SYS completed ICM Interrogation, Remote (Tech) Jelani Oneida DO INTERROGATION EVAL REMOTE </30 D TECH REVIEW completed ICM Interrogation, Remote (Prof) Jelani Oneida DO INTERROGATION EVAL REMOTE </30 D CV MNTR SYS completed ICM Interrogation, Remote (Tech) Jelani Oneida DO INTERROGATION EVAL REMOTE </30 D TECH REVIEW completed Schedule ICD Check Jelani Nekoma ck DO completed Schedule Followup Jelani Glascoc k DO 6 months completed EKG Jelani Oneida DO completed SNOMED-CT: [id number] Current Medications Documented Jelani Mariecock DO completed ICM Interrogation, Remote (Prof) Jelani Oneida DO INTERROGATION EVAL REMOTE </30 D CV MNTR SYS completed ICM Interrogation, Remote (Tech) Jelani Oneida DO INTERROGATION EVAL REMOTE </30 D TECH REVIEW completed ICM Interrogation, Remote (Prof) Jelani Oneida DO INTERROGATION EVAL REMOTE </30 D CV MNTR SYS completed ICM Interrogation, Remote (Tech) Jelani Oneida DO INTERROGATION EVAL REMOTE </30 D TECH REVIEW completed ICM Interrogation, Remote (Prof) Jelani Oneida DO INTERROGATION EVAL REMOTE </30 D CV MNTR SYS completed Pacemaker Interrogation, Remote (Tech) Jelani Oneida DO INTERROGATION REMOTE </90 D INTERIOR DESIGN PROJECT MANAGER REVIEW completed Pacemaker Interrogation, Remote (Prof) Jelani Oneida DO INTERROGATION EVAL REMOTE </90 D 1/2/NAVAL AIRCREWMAN TACTICAL HELICOPTER LEAD P completed ICM Interrogation, Remote (Prof) Jelani Oneida DO INTERROGATION EVAL REMOTE </30 D CV MNTR SYS completed ICM Interrogation, Remote (Tech) Jelani Oneida DO INTERROGATION EVAL REMOTE </30 D TECH REVIEW completed ICM Interrogation, Remote (Prof) Jelani Oneida DO INTERROGATION EVAL REMOTE </30 D CV MNTR SYS completed ICM Interrogation, Remote (Tech) Jelani Oneida DO INTERROGATION EVAL REMOTE </30 D TECH REVIEW completed EKG Jelani Oneida DO completed SNOMED-CT: [id number] Current Medications Documented Jelani Mariecock DO completed ICM Interrogation, Remote (Prof) Jelani Oneida DO INTERROGATION EVAL REMOTE </30 D CV MNTR SYS completed ICM Interrogation, Remote (Tech) Jelani Oneida DO INTERROGATION EVAL REMOTE </30 D TECH REVIEW completed ICM Interrogation, Remote (Prof) Jelani Oneida DO INTERROGATION EVAL REMOTE </30 D CV MNTR SYS completed ICM Interrogation, Remote (Tech) Jelani Oneida DO INTERROGATION EVAL REMOTE </30 D TECH REVIEW completed ICM Interrogation, Remote (Prof) Jelani Oneida DO INTERROGATION EVAL REMOTE </30 D CV MNTR SYS completed Pacemaker Interrogation, Remote (Tech) Jelani Oneida DO INTERROGATION REMOTE </90 D INTERIOR DESIGN PROJECT MANAGER REVIEW completed Pacemaker Interrogation, Remote (Prof) Jelani Oneida DO INTERROGATION EVAL REMOTE </90 D 1/2/NAVAL AIRCREWMAN TACTICAL HELICOPTER LEAD P completed ICM Interrogation, Remote (Prof) Jelani Oneida DO INTERROGATION EVAL REMOTE </30 D CV MNTR SYS completed ICM Interrogation, Remote (Tech) Jelani Oneida DO INTERROGATION EVAL REMOTE </30 D TECH REVIEW completed ICM Interrogation, Remote (Prof) Jelani Oneida DO INTERROGATION EVAL REMOTE </30 D CV MNTR SYS completed ICM Interrogation, Remote (Tech) Jelani Oneida DO INTERROGATION EVAL REMOTE </30 D TECH REVIEW completed EKG Jelani Oneida DO completed SNOMED-CT: [id number] Current Medications Documented Jelani Oneida DO completed ICM Interrogation, Remote (Prof) Jelani Oneida DO INTERROGATION EVAL REMOTE </30 D CV MNTR SYS completed ICM Interrogation, Remote (Tech) Jelani Oneida DO INTERROGATION EVAL REMOTE </30 D TECH REVIEW completed SNOMED-CT: [id number] Smoking Cessation Counseling Jelani Oneida DO completed EKG Jelani Oneida DO completed SNOMED-CT: [id number] Current Medications Documented Jelani Oneida DO completed ICM Interrogation, Remote (Prof) Jelani Oneida DO INTERROGATION EVAL REMOTE </30 D CV MNTR SYS completed ICM Interrogation, Remote (Tech) Jelani Mariecock DO INTERROGATION EVAL REMOTE </30 D TECH REVIEW completed BLOOD COUNT HEMOGLOBIN Jelani gómez DO completed FVC - 18201 Jelani Mariecock DO completed FRC - 19798 Jelani Mariecock DO completed DLCO - 59778 Jelani Mariecock DO completed EKG Jay crawford MD completed SNOMED-CT: [id number] Current Medications Documented Jay De Los Santos MD completed EKG Jelani Kay DO completed SNOMED-CT: [id number] Current Medications Documented Jelani Kay DO completed
[2024-12-22 21:10] LABS: Basophils Percent Auto 0.1 % (0.2-1.2); Hematocrit 30.2 % (42.0-52.0); Hemoglobin 9.4 g/dL (14.0-18.0); Immature Granulocyte Absolute 0.08 K/mm3 (0.00-0.031); Immature Granulocyte Percent A 0.9 % (0-0.5); Lymphocytes Absolute Auto 1.05 K/mm3 (0.9-3.2); Lymphocytes Percent Auto 11.5 % (18.3-44.2); Mean Corpuscular HGB Conc 31.1 g/dl (32-36); Mean Corpuscular Hemoglobin 31.9 pg (26-34); Mean Corpuscular Volume 102.4 fl (80-100); Mean Platelet Volume 9.9 fl (7.4-10.4); Monocytes Percent Auto 11.3 % (2.6-8.5); Neutrophils Percent Auto 76.2 % (45.5-73.1); Platelet Count Result 204 k/mm3 (150-375); Red Blood Count 2.95 M/mm3 (4.6-6.20); Red Cell Distribution Width 15.9 % (11.5-14.5); White Blood Count 9.1 K/mm3 (4.5-10.0)
[2024-12-22 21:21] LABS: INR 1.4; Prothrombin Time 17.7 Seconds (11.1-14.7)
[2024-12-22 21:22] LABS: Partial Thromboplastin Time 32.2 Seconds (22.3-36.8)
[2024-12-22 21:25] LABS: Alanine Aminotransferase 20 U/L (6-50); Albumin Level 3.4 g/dL (3.5-5.1); Alkaline Phosphatase 69 U/L (38-126); Anion Gap 7 mmol/L (4-12); Aspartate Amino Transferase 55 U/L (17-59); Blood Urea Nitrogen 29 mg/dL (9-20); Calcium 8.6 mg/dL (8.4-10.2); Carbon Dioxide 20 mmol/L (22-30); Chloride 106 mmol/L (98-107); Estimated CRCL calculation 48 ml/min; Estimated Glomerular Filt Rate > 60; Glucose 88 mg/dL (65-110); Potassium 4.5 mmol/L (3.4-5.0); Sodium 133 mmol/L (137-145)
[2024-12-22 21:33] LABS: Add Urine Microscopic? YES; Appearance Urine Clear (Clear); Bilirubin Urine Negative (Negative); Blood Urine Negative (Negative); Color Urine Dark Yellow (Yellow); Glucose Urine UA Negative (Negative); Ketones Urine Trace mg/dL (Negative); Leukocyte Esterase Ur Negative LEU/UL (Negative); Nitrate Urine Negative (Negative); Protein Urine Negative (Negative); Specific Grav Ur 1.018 (1.001-1.035); Urobilinogen Urine 0.2 mg/dL (<2.0); pH Urine 5.5 (5.0-9.0)
[2024-12-22 21:35] LABS: NT Pro B Type Natriuretic Pept 7960 pg/mL (19.9-100); Troponin I 0.029 ng/mL (0.000-0.034)
[2024-12-23] VITALS (17 sets, daily range): BP systolic 111–140; BP diastolic 64–77; PULSE 60–72; RESP 15–21; TEMP 36.1–36.6; O2SAT 97–100; BMI 19.1
--- NOTE | 2024-12-23 | ECHO_ITS ---
Patient Info Name: Blaze Barrientos Age: 84 years : 1940 Gender: Male Ht: 72 in Wt: 151 lbs BSA: 1.86 m2 HR: 60 bpm BP: 131 / 64 mmHg Technical Quality: Good Exam Date: 12/23/2024 3:01 PM Patient Status: I Admit Date: 12/23/2024 Exam Type: CA echo doppler color flow Complete two-dimensional, color flow and Doppler transthoracic echocardiogram is performed. Staff Referring Physician: Graciela Lilly Director Of Home Economics: Jacki Dickson Attending Provider: Elver Shen Summary 1. Complete two-dimensional, color flow and Doppler transthoracic echocardiogram is performed. 2. There is normal biventricular size and systolic function. 3. There is severe eccentric mitral regurgitation. 4. There is bi-atrial enlargement. Left Ventricle The left ventricle is normal in size and systolic function. The left ventricular ejection fraction is visually estimated to be 60-65%. Right Ventricle The right ventricle is normal in size and systolic function. Linear artifact in right ventricle suggestive of catheter(s), pacemaker lead(s), or ICD lead(s). Left Atria The left atrium is severely dilated. Right Atria The right atrium is severely dilated. Linear artifact in the right atrium suggestive of catheter(s), pacemaker lead(s), or ICD lead(s). Atrial Septum The atrial septum is intact. Aortic Valve The aortic valve is trileaflet. The non coronary cusps is restricted. There is no hemodynamic significant stenosis. There is no aortic regurgitation. Pulmonic Valve The pulmonic valve is not well visualized. There is mild pulmonic valve regurgitation. Mitral Valve The mitral valve leaflets opens well. There is severe mitral regurgitation. Tricuspid Valve The tricuspid valve is normal. There is mild tricuspid regurgitation. Pericardium/Pleural Pericardium is normal in appearance with no evidence for significant pericardial effusion. Inferior Vena Cava The inferior vena cava is not well visualized. Aorta The aortic at the level of the sinus of Valsalva measures 3.0 cm in diameter. Left Ventricular Outflow Tract Name Value Normal LVOT 2D LVOT Diameter 2.1 cm LVOT Doppler LVOT Peak Velocity 80 cm/s LVOT Peak Gradient 3 mmHg LVOT Mean Gradient 1 mmHg LVOT VTI 16 cm LVOT VTI/AV VTI Ratio 0.7 LVOT Stroke Volume 53 ml LVOT CO 11.7 l/min LVOT CI 6.3 l/min/m2 Pulmonic Valve Name Value Normal PV Doppler PV Peak Velocity 62 cm/s PV Peak Gradient 2 mmHg Mitral Valve Name Value Normal MV Diastolic Function MV E Peak Velocity 77 cm/s MV A Peak Velocity 41 cm/s MV E/A 1.9 MV Decel Time (PW) 186 ms MV Annular TDI MV E/e' (Septal) 10.8 MV E/e' (Lateral) 7.5 MV E/e' (Average) 9.1 Tricuspid Valve Name Value Normal TV Regurgitation Doppler TR Peak Velocity 332 cm/s TR Peak Gradient 44 mmHg Estimated PAP/RSVP RA Pressure 15 mmHg <=5 PA Systolic Pressure 59 mmHg <36 RV Systolic Pressure 59 mmHg <36 TV Annular TDI TV Lateral Roxanne s' Velocity 7.7 cm/s >=9.5 Aorta Name Value Normal Ascending Aorta Ao Root Diameter (MM) 3.9 cm Ao Root Diam Index (MM) 2.1 cm/m2 Aortic Valve Name Value Normal AV Doppler AV Peak Velocity 109 cm/s AV Peak Gradient 5 mmHg AV Mean Gradient 3 mmHg AV VTI 21 cm AV Area (Cont Eq VTI) 2.5 cm2 >=3.0 AV Area (Cont Eq [place]) 2.4 cm2 AV DI ([place]) 0.73 AV Regurgitation 2D LVOT Area 3.3 cm2 Ventricles Name Value Normal LV Dimensions 2D/MM IVS Diastolic Thickness (2D) 1.2 cm 0.6-1.0 LVID Diastole (2D) 4.3 cm 4.2-5.8 LVIW Diastolic Thickness (2D) 0.9 cm 0.6-1.0 LVID Systole (2D) 3.1 cm 2.5-4.0 LVOT Diameter 2.1 cm LV Mass (2D Cubed) 149.57 g 88.00-224.00 LV Mass Index (2D Cubed) 81 g/m2 49-115 Relative Wall Thickness (2D) 0.43 <=0.42 LV Fractional Shortening/Ejection Fraction 2D/MM LV Fractional Shortening (2D) 27 % 25-43 LV EF (2D Teichholz) 53 % LV Diastolic Volume (4C MOD) 74 ml LV EF (4C MOD) 63 % LV Diastolic Volume (2C MOD) 103 ml LV EF (2C MOD) 65 % LV Diastolic Volume (BP MOD) 87 ml 62-150 LV Diastolic Volume Index (BP MOD) 47 ml/m2 34-74 LV Systolic Volume (BP MOD) 32 ml 21-61 LV Systolic Volume Index (BP MOD) 17 ml/m2 11-31 LV EF (BP MOD) 63 % 52-72 LV Diastolic Length (4C) 7.4 cm LV Systolic Length (4C) 6.1 cm LV Stroke Volume (4C MOD) 47 ml RV Dimensions 2D/MM RVID Diastole (2D) 5.1 cm 2.1-3.5 Atria Name Value Normal LA Dimensions LA Dimension (MM) 5.0 cm 3.0-4.0 LA Volume (4C A-L) 101 ml LA Volume (BP A-L) 111 ml RA Dimensions RA Systolic [place] Length (4C) 5.6 cm 2.1-2.7 RA Area (4C) 21.0 cm2 <=18.0 Report Signatures
[2024-12-23 01:49] LABS: Lactic Acid Reflex 0.9 mmol/L (0.7-2.0)
[2024-12-23] MEDS: FUROSEMIDE INJ 40 MG/4 ML VIAL IV PUSH (02:17)
[2024-12-23] MEDS: VANCOMYCIN 1,500 MG/NS 500 ML 1,500 MG/500 ML BAG 250 MG IVPB (02:17)
--- NOTE | 2024-12-23 03:02 | PM.IMHP ---
H&P: HPI History of Present Illness Date/Time: 12/23/24 03:02 Chief Complaint: Altered mental status Narrative: 84-year-old male with a past medical history of CHF, hypothyroidism, AFib, hypertension presented to the ED via EMS from [facility] with increased confusion for the past month.L3, L4, L5 nerve ablation performed by pain management at [facility] 4 days ago. He has an area of blanching erythema to his mid back which has been there for a while, but reportedly appears much worse than it has been. Wound Care will be consulted for stage II ulcer on thoracic spine area. Patient is a proBNP is elevated 7800. Echocardiogram will be performed in the a.m. in regards to acute on chronic fracture T12 neurosurgery was was consulted from the ED and no acute intervention recommended. Initially requested to transfer the patient to [facility] where his L3 and L4 ablation was performed but family did not want to transfer the patient. I called his son who reported patient had a similar episode of sudden change in mentation and was brought to [facility] 3 weeks ago where he was diagnosed with cholecystitis and his gallbladder was removed and the drainage was removed on December 12, 2024. After [facility] patient was transferred to [facility]. He also reported patient had urinary/fecal incontinence. MRI of the spine will be ordered. Neurology will be consulted and appreciate the recommendations. Patient is admitted in the setting of metabolic encephalopathy workup. Review of Systems Review of Systems: All systems reviewed & are unremarkable except as noted in HPI and below PMFSH Past Medical History Medical History Cirrhosis Congestive heart failure Pulmonary hypertension Macrocytic anemia Hypothyroidism Atrial fibrillation Hypertension Family History Family History Mother Cerebrovascular accident Diabetes mellitus Father Cancer Social History Social History Social History: has recently been moved into a nursing home facility. Patient was the caregiver. Prior to this patient was independent with ADLs transfers and gait Smoking status: Former smoker Tobacco type: cigarettes Second hand tobacco smoke exposure: Yes Alcohol intake: former Substance use: former Substance use type: marijuana Do You Feel Safe in your Home?: Yes Lack of Transportation: No Lack of Food: Never True Current Housing: I Have Housing Concerned About Future Housing: No Difficulty Paying Gas/Electric Bills: No Difficulty Paying for Meds: No Currently Unemployed: No Education: Decline to Answer Difficulty w/ Childcare or Family Care: No Spiritual care concerns: No Meds Home Medications and Allergies Home Medications ?Medication ?Instructions ?Recorded ?Confirmed ?Type apixaban 5 mg tablet (Eliquis) 5 mg PO Q12HR #0 tabs 09/06/21 12/23/24 Rx calcium 500 mg (as 500 mg PO DAILY@0800 #0 tabs 09/06/21 12/23/24 Rx carbonate)-vitamin D3 5 mcg (200 unit) tablet (Oyster Shell Calcium-Vitamin D3) ferrous sulfate 325 mg (65 mg 325 mg PO Q48HR #0 tabs 09/06/21 12/23/24 Rx iron) tablet,delayed release furosemide 40 mg tablet 40 mg PO BID #0 tabs 09/06/21 12/23/24 Rx gabapentin 100 mg capsule 100 mg PO BEDTIME #0 caps 09/06/21 12/23/24 Rx levothyroxine 150 mcg tablet 150 mcg PO DAILY@0630 #0 tabs 09/06/21 12/23/24 Rx (Synthroid) metoprolol succinate 25 mg 25 mg PO QAM #30 tabs 09/06/21 12/23/24 Rx tablet,extended release 24 hr (Toprol XL) pantoprazole 40 mg tablet,delayed 40 mg PO QAM #30 tabs 09/06/21 12/23/24 Rx release polyethylene glycol 3350 17 gram 17 g PO QAM #0 ea 09/06/21 12/23/24 Rx oral powder packet (Miralax) spironolactone 25 mg tablet 100 mg (4 x 25 mg) PO QAM #30 tabs 09/06/21 12/23/24 Rx tramadol 50 mg tablet 25 mg (1/2 x 50 mg) PO Q12H PRN 09/07/21 12/23/24 Rx pain #10 tabs amlodipine 2.5 mg tablet 2.5 mg PO DAILY 12/23/24 12/23/24 History gabapentin 300 mg capsule 300 mg PO DAILY 12/23/24 12/23/24 History levothyroxine 137 mcg tablet 137 mcg PO DAILY@0630 12/23/24 12/23/24 History mirtazapine 15 mg tablet 15 mg PO DAILY 12/23/24 12/23/24 History spironolactone 25 mg tablet 12.5 mg PO QAM 12/23/24 12/23/24 History Allergies Allergy/AdvReac Type Severity Reaction Status Date / Time codeine Allergy Hallucinati Verified 09/01/21 17:30 ng Vital Signs Vital Signs - 24 hr 12/22/24 19:39 12/22/24 19:39 12/22/24 19:39 Temperature Pulse Rate 59 L 60 Respiratory Rate 22 H Blood Pressure 132/70 Pulse Oximetry 99 100 Oxygen Delivery Room Air Room Air 12/22/24 19:44 Temperature 97.9 F Pulse Rate Respiratory Rate Blood Pressure Pulse Oximetry Oxygen Delivery Exam Narrative: GENERAL: Well-appearing, well-nourished, and in no acute distress. HEAD: Normocephalic, atraumatic. EYES: PERRLA and EOMI. ENT: Nares clear, no rhinorrhea or epistaxis. Mucous membranes moist. NECK: Supple. CHEST: Clear to auscultation. No respiratory distress. HEART: Regular rate and rhythm. No murmur heard. Normal peripheral pulses. ABDOMEN: Soft, nontender, nondistended, normal active bowel sounds. Ecchymosis around the periumbilical region BACK: Warmth and blanching erythema over the kyphotic region of the thoracic spine with approximately 2 cm stage II pressure ulcer. No active drainage. No fluctuation or induration. No pain to the lumbar spine EXTREMITIES: Normal range of motion. 4+ pitting edema to bilateral lower extremities, no warmth or erythema SKIN: Warm, dry, no rash. NEURO: No focal deficits. Alert and oriented x2. Moving all extremities spontaneously. Cranial nerves 2-12 grossly intact H&P: Results Labs Labs: Short CBC 12/22/24 Range/Units 21:04 WBC 9.1 (4.5-10.0) K/mm3 Hgb 9.4 L (14.0-18.0) g/dL Hct 30.2 L (42.0-52.0) % Plt Count 204 (150-375) k/mm3 [facility] 12/22/24 21:04 Sodium 133 L Potassium 4.5 Chloride 106 Carbon Dioxide 20 L BUN 29 H Creatinine 0.94 Glucose 88 Calcium 8.6 Cardiac Enzymes 12/22/24 Range/Units 21:04 Troponin I 0.029 (0.000-0.034) ng/mL Liver Function 12/22/24 Range/Units 21:04 Total Bilirubin 1.0 (0.2-1.3) mg/dL AST 55 (17-59) U/L ALT 20 (6-50) U/L Alkaline Phosphatase 69 (38-126) U/L Albumin 3.4 L (3.5-5.1) g/dL Urine 12/22/24 Range/Units 21:23 Urine Color Dark yellow (Yellow) Urine Appearance Clear (Clear) Urine pH 5.5 (5.0-9.0) Ur Specific [place] 1.018 (1.001-1.035) Urine Protein Negative (Negative) mg/dL Urine Glucose (UA) Negative (Negative) mg/dL Assessment and Plan Assessment and plan (1) Hypertension: Code(s): I10 - Essential (primary) hypertension Status: Acute (2) Metabolic encephalopathy: Code(s): G93.41 - Metabolic encephalopathy Status: Acute Plan Metabolic encephalopathy Baseline dementia UA negative Ordered TSH, B12, syphilis Order MRI brain Acute on chronic fracture of T12 Neurosurgery consulted no acute intervention Neurology will be consulted Can consider LP after discussing with Neurology CHF BNP 7960 monitor renal function during diuresis echocardiogram pending EKG pacemaker Chest x-ray Mild pulmonary vascular congestion, without focal infiltrate or effusion. Continue furosemide 40 mg p.o. b.i.d., metoprolol 25 mg p.o. q.d., spironolactone 150 mg p.o. q.d. Daily weights. fluid restriction Strict I&O's elevate/Ramiro wrap legs if needed Optimize blood pressure less than 130/80. Fall risk assessment. A.Fib Continue apixaban 5 mg p.o. b.i.d. Continue metoprolol 25 mg p.o. q.d. Stage II ulcer on thoracic area Consult wound care Augmentin for 5 days Nasal MRSA pending DVT prophylaxis apixaban 5 mg p.o. b.i.d. Hospitalist MIPS Advance Care Plan I have confirmed that the patient's Advanced Care Plan is present, code status is documented, or surrogate decision maker is listed in patient medical record.: Yes Medication Reconciliation I have utilized all available resources to obtain, update and review the patients current medications (includes all prescriptions, OTC, herbals, cannabis, and nutritional supplements).: Yes
--- NOTE | 2024-12-23 03:22 | PC.NURSE ---
Hospitalist at bedside to assess wound to back. Medial stage 2 ulcer present and bruising below also present. Family previously verified that patient had stage 2 ulcer for a while now.
--- NOTE | 2024-12-23 03:52 | PC.NURSE ---
pt spilled urinal on bed, linens changed. pt situated appropriately for transport upstairs.
[2024-12-23] MEDS: LEVOTHYROXINE SODIUM 112 MCG TABLET PO (06:34)
[2024-12-23] MEDS: LEVOTHYROXINE SODIUM 25 MCG TABLET PO (06:34)
[2024-12-23 07:08] LABS: Syphilis IgG/IgM Antibody Negative (Negative)
[2024-12-23 07:44] LABS: Folic Acid 7.2 ng/mL (2.76->20)
[2024-12-23] MEDS: METOPROLOL SUCCINATE EXT REL 25 MG TABCR PO (08:15)
[2024-12-23] MEDS: MIRTAZAPINE 15 MG TABLET PO (08:15)
[2024-12-23] MEDS: amLODIPine BESYLATE 2.5 MG TABLET PO (08:15)
[2024-12-23] MEDS: APIXABAN 5 MG TABLET PO ×2 (08:15→20:59)
[2024-12-23] MEDS: SPIRONOLACTONE 12.5 MG TABLET PO (08:15)
[2024-12-23] MEDS: AMOXICILLIN/CLAVULANATE K 875-125 MG TAB 1 TABLET PO ×2 (08:15→20:59)
[2024-12-23] MEDS: FUROSEMIDE 40 MG TABLET PO ×2 (08:15→16:18)
[2024-12-23] MEDS: FERROUS SULFATE 325 MG TABLET DR PO (08:15)
[2024-12-23] MEDS: PANTOPRAZOLE 40 MG TABLET PO (08:15)
[2024-12-23] MEDS: GABAPENTIN 300 MG CAPSULE PO (08:15)
[2024-12-23] MEDS: traMADol HCL (*CRX) 25 MG TABLET PO ×2 (08:16→21:36)
[2024-12-23] MEDS: polyethylene glycoL 3350 17 GM POWD.PACK PO (08:16)
[2024-12-23 10:05] LABS: MRSA (PCR) DETECTED (NOT DETECTE)
--- NOTE | 2024-12-23 12:16 | P.CONNEU_ITS ---
Assessment and Plan Assessment and plan (1) Status post kyphoplasty: Code(s): Z98.890 - Other specified postprocedural states Status: Acute (2) Compression fx, thoracic spine: Qualifiers: Encounter type: initial encounter Thoracic vertebra fracture level: T11 Qualified Code(s): S22.080A - Wedge compression fracture of T11-T12 vertebra, initial encounter for closed fracture Code(s): S22.000A - Wedge compression fracture of unspecified thoracic vertebra, initial encounter for closed fracture Status: Acute (3) Congestive heart failure: Code(s): I50.9 - Heart failure, unspecified Status: Acute (4) Atrial fibrillation: Code(s): I48.91 - Unspecified atrial fibrillation Status: Acute (5) Cirrhosis: Code(s): K74.60 - Unspecified cirrhosis of liver Status: Acute (6) Cellulitis of back: Code(s): L03.312 - Cellulitis of back [any part except buttock] Status: Acute Plan Mental status improved since admission and seems to fairly lucid and able to talk appropriately. Have some longstanding problems since he had a fracture and kyphoplasty at T11 area. He still has some deformity resulting from the fracture. He has developed some cellulitis which is currently being addressed by the hospitalist team and will be referred to wound care. He does have history of urinary and fecal incontinence and feels generally weak but more so in the lower limbs and upper limbs. I did not see any evidence for myelopathy at this time and some of these problems are longstanding. He has had a surgery the cervical spine also besides the kyphoplasty for the fracture at T11 area. Previous to look into this further an MRI of the cervical spine and thoracic spine may help and if this shows any abnormality you may consult neurosurgery. Consult date: 12/23/24 HPI: Blaze Barrientos is a 84 year old male Presented to the hospital on 12/22/2024. The patient has transient altered mental status which was thought to be due to metabolic encephalopathy. He has history of congestive cardiac failure and he also has a cardiac pacemaker in place. There is also history of cirrhosis of liver and atrial fibrillation and is currently on Eliquis. Patient lives in [facility] and was brought to the hospital. Also found to have edema both lower limbs. His son and [id number] are involved in his care. Patient has been under pain management and has had is injection in the lumbar spine area 4 days prior to admission. Also it was noted that his BNP was found to be very high at 7960. He has a history of fracture of the T11 for which she had arthroplasty in 2021. Neurosurgery was consulted upon admission and they did not feel that he requires any surgical intervention but the suggested a TLSO brace. Patient also has a sore on the back in the vicinity of where he had the fracture and this is being addressed by the hospitalist team and would be referred to wound care. Three weeks ago he was admitted to another hospital where he has had a gallbladder surgery. At that time also he was somewhat confused. At this time and I saw him is fairly alert. He feels somewhat weak in general but particularly in the lower limbs and states that when he is sitting in the chair he has to be very careful when he gets up. He also has urinary and fecal incontinence. However none of these problems are new and he has had these problems for quite some time. CT scan of brain was performed on admission which did not show any significant abnormalities. There is evidence of moderate atrophy. Review of Systems 2 Review of Systems: All systems reviewed & are unremarkable except as noted in HPI and below PMFSH Past Medical History Medical History Cirrhosis Congestive heart failure Pulmonary hypertension Macrocytic anemia Hypothyroidism Atrial fibrillation Hypertension Family History Family History Mother Cerebrovascular accident Diabetes mellitus Father Cancer Social History Social History Social History: has recently been moved into a senior living facility. Patient was the caregiver. Prior to this patient was independent with ADLs transfers and gait Smoking status: Former smoker Tobacco type: cigarettes Second hand tobacco smoke exposure: Yes Alcohol intake: former Substance use: former Substance use type: marijuana Do You Feel Safe in your Home?: Yes Lack of Transportation: No Lack of Food: Never True Current Housing: I Have Housing Concerned About Future Housing: No Difficulty Paying Gas/Electric Bills: No Difficulty Paying for Meds: No Currently Unemployed: No Education: Decline to Answer Difficulty w/ Childcare or Family Care: No Spiritual care concerns: No Meds Home Medications and Allergies Home Medications ?Medication ?Instructions ?Recorded ?Confirmed ?Type apixaban 5 mg tablet (Eliquis) 5 mg PO Q12HR #0 tabs 09/06/21 12/23/24 Rx calcium 500 mg (as 500 mg PO DAILY@0800 #0 tabs 09/06/21 12/23/24 Rx carbonate)-vitamin D3 5 mcg (200 unit) tablet (Oyster Shell Calcium-Vitamin D3) ferrous sulfate 325 mg (65 mg 325 mg PO Q48HR #0 tabs 09/06/21 12/23/24 Rx iron) tablet,delayed release furosemide 40 mg tablet 40 mg PO BID #0 tabs 09/06/21 12/23/24 Rx gabapentin 100 mg capsule 100 mg PO BEDTIME #0 caps 09/06/21 12/23/24 Rx levothyroxine 150 mcg tablet 150 mcg PO DAILY@0630 #0 tabs 09/06/21 12/23/24 Rx (Synthroid) metoprolol succinate 25 mg 25 mg PO QAM #30 tabs 09/06/21 12/23/24 Rx tablet,extended release 24 hr (Toprol XL) pantoprazole 40 mg tablet,delayed 40 mg PO QAM #30 tabs 09/06/21 12/23/24 Rx release polyethylene glycol 3350 17 gram 17 g PO QAM #0 ea 09/06/21 12/23/24 Rx oral powder packet (Miralax) spironolactone 25 mg tablet 100 mg (4 x 25 mg) PO QAM #30 tabs 09/06/21 12/23/24 Rx tramadol 50 mg tablet 25 mg (1/2 x 50 mg) PO Q12H PRN 09/07/21 12/23/24 Rx pain #10 tabs amlodipine 2.5 mg tablet 2.5 mg PO DAILY 12/23/24 12/23/24 History gabapentin 300 mg capsule 300 mg PO DAILY 12/23/24 12/23/24 History levothyroxine 137 mcg tablet 137 mcg PO DAILY@0630 12/23/24 12/23/24 History mirtazapine 15 mg tablet 15 mg PO DAILY 12/23/24 12/23/24 History spironolactone 25 mg tablet 12.5 mg PO QAM 12/23/24 12/23/24 History Allergies Allergy/AdvReac Type Severity Reaction Status Date / Time codeine Allergy Hallucinati Verified 09/01/21 17:30 ng Vital Signs Vital Signs - 24 hr 12/22/24 19:39 12/22/24 19:39 12/22/24 19:39 Temperature Pulse Rate 59 L 60 Respiratory Rate 22 H Blood Pressure 132/70 Pulse Oximetry 99 100 Oxygen Delivery Room Air Room Air 12/22/24 19:44 12/23/24 02:10 12/23/24 02:11 Temperature 97.9 F Pulse Rate Respiratory Rate 16 16 Blood Pressure 131/73 Pulse Oximetry 99 100 Oxygen Delivery 12/23/24 02:15 12/23/24 02:16 12/23/24 02:32 Temperature Pulse Rate 72 Respiratory Rate 18 18 16 Blood Pressure 134/73 Pulse Oximetry 99 100 97 Oxygen Delivery 12/23/24 02:45 12/23/24 02:46 12/23/24 03:01 Temperature Pulse Rate 60 Respiratory Rate 17 21 H 17 Blood Pressure 138/73 140/77 Pulse Oximetry 98 Oxygen Delivery 12/23/24 03:07 12/23/24 03:15 12/23/24 03:16 Temperature Pulse Rate 70 Respiratory Rate 15 15 17 Blood Pressure 135/76 Pulse Oximetry Oxygen Delivery 12/23/24 03:17 12/23/24 03:30 12/23/24 03:30 Temperature 97.9 F Pulse Rate 65 72 Respiratory Rate 17 16 17 Blood Pressure 138/70 Pulse Oximetry 97 Oxygen Delivery 12/23/24 03:31 12/23/24 05:55 12/23/24 08:00 Temperature 96.9 F L Pulse Rate 60 61 Respiratory Rate 15 18 Blood Pressure 138/70 131/64 Pulse Oximetry 100 100 Oxygen Delivery Room Air Exam 2 Narrative: Fully conscious alert oriented to self time place and person. Speech is fluent and articulate. No aphasia or dysarthria. Examination head and neck was unremarkable. No evidence of external trauma. No carotid bruit. Cranial nerves pupils were equal reactive to light. Visual elliott by confrontation were normal. There is no facial asymmetry. Facial sensation intact. Other cranial normal limits. Motor system normal power in both upper and lower limbs. Moderate edema both lower limbs noted. Deep tendon reflexes did not show any significant hyperreflexia in the lower limbs compared to upper limbs. No sensory level noted on the examination for touch And temperature. Some vibration decreased in lower limbs. No involuntary movements are seen. Results Labs 12/22/24 21:04 12/22/24 21:04 Labs: Short CBC 12/22/24 Range/Units 21:04 WBC 9.1 (4.5-10.0) K/mm3 Hgb 9.4 L (14.0-18.0) g/dL Hct 30.2 L (42.0-52.0) % Plt Count 204 (150-375) k/mm3 BMP 12/22/24 21:04 Sodium 133 L Potassium 4.5 Chloride 106 Carbon Dioxide 20 L BUN 29 H Creatinine 0.94 Glucose 88 Calcium 8.6 Cardiac Enzymes 12/22/24 Range/Units 21:04 Troponin I 0.029 (0.000-0.034) ng/mL Liver Function 12/22/24 Range/Units 21:04 Total Bilirubin 1.0 (0.2-1.3) mg/dL AST 55 (17-59) U/L ALT 20 (6-50) U/L Alkaline Phosphatase 69 (38-126) U/L Albumin 3.4 L (3.5-5.1) g/dL Urine 12/22/24 Range/Units 21:23 Urine Color Dark yellow (Yellow) Urine Appearance Clear (Clear) Urine pH 5.5 (5.0-9.0) Ur Specific [place] 1.018 (1.001-1.035) Urine Protein Negative (Negative) mg/dL Urine Glucose (UA) Negative (Negative) mg/dL
--- NOTE | 2024-12-23 12:33 | P.PNIM_ITS ---
Progress Note: A&P Assessment and Plan (1) Status post kyphoplasty: Code(s): Z98.890 - Other specified postprocedural states Status: Acute (2) Vertebral fracture: Status: Acute Assessment and Plan: p.r.n. pain medication gabapentin at bedtime (3) Cirrhosis: Code(s): K74.60 - Unspecified cirrhosis of liver Status: Acute Assessment and Plan: Hepatology as an outpatient (4) Congestive heart failure: Code(s): I50.9 - Heart failure, unspecified Status: Acute Assessment and Plan: Lasix 40 mg twice a day. was on Toprol XL 50 mg daily decreased to 25 mg on 09/06/2021. Spironolactone 100 mg daily (5) Pulmonary hypertension: Code(s): I27.20 - Pulmonary hypertension, unspecified Status: Acute (6) Macrocytic anemia: Code(s): D53.9 - Nutritional anemia, unspecified Status: Acute Assessment and Plan: iron (7) Hypothyroidism: Code(s): E03.9 - Hypothyroidism, unspecified Status: Acute Assessment and Plan: levothyroxine (8) Atrial fibrillation: Code(s): I48.91 - Unspecified atrial fibrillation Status: Acute Assessment and Plan: Eliquis 5 mg q.12 (9) Hypertension: Code(s): I10 - Essential (primary) hypertension Status: Acute Assessment and Plan: toprol (10) Transaminitis: Code(s): R74.01 - Elevation of levels of liver transaminase levels Status: Acute Assessment and Plan: Mild increase in LFTs on admission asymptomatic in a patient with history of cirrhosis. improved. (11) Metabolic encephalopathy: Code(s): G93.41 - Metabolic encephalopathy Status: Acute Assessment and Plan: possible delirium/ sundowning Neurology team on board Continue Abx for back wound/cellulitis (12) CHF exacerbation: Qualifiers: Heart failure type: diastolic Qualified Code(s): I50.33 - Acute on chronic diastolic (congestive) heart failure Code(s): I50.9 - Heart failure, unspecified Status: Chronic Assessment and Plan: elevated probnp LAsix, spironolactone will get Echo (13) Compression fx, thoracic spine: Qualifiers: Encounter type: initial encounter Thoracic vertebra fracture level: T11 Qualified Code(s): S22.080A - Wedge compression fracture of T11-T12 vertebra, initial encounter for closed fracture Code(s): S22.000A - Wedge compression fracture of unspecified thoracic vertebra, initial encounter for closed fracture Status: Acute Subjective Date/time seen: 12/23/24 12:33 Interval history: per HPi: 84-year-old male with a past medical history of CHF, hypothyroidism, AFib, hypertension presented to the ED via EMS from [facility] with increased confusion for the past month.L3, L4, L5 nerve ablation performed by pain management at [facility] 4 days ago. He has an area of blanching erythema to his mid back which has been there for a while, but reportedly appears much worse than it has been. Wound Care will be consulted for stage II ulcer on thoracic spine area. Patient is a proBNP is elevated 7800. Echocardiogram will be performed in the a.m. in regards to acute on chronic fracture T12 neurosurgery was was consulted from the ED and no acute intervention recommended. Initially requested to transfer the patient to [facility] where his L3 and L4 ablation was performed but family did not want to transfer the patient. I called his son who reported patient had a similar episode of sudden change in mentation and was brought to [facility] 3 weeks ago where he was diagnosed with cholecystitis and his gallbladder was removed and the drainage was removed on December 12, 2024. After [facility] patient was transferred to [facility]. He also reported patient had urinary/fecal incontinence. MRI of the spine will be ordered. Neurology will be consulted and appreciate the recommendations. Patient is admitted in the setting of metabolic encephalopathy workup. 12/23/24 Patient was seen and examined at bedside. he is feeling fine. denies any chest pain abd pain nausea or vomiting. he is alert oriented except to the year. has wound and mild cellulitis on his back. wound care team on board . will continue IVABx for now. neurology team on board elevated proBNp, has bilateral leg edema. will continue LAsix. Nare MRSA positive Review of Systems Review of Systems: fell earlier today. Exam Const: General: no acute distress HENMT: Mouth: Yes moist mucous membranes Eyes: Pupils: Equal, round and reactive pupils present EOM: EOMs intact bilaterally Neck: Neck: no JVD Lymphatic: lymphadenopathy not noted Resp: Auscultation: clear to auscultation bilaterally Cardio: Rate: regular rate Rhythm: regular rhythm GI: Inspection: non-distended Skin: General skin exam: normal color Neuro: Cranial nerves: Yes Equal, round and reactive pupils present Other: Bilateral upper lower extremity strength are 4/5 Extrem: General: edema bilateral Psych: Mental Status: mental status grossly normal Objective Data Vital Signs Vital Signs: Vital Signs - 24 hr 12/22/24 19:39 12/22/24 19:39 12/22/24 19:39 Temperature Pulse Rate 59 L 60 Respiratory Rate 22 H Blood Pressure 132/70 Pulse Oximetry 99 100 Oxygen Delivery Room Air Room Air 12/22/24 19:44 12/23/24 02:10 12/23/24 02:11 Temperature 97.9 F Pulse Rate Respiratory Rate 16 16 Blood Pressure 131/73 Pulse Oximetry 99 100 Oxygen Delivery 12/23/24 02:15 12/23/24 02:16 12/23/24 02:32 Temperature Pulse Rate 72 Respiratory Rate 18 18 16 Blood Pressure 134/73 Pulse Oximetry 99 100 97 Oxygen Delivery 12/23/24 02:45 12/23/24 02:46 12/23/24 03:01 Temperature Pulse Rate 60 Respiratory Rate 17 21 H 17 Blood Pressure 138/73 140/77 Pulse Oximetry 98 Oxygen Delivery 12/23/24 03:07 12/23/24 03:15 12/23/24 03:16 Temperature Pulse Rate 70 Respiratory Rate 15 15 17 Blood Pressure 135/76 Pulse Oximetry Oxygen Delivery 12/23/24 03:17 12/23/24 03:30 12/23/24 03:30 Temperature 97.9 F Pulse Rate 65 72 Respiratory Rate 17 16 17 Blood Pressure 138/70 Pulse Oximetry 97 Oxygen Delivery 12/23/24 03:31 12/23/24 05:55 12/23/24 08:00 Temperature 96.9 F L Pulse Rate 60 61 Respiratory Rate 15 18 Blood Pressure 138/70 131/64 Pulse Oximetry 100 100 Oxygen Delivery Room Air Intake/Output Intake/Output: Intake & Output 12/20/24 12/21/24 12/22/24 12/23/24 23:59 23:59 23:59 23:59 Intake Total 240 Output Total 75 1300 Balance -75 -1060 Meds/Results Medications: Active Medications Generic Name Dose Route Start Last Admin Trade Name Freq PRN Reason Stop Dose Admin Amlodipine Besylate 2.5 mg 12/23/24 09:00 12/23/24 08:15 Amlodipine Besylate 2.5 Mg Tablet PO 2.5 mg DAILY KYLEE Administration Amoxicillin/Clavulanate Potassium 1 tablet 12/23/24 09:00 12/23/24 08:15 Amoxicillin/Clavulanate K 875-125 Mg Tab PO 12/28/24 08:59 1 tablet Q12HR KYLEE Administration Apixaban 5 mg 12/23/24 09:00 12/23/24 08:15 Apixaban 5 Mg Tablet PO 5 mg Q12HR KYLEE Administration Ferrous Sulfate 325 mg 12/23/24 09:00 12/23/24 08:15 Ferrous Sulfate [address] PO 325 mg Q48HR KYLEE Administration Furosemide 40 mg 12/23/24 09:00 12/23/24 08:15 Furosemide 40 Mg Tablet PO 40 mg BID KYLEE Administration Gabapentin 300 mg 12/23/24 09:00 12/23/24 08:15 Gabapentin 300 Mg Capsule PO 300 mg DAILY KYLEE Administration Levothyroxine Sodium 112 mcg 12/23/24 06:30 12/23/24 06:34 Levothyroxine Sodium 112 Mcg Tablet PO 112 mcg DAILY@0630 KYLEE Administration Levothyroxine Sodium 25 mcg 12/23/24 06:30 12/23/24 06:34 Levothyroxine Sodium 25 Mcg Tablet PO 25 mcg DAILY@0630 KYLEE Administration Metoprolol Succinate 25 mg 12/23/24 09:00 12/23/24 08:15 Metoprolol Succinate Ext Rel 25 Mg Tabcr PO 25 mg QAM KYLEE Administration Mirtazapine 15 mg 12/23/24 09:00 12/23/24 08:15 Mirtazapine 15 Mg Tablet PO 15 mg DAILY KYLEE Administration Pantoprazole Sodium 40 mg 12/23/24 09:00 12/23/24 08:15 Pantoprazole 40 Mg Tablet PO 40 mg QAM KYLEE Administration Perflutren Lipid Microsphere 0 ml 12/23/24 03:43 Perflutren Lipid Microspheres 1.5 Ml Vial Diluted To 10 Ml Total Volume IV PUSH 12/26/24 03:44 ONCE PRN adequate visualization Protocol Polyethylene Glycol 17 gm 12/23/24 09:00 12/23/24 08:16 Polyethylene Glycol 3350 17 Gm Powd.Pack PO 17 gm QAM KYLEE Administration Spironolactone 12.5 mg 12/23/24 09:00 12/23/24 08:15 Spironolactone 12.5 Mg Tablet PO 12.5 mg QAM KYLEE Administration Tramadol HCl 25 mg 12/23/24 05:35 12/23/24 08:16 Tramadol Hcl (*Crx) 25 Mg Tablet PO 25 mg Q12H PRN Administration pain Radiology Results: ITS Impressions Head CT 12/22/24 20:49 Impression: No acute intracranial hemorrhage or suspicious mass effect. Chest X-Ray 12/22/24 20:58 IMPRESSION: Mild pulmonary vascular congestion, without focal infiltrate or effusion. Chest/Abdomen/Pelvis/Spine CT 12/23/24 09:00 IMPRESSION: 1. Recent-appearing T11 burst fracture with additional chronic T12-L2 burst fractures with change of prior vertebroplasty. 2. Minimal bibasilar pulmonary edema with small right pleural effusion. 2. Borderline heart size with biatrial enlargement. 4. Large amount of colonic stool which could be seen with constipation. 5. Small fat-containing right inguinal hernia and changes of prior left inguinal hernia repair. Labs Labs: Laboratory Results - last 24 hr 12/22/24 12/22/24 12/23/24 21:04 21:23 01:35 WBC 9.1 RBC 2.95 L Hgb 9.4 L Hct 30.2 L MCV 102.4 H MCH 31.9 MCHC 31.1 L RDW 15.9 H Plt Count 204 MPV 9.9 Immature Gran % (Auto) 0.9 H Neut % (Auto) 76.2 H Lymph % (Auto) 11.5 L [place] % (Auto) 11.3 H Eos % (Auto) 0.0 Baso % (Auto) 0.1 L Lymph # (Auto) 1.05 [place] # (Auto) 1.0 H Eos # (Auto) 0.0 Baso # (Auto) 0.0 Abs Immat Gran (auto) 0.08 H Absolute Neuts (auto) 7.0 H Absolute Nucleated RBC 0.000 Nucleated RBC % 0.0 PT 17.7 H INR 1.4 APTT 32.2 Sodium 133 L Potassium 4.5 Chloride 106 Carbon Dioxide 20 L Anion Gap 7 BUN 29 H Creatinine 0.94 Estim Creat Clear Calc 48 Estimated GFR > 60 Glucose 88 Lactic Acid 0.9 Calcium 8.6 Total Bilirubin 1.0 AST 55 ALT 20 Alkaline Phosphatase 69 Troponin I 0.029 NT-Pro-B Natriuret Pep 7960 H Total Protein 7.0 Albumin 3.4 L Vitamin B12 Folate TSH 3.600 TSH (Reflex) Urine Color Dark yellow Urine Appearance Clear Urine pH 5.5 Ur Specific [place] 1.018 Urine Protein Negative Urine Glucose (UA) Negative Urine Ketones Trace H Ur Blood (Man) Negative Urine Nitrate Negative Urine Bilirubin Negative Urine Urobilinogen 0.2 Leukocyte Esterase Rfl Negative Nasal MRSA (PCR) Syphilis IgG/IgM Ab 12/23/24 12/23/24 12/23/24 06:00 06:01 08:22 WBC RBC Hgb Hct MCV MCH MCHC RDW Plt Count MPV Immature Gran % (Auto) Neut % (Auto) Lymph % (Auto) [place] % (Auto) Eos % (Auto) Baso % (Auto) Lymph # (Auto) [place] # (Auto) Eos # (Auto) Baso # (Auto) Abs Immat Gran (auto) Absolute Neuts (auto) Absolute Nucleated RBC Nucleated RBC % PT INR APTT Sodium Potassium Chloride Carbon Dioxide Anion Gap BUN Creatinine Estim Creat Clear Calc Estimated GFR Glucose Lactic Acid Calcium Total Bilirubin AST ALT Alkaline Phosphatase Troponin I NT-Pro-B Natriuret Pep Total Protein Albumin Vitamin B12 542.0 Folate 7.2 TSH TSH (Reflex) 3.000 Urine Color Urine Appearance Urine pH Ur Specific [place] Urine Protein Urine Glucose (UA) Urine Ketones Ur Blood (Man) Urine Nitrate Urine Bilirubin Urine Urobilinogen Leukocyte Esterase Rfl Nasal MRSA (PCR) Detected A* Syphilis IgG/IgM Ab Negative
[2024-12-24] MEDS: LEVOTHYROXINE SODIUM 25 MCG TABLET PO (05:38)
[2024-12-24] MEDS: LEVOTHYROXINE SODIUM 112 MCG TABLET PO (05:38)
[2024-12-24 06:00] VITALS: BP 108/69; PULSE 65; RESP 16; TEMP 36.4; O2SAT 96
[2024-12-24 06:56] LABS: Hematocrit 33.1 % (42.0-52.0); Hemoglobin 9.8 g/dL (14.0-18.0); Mean Corpuscular HGB Conc 29.6 g/dl (32-36); Mean Corpuscular Volume 104.7 fl (80-100); Mean Platelet Volume 10.6 fl (7.4-10.4); Platelet Count Result 211 k/mm3 (150-375); Red Blood Count 3.16 M/mm3 (4.6-6.20); Red Cell Distribution Width 15.7 % (11.5-14.5); White Blood Count 9.6 K/mm3 (4.5-10.0)
[2024-12-24 07:06] LABS: Alanine Aminotransferase 19 U/L (6-50); Albumin Level 3.6 g/dL (3.5-5.1); Alkaline Phosphatase 80 U/L (38-126); Anion Gap 5 mmol/L (4-12); Aspartate Amino Transferase 35 U/L (17-59); Blood Urea Nitrogen 28 mg/dL (9-20); Calcium 8.8 mg/dL (8.4-10.2); Carbon Dioxide 27 mmol/L (22-30); Chloride 98 mmol/L (98-107); Estimated CRCL calculation 46 ml/min; Estimated Glomerular Filt Rate > 60; Glucose 81 mg/dL (65-110); Potassium 4.3 mmol/L (3.4-5.0); Sodium 130 mmol/L (137-145)
[2024-12-24] MEDS: PANTOPRAZOLE 40 MG TABLET PO (10:25)
[2024-12-24] MEDS: AMOXICILLIN/CLAVULANATE K 875-125 MG TAB 1 TABLET PO ×2 (10:25→20:55)
[2024-12-24] MEDS: APIXABAN 5 MG TABLET PO ×2 (10:25→20:55)
[2024-12-24 10:26] VITALS: PULSE 65
[2024-12-24] MEDS: SPIRONOLACTONE 12.5 MG TABLET PO (10:26)
[2024-12-24] MEDS: METOPROLOL SUCCINATE EXT REL 25 MG TABCR PO (10:26)
[2024-12-24] MEDS: MIRTAZAPINE 15 MG TABLET PO (10:26)
[2024-12-24] MEDS: FUROSEMIDE 40 MG TABLET PO ×2 (10:26→17:20)
[2024-12-24] MEDS: polyethylene glycoL 3350 17 GM POWD.PACK PO (10:26)
[2024-12-24] MEDS: amLODIPine BESYLATE 2.5 MG TABLET PO (10:26)
[2024-12-24] MEDS: GABAPENTIN 300 MG CAPSULE PO (10:26)
[2024-12-24 14:00] VITALS: BP 105/60; PULSE 61; RESP 18; TEMP 36.8; O2SAT 100
--- NOTE | 2024-12-24 14:50 | PM.IMPN ---
Progress Note: A&P Assessment and Plan (1) Status post kyphoplasty: Code(s): Z98.890 - Other specified postprocedural states Status: Acute (2) Vertebral fracture: Status: Acute Assessment and Plan: p.r.n. pain medication gabapentin at bedtime (3) Cirrhosis: Code(s): K74.60 - Unspecified cirrhosis of liver Status: Acute Assessment and Plan: Hepatology as an outpatient (4) Congestive heart failure: Code(s): I50.9 - Heart failure, unspecified Status: Acute Assessment and Plan: Lasix 40 mg twice a day. was on Toprol XL 50 mg daily decreased to 25 mg on 09/06/2021. Spironolactone 100 mg daily (5) Pulmonary hypertension: Code(s): I27.20 - Pulmonary hypertension, unspecified Status: Acute (6) Macrocytic anemia: Code(s): D53.9 - Nutritional anemia, unspecified Status: Acute Assessment and Plan: iron (7) Hypothyroidism: Code(s): E03.9 - Hypothyroidism, unspecified Status: Acute Assessment and Plan: levothyroxine (8) Atrial fibrillation: Code(s): I48.91 - Unspecified atrial fibrillation Status: Acute Assessment and Plan: Eliquis 5 mg q.12 (9) Hypertension: Code(s): I10 - Essential (primary) hypertension Status: Acute Assessment and Plan: toprol (10) Transaminitis: Code(s): R74.01 - Elevation of levels of liver transaminase levels Status: Acute Assessment and Plan: Mild increase in LFTs on admission asymptomatic in a patient with history of cirrhosis. improved. (11) Metabolic encephalopathy: Code(s): G93.41 - Metabolic encephalopathy Status: Acute Assessment and Plan: possible delirium/ sundowning Neurology team on board Continue Augmentin for back wound/cellulitis (12) CHF exacerbation: Qualifiers: Heart failure type: diastolic Qualified Code(s): I50.33 - Acute on chronic diastolic (congestive) heart failure Code(s): I50.9 - Heart failure, unspecified Status: Chronic Assessment and Plan: elevated probnp LAsix, spironolactone Echo unremarkable (13) Compression fx, thoracic spine: Qualifiers: Encounter type: initial encounter Thoracic vertebra fracture level: T11 Qualified Code(s): S22.080A - Wedge compression fracture of T11-T12 vertebra, initial encounter for closed fracture Code(s): S22.000A - Wedge compression fracture of unspecified thoracic vertebra, initial encounter for closed fracture Status: Acute Subjective Date/time seen: 12/24/24 14:50 Interval history: per HPi: 84-year-old male with a past medical history of CHF, hypothyroidism, AFib, hypertension presented to the ED via EMS from [facility] with increased confusion for the past month.L3, L4, L5 nerve ablation performed by pain management at [facility] 4 days ago. He has an area of blanching erythema to his mid back which has been there for a while, but reportedly appears much worse than it has been. Wound Care will be consulted for stage II ulcer on thoracic spine area. Patient is a proBNP is elevated 7800. Echocardiogram will be performed in the a.m. in regards to acute on chronic fracture T12 neurosurgery was was consulted from the ED and no acute intervention recommended. Initially requested to transfer the patient to [facility] where his L3 and L4 ablation was performed but family did not want to transfer the patient. I called his son who reported patient had a similar episode of sudden change in mentation and was brought to [facility] 3 weeks ago where he was diagnosed with cholecystitis and his gallbladder was removed and the drainage was removed on December 12, 2024. After [facility] patient was transferred to [facility]. He also reported patient had urinary/fecal incontinence. MRI of the spine will be ordered. Neurology will be consulted and appreciate the recommendations. Patient is admitted in the setting of metabolic encephalopathy workup. 12/23/24 Patient was seen and examined at bedside. he is feeling fine. denies any chest pain abd pain nausea or vomiting. he is alert oriented except to the year. has wound and mild cellulitis on his back. wound care team on board . will continue IVABx for now. neurology team on board elevated proBNp, has bilateral leg edema. will continue LAsix. Nare MRSA positive 12/24/24 Patient was seen and examined at bedside. he is feeling fine, denies chest pain, SOB , abd pain, Nausea vomiting. no acute event overnight. waiting for neurology team recs today.Pending placement Review of Systems Review of Systems: fell earlier today. Exam Const: General: no acute distress HENMT: Mouth: Yes moist mucous membranes Eyes: Pupils: Equal, round and reactive pupils present EOM: EOMs intact bilaterally Neck: Neck: no JVD Lymphatic: lymphadenopathy not noted Resp: Auscultation: clear to auscultation bilaterally Cardio: Rate: regular rate Rhythm: regular rhythm GI: Inspection: non-distended Skin: General skin exam: normal color Neuro: Cranial nerves: Yes Equal, round and reactive pupils present Other: Bilateral upper lower extremity strength are 4/5 Extrem: General: edema bilateral Psych: Mental Status: mental status grossly normal Objective Data Vital Signs Vital Signs: Vital Signs - 24 hr 12/23/24 20:59 12/23/24 22:00 12/24/24 06:00 Temperature 97.4 F L 97.6 F Pulse Rate 69 65 Respiratory Rate 18 16 Blood Pressure 111/66 108/69 Pulse Oximetry 98 96 Oxygen Delivery Room Air 12/24/24 10:26 12/24/24 13:32 12/24/24 14:00 Temperature 98.2 F Pulse Rate 65 61 Respiratory Rate 18 Blood Pressure 105/60 Pulse Oximetry 100 Oxygen Delivery Room Air Intake/Output Intake/Output: Intake & Output 12/21/24 12/22/24 12/23/24 12/24/24 23:59 23:59 23:59 23:59 Intake Total 720 480 Output Total 75 1600 700 Balance -75 -850 -220 Meds/Results Medications: Active Medications Generic Name Dose Route Start Last Admin Trade Name Freq PRN Reason Stop Dose Admin Amlodipine Besylate 2.5 mg 12/23/24 09:00 12/24/24 10:26 Amlodipine Besylate 2.5 Mg Tablet PO 2.5 mg DAILY KYLEE Administration Amoxicillin/Clavulanate Potassium 1 tablet 12/23/24 09:00 12/24/24 10:25 Amoxicillin/Clavulanate K 875-125 Mg Tab PO 12/28/24 08:59 1 tablet Q12HR KYLEE Administration Apixaban 5 mg 12/23/24 09:00 12/24/24 10:25 Apixaban 5 Mg Tablet PO 5 mg Q12HR KYLEE Administration Ferrous Sulfate 325 mg 12/23/24 09:00 12/23/24 08:15 Ferrous Sulfate [address] PO 325 mg Q48HR KYLEE Administration Furosemide 40 mg 12/23/24 09:00 12/24/24 10:26 Furosemide 40 Mg Tablet PO 40 mg BID KYLEE Administration Gabapentin 300 mg 12/23/24 09:00 12/24/24 10:26 Gabapentin 300 Mg Capsule PO 300 mg DAILY KYLEE Administration Levothyroxine Sodium 112 mcg 12/23/24 06:30 12/24/24 05:38 Levothyroxine Sodium 112 Mcg Tablet PO 112 mcg DAILY@0630 KYLEE Administration Levothyroxine Sodium 25 mcg 12/23/24 06:30 12/24/24 05:38 Levothyroxine Sodium 25 Mcg Tablet PO 25 mcg DAILY@0630 KYLEE Administration Metoprolol Succinate 25 mg 12/23/24 09:00 12/24/24 10:26 Metoprolol Succinate Ext Rel 25 Mg Tabcr PO 25 mg QAM KYLEE Administration Mirtazapine 15 mg 12/23/24 09:00 12/24/24 10:26 Mirtazapine 15 Mg Tablet PO 15 mg DAILY KYLEE Administration Pantoprazole Sodium 40 mg 12/23/24 09:00 12/24/24 10:25 Pantoprazole 40 Mg Tablet PO 40 mg QAM KYLEE Administration Perflutren Lipid Microsphere 0 ml 12/23/24 03:43 Perflutren Lipid Microspheres 1.5 Ml Vial Diluted To 10 Ml Total Volume IV PUSH 12/26/24 03:44 ONCE PRN adequate visualization Protocol Polyethylene Glycol 17 gm 12/23/24 09:00 12/24/24 10:26 Polyethylene Glycol 3350 17 Gm Powd.Pack PO 17 gm QAM KYLEE Administration Spironolactone 12.5 mg 12/23/24 09:00 12/24/24 10:26 Spironolactone 12.5 Mg Tablet PO 12.5 mg QAM KYLEE Administration Tramadol HCl 25 mg 12/23/24 05:35 12/23/24 21:36 Tramadol Hcl (*Crx) 25 Mg Tablet PO 25 mg Q12H PRN Administration pain Radiology Results: ITS Impressions Head CT 12/22/24 20:49 Impression: No acute intracranial hemorrhage or suspicious mass effect. Chest X-Ray 12/22/24 20:58 IMPRESSION: Mild pulmonary vascular congestion, without focal infiltrate or effusion. Chest/Abdomen/Pelvis/Spine CT 12/23/24 09:00 IMPRESSION: 1. Recent-appearing T11 burst fracture with additional chronic T12-L2 burst fractures with change of prior vertebroplasty. 2. Minimal bibasilar pulmonary edema with small right pleural effusion. 2. Borderline heart size with biatrial enlargement. 4. Large amount of colonic stool which could be seen with constipation. 5. Small fat-containing right inguinal hernia and changes of prior left inguinal hernia repair. Labs Labs: Laboratory Results - last 24 hr 12/24/24 06:08 WBC 9.6 RBC 3.16 L Hgb 9.8 L Hct 33.1 L MCV 104.7 H MCH 31.0 MCHC 29.6 L RDW 15.7 H Plt Count 211 MPV 10.6 H Sodium 130 L Potassium 4.3 Chloride 98 Carbon Dioxide 27 Anion Gap 5 BUN 28 H Creatinine 0.91 Estim Creat Clear Calc 46 Estimated GFR > 60 Glucose 81 Calcium 8.8 Total Bilirubin 1.0 AST 35 ALT 19 Alkaline Phosphatase 80 Total Protein 7.0 Albumin 3.6
[2024-12-24 21:58] VITALS: BP 104/50; PULSE 59; RESP 16; TEMP 36.6; O2SAT 99
[2024-12-25] MEDS: LEVOTHYROXINE SODIUM 112 MCG TABLET PO (05:23)
[2024-12-25] MEDS: LEVOTHYROXINE SODIUM 25 MCG TABLET PO (05:23)
[2024-12-25 05:30] VITALS: BP 128/64; PULSE 59; RESP 17; TEMP 36.6; O2SAT 98
[2024-12-25 06:29] LABS: Hematocrit 35.8 % (42.0-52.0); Hemoglobin 11.2 g/dL (14.0-18.0); Mean Corpuscular HGB Conc 31.3 g/dl (32-36); Mean Corpuscular Hemoglobin 31.7 pg (26-34); Mean Corpuscular Volume 101.4 fl (80-100); Mean Platelet Volume 10.4 fl (7.4-10.4); Platelet Count Result 230 k/mm3 (150-375); Red Blood Count 3.53 M/mm3 (4.6-6.20); Red Cell Distribution Width 15.4 % (11.5-14.5); White Blood Count 10.1 K/mm3 (4.5-10.0)
[2024-12-25 06:54] LABS: Alanine Aminotransferase 19 U/L (6-50); Albumin Level 3.7 g/dL (3.5-5.1); Alkaline Phosphatase 82 U/L (38-126); Anion Gap 5 mmol/L (4-12); Aspartate Amino Transferase 30 U/L (17-59); Bilirubin,Total 0.9 mg/dL (0.2-1.3); Blood Urea Nitrogen 27 mg/dL (9-20); Calcium 8.8 mg/dL (8.4-10.2); Carbon Dioxide 30 mmol/L (22-30); Chloride 97 mmol/L (98-107); Estimated CRCL calculation 43 ml/min; Estimated Glomerular Filt Rate > 60; Glucose 92 mg/dL (65-110); Potassium 4.3 mmol/L (3.4-5.0); Sodium 132 mmol/L (137-145)
[2024-12-25 09:50] VITALS: PULSE 59
[2024-12-25] MEDS: METOPROLOL SUCCINATE EXT REL 25 MG TABCR PO (09:50)
[2024-12-25] MEDS: GABAPENTIN 300 MG CAPSULE PO (09:50)
[2024-12-25] MEDS: PANTOPRAZOLE 40 MG TABLET PO (09:51)
[2024-12-25] MEDS: amLODIPine BESYLATE 2.5 MG TABLET PO (09:51)
[2024-12-25] MEDS: FERROUS SULFATE 325 MG TABLET DR PO (09:51)
[2024-12-25] MEDS: MIRTAZAPINE 15 MG TABLET PO (09:51)
[2024-12-25] MEDS: SPIRONOLACTONE 12.5 MG TABLET PO (09:51)
[2024-12-25] MEDS: FUROSEMIDE 40 MG TABLET PO ×2 (09:51→17:30)
[2024-12-25] MEDS: APIXABAN 5 MG TABLET PO ×2 (09:51→20:34)
[2024-12-25] MEDS: polyethylene glycoL 3350 17 GM POWD.PACK PO (09:51)
[2024-12-25] MEDS: AMOXICILLIN/CLAVULANATE K 875-125 MG TAB 1 TABLET PO ×2 (09:51→20:34)
[2024-12-25 14:00] VITALS: BP 101/42; PULSE 59; RESP 18; TEMP 36.2; O2SAT 94
--- NOTE | 2024-12-25 17:48 | P.PNIM_ITS ---
Progress Note: A&P Assessment and Plan (1) Status post kyphoplasty: Code(s): Z98.890 - Other specified postprocedural states Status: Acute (2) Vertebral fracture: Status: Acute Assessment and Plan: p.r.n. pain medication gabapentin at bedtime (3) Cirrhosis: Code(s): K74.60 - Unspecified cirrhosis of liver Status: Acute Assessment and Plan: Hepatology as an outpatient (4) Congestive heart failure: Code(s): I50.9 - Heart failure, unspecified Status: Acute Assessment and Plan: Lasix 40 mg twice a day. was on Toprol XL 50 mg daily decreased to 25 mg on 09/06/2021. Spironolactone 100 mg daily (5) Pulmonary hypertension: Code(s): I27.20 - Pulmonary hypertension, unspecified Status: Acute (6) Macrocytic anemia: Code(s): D53.9 - Nutritional anemia, unspecified Status: Acute Assessment and Plan: iron (7) Hypothyroidism: Code(s): E03.9 - Hypothyroidism, unspecified Status: Acute Assessment and Plan: levothyroxine (8) Atrial fibrillation: Code(s): I48.91 - Unspecified atrial fibrillation Status: Acute Assessment and Plan: Eliquis 5 mg q.12 (9) Hypertension: Code(s): I10 - Essential (primary) hypertension Status: Acute Assessment and Plan: toprol (10) Transaminitis: Code(s): R74.01 - Elevation of levels of liver transaminase levels Status: Acute Assessment and Plan: Mild increase in LFTs on admission asymptomatic in a patient with history of cirrhosis. improved. (11) Metabolic encephalopathy: Code(s): G93.41 - Metabolic encephalopathy Status: Acute Assessment and Plan: possible delirium/ sundowning Neurology team on board Continue Augmentin for back wound/cellulitis (12) CHF exacerbation: Qualifiers: Heart failure type: diastolic Qualified Code(s): I50.33 - Acute on chronic diastolic (congestive) heart failure Code(s): I50.9 - Heart failure, unspecified Status: Chronic Assessment and Plan: elevated probnp LAsix, spironolactone Echo unremarkable (13) Compression fx, thoracic spine: Qualifiers: Encounter type: initial encounter Thoracic vertebra fracture level: T11 Qualified Code(s): S22.080A - Wedge compression fracture of T11-T12 vertebra, initial encounter for closed fracture Code(s): S22.000A - Wedge compression fracture of unspecified thoracic vertebra, initial encounter for closed fracture Status: Acute Plan Today patient appears to be more lucid states he continued to have back pain most likely secondary to fracture and kyphoplasty T11 area, seen by Neurology suspect patient's symptoms are stemming cervical spine injury, patient is now his baseline and clinically waiting for the placement. Subjective Date/time seen: 12/25/24 17:48 Interval history: per HPi: 84-year-old male with a past medical history of CHF, hypothyroidism, AFib, hypertension presented to the ED via EMS from [facility] with increased confusion for the past month.L3, L4, L5 nerve ablation performed by pain management at [facility] 4 days ago. He has an area of blanching erythema to his mid back which has been there for a while, but reportedly appears much worse than it has been. Wound Care will be consulted for stage II ulcer on thoracic spine area. Patient is a proBNP is elevated 7800. Echocardiogram will be performed in the a.m. in regards to acute on chronic fracture T12 neurosurgery was was consulted from the ED and no acute intervention recommended. Initially requested to transfer the patient to [facility] where his L3 and L4 ablation was performed but family did not want to transfer the patient. I called his son who reported patient had a similar episode of sudden change in mentation and was brought to [facility] 3 weeks ago where he was diagnosed with cholecystitis and his gallbladder was removed and the drainage was removed on December 12, 2024. After [facility] patient was transferred to [facility]. He also reported patient had urinary/fecal incontinence. MRI of the spine will be ordered. Neurology will be consulted and appreciate the recommendations. Patient is admitted in the setting of metabolic encephalopathy workup. 12/23/24 Patient was seen and examined at bedside. he is feeling fine. denies any chest pain abd pain nausea or vomiting. he is alert oriented except to the year. has wound and mild cellulitis on his back. wound care team on board . will continue IVABx for now. neurology team on board elevated proBNp, has bilateral leg edema. will continue LAsix. Nare MRSA positive 12/24/24 Patient was seen and examined at bedside. he is feeling fine, denies chest pain, SOB , abd pain, Nausea vomiting. no acute event overnight. waiting for neurology team recs today.Pending placement. Today patient appears to be more lucid states he continued to have back pain most likely secondary to fracture and kyphoplasty T11 area, seen by Neurology suspect patient's symptoms are stemming cervical spine injury, patient is now his baseline and clinically waiting for the placement. Review of Systems Review of Systems: fell earlier today. All systems reviewed & are unremarkable except as noted in HPI and below Exam Narrative: Elderly frail Patient is comfortable, NAD HEENT: eyes are clear and none icteric LUNGS:CTA HEART: RR S1S2 ABD: BS+, Soft and nontender Lower extremities: no edema SKIN: nonjaundiced Neuro: grossly intact. Objective Data Vital Signs Vital Signs: Vital Signs - 24 hr 12/24/24 20:00 12/24/24 21:58 12/25/24 05:30 Temperature 36.6 C 36.6 C Pulse Rate 59 L 59 L Respiratory Rate 16 17 Blood Pressure 104/50 L 128/64 Pulse Oximetry 99 98 Oxygen Delivery Room Air 12/25/24 09:50 12/25/24 09:51 12/25/24 13:24 Temperature Pulse Rate 59 L Respiratory Rate Blood Pressure Pulse Oximetry Oxygen Delivery Room Air Room Air 12/25/24 14:00 Temperature 36.2 C L Pulse Rate 59 L Respiratory Rate 18 Blood Pressure 101/42 L Pulse Oximetry 94 Oxygen Delivery Intake/Output Intake/Output: Intake & Output 12/22/24 12/23/24 12/24/24 12/25/24 23:59 23:59 23:59 23:59 Intake Total 720 720 720 Output Total 75 7831 1052 0052 Balance -75 -880 -330 -955 Meds/Results Medications: Active Medications Generic Name Dose Route Start Last Admin Trade Name Freq PRN Reason Stop Dose Admin Amlodipine Besylate 2.5 mg 12/23/24 09:00 12/25/24 09:51 Amlodipine Besylate 2.5 Mg Tablet PO 2.5 mg DAILY KYLEE Administration Amoxicillin/Clavulanate Potassium 1 tablet 12/23/24 09:00 12/25/24 09:51 Amoxicillin/Clavulanate K 875-125 Mg Tab PO 12/28/24 08:59 1 tablet Q12HR KYLEE Administration Apixaban 5 mg 12/23/24 09:00 12/25/24 09:51 Apixaban 5 Mg Tablet PO 5 mg Q12HR KYLEE Administration Ferrous Sulfate 325 mg 12/23/24 09:00 12/25/24 09:51 Ferrous Sulfate [address] PO 325 mg Q48HR KYLEE Administration Furosemide 40 mg 12/23/24 09:00 12/25/24 17:30 Furosemide 40 Mg Tablet PO 40 mg BID KYLEE Administration Gabapentin 300 mg 12/23/24 09:00 12/25/24 09:50 Gabapentin 300 Mg Capsule PO 300 mg DAILY KYLEE Administration Levothyroxine Sodium 112 mcg 12/23/24 06:30 12/25/24 05:23 Levothyroxine Sodium 112 Mcg Tablet PO 112 mcg DAILY@0630 KYLEE Administration Levothyroxine Sodium 25 mcg 12/23/24 06:30 12/25/24 05:23 Levothyroxine Sodium 25 Mcg Tablet PO 25 mcg DAILY@0630 KYLEE Administration Metoprolol Succinate 25 mg 12/23/24 09:00 12/25/24 09:50 Metoprolol Succinate Ext Rel 25 Mg Tabcr PO 25 mg QAM KYLEE Administration Mirtazapine 15 mg 12/23/24 09:00 12/25/24 09:51 Mirtazapine 15 Mg Tablet PO 15 mg DAILY KYLEE Administration Pantoprazole Sodium 40 mg 12/23/24 09:00 12/25/24 09:51 Pantoprazole 40 Mg Tablet PO 40 mg QAM KYLEE Administration Perflutren Lipid Microsphere 0 ml 12/23/24 03:43 Perflutren Lipid Microspheres 1.5 Ml Vial Diluted To 10 Ml Total Volume IV PUSH 12/26/24 03:44 ONCE PRN adequate visualization Protocol Polyethylene Glycol 17 gm 12/23/24 09:00 12/25/24 09:51 Polyethylene Glycol 3350 17 Gm Powd.Pack PO 17 gm QAM KYLEE Administration Spironolactone 12.5 mg 12/23/24 09:00 12/25/24 09:51 Spironolactone 12.5 Mg Tablet PO 12.5 mg QAM KYLEE Administration Tramadol HCl 25 mg 12/23/24 05:35 12/23/24 21:36 Tramadol Hcl (*Crx) 25 Mg Tablet PO 25 mg Q12H PRN Administration pain Radiology Results: ITS Impressions Head CT 12/22/24 20:49 Impression: No acute intracranial hemorrhage or suspicious mass effect. Chest X-Ray 12/22/24 20:58 IMPRESSION: Mild pulmonary vascular congestion, without focal infiltrate or effusion. Chest/Abdomen/Pelvis/Spine CT 12/23/24 09:00 IMPRESSION: 1. Recent-appearing T11 burst fracture with additional chronic T12-L2 burst fractures with change of prior vertebroplasty. 2. Minimal bibasilar pulmonary edema with small right pleural effusion. 2. Borderline heart size with biatrial enlargement. 4. Large amount of colonic stool which could be seen with constipation. 5. Small fat-containing right inguinal hernia and changes of prior left inguinal hernia repair. Labs Labs: Laboratory Results - last 24 hr 12/25/24 06:20 WBC 10.1 H RBC 3.53 L Hgb 11.2 L Hct 35.8 L MCV 101.4 H MCH 31.7 MCHC 31.3 L RDW 15.4 H Plt Count 230 MPV 10.4 Sodium 132 L Potassium 4.3 Chloride 97 L Carbon Dioxide 30 Anion Gap 5 BUN 27 H Creatinine 0.98 Estim Creat Clear Calc 43 Estimated GFR > 60 Glucose 92 Calcium 8.8 Total Bilirubin 0.9 AST 30 ALT 19 Alkaline Phosphatase 82 Total Protein 7.0 Albumin 3.7
[2024-12-25 20:00] VITALS: PULSE 59; RESP 18; O2SAT 94
[2024-12-25 22:00] VITALS: BP 115/76; PULSE 60; RESP 16; TEMP 36.4; O2SAT 100
[2024-12-26] MEDS: LEVOTHYROXINE SODIUM 25 MCG TABLET PO (05:30)
[2024-12-26] MEDS: LEVOTHYROXINE SODIUM 112 MCG TABLET PO (05:30)
[2024-12-26 06:00] VITALS: BP 118/72; PULSE 61; RESP 18; TEMP 36.6; O2SAT 98
[2024-12-26 07:11] LABS: Hematocrit 36.6 % (42.0-52.0); Hemoglobin 11.3 g/dL (14.0-18.0); Mean Corpuscular HGB Conc 30.9 g/dl (32-36); Mean Corpuscular Hemoglobin 31.2 pg (26-34); Mean Corpuscular Volume 101.1 fl (80-100); Mean Platelet Volume 10.3 fl (7.4-10.4); Platelet Count Result 234 k/mm3 (150-375); Red Blood Count 3.62 M/mm3 (4.6-6.20); Red Cell Distribution Width 15.2 % (11.5-14.5); White Blood Count 11.4 K/mm3 (4.5-10.0)
[2024-12-26 07:44] LABS: Anion Gap 6 mmol/L (4-12); Blood Urea Nitrogen 29 mg/dL (9-20); Calcium 9.1 mg/dL (8.4-10.2); Carbon Dioxide 26 mmol/L (22-30); Chloride 100 mmol/L (98-107); Estimated CRCL calculation 44 ml/min; Estimated Glomerular Filt Rate > 60; Glucose 97 mg/dL (65-110); Magnesium 2.3 mg/dL (1.6-2.3); Potassium 4.4 mmol/L (3.4-5.0); Sodium 132 mmol/L (137-145)
[2024-12-26 08:00] VITALS: PULSE 54; RESP 18; O2SAT 98
[2024-12-26] MEDS: APIXABAN 5 MG TABLET PO ×2 (08:29→21:45)
[2024-12-26] MEDS: FUROSEMIDE 40 MG TABLET PO ×2 (08:29→17:34)
[2024-12-26] MEDS: MIRTAZAPINE 15 MG TABLET PO (08:29)
[2024-12-26] MEDS: PANTOPRAZOLE 40 MG TABLET PO (08:30)
[2024-12-26] MEDS: SPIRONOLACTONE 12.5 MG TABLET PO (08:30)
[2024-12-26] MEDS: GABAPENTIN 300 MG CAPSULE PO (08:30)
[2024-12-26] MEDS: amLODIPine BESYLATE 2.5 MG TABLET PO (08:31)
[2024-12-26] MEDS: AMOXICILLIN/CLAVULANATE K 875-125 MG TAB 1 TABLET PO ×2 (08:31→21:45)
[2024-12-26 08:32] VITALS: PULSE 54
[2024-12-26 12:04] VITALS: O2SAT 98
--- NOTE | 2024-12-26 13:34 | PM.IMPN ---
Progress Note: A&P Assessment and Plan (1) Status post kyphoplasty: Code(s): Z98.890 - Other specified postprocedural states Status: Acute (2) Vertebral fracture: Status: Acute Assessment and Plan: p.r.n. pain medication gabapentin at bedtime (3) Cirrhosis: Code(s): K74.60 - Unspecified cirrhosis of liver Status: Acute Assessment and Plan: Hepatology as an outpatient (4) Congestive heart failure: Code(s): I50.9 - Heart failure, unspecified Status: Acute Assessment and Plan: Lasix 40 mg twice a day. was on Toprol XL 50 mg daily decreased to 25 mg on 09/06/2021. Spironolactone 100 mg daily (5) Pulmonary hypertension: Code(s): I27.20 - Pulmonary hypertension, unspecified Status: Acute (6) Macrocytic anemia: Code(s): D53.9 - Nutritional anemia, unspecified Status: Acute Assessment and Plan: iron (7) Hypothyroidism: Code(s): E03.9 - Hypothyroidism, unspecified Status: Acute Assessment and Plan: levothyroxine (8) Atrial fibrillation: Code(s): I48.91 - Unspecified atrial fibrillation Status: Acute Assessment and Plan: Eliquis 5 mg q.12 (9) Hypertension: Code(s): I10 - Essential (primary) hypertension Status: Acute Assessment and Plan: toprol (10) Transaminitis: Code(s): R74.01 - Elevation of levels of liver transaminase levels Status: Acute Assessment and Plan: Mild increase in LFTs on admission asymptomatic in a patient with history of cirrhosis. improved. (11) Metabolic encephalopathy: Code(s): G93.41 - Metabolic encephalopathy Status: Acute Assessment and Plan: possible delirium/ sundowning Neurology team on board Continue Augmentin for back wound/cellulitis (12) CHF exacerbation: Qualifiers: Heart failure type: diastolic Qualified Code(s): I50.33 - Acute on chronic diastolic (congestive) heart failure Code(s): I50.9 - Heart failure, unspecified Status: Chronic Assessment and Plan: elevated probnp LAsix, spironolactone Echo unremarkable (13) Compression fx, thoracic spine: Qualifiers: Encounter type: initial encounter Thoracic vertebra fracture level: T11 Qualified Code(s): S22.080A - Wedge compression fracture of T11-T12 vertebra, initial encounter for closed fracture Code(s): S22.000A - Wedge compression fracture of unspecified thoracic vertebra, initial encounter for closed fracture Status: Acute Plan Today patient appears to be more lucid states he continued to have back pain most likely secondary to fracture and kyphoplasty T11 area, seen by Neurology suspect patient's symptoms are stemming cervical spine injury, patient is now his baseline and clinically stable, has no new complaints, waiting for the placement. Subjective Date/time seen: 12/26/24 13:34 Interval history: per HPi: 84-year-old male with a past medical history of CHF, hypothyroidism, AFib, hypertension presented to the ED via EMS from [facility] with increased confusion for the past month.L3, L4, L5 nerve ablation performed by pain management at [facility] 4 days ago. He has an area of blanching erythema to his mid back which has been there for a while, but reportedly appears much worse than it has been. Wound Care will be consulted for stage II ulcer on thoracic spine area. Patient is a proBNP is elevated 7800. Echocardiogram will be performed in the a.m. in regards to acute on chronic fracture T12 neurosurgery was was consulted from the ED and no acute intervention recommended. Initially requested to transfer the patient to [facility] where his L3 and L4 ablation was performed but family did not want to transfer the patient. I called his son who reported patient had a similar episode of sudden change in mentation and was brought to [facility] 3 weeks ago where he was diagnosed with cholecystitis and his gallbladder was removed and the drainage was removed on December 12, 2024. After [facility] patient was transferred to [facility]. He also reported patient had urinary/fecal incontinence. MRI of the spine will be ordered. Neurology will be consulted and appreciate the recommendations. Patient is admitted in the setting of metabolic encephalopathy workup. 12/23/24 Patient was seen and examined at bedside. he is feeling fine. denies any chest pain abd pain nausea or vomiting. he is alert oriented except to the year. has wound and mild cellulitis on his back. wound care team on board . will continue IVABx for now. neurology team on board elevated proBNp, has bilateral leg edema. will continue LAsix. Nare MRSA positive 12/24/24 Patient was seen and examined at bedside. he is feeling fine, denies chest pain, SOB , abd pain, Nausea vomiting. no acute event overnight. waiting for neurology team recs today.Pending placement. Today patient appears to be more lucid states he continued to have back pain most likely secondary to fracture and kyphoplasty T11 area, seen by Neurology suspect patient's symptoms are stemming cervical spine injury, patient is now his baseline and clinically stable, has no new complaints, waiting for the placement. Review of Systems Review of Systems: fell earlier today. All systems reviewed & are unremarkable except as noted in HPI and below Exam Narrative: Elderly frail Patient is comfortable, NAD HEENT: eyes are clear and none icteric LUNGS:CTA HEART: RR S1S2 ABD: BS+, Soft and nontender Lower extremities: no edema SKIN: nonjaundiced Neuro: grossly intact. Objective Data Vital Signs Vital Signs: Vital Signs - 24 hr 12/25/24 14:00 12/25/24 20:00 12/25/24 22:00 Temperature 36.2 C L 36.4 C Pulse Rate 59 L 59 L 60 Respiratory Rate 18 18 16 Blood Pressure 101/42 L 115/76 Pulse Oximetry 94 94 100 Oxygen Delivery Room Air 12/26/24 06:00 12/26/24 08:00 12/26/24 08:32 Temperature 36.6 C Pulse Rate 61 54 L 54 L Respiratory Rate 18 18 Blood Pressure 118/72 Pulse Oximetry 98 98 Oxygen Delivery Room Air 12/26/24 12:04 Temperature Pulse Rate Respiratory Rate Blood Pressure Pulse Oximetry 98 Oxygen Delivery Room Air Intake/Output Intake/Output: Intake & Output 12/23/24 12/24/24 12/25/24 12/26/24 23:59 23:59 23:59 23:59 Intake Total 720 720 720 780 Output Total 1600 1050 2675 1300 Balance -880 -330 -1955 -520 Meds/Results Medications: Active Medications Generic Name Dose Route Start Last Admin Trade Name Freq PRN Reason Stop Dose Admin Amlodipine Besylate 2.5 mg 12/23/24 09:00 12/26/24 08:31 Amlodipine Besylate 2.5 Mg Tablet PO 2.5 mg DAILY KYLEE Administration Amoxicillin/Clavulanate Potassium 1 tablet 12/23/24 09:00 12/26/24 08:31 Amoxicillin/Clavulanate K 875-125 Mg Tab PO 12/28/24 08:59 1 tablet Q12HR KYLEE Administration Apixaban 5 mg 12/23/24 09:00 12/26/24 08:29 Apixaban 5 Mg Tablet PO 5 mg Q12HR KYLEE Administration Ferrous Sulfate 325 mg 12/23/24 09:00 12/25/24 09:51 Ferrous Sulfate [address] PO 325 mg Q48HR KYLEE Administration Furosemide 40 mg 12/23/24 09:00 12/26/24 08:29 Furosemide 40 Mg Tablet PO 40 mg BID KYLEE Administration Gabapentin 300 mg 12/23/24 09:00 12/26/24 08:30 Gabapentin 300 Mg Capsule PO 300 mg DAILY KYLEE Administration Levothyroxine Sodium 112 mcg 12/23/24 06:30 12/26/24 05:30 Levothyroxine Sodium 112 Mcg Tablet PO 112 mcg DAILY@0630 KYLEE Administration Levothyroxine Sodium 25 mcg 12/23/24 06:30 12/26/24 05:30 Levothyroxine Sodium 25 Mcg Tablet PO 25 mcg DAILY@0630 KYLEE Administration Metoprolol Succinate 25 mg 12/23/24 09:00 12/26/24 08:32 Metoprolol Succinate Ext Rel 25 Mg Tabcr PO Not Given [facility] [place] Mirtazapine 15 mg 12/23/24 09:00 12/26/24 08:29 Mirtazapine 15 Mg Tablet PO 15 mg DAILY KYLEE Administration Pantoprazole Sodium 40 mg 12/23/24 09:00 12/26/24 08:30 Pantoprazole 40 Mg Tablet PO 40 mg QAM KYLEE Administration Polyethylene Glycol 17 gm 12/23/24 09:00 12/26/24 08:31 Polyethylene Glycol 3350 17 Gm Powd.Pack PO Not Given QAM [facility] Spironolactone 12.5 mg 12/23/24 09:00 12/26/24 08:30 Spironolactone 12.5 Mg Tablet PO 12.5 mg QAM [facility] Administration Tramadol HCl 25 mg 12/23/24 05:35 12/23/24 21:36 Tramadol Hcl (*Crx) 25 Mg Tablet PO 25 mg Q12H PRN Administration pain Radiology Results: ITS Impressions Head CT 12/22/24 20:49 Impression: No acute intracranial hemorrhage or suspicious mass effect. Chest X-Ray 12/22/24 20:58 IMPRESSION: Mild pulmonary vascular congestion, without focal infiltrate or effusion. Chest/Abdomen/Pelvis/Spine CT 12/23/24 09:00 IMPRESSION: 1. Recent-appearing T11 burst fracture with additional chronic T12-L2 burst fractures with change of prior vertebroplasty. 2. Minimal bibasilar pulmonary edema with small right pleural effusion. 2. Borderline heart size with biatrial enlargement. 4. Large amount of colonic stool which could be seen with constipation. 5. Small fat-containing right inguinal hernia and changes of prior left inguinal hernia repair. Labs Labs: Laboratory Results - last 24 hr 12/26/24 07:03 WBC 11.4 H RBC 3.62 L Hgb 11.3 L Hct 36.6 L MCV 101.1 H MCH 31.2 MCHC 30.9 L RDW 15.2 H Plt Count 234 MPV 10.3 Sodium 132 L Potassium 4.4 Chloride 100 Carbon Dioxide 26 Anion Gap 6 BUN 29 H Creatinine 0.95 Estim Creat Clear Calc 44 Estimated GFR > 60 Glucose 97 Calcium 9.1 Magnesium 2.3
[2024-12-26 14:00] VITALS: BP 104/52; PULSE 57; RESP 18; TEMP 36.2; O2SAT 100
[2024-12-26 22:00] VITALS: BP 101/65; PULSE 60; RESP 20; TEMP 36.8; O2SAT 97
[2024-12-27 04:50] VITALS: BP 123/65; PULSE 61; RESP 18; TEMP 36.4; O2SAT 97
[2024-12-27] MEDS: LEVOTHYROXINE SODIUM 25 MCG TABLET PO (06:22)
[2024-12-27] MEDS: LEVOTHYROXINE SODIUM 112 MCG TABLET PO (06:22)
[2024-12-27 06:36] LABS: Hematocrit 39.7 % (42.0-52.0); Mean Corpuscular HGB Conc 30.2 g/dl (32-36); Mean Corpuscular Hemoglobin 31.3 pg (26-34); Mean Corpuscular Volume 103.7 fl (80-100); Mean Platelet Volume 10.5 fl (7.4-10.4); Platelet Count Result 229 k/mm3 (150-375); Red Blood Count 3.83 M/mm3 (4.6-6.20); Red Cell Distribution Width 15.3 % (11.5-14.5); White Blood Count 13.3 K/mm3 (4.5-10.0)
[2024-12-27 06:51] LABS: Anion Gap 9 mmol/L (4-12); Blood Urea Nitrogen 37 mg/dL (9-20); Calcium 9.4 mg/dL (8.4-10.2); Carbon Dioxide 28 mmol/L (22-30); Chloride 95 mmol/L (98-107); Estimated CRCL calculation 39 ml/min; Estimated Glomerular Filt Rate > 60; Glucose 84 mg/dL (65-110); Magnesium 2.6 mg/dL (1.6-2.3); Potassium 4.3 mmol/L (3.4-5.0); Sodium 132 mmol/L (137-145)
[2024-12-27] MEDS: METOPROLOL SUCCINATE EXT REL 25 MG TABCR PO (08:15)
[2024-12-27] MEDS: PANTOPRAZOLE 40 MG TABLET PO (08:15)
[2024-12-27] MEDS: amLODIPine BESYLATE 2.5 MG TABLET PO (08:15)
[2024-12-27] MEDS: GABAPENTIN 300 MG CAPSULE PO (08:15)
[2024-12-27] MEDS: SPIRONOLACTONE 12.5 MG TABLET PO (08:15)
[2024-12-27] MEDS: FERROUS SULFATE 325 MG TABLET DR PO (08:15)
[2024-12-27] MEDS: FUROSEMIDE 40 MG TABLET PO (08:15)
[2024-12-27] MEDS: APIXABAN 5 MG TABLET PO (08:15)
[2024-12-27] MEDS: MIRTAZAPINE 15 MG TABLET PO (08:15)
[2024-12-27] MEDS: AMOXICILLIN/CLAVULANATE K 875-125 MG TAB 1 TABLET PO (08:15)
[2024-12-27] MEDS: traMADol HCL (*CRX) 25 MG TABLET PO (11:00)
--- NOTE | 2024-12-27 11:06 | PCNFU ---
Nutrition Follow-Up Complete: Suboptimal po intake related to reduced appetite as evidenced by pt report PO intake 75% or greater Progressing Goal: Pt current nutrition is heart healthy diet, Ensure Enlive BID (350 kcal, 20 g protein). Nutrition recommendation: No new recommendations. Continue current nutrition care plan and orders. Agree with orders Last recorded weight is 63.8 kg. Bowel Motility: +1 12/26/24 Labs Reviewed: Hgb 12, Hct 39.7, Na 132, BUN 37 Meds Noted: Lasix, remeron, protonix Skin: Cellulitis; no pressure Additional Notes: Intakes improved to 100%. Diet is adequate. Agree with orders Monitor intake, wt, labs. Follow up in 5 days.
--- NOTE | 2024-12-27 11:08 | PM.DS ---
DS: Summary Time Spent with Patient Time attestation: Total time spent providing and/or coordinating discharge services: DS: Data Data Completed and Pending Labs on day of discharge: Labs from last 24 hours 12/27/24 06:03 WBC 13.3 H RBC 3.83 L Hgb 12.0 L Hct 39.7 L MCV 103.7 H MCH 31.3 MCHC 30.2 L RDW 15.3 H Plt Count 229 MPV 10.5 H Sodium 132 L Potassium 4.3 Chloride 95 L Carbon Dioxide 28 Anion Gap 9 BUN 37 H Creatinine 1.08 Estim Creat Clear Calc 39 Estimated GFR > 60 Glucose 84 Calcium 9.4 Magnesium 2.6 H Preliminary micro results at discharge 12/23/24 02:11 Blood Culture - Preliminary Blood Gram positive bacilli isolated 12/23/24 02:11 Blood Culture - Preliminary Blood Discharge Plan Discharge Attending physician on discharge: Elver Shen Consulting providers: Meir Baird Discharging Clinician: Quoc Guan Patient Disposition: NH Fpc/Asst Living Activity: as tolerated Diet: heart healthy Discharge Instructions: patient to follow up with his primary care provider as soon as possible. Patient Instructions: Antibiotic Form Patient Language: [place] Stand Alone Forms: General Discharge Information Follow-up/Referrals: Jim,Eliot Silver MD [Primary Care Provider] - Discharge Medications: New sulfamethoxazole-trimethoprim 800-160 mg Tablet 1 tab PO Q12HR Qty: 13 0RF Continued amlodipine 2.5 mg tablet 2.5 mg PO DAILY gabapentin 300 mg capsule 300 mg PO DAILY levothyroxine 137 mcg tablet 137 mcg PO DAILY@0630 mirtazapine 15 mg tablet 15 mg PO DAILY spironolactone 25 mg Tablet 12.5 mg PO QAM tramadol 50 mg tablet 25 mg PO Q12H PRN (Reason: pain) Qty: 10 0RF furosemide 40 mg Tablet 40 mg PO BID Qty: 0 0RF Patient Comments: 20mg daily polyethylene glycol 3350 [Miralax] 17 gram Powder In Packet 17 g PO QAM Qty: 0 0RF pantoprazole 40 mg Tablet,Delayed Release (Dr/Ec) 40 mg PO QAM Qty: 30 0RF levothyroxine [Synthroid] 150 mcg Tablet 150 mcg PO DAILY@0630 Qty: 0 0RF gabapentin 100 mg Capsule 100 mg PO BEDTIME Qty: 0 0RF metoprolol succinate [Toprol XL] 25 mg Tablet Extended Release 24 Hr 25 mg PO QAM Qty: 30 0RF ferrous sulfate 325 mg (65 mg iron) Tablet,Delayed Release (Dr/Ec) 325 mg PO Q48HR Qty: 0 0RF calcium carbonate-vitamin D3 [Oyster Shell Calcium-Vit D3] 500 mg-5 mcg (200 unit) Tablet 500 mg PO DAILY@0800 Qty: 0 0RF Eliquis 5 mg Tablet 5 mg PO Q12HR Qty: 0 0RF Patient Comments: 2.5mg bid Held spironolactone 25 mg Tablet 100 mg PO QAM Qty: 30 0RF Hold Instructions: until seen by his primary care Date of admission: 12/23/24 07:42 Primary Care Provider: Jim,Eliot Silver Admitting Provider: Chet Magana Attending physician on admission: Elver Shen Condition: Stable
[2024-12-27] MEDS: SULFAMETHOXAZOLE/TRIMETHOPRIM 800/160 MG DS TABLET 1 TAB PO (12:40)
== END 2024-12-27 14:35 | DRG 70 ==
LOC: ANHED 12-23 02:31 → ANH3MEDSUR 12-23 03:03
PROVIDERS: Internal Medicine; Admitting Provider General Practice; Emergency Provider Physician Assistant; PCP Internal Medicine Infectious Disease; Visit Provider Family Medicine
DX: G93.41 Metabolic encephalopathy (principal); I50.33 Acute on chronic diastolic (congestive) heart failure; S22.080A Wedge compression fracture of T11-T12 vertebra, initial encounter for closed fracture; L89.102 Pressure ulcer of unspecified part of back, stage 2; L03.312 Cellulitis of back [any part except buttock and flank]; D53.9 Nutritional anemia, unspecified; E03.9 Hypothyroidism, unspecified; I48.91 Unspecified atrial fibrillation; I27.20 Pulmonary hypertension, unspecified; I11.0 Hypertensive heart disease with heart failure; K74.60 Unspecified cirrhosis of liver; R15.9 Full incontinence of feces; R32 Unspecified urinary incontinence; Z87.891 Personal history of nicotine dependence; Z22.322 Carrier or suspected carrier of Methicillin resistant Staphylococcus aureus; Z95.0 Presence of cardiac pacemaker; Z79.01 Long term (current) use of anticoagulants
CPT/HCPCS: 36415; 70450; 71045; 71260; 72129; 72132; 74177; 80048; 80053; 81001; 82607; 82746; 83605; 83735; 83880; 84443; 84484; 85025; 85027; 85610; 85730; 86593; 87040; 87641; 93005; 93306; 96365; 96366; 96375; 97110; 97161; 97166; 97530; 97535; 99285; A9270; G0378; J1938; J3370; Q9967